=== PATIENT | female | born 1980 | race American Indian/Alaskan Native ===

== ENCOUNTER 2019-08-02 18:43 | Inpatient (IN) | payer OTHER ==
[2019-08-02] MEDS ORDERED: FAMOTIDINE 20 MG/2 ML INJ IV ONE (19:47)
[2019-08-02] MEDS ORDERED: ONDANSETRON 4 MG/2 ML INJ IV ONE (19:47)
[2019-08-02] MEDS ORDERED: SODIUM CHLORIDE 0.9% 1000 ML 1,000 ML IV ONE ×2 (19:47→20:58)
[2019-08-02] MEDS ORDERED: MORPHINE 4 MG/1 ML INJ IV ONE (19:48)
[2019-08-02 20:44] LABS: Hematocrit 45.6 % (30.3-42.9); Hemoglobin 14.8 gm/dl (10.1-14.3); Mean Corpuscular HGB Conc 32 % (30-34); Mean Corpuscular Volume 98 fl (79-97); Platelet Count 359 K/mm3 (140-440); Red Blood Count 4.65 M/mm3 (3.65-5.03); Red Cell Distribution Width 12.8 % (13.2-15.2)
[2019-08-02] MEDS ORDERED: DEXTROSE 50% IN WATER (25GM) 50 ML SYRINGE IV PRN (20:58)
--- NOTE | 2019-08-02 21:05 | Emergency Department Report ---
ED Abdominal Pain HPI - General Chief Complaint: Abdominal Pain Stated Complaint: N/V FOR 2 DAYS Time Seen by Provider: 08/02/19 19:40 Source: EMS Mode of arrival: Stretcher Limitations: No Limitations - History of Present Illness Initial Comments: 39-year-old female with past medical history of insulin-dependent diabetes and hysterectomy presents to the hospital complaining of abdominal pain, nausea, vomiting, and by mouth intolerance 2 days. Abdominal pain is generalized but greatest in the epigastric area. Patient states she has not had anything to eat or drink in 2 days. She complains of anterior sternal chest pain that is reproducible on palpation. Questionable insulin compliance. Severity scale (0 -10): 9 - Related Data Allergies Allergy/AdvReac Type Severity Reaction Status Date / Time No Known Allergies Allergy Unverified 08/02/19 19:30 ED Review of Systems ROS: Stated complaint: N/V FOR 2 DAYS Other details as noted in HPI Comment: All other systems reviewed and negative ED Past Medical Hx - Past Medical History Previous Medical History?: Yes Hx Diabetes: Yes - Surgical History Past Surgical History?: No - Social History Smoking Status: Unknown if ever smoked ED Physical Exam - General Limitations: No Limitations - Other Other exam information: General: Mild distress secondary to pain Head: Atraumatic Eyes: normal appearance ENT: 5 mucous membranes Neck: Normal appearance, no midline tenderness Chest: Clear to auscultation bilaterally,reproducible sternal chest wall tenderness CV: Mild tachycardia Abdomen: Soft, normal bowel sounds, epigastric tenderness, nondistended, no rebound or guarding Back: Normal inspection Extremity: Normal inspection infection, full range of motion Neuro: Alert O x 3, no facial asymmetry, speech clear, no gross motor sensory deficit Psych: Appropriate behavior Skin: No rash ED Course Vital Signs 08/02/19 08/02/19 08/02/19 19:20 19:28 19:30 Temperature 97.1 F L Pulse Rate 105 H 105 H Respiratory 26 H 20 20 Rate Blood Pressure 138/71 O2 Sat by Pulse 100 100 Oximetry 08/02/19 08/02/19 08/02/19 19:31 19:45 20:00 Temperature Pulse Rate 103 H 105 H 105 H Respiratory 24 22 32 H Rate Blood Pressure 124/87 124/87 124/87 O2 Sat by Pulse 99 99 99 Oximetry 08/02/19 08/02/19 08/02/19 20:15 20:31 20:45 Temperature Pulse Rate 94 H 95 H 96 H Respiratory 24 23 24 Rate Blood Pressure 135/81 103/64 103/64 O2 Sat by Pulse 97 100 100 Oximetry 08/02/19 21:00 Temperature Pulse Rate 96 H Respiratory 21 Rate Blood Pressure 128/84 O2 Sat by Pulse 99 Oximetry ED Medical Decision Making - Lab Data Result diagrams: 08/02/19 20:11 08/02/19 20:21 Lab Results 08/02/19 08/02/19 08/02/19 Range/Units 19:56 20:11 20:11 WBC 25.1 H (4.5-11.0) K/mm3 RBC 4.65 (3.65-5.03) M/mm3 Hgb 14.8 H (10.1-14.3) gm/dl Hct 45.6 H (30.3-42.9) % MCV 98 H (79-97) fl MCH 32 (28-32) pg MCHC 32 (30-34) % RDW 12.8 L (13.2-15.2) % Plt Count 359 (140-440) K/mm3 Add Manual Diff Complete Total Counted 100 Seg Neuts % (Manual) 83.0 H (40.0-70.0) % Band Neutrophils % 0 % Lymphocytes % (Manual) 10.0 L (13.4-35.0) % Reactive Lymphs % (Man) 0 % Monocytes % (Manual) 7.0 (0.0-7.3) % Eosinophils % (Manual) 0 (0.0-4.3) % Basophils % (Manual) 0 (0.0-1.8) % Metamyelocytes % 0 % Myelocytes % 0 % Promyelocytes % 0 % Blast Cells % 0 % Nucleated RBC % Not Reportable Seg Neutrophils # Man 20.8 H (1.8-7.7) K/mm3 Band Neutrophils # 0.0 K/mm3 Lymphocytes # (Manual) 2.5 (1.2-5.4) K/mm3 Abs React Lymphs (Man) 0.0 K/mm3 Monocytes # (Manual) 1.8 H (0.0-0.8) K/mm3 Eosinophils # (Manual) 0.0 (0.0-0.4) K/mm3 Basophils # (Manual) 0.0 (0.0-0.1) K/mm3 Metamyelocytes # 0.0 K/mm3 Myelocytes # 0.0 K/mm3 Promyelocytes # 0.0 K/mm3 Blast Cells # 0.0 K/mm3 WBC Morphology Not Reportable Hypersegmented Neuts Not Reportable Hyposegmented Neuts Not Reportable Hypogranular Neuts Not Reportable Smudge Cells Not Reportable Toxic Granulation Not Reportable Toxic Vacuolation Not Reportable Dohle Bodies Not Reportable Pelger-Huet Anomaly Not Reportable Avni Rods Not Reportable Platelet Estimate Not Reportable Clumped Platelets Not Reportable Plt Clumps, EDTA Not Reportable Large Platelets Not Reportable Giant Platelets Not Reportable Platelet Satelliting Not Reportable Plt Morphology Comment Not Reportable RBC Morphology Normal Dimorphic RBCs Not Reportable Polychromasia Not Reportable Hypochromasia Not Reportable Poikilocytosis Not Reportable Anisocytosis Not Reportable Microcytosis Not Reportable Macrocytosis Not Reportable Spherocytes Not Reportable Pappenheimer Bodies Not Reportable Sickle Cells Not Reportable Target Cells Not Reportable Tear Drop Cells Not Reportable Ovalocytes Not Reportable Helmet Cells Not Reportable Diaz-Central High Bodies Not Reportable Raymond Rings Not Reportable [place] Cells Not Reportable Bite Cells Not Reportable Crenated Cell Not Reportable Elliptocytes Not Reportable Acanthocytes (Spur) Not Reportable Rouleaux Not Reportable Hemoglobin C Crystals Not Reportable Schistocytes Not Reportable Malaria parasites Not Reportable Rivera Bodies Not Reportable Hem Pathologist Commnt No VBG pH (7.320-7.420) Sodium (137-145) mmol/L Potassium (3.6-5.0) mmol/L Chloride (98-107) mmol/L Carbon Dioxide (22-30) mmol/L Anion Gap mmol/L BUN (7-17) mg/dL Creatinine (0.7-1.2) mg/dL Estimated GFR ml/min BUN/Creatinine Ratio % Glucose (65-100) mg/dL POC Glucose 233 H (70-105) Calcium (8.4-10.2) mg/dL Total Bilirubin (0.1-1.2) mg/dL AST (5-40) units/L ALT (7-56) units/L Alkaline Phosphatase (35-129) units/L Troponin T (0.00-0.029) ng/mL Total Protein (6.3-8.2) g/dL Albumin (3.9-5) g/dL Albumin/Globulin Ratio % Lipase (13-60) units/L HCG, Qual Negative (Negative) Urine Color (Yellow) Urine Turbidity (Clear) Urine pH (5.0-7.0) Ur Specific [place] (1.003-1.030) Urine Protein (Negative) mg/dL Urine Glucose (UA) (Negative) mg/dL Urine Ketones (Negative) mg/dL Urine Blood (Negative) Urine Nitrite (Negative) Urine Bilirubin (Negative) Urine Urobilinogen (<2.0) mg/dL Ur Leukocyte Esterase (Negative) Urine WBC (Auto) (0.0-6.0) /HPF Urine RBC (Auto) (0.0-6.0) /HPF U Epithel Cells (Auto) (0-13.0) /HPF Urine Mucus /HPF Urine Yeast (Budding) /HPF 08/02/19 08/02/19 08/02/19 Range/Units 20:11 20:21 20:22 WBC (4.5-11.0) K/mm3 RBC (3.65-5.03) M/mm3 Hgb (10.1-14.3) gm/dl Hct (30.3-42.9) % MCV (79-97) fl MCH (28-32) pg MCHC (30-34) % RDW (13.2-15.2) % Plt Count (140-440) K/mm3 Add Manual Diff Total Counted Seg Neuts % (Manual) (40.0-70.0) % Band Neutrophils % % Lymphocytes % (Manual) (13.4-35.0) % Reactive Lymphs % (Man) % Monocytes % (Manual) (0.0-7.3) % Eosinophils % (Manual) (0.0-4.3) % Basophils % (Manual) (0.0-1.8) % Metamyelocytes % % Myelocytes % % Promyelocytes % % Blast Cells % % Nucleated RBC % Seg Neutrophils # Man (1.8-7.7) K/mm3 Band Neutrophils # K/mm3 Lymphocytes # (Manual) (1.2-5.4) K/mm3 Abs React Lymphs (Man) K/mm3 Monocytes # (Manual) (0.0-0.8) K/mm3 Eosinophils # (Manual) (0.0-0.4) K/mm3 Basophils # (Manual) (0.0-0.1) K/mm3 Metamyelocytes # K/mm3 Myelocytes # K/mm3 Promyelocytes # K/mm3 Blast Cells # K/mm3 WBC Morphology Hypersegmented Neuts Hyposegmented Neuts Hypogranular Neuts Smudge Cells Toxic Granulation Toxic Vacuolation Dohle Bodies Pelger-Huet Anomaly Avni Rods Platelet Estimate Clumped Platelets Plt Clumps, EDTA Large Platelets Giant Platelets Platelet Satelliting Plt Morphology Comment RBC Morphology Dimorphic RBCs Polychromasia Hypochromasia Poikilocytosis Anisocytosis Microcytosis Macrocytosis Spherocytes Pappenheimer Bodies Sickle Cells Target Cells Tear Drop Cells Ovalocytes Helmet Cells Diaz-Central High Bodies Raymond Rings [place] Cells Bite Cells Crenated Cell Elliptocytes Acanthocytes (Spur) Rouleaux Hemoglobin C Crystals Schistocytes Malaria parasites Rivera Bodies Hem Pathologist Commnt VBG pH 6.877 L* (7.320-7.420) Sodium 133 L (137-145) mmol/L Potassium 4.2 (3.6-5.0) mmol/L Chloride 103.9 (98-107) mmol/L Carbon Dioxide 13 L (22-30) mmol/L Anion Gap 20 mmol/L BUN 15 (7-17) mg/dL Creatinine 0.7 (0.7-1.2) mg/dL Estimated GFR > 60 ml/min BUN/Creatinine Ratio 21 % Glucose 306 H (65-100) mg/dL POC Glucose (70-105) Calcium 7.7 L (8.4-10.2) mg/dL Total Bilirubin 0.30 (0.1-1.2) mg/dL AST 14 (5-40) units/L ALT 14 (7-56) units/L Alkaline Phosphatase 89 (35-129) units/L Troponin T < 0.010 (0.00-0.029) ng/mL Total Protein 7.1 (6.3-8.2) g/dL Albumin 4.2 (3.9-5) g/dL Albumin/Globulin Ratio 1.4 % Lipase (13-60) units/L HCG, Qual (Negative) Urine Color (Yellow) Urine Turbidity (Clear) Urine pH (5.0-7.0) Ur Specific [place] (1.003-1.030) Urine Protein (Negative) mg/dL Urine Glucose (UA) (Negative) mg/dL Urine Ketones (Negative) mg/dL Urine Blood (Negative) Urine Nitrite (Negative) Urine Bilirubin (Negative) Urine Urobilinogen (<2.0) mg/dL Ur Leukocyte Esterase (Negative) Urine WBC (Auto) (0.0-6.0) /HPF Urine RBC (Auto) (0.0-6.0) /HPF U Epithel Cells (Auto) (0-13.0) /HPF Urine Mucus /HPF Urine Yeast (Budding) /HPF 08/02/19 08/02/19 08/02/19 Range/Units 20:23 21:53 21:54 WBC (4.5-11.0) K/mm3 RBC (3.65-5.03) M/mm3 Hgb (10.1-14.3) gm/dl Hct (30.3-42.9) % MCV (79-97) fl MCH (28-32) pg MCHC (30-34) % RDW (13.2-15.2) % Plt Count (140-440) K/mm3 Add Manual Diff Total Counted Seg Neuts % (Manual) (40.0-70.0) % Band Neutrophils % % Lymphocytes % (Manual) (13.4-35.0) % Reactive Lymphs % (Man) % Monocytes % (Manual) (0.0-7.3) % Eosinophils % (Manual) (0.0-4.3) % Basophils % (Manual) (0.0-1.8) % Metamyelocytes % % Myelocytes % % Promyelocytes % % Blast Cells % % Nucleated RBC % Seg Neutrophils # Man (1.8-7.7) K/mm3 Band Neutrophils # K/mm3 Lymphocytes # (Manual) (1.2-5.4) K/mm3 Abs React Lymphs (Man) K/mm3 Monocytes # (Manual) (0.0-0.8) K/mm3 Eosinophils # (Manual) (0.0-0.4) K/mm3 Basophils # (Manual) (0.0-0.1) K/mm3 Metamyelocytes # K/mm3 Myelocytes # K/mm3 Promyelocytes # K/mm3 Blast Cells # K/mm3 WBC Morphology Hypersegmented Neuts Hyposegmented Neuts Hypogranular Neuts Smudge Cells Toxic Granulation Toxic Vacuolation Dohle Bodies Pelger-Huet Anomaly Avni Rods Platelet Estimate Clumped Platelets Plt Clumps, EDTA Large Platelets Giant Platelets Platelet Satelliting Plt Morphology Comment RBC Morphology Dimorphic RBCs Polychromasia Hypochromasia Poikilocytosis Anisocytosis Microcytosis Macrocytosis Spherocytes Pappenheimer Bodies Sickle Cells Target Cells Tear Drop Cells Ovalocytes Helmet Cells Diaz-Central High Bodies Raymond Rings [place] Cells Bite Cells Crenated Cell Elliptocytes Acanthocytes (Spur) Rouleaux Hemoglobin C Crystals Schistocytes Malaria parasites Rivera Bodies Hem Pathologist Commnt VBG pH (7.320-7.420) Sodium (137-145) mmol/L Potassium (3.6-5.0) mmol/L Chloride (98-107) mmol/L Carbon Dioxide (22-30) mmol/L Anion Gap mmol/L BUN (7-17) mg/dL Creatinine (0.7-1.2) mg/dL Estimated GFR ml/min BUN/Creatinine Ratio % Glucose (65-100) mg/dL POC Glucose 237 H (70-105) Calcium (8.4-10.2) mg/dL Total Bilirubin (0.1-1.2) mg/dL AST (5-40) units/L ALT (7-56) units/L Alkaline Phosphatase (35-129) units/L Troponin T (0.00-0.029) ng/mL Total Protein (6.3-8.2) g/dL Albumin (3.9-5) g/dL Albumin/Globulin Ratio % Lipase 10 L (13-60) units/L HCG, Qual (Negative) Urine Color Straw (Yellow) Urine Turbidity Clear (Clear) Urine pH 5.0 (5.0-7.0) Ur Specific [place] 1.020 (1.003-1.030) Urine Protein 100 mg/dl (Negative) mg/dL Urine Glucose (UA) >=500 (Negative) mg/dL Urine Ketones 80 (Negative) mg/dL Urine Blood Sm (Negative) Urine Nitrite Neg (Negative) Urine Bilirubin Neg (Negative) Urine Urobilinogen < 2.0 (<2.0) mg/dL Ur Leukocyte Esterase Neg (Negative) Urine WBC (Auto) 1.0 (0.0-6.0) /HPF Urine RBC (Auto) 2.0 (0.0-6.0) /HPF U Epithel Cells (Auto) 2.0 (0-13.0) /HPF Urine Mucus Few /HPF Urine Yeast (Budding) Few /HPF - EKG Data -: EKG Interpreted by Me EKG shows normal: sinus rhythm (93), axis, ST-T waves (no stemi) Rate: normal (93) - Radiology Data Radiology results: report reviewed (ct a/p IV contrast: naf, distended urinary bladder) - Medical Decision Making Patient presents to the hospital with DKA. CT without acute findings. Chest x- ray pending Patient treated with normal saline, morphine, Zofran, Pepcid, and insulin drip ordered. hospitalist informed for admission. - Differential Diagnosis DKA, pancreatitis, gastroenteritis, GERD, costochondritis, [place] Critical Care Time: No Critical care attestation.: If time is entered above; I have spent that time in minutes in the direct care of this critically ill patient, excluding procedure time. ED Disposition Clinical Impression: DKA (diabetic ketoacidoses), Chest wall pain, Nausea & vomiting Disposition: DC-09 OP ADMIT IP TO THIS HOSP Is pt being admited?: Yes Condition: Stable Time of Disposition: 22:38 (Dr Cabrera/hosp)
[2019-08-02 21:09] LABS: Alanine Aminotransferase 14 units/L (7-56); Albumin 4.2 g/dL (3.9-5); BUN/Creatinine Ratio 21; Blood Urea Nitrogen 15 mg/dL (7-17); Calcium 7.7 mg/dL (8.4-10.2); Hemolysis Index 9
[2019-08-02] MEDS ORDERED: INSULIN REGULAR, HUMAN 100 UNITS in SODIUM CHLORIDE 0.9% 99 ML IV SCH (21:30)
[2019-08-02 22:03] LABS: Basophils % (Manual) 0 % (0.0-1.8); Eosinophils % (Manual) 0 % (0.0-4.3); RBC Morphology Normal; Total Cells Counted 100
--- NOTE | 2019-08-02 22:11 | Cat Scan Report ---
CT ABDOMEN AND PELVIS WITHOUT CONTRAST INDICATION: Upper abdominal pain with nausea and vomiting. Pelvic pain as well. COMPARISON: No relevant prior imaging study available. TECHNIQUE: Axial, coronal and sagittal CT imaging of the abdomen and pelvis was performed without co ntrast. Lack of intravenous contrast limits evaluation of the vascular and solid organs. All CT sca ns at this location are performed using CT dose reduction for ALARA by means of automated exposure co ntrol. FINDINGS: Motion artifact limits this exam. LOWER CHEST: No significant abnormality. LIVER: No significant abnormality. BILIARY: No significant abnormality. PANCREAS: No significant abnormality. SPLEEN: No significant abnormality. ADRENALS: No significant abnormality. KIDNEYS AND URETERS: No significant abnormality. GI TRACT: No significant abnormality of the stomach, small bowel or colon. Unremarkable appendix. PERITONEUM: No free fluid. No free air. No fluid collection. LYMPH NODES: No significant adenopathy. VASCULATURE: No significant abnormality. URINARY BLADDER: Markedly distended without an additional significant abnormality. REPRODUCTIVE ORGANS: Prior hysterectomy. No significant abnormality. ADDITIONAL FINDINGS: None. SKELETAL SYSTEM: No significant abnormality. IMPRESSION: 1. No acute abnormality of the abdomen or pelvis. 2. Nonspecific urinary bladder distention without an additional significant abnormality of the bladde r. Signer Name: Festus Goyal MD Signed: 08/02/2019 10:06 PM Workstation Name: [id number]
[2019-08-02] MEDS: D5W/0.45% NACL/KCL 20 MEQ 20 MEQ/1,000 ML BAG IV SCH (22:12)
[2019-08-02 22:18] LABS: Bilirubin,Urine NEG (Negative); Blood,Urine SM (Negative); Color,Urine Straw (Yellow); Mucus,Urine FEW /HPF; Urobilinogen,Urine < 2.0 mg/dL (<2.0)
--- NOTE | 2019-08-02 23:01 | XRay Report ---
CHEST 1 VIEW 08/02/2019 10:04 PM INDICATION / CLINICAL INFORMATION: anterior chest pain. COMPARISON: None available. FINDINGS: SUPPORT DEVICES: None. HEART / MEDIASTINUM: No significant abnormality. LUNGS / PLEURA: No significant pulmonary or pleural abnormality. No pneumothorax. ADDITIONAL FINDINGS: No significant additional findings. IMPRESSION: No acute abnormality of the chest. Signer Name: Festus Goyal MD Signed: 08/02/2019 10:56 PM Workstation Name: [id number]
[2019-08-02] MEDS ORDERED: ACETAMINOPHEN 650 MG RECT SUPP PR PRN (23:14)
[2019-08-02] MEDS ORDERED: SODIUM CHLORIDE 0.9% 1000 ML 1,000 ML IV SCH (23:45)
[2019-08-02 23:57] LABS: BUN/Creatinine Ratio 28; Blood Urea Nitrogen 17 mg/dL (7-17); Calcium 7.3 mg/dL (8.4-10.2); Hemolysis Index 23
[2019-08-03 01:25] LABS: BUN/Creatinine Ratio 27; Blood Urea Nitrogen 16 mg/dL (7-17); Calcium 7.1 mg/dL (8.4-10.2); Hemolysis Index 27
[2019-08-03] MEDS ORDERED: SODIUM BICARBONATE 150 MEQ in DEXTROSE 5% IN WATER 1,000 ML IV SCH (02:00)
[2019-08-03] MEDS ORDERED: SODIUM BICARBONATE 150 MEQ in SODIUM CHLORIDE 0.45% 1000 ML 1,000 ML IV SCH (02:00)
[2019-08-03 05:04] LABS: BUN/Creatinine Ratio 21; Blood Urea Nitrogen 15 mg/dL (7-17); Calcium 7.3 mg/dL (8.4-10.2); Hemolysis Index 129
[2019-08-03] MEDS ORDERED: CALCIUM GLUCONATE 1,000 MG in SODIUM CHLORIDE 0.9% 100 ML IV ONE (05:48)
[2019-08-03 06:27] LABS: Creatine Kinase MB 3.6 ng/mL (0.0-4.0)
[2019-08-03] MEDS: D5W/0.45% NACL/KCL 20 MEQ 20 MEQ/1,000 ML BAG IV SCH ×2 (06:35→14:46)
--- NOTE | 2019-08-03 08:43 | History and Physical Report ---
CHIEF COMPLAINT: Abdominal pain. OTHER COMPLAINT: Includes nausea and vomiting. HISTORY OF PRESENTING ILLNESS: The patient is a 39-year-old female who presented with nausea, vomiting and abdominal pain going on for 2 days. The patient did not give any history of missing out on her insulin shots. There was no history of fever and no history of chills; however, the patient complained of reproducible chest pain. There is no history of cough; however, the patient gives history of weakness and said that she has not been able to eat or drink anything in 2 days. PAST MEDICAL HISTORY: Pertinent for diabetes mellitus. PAST SURGICAL HISTORY: Unremarkable. FAMILY HISTORY: Noncontributory. SOCIAL HISTORY: The patient does not smoke, does not drink alcohol and does not use illicit drugs. MEDICATIONS: The patient's medications are not clearly defined; however, the patient says she is on insulin. ALLERGIES: There are no known drug allergies. REVIEW OF SYSTEMS: CONSTITUTIONAL: There is no fever, no chills, no diaphoresis. HEENT: There is no headache or sore throat. CARDIOVASCULAR SYSTEM: There is chest pain, but no orthopnea. RESPIRATORY SYSTEM: There is no shortness of breath or cough. GASTROINTESTINAL SYSTEM: Nausea and vomiting present. Abdominal pain present. There is no diarrhea or constipation. NEUROLOGICAL SYSTEM: Generalized weakness present. No numbness. Dizziness present. No altered mental status. MUSCULOSKELETAL SYSTEM: There is no joint pain or swelling. DERMATOLOGICAL SYSTEM: There is no skin rash or itching. GENITOURINARY SYSTEM: There is no dysuria, hematuria or flank pain. Rest of system review is normal. PHYSICAL EXAMINATION: GENERAL: At the time of exam, the patient was found to be alert, oriented x3 and looking weak, but not in acute distress. VITAL SIGNS: At the initial time of presentation showed temperature of 97.1 degrees Fahrenheit, pulse of 105, respirations 26, blood pressure 138/71, O2 sat of 100% on room air. HEENT: Showed pupils to be equal, round, reactive to light and accommodating. The patient's oral mucosa looks dry. NECK: Supple with no JVD or carotid bruit. CARDIOVASCULAR SYSTEM: Showed normal first and second heart sounds, with no gallops or murmurs. RESPIRATORY SYSTEM: Showed good air entry on both sides of the lungs, with no abnormal breath sounds. GASTROINTESTINAL SYSTEM: Showed abdomen to be full, soft, nontender, with no organomegaly or rigidity. NEUROLOGIC: Shows no focal deficit. MUSCULOSKELETAL SYSTEM: Showed no joint swelling or tenderness. DERMATOLOGICAL SYSTEM: Showing no skin rash. GENITOURINARY SYSTEM: Showing no costovertebral angle tenderness. PERTINENT LABORATORY AND IMAGING STUDIES: The patient had CT of the abdomen and pelvis without contrast done that shows no acute abnormality of the abdomen or pelvis. There is finding of nonspecific urinary bladder distention without an additional significant abnormality of the bladder, according to the radiologist. Also, the patient had chest x-ray done that shows no acute abnormality. The patient's lab result shows CBC with elevated white count of 25,100, high hemoglobin of 14.8 and high hematocrit of 47.6 with elevated MCV of 98, and CBC differential showing a high segmented neutrophil count of 83%. The patient's venous blood gas is low with a value of 6.87. The patient's chemistry showed low sodium level of 135 with elevated potassium level of 5.5 and high chloride level of 108.2 with low CO2 of 2 and with anion gap of 25. The patient's glucose level was high with a value of 307. The patient's calcium level was low with a value of 7.3. Also, the patient's lipase level was low with a value of 10. test came back negative. DIAGNOSES: 1. Diabetic ketoacidosis. 2. Hypocalcemia. 3. Leukocytosis. PLAN OF CARE: 1. The patient will be admitted to ICU. 2. The patient will continue IV normal saline after the boluses and this will run at 200 mL an hour until blood sugar is less than 250 mg/dL, and the patient's fluid will be changed from normal saline to D5 half normal with supplemental potassium of 20 mEq in 1 liter of fluid and this will run at 125 mL an hour. 3. The patient will have Accu-Chek every hour and basic metabolic panel checked every 2 hours and 8 hours per DKA protocol. 4. The patient will continue IV insulin drip per DKA protocol and will have critical care consult with Dr. chen because of ICU admission requiring insulin drip. 5. The patient will have serial cardiac enzymes involving troponin, total CK and CK-MB checked q. 6 hours x2 because of history of chest pain. 6. The patient will remain n.p.o. and will have Tylenol 650 mg rectally every 4 hours for fever and headache. 7. The patient will be on subcutaneous heparin 5000 units q. 12 hours for DVT prophylaxis and will be on IV morphine 2 mg every 4 hours as needed for pain. 8. The patient will be on IV Zofran 4 mg every 8 hours as needed for nausea and vomiting. 9. The patient will be on IV bicarbonate drip running at 100 mL an hour because of very low CO2. 10. The patient will have CBC checked this morning. 11. The patient will remain n.p.o. until DKA is corrected and the patient switched over to sliding scale, and then, the patient can feed on consistent carbohydrate 2-g sodium diet. JOB# [id number] [facility]
[2019-08-03 09:32] LABS: Hematocrit 41.2 % (30.3-42.9); Mean Corpuscular HGB Conc 34 % (30-34); Mean Corpuscular Volume 93 fl (79-97); Platelet Count 286 K/mm3 (140-440); Red Blood Count 4.45 M/mm3 (3.65-5.03); Red Cell Distribution Width 12.3 % (13.2-15.2)
[2019-08-03] MEDS: HEPARIN 5,000 UNIT/1 ML VIAL SUB-Q SCH ×2 (09:43→22:23)
--- NOTE | 2019-08-03 09:45 | Consultation ---
History of Present Illness Consult date: 08/03/19 Requesting physician: MARCUS PEREZ Reason for consult: other (DKA) History of present illness: 39-year-old female with past medical history of insulin-dependent diabetes and hysterectomy presents to the hospital complaining of abdominal pain, nausea, vomiting, and by mouth intolerance 2 days. Abdominal pain is generalized but greatest in the epigastric area. Patient states she has not had anything to eat or drink in 2 days. She complains of anterior sternal chest pain that is reproducible on palpation. She has been complaint with her medications, and she states her compliance has been so poor that she had new medications added to her therapy Patient was seen and examined. Vitals, labs,medications, chart were reviewed - Past Medical History Previous Medical History?: Yes Hx Diabetes: Yes - Surgical History Past Surgical History?: No - Social History Smoking Status: Unknown if ever smoked Medications and Allergies Allergies Allergy/AdvReac Type Severity Reaction Status Date / Time peach Allergy Hives Verified 08/05/19 09:15 Home Medications Medication Instructions Recorded Confirmed Last Taken Type Empagliflozin [Jardiance] 25 mg PO DAILY 08/03/19 08/05/19 08/01/19 07:30 History Insulin Lispro [Humalog Kwikpen 18 units SQ TID 08/03/19 08/05/19 08/05/19 09:12 History 200 UNITS/ML] Ozempic 0.25 mg SQ 1XW 08/05/19 08/05/19 07/31/19 History Active Meds: Active Medications Acetaminophen (Tylenol) 650 mg MA Q4H PRN PRN Reason: Pain, Mild (1-3) Dextrose (D50w (25gm) Syringe) 0 ml IV ONCE PRN PRN Reason: Hypoglycemia Heparin Sodium (Porcine) (Heparin) 5,000 unit SUB-Q Q12HR ANTONIO Last Admin: 08/03/19 09:43 Dose: 5,000 unit Documented by: Insulin Human Regular 100 (units/ Sodium Chloride) 100 mls @ 1 mls/hr IV TITR ANTONIO; Protocol Last Titration: 08/03/19 06:23 Dose: 1.5 units/hr, 1.5 mls/hr Documented by: Potassium Chloride/Dextrose/Sod Cl (D5w/0.45% Nacl/Kcl 20 Meq) 20 meq in 1,000 mls @ 125 mls/hr IV DIRECT ANTONIO Last Admin: 08/03/19 06:35 Dose: 125 mls/hr Documented by: Sodium Bicarbonate 150 meq/ (Sodium Chloride) 1,150 mls @ 100 mls/hr IV DIRECT ANTONIO Last Admin: 08/03/19 02:06 Dose: 100 mls/hr Documented by: Morphine Sulfate (Morphine) 2 mg IV Q4H PRN PRN Reason: Pain, Moderate (4-6) Ondansetron HCl (Zofran) 4 mg IV Q8H PRN PRN Reason: Nausea And Vomiting Review of Systems Constitutional: weight loss, weight gain, fever, chills Cardiovascular: chest pain, no orthopnea, no palpitations, no rapid/irregular heart beat, no syncope, no lightheadedness, no shortness of breath Respiratory: no cough, no excessive sputum, no hemoptysis, no dyspnea on exertion Gastrointestinal: abdominal pain, nausea, vomiting, no diarrhea, no change in bowel habits Genitourinary Female: no flank pain, no menorrhagia, no urinary frequency, no urgency, no hematuria Neurological: no paralysis, no weakness, no parathesias, no seizures, no syncope, no tremors, no ataxia Psychiatric: no anxiety, no insomnia, no hypersomnia Physical Examination Vital signs: Vital Signs Pulse Resp Pulse Ox 105 H 26 H 100 08/02/19 19:20 08/02/19 19:20 08/02/19 19:20 Reviewed. General: Mild distress secondary to pain, tachypnic Head: Atraumatic Eyes: normal appearance ENT: 5 mucous membranes Neck: Normal appearance, no midline tenderness Chest: Clear to auscultation bilaterally,reproducible sternal chest wall tenderness CV: Mild tachycardia Abdomen: Soft, normal bowel sounds, epigastric tenderness, nondistended, no rebound or guarding Back: Normal inspection Extremity: Normal inspection infection, full range of motion Neuro: Alert O x 3, no facial asymmetry, speech clear, no gross motor sensory deficit Psych: Appropriate behavior Skin: No rash Results - Laboratory Findings CBC and BMP: 08/05/19 04:46 08/05/19 04:46 Abnormal lab findings: Abnormal Labs 08/02/19 08/02/19 08/02/19 19:56 20:11 20:21 WBC 25.1 H Hgb 14.8 H Hct 45.6 H MCV 98 H RDW 12.8 L Seg Neuts % (Manual) 83.0 H Lymphocytes % (Manual) 10.0 L Seg Neutrophils # Man 20.8 H Monocytes # (Manual) 1.8 H VBG pH Sodium 133 L Potassium Chloride Carbon Dioxide 13 L Creatinine Glucose 306 H POC Glucose 233 H Calcium 7.7 L Lipase 08/02/19 08/02/19 08/02/19 20:22 20:23 21:54 WBC Hgb Hct MCV RDW Seg Neuts % (Manual) Lymphocytes % (Manual) Seg Neutrophils # Man Monocytes # (Manual) VBG pH 6.877 L* Sodium Potassium Chloride Carbon Dioxide Creatinine Glucose POC Glucose 237 H Calcium Lipase 10 L 08/02/19 08/02/19 08/02/19 23:02 23:12 23:57 WBC Hgb Hct MCV RDW Seg Neuts % (Manual) Lymphocytes % (Manual) Seg Neutrophils # Man Monocytes # (Manual) VBG pH Sodium 135 L Potassium 5.5 H D Chloride 108.2 H Carbon Dioxide 2 L* D Creatinine 0.6 L Glucose 307 H POC Glucose 244 H 255 H Calcium 7.3 L Lipase 08/03/19 08/03/19 08/03/19 00:34 01:04 02:17 WBC Hgb Hct MCV RDW Seg Neuts % (Manual) Lymphocytes % (Manual) Seg Neutrophils # Man Monocytes # (Manual) VBG pH Sodium 135 L Potassium Chloride 108.9 H Carbon Dioxide < 2.0 L* Creatinine 0.6 L Glucose 262 H POC Glucose 245 H 210 H Calcium 7.1 L Lipase 08/03/19 08/03/19 08/03/19 03:12 04:15 04:16 WBC Hgb Hct MCV RDW Seg Neuts % (Manual) Lymphocytes % (Manual) Seg Neutrophils # Man Monocytes # (Manual) VBG pH Sodium Potassium Chloride 113.9 H Carbon Dioxide 4 L* Creatinine Glucose 110 H POC Glucose 190 H 168 H Calcium 7.3 L Lipase 08/03/19 08/03/19 08/03/19 05:21 06:29 07:52 WBC Hgb Hct MCV RDW Seg Neuts % (Manual) Lymphocytes % (Manual) Seg Neutrophils # Man Monocytes # (Manual) VBG pH Sodium Potassium Chloride Carbon Dioxide Creatinine Glucose POC Glucose 113 H 108 H 108 H Calcium Lipase 08/03/19 08/03/19 08:43 09:50 WBC Hgb Hct MCV RDW Seg Neuts % (Manual) Lymphocytes % (Manual) Seg Neutrophils # Man Monocytes # (Manual) VBG pH Sodium Potassium Chloride Carbon Dioxide Creatinine Glucose POC Glucose 108 H 128 H Calcium Lipase Assessment and Plan DKA (diabetic ketoacidoses) Hypokalemia Severe Metabolic acidosis Leucocytosis -Continue with ICU admission -DKA management per protocol -VTE prophylaxis - Get ABG now to better evaluate acid-base balance -Volume resuscitation -Serial BMPs, Monitor closely. Further management decisions based on ABG results .... care plan discussed with patient and mother in room The high probability of a clinically significant, sudden or life-threatening deterioration of the [ endocrine] system(s) required my full and direct attention, intervention and personal management. The aggregate critical care time was [30] minutes without overlap. Time includes spent on; [x] Data Review and interpretation [x] Patient assessment and monitoring of vital signs [x] Documentation [x] Medication orders and management
[2019-08-03 09:52] LABS: BUN/Creatinine Ratio 18; Blood Urea Nitrogen 11 mg/dL (7-17); Calcium 7.7 mg/dL (8.4-10.2); Hemolysis Index 3
[2019-08-03] MEDS ORDERED: SODIUM CHLORIDE 0.9% 1000 ML 1,000 ML IV SCH (11:00)
[2019-08-03 12:02] LABS: Basophils % (Manual) 0 % (0.0-1.8); Eosinophils % (Manual) 0 % (0.0-4.3); Total Cells Counted 100
[2019-08-03 12:03] LABS: Platelet Estimate Consistent w Auto; RBC Morphology Normal
[2019-08-03 15:26] LABS: Creatine Kinase MB 4.8 ng/mL (0.0-4.0)
[2019-08-03 15:36] LABS: BUN/Creatinine Ratio 18; Blood Urea Nitrogen 9 mg/dL (7-17); Calcium 7.6 mg/dL (8.4-10.2); Hemolysis Index 8
[2019-08-03] MEDS: ONDANSETRON 4 MG/2 ML INJ IV PRN (17:12)
[2019-08-03] MEDS ORDERED: cefTRIAXone/NS 2 GM/100 ML 2 GM/100 ML BAG IV SCH (18:00)
[2019-08-03] MEDS: MORPHINE 2 MG/1 ML INJ IV PRN (19:05)
[2019-08-03] MEDS: POTASSIUM CHLORIDE 10 MEQ 10 MEQ/100 ML BAG IV SCH ×2 (20:30→22:23)
[2019-08-03 21:28] LABS: BUN/Creatinine Ratio 18; Blood Urea Nitrogen 9 mg/dL (7-17); Calcium 7.5 mg/dL (8.4-10.2); Hemolysis Index 37
[2019-08-03] MEDS: DEXTROSE 50% IN WATER (25GM) 50 ML SYRINGE IV PRN ×2 (21:30→23:03)
[2019-08-03] MEDS: INSULIN LISPRO 100 UNIT/ML SUB-Q SCH (22:23)
[2019-08-03 23:59] LABS: Alanine Aminotransferase 14 units/L (7-56); Albumin 3.5 g/dL (3.9-5); BUN/Creatinine Ratio 8; Blood Urea Nitrogen 5 mg/dL (7-17); Calcium 7.7 mg/dL (8.4-10.2); Hemolysis Index 6
[2019-08-04] MEDS ORDERED: POTASSIUM CHLORIDE ER 20 MEQ TAB PO ONE (01:21)
[2019-08-04] MEDS ORDERED: SODIUM CHLORIDE 0.9% 1000 ML 1,000 ML IV SCH (02:00)
[2019-08-04 02:18] LABS: ABG Base Excess -20.8 mmol/L (-2.0-3.0); ABG HCO3 4.4 mmol/L (20.0-26.0); ABG Methemoglobin 0.7 % (0.0-1.5); ABG PCO2 11.7 mm Hg; ABG PO2 122.5 mm Hg (80.0-90.0)
[2019-08-04 02:30] LABS: ABG PH 7.198 pH Units (7.350-7.450)
[2019-08-04] MEDS ORDERED: SODIUM CHLORIDE 0.9% 1000 ML 1,000 ML IV ONE (02:52)
[2019-08-04] MEDS: MORPHINE 2 MG/1 ML INJ IV PRN ×3 (04:26→21:28)
[2019-08-04 05:16] LABS: Hematocrit 41.4 % (30.3-42.9); Hemoglobin 14.1 gm/dl (10.1-14.3); Mean Corpuscular HGB Conc 34 % (30-34); Mean Corpuscular Volume 94 fl (79-97); Platelet Count 272 K/mm3 (140-440); Red Blood Count 4.41 M/mm3 (3.65-5.03); Red Cell Distribution Width 12.4 % (13.2-15.2)
[2019-08-04 05:30] LABS: BUN/Creatinine Ratio 8; Blood Urea Nitrogen 4 mg/dL (7-17); Calcium 7.6 mg/dL (8.4-10.2); Hemolysis Index 10
[2019-08-04] MEDS ORDERED: SODIUM BICARB 8.4% 50 MEQ/50 ML SYRINGE IV ONE (05:58)
[2019-08-04] MEDS ORDERED: NITROGLYCERIN 0.4 MG TAB SUBL SL PRN (06:17)
[2019-08-04] MEDS: ONDANSETRON 4 MG/2 ML INJ IV PRN (06:38)
[2019-08-04] MEDS ORDERED: ALUM-MAG HYDROXIDE-SIMETHICONE 200-200-20MG/5ML ORAL LIQD 30 ML PO ONE (06:43)
[2019-08-04 06:49] LABS: VBG PO2 51.9 (25.0-47.0); VEN PH 7.273 (7.320-7.420)
--- NOTE | 2019-08-04 06:54 | Progress Note ---
Assessment and Plan - Patient Problems (1) DKA (diabetic ketoacidoses) Current Visit: Yes Status: Acute Qualifiers: Diabetes mellitus type: type 1 Diabetes mellitus complication detail: without coma Qualified Code(s): E10.10 - Type 1 diabetes mellitus with ketoacidosis without coma Plan to address problem: DKA protocol Noncompliance--Counselled IV Insulin and IV fluids (2) Hypokalemia Current Visit: Yes Status: Acute Plan to address problem: Supplemented (3) Metabolic acidosis Current Visit: Yes Status: Acute Plan to address problem: Anion gap improving (4) DVT prophylaxis Current Visit: Yes Status: Acute Plan to address problem: On Lovenox and GI prophylaxis Subjective Date of service: 08/03/19 Principal diagnosis: DKA Interval history: 39-year-old female with past medical history of insulin-dependent diabetes and hysterectomy presents to the hospital complaining of abdominal pain, nausea, vomiting, and by mouth intolerance 2 days. Abdominal pain is generalized but greatest in the epigastric area. Patient states she has not had anything to eat or drink in 2 days. She complains of anterior sternal chest pain that is reproducible on palpation. Questionable insulin compliance. BG levels are better today. Less nausea Objective - Constitutional Vitals: Vital Signs - 12hr 08/03/19 08/03/19 08/03/19 19:00 19:05 19:07 Temperature Pulse Rate 108 H 110 H Pulse Rate [ From Monitor] Respiratory 21 20 18 Rate Blood Pressure 124/74 124/74 O2 Sat by Pulse 99 100 Oximetry 08/03/19 08/03/19 08/03/19 19:31 20:00 20:31 Temperature 98.9 F Pulse Rate 107 H 106 H 107 H Pulse Rate [ 111 H From Monitor] Respiratory 18 24 19 Rate Blood Pressure 119/76 120/78 120/78 O2 Sat by Pulse 99 100 95 Oximetry 08/03/19 08/03/19 08/03/19 21:00 21:31 22:00 Temperature Pulse Rate 107 H 114 H 112 H Pulse Rate [ From Monitor] Respiratory 15 14 17 Rate Blood Pressure 102/68 102/68 102/68 O2 Sat by Pulse 100 100 100 Oximetry 08/03/19 08/03/19 08/03/19 22:30 23:00 23:30 Temperature Pulse Rate 113 H 115 H 117 H Pulse Rate [ From Monitor] Respiratory 19 22 20 Rate Blood Pressure 112/64 114/68 114/68 O2 Sat by Pulse 100 100 100 Oximetry 08/04/19 08/04/19 08/04/19 00:00 00:30 01:00 Temperature 98.8 F Pulse Rate 116 H 112 H 113 H Pulse Rate [ 114 H From Monitor] Respiratory 22 19 20 Rate Blood Pressure 104/63 104/63 123/77 O2 Sat by Pulse 100 100 100 Oximetry 08/04/19 08/04/19 08/04/19 01:30 02:00 02:30 Temperature Pulse Rate 114 H 123 H 130 H Pulse Rate [ From Monitor] Respiratory 20 24 27 H Rate Blood Pressure 123/77 131/84 131/84 O2 Sat by Pulse 100 100 88 Oximetry 08/04/19 08/04/19 08/04/19 03:00 03:30 04:00 Temperature Pulse Rate 116 H 122 H 117 H Pulse Rate [ 115 H From Monitor] Respiratory 24 23 24 Rate Blood Pressure 109/69 109/69 125/80 O2 Sat by Pulse 100 100 100 Oximetry 08/04/19 04:17 Temperature 98.2 F Pulse Rate Pulse Rate [ From Monitor] Respiratory Rate Blood Pressure O2 Sat by Pulse Oximetry General appearance: Present: no acute distress, well-nourished - EENT Eyes: PERRL, EOM intact ENT: hearing intact, clear oral mucosa Ears: bilateral: normal - Neck Neck: supple, normal ROM - Respiratory Respiratory effort: normal Respiratory: bilateral: CTA - Breasts Breasts: normal - Cardiovascular Heart rate: 98 Rhythm: regular Heart Sounds: Present: S1 & S2. Absent: gallop, rub Extremities: no ischemia, pulses intact, No edema, normal color, Full ROM - Gastrointestinal General gastrointestinal: Present: soft, non-tender, non-distended, normal bowel sounds - Genitourinary Female genitourinary: deferred, normal - Integumentary Integumentary: clear, warm, dry - Musculoskeletal Musculoskeletal: 1, strength equal bilaterally - Neurologic Neurologic: moves all extremities - Psychiatric Psychiatric: memory intact, appropriate mood/affect, intact judgment & insight - Labs CBC & Chem 7: 08/04/19 04:47 08/04/19 04:47 Labs: Abnormal lab results 08/03/19 08/03/19 08/03/19 Range/Units 07:52 08:43 09:09 WBC 23.8 H (4.5-11.0) K/mm3 RDW 12.3 L (13.2-15.2) % Seg Neuts % (Manual) 84.0 H (40.0-70.0) % Lymphocytes % (Manual) 9.0 L (13.4-35.0) % Seg Neutrophils # Man 20.0 H (1.8-7.7) K/mm3 Monocytes # (Manual) 1.7 H (0.0-0.8) K/mm3 ABG pH (7.350-7.450) pH Units ABG pO2 (80.0-90.0) mm Hg ABG HCO3 (20.0-26.0) mmol/L ABG Base Excess (-2.0-3.0) mmol/L VBG pH (7.320-7.420) VBG pO2 (25.0-47.0) Sodium (137-145) mmol/L Potassium (3.6-5.0) mmol/L Chloride (98-107) mmol/L Carbon Dioxide (22-30) mmol/L BUN (7-17) mg/dL Creatinine (0.7-1.2) mg/dL Glucose (65-100) mg/dL POC Glucose 108 H 108 H (70-105) Calcium (8.4-10.2) mg/dL Total Creatine Kinase (30-135) units/L CK-MB (CK-2) (0.0-4.0) ng/mL Total Protein (6.3-8.2) g/dL Albumin (3.9-5) g/dL 08/03/19 08/03/19 08/03/19 Range/Units 09:09 09:50 11:38 WBC (4.5-11.0) K/mm3 RDW (13.2-15.2) % Seg Neuts % (Manual) (40.0-70.0) % Lymphocytes % (Manual) (13.4-35.0) % Seg Neutrophils # Man (1.8-7.7) K/mm3 Monocytes # (Manual) (0.0-0.8) K/mm3 ABG pH (7.350-7.450) pH Units ABG pO2 (80.0-90.0) mm Hg ABG HCO3 (20.0-26.0) mmol/L ABG Base Excess (-2.0-3.0) mmol/L VBG pH (7.320-7.420) VBG pO2 (25.0-47.0) Sodium (137-145) mmol/L Potassium (3.6-5.0) mmol/L Chloride 111.6 H (98-107) mmol/L Carbon Dioxide 8 L* (22-30) mmol/L BUN (7-17) mg/dL Creatinine 0.6 L (0.7-1.2) mg/dL Glucose 125 H (65-100) mg/dL POC Glucose 128 H 130 H (70-105) Calcium 7.7 L (8.4-10.2) mg/dL Total Creatine Kinase (30-135) units/L CK-MB (CK-2) (0.0-4.0) ng/mL Total Protein (6.3-8.2) g/dL Albumin (3.9-5) g/dL 08/03/19 08/03/19 08/03/19 Range/Units 12:35 13:17 14:06 WBC (4.5-11.0) K/mm3 RDW (13.2-15.2) % Seg Neuts % (Manual) (40.0-70.0) % Lymphocytes % (Manual) (13.4-35.0) % Seg Neutrophils # Man (1.8-7.7) K/mm3 Monocytes # (Manual) (0.0-0.8) K/mm3 ABG pH (7.350-7.450) pH Units ABG pO2 (80.0-90.0) mm Hg ABG HCO3 (20.0-26.0) mmol/L ABG Base Excess (-2.0-3.0) mmol/L VBG pH (7.320-7.420) VBG pO2 (25.0-47.0) Sodium (137-145) mmol/L Potassium (3.6-5.0) mmol/L Chloride (98-107) mmol/L Carbon Dioxide (22-30) mmol/L BUN (7-17) mg/dL Creatinine (0.7-1.2) mg/dL Glucose (65-100) mg/dL POC Glucose 126 H 132 H 135 H (70-105) Calcium (8.4-10.2) mg/dL Total Creatine Kinase (30-135) units/L CK-MB (CK-2) (0.0-4.0) ng/mL Total Protein (6.3-8.2) g/dL Albumin (3.9-5) g/dL 08/03/19 08/03/19 08/03/19 Range/Units 14:31 14:31 16:47 WBC (4.5-11.0) K/mm3 RDW (13.2-15.2) % Seg Neuts % (Manual) (40.0-70.0) % Lymphocytes % (Manual) (13.4-35.0) % Seg Neutrophils # Man (1.8-7.7) K/mm3 Monocytes # (Manual) (0.0-0.8) K/mm3 ABG pH (7.350-7.450) pH Units ABG pO2 (80.0-90.0) mm Hg ABG HCO3 (20.0-26.0) mmol/L ABG Base Excess (-2.0-3.0) mmol/L VBG pH (7.320-7.420) VBG pO2 (25.0-47.0) Sodium (137-145) mmol/L Potassium 3.2 L (3.6-5.0) mmol/L Chloride 113.0 H (98-107) mmol/L Carbon Dioxide 10 L (22-30) mmol/L BUN (7-17) mg/dL Creatinine 0.5 L (0.7-1.2) mg/dL Glucose 101 H (65-100) mg/dL POC Glucose 117 H (70-105) Calcium 7.6 L (8.4-10.2) mg/dL Total Creatine Kinase 161 H (30-135) units/L CK-MB (CK-2) 4.8 H (0.0-4.0) ng/mL Total Protein (6.3-8.2) g/dL Albumin (3.9-5) g/dL 08/03/19 08/03/19 08/03/19 Range/Units 17:46 19:53 21:00 WBC (4.5-11.0) K/mm3 RDW (13.2-15.2) % Seg Neuts % (Manual) (40.0-70.0) % Lymphocytes % (Manual) (13.4-35.0) % Seg Neutrophils # Man (1.8-7.7) K/mm3 Monocytes # (Manual) (0.0-0.8) K/mm3 ABG pH (7.350-7.450) pH Units ABG pO2 (80.0-90.0) mm Hg ABG HCO3 (20.0-26.0) mmol/L ABG Base Excess (-2.0-3.0) mmol/L VBG pH (7.320-7.420) VBG pO2 (25.0-47.0) Sodium (137-145) mmol/L Potassium (3.6-5.0) mmol/L Chloride 109.9 H (98-107) mmol/L Carbon Dioxide 8 L* (22-30) mmol/L BUN (7-17) mg/dL Creatinine 0.5 L (0.7-1.2) mg/dL Glucose 26 L* (65-100) mg/dL POC Glucose 110 H 116 H (70-105) Calcium 7.5 L (8.4-10.2) mg/dL Total Creatine Kinase (30-135) units/L CK-MB (CK-2) (0.0-4.0) ng/mL Total Protein (6.3-8.2) g/dL Albumin (3.9-5) g/dL 08/03/19 08/03/19 08/03/19 Range/Units 21:11 22:02 22:05 WBC (4.5-11.0) K/mm3 RDW (13.2-15.2) % Seg Neuts % (Manual) (40.0-70.0) % Lymphocytes % (Manual) (13.4-35.0) % Seg Neutrophils # Man (1.8-7.7) K/mm3 Monocytes # (Manual) (0.0-0.8) K/mm3 ABG pH (7.350-7.450) pH Units ABG pO2 (80.0-90.0) mm Hg ABG HCO3 (20.0-26.0) mmol/L ABG Base Excess (-2.0-3.0) mmol/L VBG pH (7.320-7.420) VBG pO2 (25.0-47.0) Sodium (137-145) mmol/L Potassium (3.6-5.0) mmol/L Chloride (98-107) mmol/L Carbon Dioxide (22-30) mmol/L BUN (7-17) mg/dL Creatinine (0.7-1.2) mg/dL Glucose 30 L* (65-100) mg/dL POC Glucose 118 H 132 H (70-105) Calcium (8.4-10.2) mg/dL Total Creatine Kinase (30-135) units/L CK-MB (CK-2) (0.0-4.0) ng/mL Total Protein (6.3-8.2) g/dL Albumin (3.9-5) g/dL 08/03/19 08/03/19 08/04/19 Range/Units 23:16 23:51 00:32 WBC (4.5-11.0) K/mm3 RDW (13.2-15.2) % Seg Neuts % (Manual) (40.0-70.0) % Lymphocytes % (Manual) (13.4-35.0) % Seg Neutrophils # Man (1.8-7.7) K/mm3 Monocytes # (Manual) (0.0-0.8) K/mm3 ABG pH (7.350-7.450) pH Units ABG pO2 (80.0-90.0) mm Hg ABG HCO3 (20.0-26.0) mmol/L ABG Base Excess (-2.0-3.0) mmol/L VBG pH (7.320-7.420) VBG pO2 (25.0-47.0) Sodium 136 L (137-145) mmol/L Potassium 3.4 L (3.6-5.0) mmol/L Chloride 107.3 H (98-107) mmol/L Carbon Dioxide 8 L* (22-30) mmol/L BUN 5 L (7-17) mg/dL Creatinine 0.6 L (0.7-1.2) mg/dL Glucose 357 H (65-100) mg/dL POC Glucose 294 H 270 H (70-105) Calcium 7.7 L (8.4-10.2) mg/dL Total Creatine Kinase (30-135) units/L CK-MB (CK-2) (0.0-4.0) ng/mL Total Protein 5.9 L (6.3-8.2) g/dL Albumin 3.5 L (3.9-5) g/dL 08/04/19 08/04/19 08/04/19 Range/Units 02:08 04:47 04:47 WBC 17.8 H (4.5-11.0) K/mm3 RDW 12.4 L (13.2-15.2) % Seg Neuts % (Manual) (40.0-70.0) % Lymphocytes % (Manual) (13.4-35.0) % Seg Neutrophils # Man (1.8-7.7) K/mm3 Monocytes # (Manual) (0.0-0.8) K/mm3 ABG pH 7.198 L* (7.350-7.450) pH Units ABG pO2 122.5 H (80.0-90.0) mm Hg ABG HCO3 4.4 L (20.0-26.0) mmol/L ABG Base Excess -20.8 L (-2.0-3.0) mmol/L VBG pH (7.320-7.420) VBG pO2 (25.0-47.0) Sodium (137-145) mmol/L Potassium (3.6-5.0) mmol/L Chloride 111.5 H (98-107) mmol/L Carbon Dioxide 4 L* (22-30) mmol/L BUN 4 L (7-17) mg/dL Creatinine 0.5 L (0.7-1.2) mg/dL Glucose 260 H (65-100) mg/dL POC Glucose (70-105) Calcium 7.6 L (8.4-10.2) mg/dL Total Creatine Kinase (30-135) units/L CK-MB (CK-2) (0.0-4.0) ng/mL Total Protein (6.3-8.2) g/dL Albumin (3.9-5) g/dL 08/04/19 Range/Units 06:19 WBC (4.5-11.0) K/mm3 RDW (13.2-15.2) % Seg Neuts % (Manual) (40.0-70.0) % Lymphocytes % (Manual) (13.4-35.0) % Seg Neutrophils # Man (1.8-7.7) K/mm3 Monocytes # (Manual) (0.0-0.8) K/mm3 ABG pH (7.350-7.450) pH Units ABG pO2 (80.0-90.0) mm Hg ABG HCO3 (20.0-26.0) mmol/L ABG Base Excess (-2.0-3.0) mmol/L VBG pH 7.273 L (7.320-7.420) VBG pO2 51.9 H (25.0-47.0) Sodium (137-145) mmol/L Potassium (3.6-5.0) mmol/L Chloride (98-107) mmol/L Carbon Dioxide (22-30) mmol/L BUN (7-17) mg/dL Creatinine (0.7-1.2) mg/dL Glucose (65-100) mg/dL POC Glucose (70-105) Calcium (8.4-10.2) mg/dL Total Creatine Kinase (30-135) units/L CK-MB (CK-2) (0.0-4.0) ng/mL Total Protein (6.3-8.2) g/dL Albumin (3.9-5) g/dL Short CBC 08/03/19 08/04/19 Range/Units 09:09 04:47 WBC 23.8 H 17.8 H (4.5-11.0) K/mm3 Hgb 14.0 14.1 (10.1-14.3) gm/dl Hct 41.2 41.4 (30.3-42.9) % Plt Count 286 272 (140-440) K/mm3 BMP 08/03/19 08/03/19 08/03/19 09:09 14:31 21:00 Sodium 137 139 137 Potassium 3.7 3.2 L 3.9 D Chloride 111.6 H 113.0 H 109.9 H Carbon Dioxide 8 L* 10 L 8 L* BUN 11 9 9 Creatinine 0.6 L 0.5 L 0.5 L Glucose 125 H 101 H 26 L* Calcium 7.7 L 7.6 L 7.5 L 08/03/19 08/03/19 08/04/19 22:05 23:16 04:47 Sodium 136 L 139 Potassium 3.4 L 3.7 Chloride 107.3 H 111.5 H Carbon Dioxide 8 L* 4 L* BUN 5 L 4 L Creatinine 0.6 L 0.5 L Glucose 30 L* 357 H 260 H Calcium 7.7 L 7.6 L Cardiac Enzymes 08/03/19 Range/Units 14:31 Total Creatine Kinase 161 H (30-135) units/L CK-MB (CK-2) 4.8 H (0.0-4.0) ng/mL Troponin T < 0.010 (0.00-0.029) ng/mL Liver Function 08/03/19 Range/Units 23:16 Total Bilirubin 0.30 (0.1-1.2) mg/dL AST 20 (5-40) units/L ALT 14 (7-56) units/L Alkaline Phosphatase 69 (35-129) units/L Albumin 3.5 L (3.9-5) g/dL - Imaging and cardiology Chest x-ray: report reviewed (NAF) CT scan - abdomen: report reviewed (NAF,Bladder distension)
[2019-08-04 07:13] LABS: Creatine Kinase MB 3.1 ng/mL (0.0-4.0)
--- NOTE | 2019-08-04 07:15 | XRay Report ---
CHEST 1 VIEW INDICATION: chest pain. COMPARISON: 2 days prior FINDINGS: Support devices: None. Heart: Within normal limits. Lungs/Pleura: No acute air space or interstitial disease. Additional findings: None. IMPRESSION: 1. No acute findings. Signer Name: Lui Beal MD Signed: 08/04/2019 7:10 AM Workstation Name: [id number]
--- NOTE | 2019-08-04 07:59 | Event Note ---
Date: 08/04/19 PATIENT NOTED TO BE LETTERGIC WITH BLOOD SUGAR IN THE 30'S. 2ND AMP OF D50W GIVEN I.V AFTER GLUCOSE LEVEL FELL AGAIN AND PATIENT BECAME MORE ALERT WITH ACUCHECK OF 250. PATIENT COMPLAINED OF CHEST PAIN, EKG SHOWED NO ACUTE STT ABNORMALITY. EXAM SHOWED VITALS WITH PULSE OF 120 , BP OF . PLAN: I.V N/SALINE WAS INCREASED FROM 100ML/HR TO 150ML/HR BLOOD FOR CARDIAC ENZYME DRAWN, NITRO SL GIVEN.
--- NOTE | 2019-08-04 08:25 | Event Note ---
Date: 08/04/19 In spite of hypoglycemia, the patient continues to have severe metabolic acidosis. This is not DKA. Lactic acid is normal. Patient started Ozempic last week, I suspect this is drug induced severe metabolic acidosis. Start bicarb infusion, asked Pharmacy to see if this can be reported as a severe adverse effect. Ozempic is a once weekly injection, so I anticipate she will need bicarbonate supplementation for a while. After bicrabonate infusion, may benefit from bicarb tabs for a few days. Discontinue antibiotics, no clinical indication that her leukocytosis is secondary to an infection. Update the patient, her mother at the bedside Discussed with RN and pharmacist.
[2019-08-04] MEDS: INSULIN LISPRO 100 UNIT/ML SUB-Q SCH ×4 (08:30→21:29)
[2019-08-04] MEDS: SODIUM BICARBONATE 150 MEQ in WATER FOR INJECTION (PF) 1,000 ML IV SCH ×2 (08:58→20:25)
[2019-08-04] MEDS ORDERED: SODIUM BICARBONATE 150 MEQ in WATER FOR INJECTION (PF) 1,000 ML IV ONE (09:00)
[2019-08-04] MEDS: HEPARIN 5,000 UNIT/1 ML VIAL SUB-Q SCH ×2 (09:01→21:28)
[2019-08-04] MEDS: PANTOPRAZOLE 40 MG TAB PO SCH ×2 (09:19→21:28)
--- NOTE | 2019-08-04 10:45 | Progress Note ---
Assessment and Plan DKA (diabetic ketoacidoses) Hypokalemia Severe Metabolic acidosis Leucocytosis - nephrology consult placed - stopped Ozempic - continue D5W with 3 amps NaGCO3/liter at 125 mls /hr - get lactate and Procalcitonin levels to evaluate for occult sepsis - prn BIPAP for increased work of breathing - prn albuterol - continue accuchecks with SSI for target BG < 180 mg/dl - continue GI & VTE prophylaxis - watch closely for S&S of sepsis - get blood cultures but follow clinically off AB's for now - mobility protocols for pressure ulcer prophylaxis - continue other care per attending / other lean consultant's ... re-evaluate in am & prn .... care plan discussed with patient and mother in room The high probability of a clinically significant, sudden or life-threatening deterioration of the [cardiac, renal and endocrine] system(s) required my full and direct attention, intervention and personal management. The aggregate crit ical care time was [34] minutes without overlap. Time includes spent on; [x] Data Review and interpretation [x] Patient assessment and monitoring of vital signs [x] Documentation [x] Medication orders and management Subjective Date of service: 08/04/19 Principal diagnosis: DKA; Hypokalemia; Severe Metabolic acidosis; Leucocytosis Interval history: Patient is seen today for: DKA (diabetic ketoacidoses); Hypokalemia; Severe Metabolic acidosis; Leucocytosis Seen and examined at bedside; 24hour events reviewed; nursing and respiratory care staff consulted; no adverse overnight events reported to me; resting peacefully in bed; persistent feeling of generalized malaise; tachycardic; denies chest pains or paklpitations; No N/V/F/C; + heartburn; sevre netabolic acidosis is persistent with serum bicarbonate of 4.0 Objective Vital Signs - 12hr 08/03/19 08/03/19 08/04/19 23:00 23:30 00:00 Temperature 98.8 F Pulse Rate 115 H 117 H 116 H Pulse Rate [ 114 H From Monitor] Respiratory 22 20 22 Rate Blood Pressure 114/68 114/68 104/63 O2 Sat by Pulse 100 100 100 Oximetry 08/04/19 08/04/19 08/04/19 00:30 01:00 01:30 Temperature Pulse Rate 112 H 113 H 114 H Pulse Rate [ From Monitor] Respiratory 19 20 20 Rate Blood Pressure 104/63 123/77 123/77 O2 Sat by Pulse 100 100 100 Oximetry 08/04/19 08/04/19 08/04/19 02:00 02:30 03:00 Temperature Pulse Rate 123 H 130 H 116 H Pulse Rate [ From Monitor] Respiratory 24 27 H 24 Rate Blood Pressure 131/84 131/84 109/69 O2 Sat by Pulse 100 88 100 Oximetry 08/04/19 08/04/19 08/04/19 03:30 04:00 04:17 Temperature 98.2 F Pulse Rate 122 H 117 H Pulse Rate [ 115 H From Monitor] Respiratory 23 24 Rate Blood Pressure 109/69 125/80 O2 Sat by Pulse 100 100 Oximetry 08/04/19 08/04/19 08/04/19 04:30 05:00 05:30 Temperature Pulse Rate 120 H 125 H 124 H Pulse Rate [ From Monitor] Respiratory 25 H 26 H 28 H Rate Blood Pressure 125/80 116/71 116/71 O2 Sat by Pulse 100 100 100 Oximetry 08/04/19 08/04/19 08/04/19 06:00 06:30 07:00 Temperature Pulse Rate 131 H 128 H 124 H Pulse Rate [ From Monitor] Respiratory 30 H 26 H 18 Rate Blood Pressure 136/81 153/89 153/89 O2 Sat by Pulse 98 100 100 Oximetry 08/04/19 08/04/19 08/04/19 07:30 08:00 08:03 Temperature 97.7 F Pulse Rate 122 H 126 H 120 H Pulse Rate [ 126 H From Monitor] Respiratory 23 31 H Rate Blood Pressure 129/67 131/71 O2 Sat by Pulse 100 100 Oximetry 08/04/19 08/04/19 08/04/19 08:30 09:00 09:30 Temperature Pulse Rate 128 H 128 H 128 H Pulse Rate [ From Monitor] Respiratory 23 32 H 33 H Rate Blood Pressure 131/71 137/72 131/71 O2 Sat by Pulse 100 99 100 Oximetry 08/04/19 10:00 Temperature Pulse Rate Pulse Rate [ From Monitor] Respiratory Rate Blood Pressure 131/71 O2 Sat by Pulse 100 Oximetry Constitutional: appears uncomfortable, other (young AAF normocephalica nd atraumatic with moderately increased respiratory effort at rest) Eyes: non-icteric ENT: oropharynx moist, other (mallampati 2) Neck: supple, no lymphadenopathy, no JVD Effort: mildly labored Ascultation: Bilateral: clear, diminished breath sounds Percussion: Bilateral: not dull Cardiovascular: regular rate and rhythm Gastrointestinal: normoactive bowel sounds, soft, non-tender, non-distended Integumentary: normal Extremities: no cyanosis, no edema, pulses normal, no ischemia or petechiae Neurologic: normal mental status, non-focal exam, pupils equal and round, CN II- XII normal, motor strength normal and Psychiatric: anxious CBC and BMP: 08/04/19 04:47 08/04/19 04:47 ABG, PT/INR, D-dimer: ABG ABG pH 7.198 pH Units (7.350-7.450) L* 08/04/19 02:08 ABG pCO2 11.7 mm Hg 08/04/19 02:08 ABG pO2 122.5 mm Hg (80.0-90.0) H 08/04/19 02:08 ABG O2 Saturation 98.0 % (95.0-99.0) 08/04/19 02:08 Abnormal lab findings: Abnormal Labs 08/02/19 08/02/19 08/02/19 19:56 20:11 20:21 WBC 25.1 H Hgb 14.8 H Hct 45.6 H MCV 98 H RDW 12.8 L Seg Neuts % (Manual) 83.0 H Lymphocytes % (Manual) 10.0 L Seg Neutrophils # Man 20.8 H Monocytes # (Manual) 1.8 H ABG pH ABG pO2 ABG HCO3 ABG Base Excess VBG pH VBG pO2 Sodium 133 L Potassium Chloride Carbon Dioxide 13 L BUN Creatinine Glucose 306 H POC Glucose 233 H Calcium 7.7 L Total Creatine Kinase CK-MB (CK-2) Total Protein Albumin Lipase 08/02/19 08/02/19 08/02/19 20:22 20:23 21:54 WBC Hgb Hct MCV RDW Seg Neuts % (Manual) Lymphocytes % (Manual) Seg Neutrophils # Man Monocytes # (Manual) ABG pH ABG pO2 ABG HCO3 ABG Base Excess VBG pH 6.877 L* VBG pO2 Sodium Potassium Chloride Carbon Dioxide BUN Creatinine Glucose POC Glucose 237 H Calcium Total Creatine Kinase CK-MB (CK-2) Total Protein Albumin Lipase 10 L 1008/02/19 08/02/19 23:02 23:12 23:57 WBC Hgb Hct MCV RDW Seg Neuts % (Manual) Lymphocytes % (Manual) Seg Neutrophils # Man Monocytes # (Manual) ABG pH ABG pO2 ABG HCO3 ABG Base Excess VBG pH VBG pO2 Sodium 135 L Potassium 5.5 H D Chloride 108.2 H Carbon Dioxide 2 L* D BUN Creatinine 0.6 L Glucose 307 H POC Glucose 244 H 255 H Calcium 7.3 L Total Creatine Kinase CK-MB (CK-2) Total Protein Albumin Lipase 08/03/19 08/03/19 08/03/19 00:34 01:04 02:17 WBC Hgb Hct MCV RDW Seg Neuts % (Manual) Lymphocytes % (Manual) Seg Neutrophils # Man Monocytes # (Manual) ABG pH ABG pO2 ABG HCO3 ABG Base Excess VBG pH VBG pO2 Sodium 135 L Potassium Chloride 108.9 H Carbon Dioxide < 2.0 L* BUN Creatinine 0.6 L Glucose 262 H POC Glucose 245 H 210 H Calcium 7.1 L Total Creatine Kinase CK-MB (CK-2) Total Protein Albumin Lipase 08/03/19 08/03/19 08/03/19 03:12 04:15 04:16 WBC Hgb Hct MCV RDW Seg Neuts % (Manual) Lymphocytes % (Manual) Seg Neutrophils # Man Monocytes # (Manual) ABG pH ABG pO2 ABG HCO3 ABG Base Excess VBG pH VBG pO2 Sodium Potassium Chloride 113.9 H Carbon Dioxide 4 L* BUN Creatinine Glucose 110 H POC Glucose 190 H 168 H Calcium 7.3 L Total Creatine Kinase CK-MB (CK-2) Total Protein Albumin Lipase 08/03/19 08/03/19 08/03/19 05:21 06:29 07:52 WBC Hgb Hct MCV RDW Seg Neuts % (Manual) Lymphocytes % (Manual) Seg Neutrophils # Man Monocytes # (Manual) ABG pH ABG pO2 ABG HCO3 ABG Base Excess VBG pH VBG pO2 Sodium Potassium Chloride Carbon Dioxide BUN Creatinine Glucose POC Glucose 113 H 108 H 108 H Calcium Total Creatine Kinase CK-MB (CK-2) Total Protein Albumin Lipase 08/03/19 08/03/19 08/03/19 08:43 09:09 09:09 WBC 23.8 H Hgb Hct MCV RDW 12.3 L Seg Neuts % (Manual) 84.0 H Lymphocytes % (Manual) 9.0 L Seg Neutrophils # Man 20.0 H Monocytes # (Manual) 1.7 H ABG pH ABG pO2 ABG HCO3 ABG Base Excess VBG pH VBG pO2 Sodium Potassium Chloride 111.6 H Carbon Dioxide 8 L* BUN Creatinine 0.6 L Glucose 125 H POC Glucose 108 H Calcium 7.7 L Total Creatine Kinase CK-MB (CK-2) Total Protein Albumin Lipase 08/03/19 08/03/19 08/03/19 09:50 11:38 12:35 WBC Hgb Hct MCV RDW Seg Neuts % (Manual) Lymphocytes % (Manual) Seg Neutrophils # Man Monocytes # (Manual) ABG pH ABG pO2 ABG HCO3 ABG Base Excess VBG pH VBG pO2 Sodium Potassium Chloride Carbon Dioxide BUN Creatinine Glucose POC Glucose 128 H 130 H 126 H Calcium Total Creatine Kinase CK-MB (CK-2) Total Protein Albumin Lipase 08/03/19 08/03/19 08/03/19 13:17 14:06 14:31 WBC Hgb Hct MCV RDW Seg Neuts % (Manual) Lymphocytes % (Manual) Seg Neutrophils # Man Monocytes # (Manual) ABG pH ABG pO2 ABG HCO3 ABG Base Excess VBG pH VBG pO2 Sodium Potassium 3.2 L Chloride 113.0 H Carbon Dioxide 10 L BUN Creatinine 0.5 L Glucose 101 H POC Glucose 132 H 135 H Calcium 7.6 L Total Creatine Kinase CK-MB (CK-2) Total Protein Albumin Lipase 08/03/19 08/03/19 08/03/19 14:31 16:47 17:46 WBC Hgb Hct MCV RDW Seg Neuts % (Manual) Lymphocytes % (Manual) Seg Neutrophils # Man Monocytes # (Manual) ABG pH ABG pO2 ABG HCO3 ABG Base Excess VBG pH VBG pO2 Sodium Potassium Chloride Carbon Dioxide BUN Creatinine Glucose POC Glucose 117 H 110 H Calcium Total Creatine Kinase 161 H CK-MB (CK-2) 4.8 H Total Protein Albumin Lipase 08/03/19 08/03/19 08/03/19 19:53 21:00 21:11 WBC Hgb Hct MCV RDW Seg Neuts % (Manual) Lymphocytes % (Manual) Seg Neutrophils # Man Monocytes # (Manual) ABG pH ABG pO2 ABG HCO3 ABG Base Excess VBG pH VBG pO2 Sodium Potassium Chloride 109.9 H Carbon Dioxide 8 L* BUN Creatinine 0.5 L Glucose 26 L* POC Glucose 116 H 118 H Calcium 7.5 L Total Creatine Kinase CK-MB (CK-2) Total Protein Albumin Lipase 08/03/19 08/03/19 08/03/19 22:02 22:05 23:16 WBC Hgb Hct MCV RDW Seg Neuts % (Manual) Lymphocytes % (Manual) Seg Neutrophils # Man Monocytes # (Manual) ABG pH ABG pO2 ABG HCO3 ABG Base Excess VBG pH VBG pO2 Sodium 136 L Potassium 3.4 L Chloride 107.3 H Carbon Dioxide 8 L* BUN 5 L Creatinine 0.6 L Glucose 30 L* 357 H POC Glucose 132 H Calcium 7.7 L Total Creatine Kinase CK-MB (CK-2) Total Protein 5.9 L Albumin 3.5 L Lipase 08/03/19 08/04/19 08/04/19 23:51 00:32 02:08 WBC Hgb Hct MCV RDW Seg Neuts % (Manual) Lymphocytes % (Manual) Seg Neutrophils # Man Monocytes # (Manual) ABG pH 7.198 L* ABG pO2 122.5 H ABG HCO3 4.4 L ABG Base Excess -20.8 L VBG pH VBG pO2 Sodium Potassium Chloride Carbon Dioxide BUN Creatinine Glucose POC Glucose 294 H 270 H Calcium Total Creatine Kinase CK-MB (CK-2) Total Protein Albumin Lipase 08/04/19 08/04/19 08/04/19 04:47 04:47 06:19 WBC 17.8 H Hgb Hct MCV RDW 12.4 L Seg Neuts % (Manual) Lymphocytes % (Manual) Seg Neutrophils # Man Monocytes # (Manual) ABG pH ABG pO2 ABG HCO3 ABG Base Excess VBG pH 7.273 L VBG pO2 51.9 H Sodium Potassium Chloride 111.5 H Carbon Dioxide 4 L* BUN 4 L Creatinine 0.5 L Glucose 260 H POC Glucose Calcium 7.6 L Total Creatine Kinase CK-MB (CK-2) Total Protein Albumin Lipase 08/04/19 08/04/19 08/04/19 06:20 06:25 06:37 WBC Hgb Hct MCV RDW Seg Neuts % (Manual) Lymphocytes % (Manual) Seg Neutrophils # Man Monocytes # (Manual) ABG pH ABG pO2 ABG HCO3 ABG Base Excess VBG pH VBG pO2 Sodium Potassium Chloride Carbon Dioxide BUN Creatinine Glucose POC Glucose 231 H 250 H Calcium Total Creatine Kinase 137 H CK-MB (CK-2) Total Protein Albumin Lipase 08/04/19 07:42 WBC Hgb Hct MCV RDW Seg Neuts % (Manual) Lymphocytes % (Manual) Seg Neutrophils # Man Monocytes # (Manual) ABG pH ABG pO2 ABG HCO3 ABG Base Excess VBG pH VBG pO2 Sodium Potassium Chloride Carbon Dioxide BUN Creatinine Glucose POC Glucose 286 H Calcium Total Creatine Kinase CK-MB (CK-2) Total Protein Albumin Lipase Chest x-ray: image reviewed (no acute process) Allied health notes reviewed: nursing
--- NOTE | 2019-08-04 12:20 | Progress Note ---
Assessment and Plan Assessment and plan: DKA. Continue IV insulin and transitioned to long-acting insulin when anion gap has closed. Continue IV fluid hydration. Hypokalemia. Replete as needed. Metabolic acidosis. Improved. I discussed with pharmacy that diabetic medication may also be contributing. Continue bicarbonate drip. DVT prophylaxis. History Interval history: No new issues overnight. Hospitalist Physical - Constitutional Vitals: Temp Pulse Resp BP Pulse Ox 97.7 F 128 H 33 H 131/71 100 08/04/19 08:00 08/04/19 09:30 08/04/19 09:30 08/04/19 10:00 08/04/19 10:00 General appearance: Present: no acute distress, well-nourished - EENT Eyes: Present: PERRL, EOM intact ENT: hearing intact, clear oral mucosa, dentition normal - Neck Neck: Present: supple, normal ROM - Respiratory Respiratory effort: normal Respiratory: bilateral: CTA - Cardiovascular Rhythm: regular Heart Sounds: Present: S1 & S2. Absent: gallop, rub - Extremities Extremities: no ischemia, No edema, Full ROM - Abdominal General gastrointestinal: soft, non-tender, non-distended, normal bowel sounds - Integumentary Integumentary: Present: clear, warm, dry - Neurologic Neurologic: CNII-XII intact, moves all extremities Results - Labs CBC & Chem 7: 08/04/19 04:47 08/04/19 04:47 Labs: Laboratory Last Values WBC 17.8 K/mm3 (4.5-11.0) H 08/04/19 04:47 RBC 4.41 M/mm3 (3.65-5.03) 08/04/19 04:47 Hgb 14.1 gm/dl (10.1-14.3) 08/04/19 04:47 Hct 41.4 % (30.3-42.9) 08/04/19 04:47 MCV 94 fl (79-97) 08/04/19 04:47 MCH 32 pg (28-32) 08/04/19 04:47 MCHC 34 % (30-34) 08/04/19 04:47 RDW 12.4 % (13.2-15.2) L 08/04/19 04:47 Plt Count 272 K/mm3 (140-440) 08/04/19 04:47 Lymph % (Auto) [employer] 08/03/19 09:09 [place] % (Auto) [employer] 08/03/19 09:09 Eos % (Auto) [employer] Officer 08/03/19 09:09 Baso % (Auto) [employer] 08/03/19 09:09 Lymph # [employer] 08/03/19 09:09 [place] # [employer] Officer 08/03/19 09:09 Eos # [employer] Officer 08/03/19 09:09 Baso # [employer] 08/03/19 09:09 Add Manual Diff Complete 08/03/19 09:09 Total Counted 100 08/03/19 09:09 Seg Neutrophils % [employer] 08/03/19 09:09 Seg Neuts % (Manual) 84.0 % (40.0-70.0) H 08/03/19 09:09 Band Neutrophils % 0 % 08/03/19 09:09 Lymphocytes % (Manual) 9.0 % (13.4-35.0) L 08/03/19 09:09 Reactive Lymphs % (Man) 0 % 08/03/19 09:09 Monocytes % (Manual) 7.0 % (0.0-7.3) 08/03/19 09:09 Eosinophils % (Manual) 0 % (0.0-4.3) 08/03/19 09:09 Basophils % (Manual) 0 % (0.0-1.8) 08/03/19 09:09 Metamyelocytes % 0 % 08/03/19 09:09 Myelocytes % 0 % 08/03/19 09:09 Promyelocytes % 0 % 08/03/19 09:09 Blast Cells % 0 % 08/03/19 09:09 Nucleated RBC % Not Reportable 08/03/19 09:09 Seg Neutrophils # [employer] 08/03/19 09:09 Seg Neutrophils # Man 20.0 K/mm3 (1.8-7.7) H 08/03/19 09:09 Band Neutrophils # 0.0 K/mm3 08/03/19 09:09 Lymphocytes # (Manual) 2.1 K/mm3 (1.2-5.4) 08/03/19 09:09 Abs React Lymphs (Man) 0.0 K/mm3 08/03/19 09:09 Monocytes # (Manual) 1.7 K/mm3 (0.0-0.8) H 08/03/19 09:09 Eosinophils # (Manual) 0.0 K/mm3 (0.0-0.4) 08/03/19 09:09 Basophils # (Manual) 0.0 K/mm3 (0.0-0.1) 08/03/19 09:09 Metamyelocytes # 0.0 K/mm3 08/03/19 09:09 Myelocytes # 0.0 K/mm3 08/03/19 09:09 Promyelocytes # 0.0 K/mm3 08/03/19 09:09 Blast Cells # 0.0 K/mm3 08/03/19 09:09 WBC Morphology Not Reportable 08/03/19 09:09 Hypersegmented Neuts Not Reportable 08/03/19 09:09 Hyposegmented Neuts Not Reportable 08/03/19 09:09 Hypogranular Neuts Not Reportable 08/03/19 09:09 Smudge Cells Not Reportable 08/03/19 09:09 Toxic Granulation Not Reportable 08/03/19 09:09 Toxic Vacuolation Not Reportable 08/03/19 09:09 Dohle Bodies Not Reportable 08/03/19 09:09 Pelger-Huet Anomaly Not Reportable 08/03/19 09:09 Avni Rods Not Reportable 08/03/19 09:09 Platelet Estimate Consistent w auto 08/03/19 09:09 Clumped Platelets Not Reportable 08/03/19 09:09 Plt Clumps, EDTA Not Reportable 08/03/19 09:09 Large Platelets Not Reportable 08/03/19 09:09 Giant Platelets Not Reportable 08/03/19 09:09 Platelet Satelliting Not Reportable 08/03/19 09:09 Plt Morphology Comment Not Reportable 08/03/19 09:09 RBC Morphology Normal 08/03/19 09:09 Dimorphic RBCs Not Reportable 08/03/19 09:09 Polychromasia Not Reportable 08/03/19 09:09 Hypochromasia Not Reportable 08/03/19 09:09 Poikilocytosis Not Reportable 08/03/19 09:09 Anisocytosis Not Reportable 08/03/19 09:09 Microcytosis Not Reportable 08/03/19 09:09 Macrocytosis Not Reportable 08/03/19 09:09 Spherocytes Not Reportable 08/03/19 09:09 Pappenheimer Bodies Not Reportable 08/03/19 09:09 Sickle Cells Not Reportable 08/03/19 09:09 Target Cells Not Reportable 08/03/19 09:09 Tear Drop Cells Not Reportable 08/03/19 09:09 Ovalocytes Not Reportable 08/03/19 09:09 Helmet Cells Not Reportable 08/03/19 09:09 [place] Bodies Not Reportable 08/03/19 09:09 [place] Rings Not Reportable 08/03/19 09:09 [place] Cells Not Reportable 08/03/19 09:09 Bite Cells Not Reportable 08/03/19 09:09 Crenated Cell Not Reportable 08/03/19 09:09 Elliptocytes Not Reportable 08/03/19 09:09 Acanthocytes (Spur) Not Reportable 08/03/19 09:09 Rouleaux Not Reportable 08/03/19 09:09 Hemoglobin C Crystals Not Reportable 08/03/19 09:09 Schistocytes Not Reportable 08/03/19 09:09 Malaria parasites Not Reportable 08/03/19 09:09 Rivera Bodies Not Reportable 08/03/19 09:09 Hem Pathologist Commnt No 08/03/19 09:09 ABG pH 7.198 pH Units (7.350-7.450) L* 08/04/19 02:08 ABG pCO2 11.7 mm Hg 08/04/19 02:08 ABG pO2 122.5 mm Hg (80.0-90.0) H 08/04/19 02:08 ABG HCO3 4.4 mmol/L (20.0-26.0) L 08/04/19 02:08 ABG O2 Saturation 98.0 % (95.0-99.0) 08/04/19 02:08 ABG O2 Content 19.5 (0.0-44) 08/04/19 02:08 ABG Base Excess -20.8 mmol/L (-2.0-3.0) L 08/04/19 02:08 ABG Hemoglobin 14.3 gm/dl (12.0-16.0) 08/04/19 02:08 ABG Carboxyhemoglobin 1.3 % (0.0-5.0) 08/04/19 02:08 ABG Methemoglobin 0.7 % (0.0-1.5) 08/04/19 02:08 VBG pH 7.273 (7.320-7.420) L 08/04/19 06:19 VBG pO2 51.9 (25.0-47.0) H 08/04/19 06:19 Oxyhemoglobin 96.0 % (95.0-99.0) 08/04/19 02:08 FiO2 21 % 08/04/19 02:08 Sodium 139 mmol/L (137-145) 08/04/19 04:47 Potassium 3.7 mmol/L (3.6-5.0) 08/04/19 04:47 Chloride 111.5 mmol/L (98-107) H 08/04/19 04:47 Carbon Dioxide 4 mmol/L (22-30) L* 08/04/19 04:47 Anion Gap 28 mmol/L 08/04/19 04:47 BUN 4 mg/dL (7-17) L 08/04/19 04:47 Creatinine 0.5 mg/dL (0.7-1.2) L 08/04/19 04:47 Estimated GFR > 60 ml/min 08/04/19 04:47 BUN/Creatinine Ratio 8 % 08/04/19 04:47 Glucose 260 mg/dL (65-100) H 08/04/19 04:47 POC Glucose 286 (70-105) H 08/04/19 07:42 Lactic Acid 1.10 mmol/L (0.7-2.0) 08/04/19 06:19 Calcium 7.6 mg/dL (8.4-10.2) L 08/04/19 04:47 Phosphorus 4.00 mg/dL (2.5-4.5) 08/02/19 23:12 Magnesium 2.00 mg/dL (1.7-2.3) 08/02/19 23:12 Total Bilirubin 0.30 mg/dL (0.1-1.2) 08/03/19 23:16 AST 20 units/L (5-40) 08/03/19 23:16 ALT 14 units/L (7-56) 08/03/19 23:16 Alkaline Phosphatase 69 units/L (35-129) 08/03/19 23:16 Total Creatine Kinase 137 units/L (30-135) H 08/04/19 06:25 CK-MB (CK-2) 3.1 ng/mL (0.0-4.0) 08/04/19 06:25 CK-MB (CK-2) Rel Index 2.2 (0-4) 08/04/19 06:25 Troponin T < 0.010 ng/mL (0.00-0.029) 08/04/19 06:25 Total Protein 5.9 g/dL (6.3-8.2) L 08/03/19 23:16 Albumin 3.5 g/dL (3.9-5) L 08/03/19 23:16 Albumin/Globulin Ratio 1.5 % 08/03/19 23:16 Lipase 10 units/L (13-60) L 08/02/19 20:23 HCG, Qual Negative (Negative) 08/02/19 20:11 Urine Color Straw (Yellow) 08/02/19 21:53 Urine Turbidity Clear (Clear) 08/02/19 21:53 Urine pH 5.0 (5.0-7.0) 08/02/19 21:53 Ur Specific [place] 1.020 (1.003-1.030) 08/02/19 21:53 Urine Protein 100 mg/dl mg/dL (Negative) 08/02/19 21:53 Urine Glucose (UA) >=500 mg/dL (Negative) 08/02/19 21:53 Urine Ketones 80 mg/dL (Negative) 08/02/19 21:53 Urine Blood Sm (Negative) 08/02/19 21:53 Urine Nitrite Neg (Negative) 08/02/19 21:53 Urine Bilirubin Neg (Negative) 08/02/19 21:53 Urine Urobilinogen < 2.0 mg/dL (<2.0) 08/02/19 21:53 Ur Leukocyte Esterase Neg (Negative) 08/02/19 21:53 Urine WBC (Auto) 1.0 /HPF (0.0-6.0) 08/02/19 21:53 Urine RBC (Auto) 2.0 /HPF (0.0-6.0) 08/02/19 21:53 U Epithel Cells (Auto) 2.0 /HPF (0-13.0) 08/02/19 21:53 Urine Mucus Few /HPF 08/02/19 21:53 Urine Yeast (Budding) Few /HPF 08/02/19 21:53 Active Medications - Current Medications Current Medications: Generic Name Dose Route Start Last Admin Trade Name Freq PRN Reason Stop Dose Admin Acetaminophen 650 mg 08/02/19 23:14 Tylenol IA Q4H PRN Pain, Mild (1-3) Dextrose 50 ml 08/03/19 21:06 08/03/19 23:03 D50w (25gm) Syringe IV 50 ml Q30MIN PRN Administration Hypoglycemia Heparin Sodium (Porcine) 5,000 unit 08/03/19 10:00 08/04/19 09:01 Heparin SUB-Q 5,000 unit Q12HR ANTONIO Administration Sodium Bicarbonate 150 meq/ 1,150 mls @ 125 mls/hr 08/04/19 09:00 08/04/19 08:58 Sterile Water IV 125 mls/hr DIRECT ANTONIO Administration Insulin Human Lispro 0 unit 08/03/19 22:00 08/04/19 08:30 Humalog SUB-Q 3 unit ACHS ANTONIO Administration Protocol Morphine Sulfate 2 mg 08/02/19 23:13 08/04/19 04:26 Morphine IV 2 mg Q4H PRN Administration Pain, Moderate (4-6) Nitroglycerin 0.4 mg 08/04/19 06:17 08/04/19 06:00 Nitrostat SL 0.4 mg .Q5MIN PRN Administration Chest Pain Ondansetron HCl 4 mg 08/02/19 23:12 08/04/19 06:38 Zofran IV 4 mg Q8H PRN Administration Nausea And Vomiting Pantoprazole Sodium 40 mg 08/04/19 10:00 08/04/19 09:19 Protonix PO 40 mg BID ANTONIO Administration Nutrition/Malnutrition Assess - Dietary Evaluation Nutrition/Malnutrition Findings: Nutrition Notes Start: 08/04/19 10:13 Freq: Status: Active Protocol: Document 08/04/19 10:13 AP (Rec: 08/04/19 10:57 AP [id number]) Co-Sign 08/04/19 10:13 LM Nutrition Notes Need for Assessment generated from: MD Order,Education Initial or Follow up Assessment Current Diagnosis Diabetes Other Pertinent Diagnosis DKA Current Diet Consistent CHO Labs/Tests BG 260 BUN 4 Pertinent Medications Zofran D5 1/2NS at 125ml/hr Height 5 ft 4 in Weight 72.57 kg [place] Body Weight (kg) 54.54 BMI 27.4 Intake Prior to Admission Fair Weight Status Overweight Subjective/Other Information Consult for diet ed. Pt stated not eating for 2-3 days [employer]. Discussed CHO counting to correspond w/bolus injections. Asked pt how she accounted for this and she stated she " wings it". Discussed servings of CHO and how much equals one "choice". Pt not eating currently. Pt unable to recall any weight loss. Burn Absent Trauma Absent GI Symptoms Nausea,Vomiting Current % PO Negligible Minimum of two criteria No physical signs of malnutrition #2 Nutrition Diagnosis Food and nutrition-related knowledge deficit Etiology Pt noncompliant w/bolus dosing . As Evidenced by Signs and Symptoms BG 260 Pt states she "wings it" regarding bolus dosing. #1 Nutrition Diagnosis Inadequate oral intake Etiology DKA As Evidenced by Signs and Symptoms Pt states N/V not eating for 2 -3 days. No bfast consumed. Is patient on ventilator? No Is Patient Ambulatory and/or Out of Bed Yes REE-([facility]-ambulatory/OOB) [ [id number] [id number]] Calculation Used for Recommendations [facility] Additional Notes PRO needs: 57-72g/day (0.8-1g/ kg) Fluid needs: 1ml/kcal or per MD Nutrition Intervention Change Diet Order: Continue consistent CHO Teaching Recipient Patient Learning Readiness Poor Teaching Methods Discussion,Handout Response to Teaching Reinforcement needed Education Handouts Provided DM CHO counting, general dietary tips, label reading. Barriers to Learning Emotional,Social RD phone number provided Yes Patient aware of follow up options Yes Goal #1 Pt meet >80% of kcal/PRO needs . Goal #2 Pt reiterate compliance to diet ed. Anticipated Discharge Needs: Consistent CHO Follow-Up By: 08/05/19 Additional Comments F/U for PO intakes, diet ed reiteration/compliance.
[2019-08-04] MEDS: ALUM-MAG HYDROXIDE-SIMETHICONE 200-200-20MG/5ML ORAL LIQD 30 ML PO PRN ×2 (13:13→17:37)
[2019-08-04] MEDS: ACETAMINOPHEN 325 MG TAB PO PRN (17:32)
[2019-08-04] MEDS ORDERED: DIPHEN PO ONE (21:20)
[2019-08-04] MEDS ORDERED: MYLANTA PO ONE (21:20)
[2019-08-04] MEDS ORDERED: [UNRECOGNIZED DRUG - OTHER] PO ONE (21:20)
[2019-08-05] MEDS: MORPHINE 2 MG/1 ML INJ IV PRN (03:21)
[2019-08-05] MEDS: ONDANSETRON 4 MG/2 ML INJ IV PRN (03:21)
[2019-08-05 05:11] LABS: Basophils % (Auto) 0.2 % (0.0-1.8); Eosinophils % (Auto) 0.1 % (0.0-4.3); Hematocrit 39.7 % (30.3-42.9); Hemoglobin 13.6 gm/dl (10.1-14.3); Lymphocytes # (Auto) 1.5 K/mm3 (1.2-5.4); Lymphocytes % (Auto) 9.5 % (13.4-35.0); Mean Corpuscular HGB Conc 34 % (30-34); Mean Corpuscular Volume 93 fl (79-97); Monocytes # (Auto) 1.4 K/mm3 (0.0-0.8); Monocytes % (Auto) 8.9 % (0.0-7.3); Platelet Count 258 K/mm3 (140-440); Red Blood Count 4.25 M/mm3 (3.65-5.03); Red Cell Distribution Width 12.8 % (13.2-15.2)
[2019-08-05 05:39] LABS: BUN/Creatinine Ratio 8; Blood Urea Nitrogen 4 mg/dL (7-17); Calcium 7.6 mg/dL (8.4-10.2); Hemolysis Index 39
[2019-08-05] MEDS: METOCLOPRAMIDE 10 MG/2 ML INJ IV PRN (05:46)
[2019-08-05] MEDS: SODIUM BICARBONATE 150 MEQ in WATER FOR INJECTION (PF) 1,000 ML IV SCH (05:47)
[2019-08-05] MEDS ORDERED: SODIUM BICARB 8.4% 50 MEQ/50 ML SYRINGE IV ONE (07:00)
[2019-08-05] MEDS ORDERED: SODIUM BICARBONATE IV ONE (07:00)
--- NOTE | 2019-08-05 07:21 | Event Note ---
Date: 08/05/[address] GRUBER REQUESTED THAT PATIENT BE EVALUATED FOR POSSIBLE EMERGENCY DIALYSIS. O/E ;PATIENT LETHERGIC BUT ABLE TO COMMUNICATED AND ORIENTEDX3 VITAL SIGN; P = 121/ BP = SAT OF 95% ON 02 BY N/C RESPIRATORY EXAM SHOWED TACHPNEA OF ABOUT 26 WITH NO ABNORMAL BREATH SOUND CVS EXAM SHOWED NORMAL S1 ANS S2 WITH TACHYCARDIA. LAB RESULT SHOWED CO2 OF 3 ON CHEMISTRY WITH ANION GAP OF 25 . PATIENT RECEIVED 2 AMPS OF BICARB ,I.V PUSH PER INTESIVIST. PLAN; 1.REQUEST MADE FOR CARBON CUTTER ON CONSULT TO BE NOTIFIED FOR INPUT ABOUT PERXISTENT ACIDOSIS DESPITE BICARB TREATMENTS AND TO ADVISE IF EMERGENCY DIALYSIS NEEDED. 2. PATIENT PLACED ON BIPAP TREATMENT BY LIVESTOCK BROKER AND RESPONDING TO TREATMENT. 3. CONTINUE MORNITORING POST BICARB AND BIPAP TREATMENTS.
[2019-08-05] MEDS: SODIUM BICARBONATE IV SCH ×2 (08:00→16:03)
[2019-08-05] MEDS: INSULIN LISPRO 100 UNIT/ML SUB-Q SCH ×4 (08:19→22:10)
[2019-08-05 10:26] LABS: ABG Base Excess -19.9 mmol/L (-2.0-3.0); ABG HCO3 5.4 mmol/L (20.0-26.0); ABG Methemoglobin 0.7 % (0.0-1.5); ABG Oxygen Saturation 98.5 % (95.0-99.0); ABG PCO2 14.1 mm Hg; ABG PH 7.203 pH Units (7.350-7.450); ABG PO2 141.1 mm Hg (80.0-90.0)
[2019-08-05] MEDS ORDERED: ALBUMIN HUMAN 25% (12.5 GM/50 ML) INJ IV PRN (10:33)
[2019-08-05] MEDS ORDERED: SODIUM CHLORIDE 0.9% 100 ML IV PRN (10:33)
[2019-08-05] MEDS: PANTOPRAZOLE 40 MG TAB PO SCH ×2 (10:58→22:17)
[2019-08-05] MEDS: HEPARIN 5,000 UNIT/1 ML VIAL SUB-Q SCH ×2 (10:58→22:18)
--- NOTE | 2019-08-05 11:48 | Consultation ---
History of Present Illness - Reason for Consult metabolic acidosis - History of Present Illness Patient is a young 39-year-old -[place] female with a past medical history significant for diabetes who presented to the emergency department in severe diabetic ketoacidosis. Despite her hyperglycemia correcting appropriately with the insulin drip her high anion gap metabolic acidosis continues to persist for which nephrology was consulted at this time. She had been placed on a sodium bicarbonate drip running at 100 mL an hour with only minimal change in her bicarbonate levels noted. Concern is whether patient may need hemodialysis for resistant metabolic acidosis at this time. She has no his tory of renal disease. Family was at bedside. Patient is on BiPAP this morning. Past History Past Medical History: diabetes Past Surgical History: No surgical history Social history: no significant social history Family history: diabetes, hypertension Medications and Allergies Allergies Allergy/AdvReac Type Severity Reaction Status Date / Time peach Allergy Hives Verified 08/05/19 09:15 Home Medications Medication Instructions Recorded Confirmed Last Taken Type Empagliflozin [Jardiance] 25 mg PO DAILY 08/03/19 08/05/19 08/01/19 07:30 History Insulin Lispro [Humalog Kwikpen 18 units SQ TID 08/03/19 08/05/19 08/05/19 09:12 History 200 UNITS/ML] Active Meds: Active Medications Acetaminophen (Tylenol) 650 mg ID Q4H PRN PRN Reason: Pain, Mild (1-3) Acetaminophen (Tylenol) 650 mg PO Q4H PRN PRN Reason: Pain, Mild (1-3) Last Admin: 08/04/19 17:32 Dose: 650 mg Documented by: Al Hydrox/Mg Hydrox/Simethicone (Alum-Mag Hydrox-Simeth [id number]/5ml) 30 ml PO Q4H PRN PRN Reason: Indigestion Last Admin: 08/04/19 17:37 Dose: 30 ml Documented by: Albumin Human (Alburx 25% (Albumin)) 12.5 gm IV GUANACO PRN PRN Reason: Hypotension Dextrose (D50w (25gm) Syringe) 50 ml IV Q30MIN PRN PRN Reason: Hypoglycemia Last Admin: 08/03/19 23:03 Dose: 50 ml Documented by: Heparin Sodium (Porcine) (Heparin) 5,000 unit SUB-Q Q12HR ANTONIO Last Admin: 08/05/19 10:58 Dose: 5,000 unit Documented by: Sodium Bicarbonate 150 meq/ (Sterile Water) 1,150 mls @ 125 mls/hr IV DIRECT ANTONIO Last Admin: 08/05/19 05:47 Dose: 125 mls/hr Documented by: Sodium Bicarbonate 150 meq/ (Miscellaneous Information) 151 mls @ 125 mls/hr IV DIRECT ANTONIO Last Admin: 08/05/19 08:00 Dose: 125 mls/hr Documented by: Sodium Chloride (Nacl 0.9%) 100 mls @ 999 mls/hr IV GUANACO PRN PRN Reason: Hypotension Insulin Human Lispro (Humalog) 0 unit SUB-Q ACHS ANTONIO; Protocol Last Admin: 08/05/19 08:19 Dose: 1 unit Documented by: Metoclopramide HCl (Reglan) 10 mg IV Q6H PRN PRN Reason: Nausea And Vomiting Last Admin: 08/05/19 05:46 Dose: 10 mg Documented by: Morphine Sulfate (Morphine) 2 mg IV Q4H PRN PRN Reason: Pain, Moderate (4-6) Last Admin: 08/05/19 03:21 Dose: 2 mg Documented by: Nitroglycerin (Nitrostat) 0.4 mg SL .Q5MIN PRN PRN Reason: Chest Pain Last Admin: 08/04/19 06:00 Dose: 0.4 mg Documented by: Ondansetron HCl (Zofran) 4 mg IV Q8H PRN PRN Reason: Nausea And Vomiting Last Admin: 08/05/19 03:21 Dose: 4 mg Documented by: Pantoprazole Sodium (Protonix) 40 mg PO BID [facility] Last Admin: 08/05/19 10:58 Dose: 40 mg Documented by: Review of Systems All systems: negative Constitutional: weakness, lethargy, poor appetite Exam - Vital Signs Vital signs: Vital Signs Pulse Resp Pulse Ox 105 H 26 H 100 08/02/19 19:20 08/02/19 19:20 08/02/19 19:20 - General Appearance General appearance: well-developed, well-nourished, appears stated age EENT: ATNC, PERRL Neck: Present: neck supple, trachea midline Respiratory: Clear to Ascultation, Normal Exam Heart: regular, S1S2 Gastrointestinal: Present: normal, normoactive bowel sounds Integumentary: no rash, warm and dry Neurologic: no focal deficit, no asterixis Psychiatric: cooperative Results - Lab Results 08/05/19 04:46 08/05/19 04:46 Most recent lab results ABG pH 7.203 pH Units (7.350-7.450) L 08/05/19 10:13 ABG pCO2 14.1 mm Hg 08/05/19 10:13 ABG pO2 141.1 mm Hg (80.0-90.0) H 08/05/19 10:13 ABG HCO3 5.4 mmol/L (20.0-26.0) L 08/05/19 10:13 ABG O2 Saturation 98.5 % (95.0-99.0) 08/05/19 10:13 Calcium 7.6 mg/dL (8.4-10.2) L 08/05/19 04:46 Phosphorus 4.00 mg/dL (2.5-4.5) 08/02/19 23:12 Magnesium 2.00 mg/dL (1.7-2.3) 08/02/19 23:12 Assessment and Plan - Patient Problems (1) Metabolic acidosis Current Visit: Yes Status: Acute Plan to address problem: Secondary to persistent acidemia despite optimal medical management we will arrange patient to undergo hemodialysis for 2 straight sessions, starting today. Vas cath to be placed by interventional list. Orders have been placed for hemodialysis today. (2) DKA (diabetic ketoacidoses) Current Visit: Yes Status: Acute Qualifiers: Diabetes mellitus type: type 1 Diabetes mellitus complication detail: without coma Qualified Code(s): E10.10 - Type 1 diabetes mellitus with ketoacidosis without coma Plan to address problem: Patient is currently off insulin drip at this time. Further management per primary attending. (3) Hypokalemia Current Visit: Yes Status: Acute Plan to address problem: Replete per protocol. We'll run a 3K potassium bath during dialysis. (4) Nausea & vomiting Current Visit: Yes Status: Acute Plan to address problem: Management per primary attending.
--- NOTE | 2019-08-05 13:13 | Progress Note ---
Assessment and Plan Assessment and plan: DKA. Continue IV insulin and transitioned to long-acting insulin when anion gap has closed. Continue IV fluid hydration. Hypokalemia. Replete as needed. Metabolic acidosis. Improved. I discussed with pharmacy that diabetic medication may also be contributing. Continue D5W with 3 amps NaGCO3/liter at 125 mls /hr DVT prophylaxis. History Interval history: No new issues overnight. Hospitalist Physical - Constitutional Vitals: Temp Pulse Resp BP Pulse Ox 98.5 F 125 H 35 H 144/79 100 08/05/19 03:26 08/05/19 12:00 08/05/19 12:00 08/05/19 12:00 08/05/19 12:00 General appearance: Present: no acute distress, well-nourished - EENT Eyes: Present: PERRL, EOM intact ENT: hearing intact, clear oral mucosa, dentition normal - Neck Neck: Present: supple, normal ROM - Respiratory Respiratory effort: normal Respiratory: bilateral: CTA - Cardiovascular Rhythm: regular Heart Sounds: Present: S1 & S2. Absent: gallop, rub - Extremities Extremities: no ischemia, No edema, Full ROM - Abdominal General gastrointestinal: soft, non-tender, non-distended, normal bowel sounds - Integumentary Integumentary: Present: clear, warm, dry - Neurologic Neurologic: CNII-XII intact, moves all extremities Results - Labs CBC & Chem 7: 08/05/19 04:46 08/05/19 04:46 Labs: Laboratory Last Values WBC 15.5 K/mm3 (4.5-11.0) H 08/05/19 04:46 RBC 4.25 M/mm3 (3.65-5.03) 08/05/19 04:46 Hgb 13.6 gm/dl (10.1-14.3) 08/05/19 04:46 Hct 39.7 % (30.3-42.9) 08/05/19 04:46 MCV 93 fl (79-97) 08/05/19 04:46 MCH 32 pg (28-32) 08/05/19 04:46 MCHC 34 % (30-34) 08/05/19 04:46 RDW 12.8 % (13.2-15.2) L 08/05/19 04:46 Plt Count 258 K/mm3 (140-440) 08/05/19 04:46 Lymph % (Auto) 9.5 % (13.4-35.0) L 08/05/19 04:46 [place] % (Auto) 8.9 % (0.0-7.3) H 08/05/19 04:46 Eos % (Auto) 0.1 % (0.0-4.3) 08/05/19 04:46 Baso % (Auto) 0.2 % (0.0-1.8) 08/05/19 04:46 Lymph # 1.5 K/mm3 (1.2-5.4) 08/05/19 04:46 [place] # 1.4 K/mm3 (0.0-0.8) H 08/05/19 04:46 Eos # 0.0 K/mm3 (0.0-0.4) 08/05/19 04:46 Baso # 0.0 K/mm3 (0.0-0.1) 08/05/19 04:46 Add Manual Diff Complete 08/03/19 09:09 Total Counted 100 08/03/19 09:09 Seg Neutrophils % 81.3 % (40.0-70.0) H 08/05/19 04:46 Seg Neuts % (Manual) 84.0 % (40.0-70.0) H 08/03/19 09:09 Band Neutrophils % 0 % 08/03/19 09:09 Lymphocytes % (Manual) 9.0 % (13.4-35.0) L 08/03/19 09:09 Reactive Lymphs % (Man) 0 % 08/03/19 09:09 Monocytes % (Manual) 7.0 % (0.0-7.3) 08/03/19 09:09 Eosinophils % (Manual) 0 % (0.0-4.3) 08/03/19 09:09 Basophils % (Manual) 0 % (0.0-1.8) 08/03/19 09:09 Metamyelocytes % 0 % 08/03/19 09:09 Myelocytes % 0 % 08/03/19 09:09 Promyelocytes % 0 % 08/03/19 09:09 Blast Cells % 0 % 08/03/19 09:09 Nucleated RBC % Not Reportable 08/03/19 09:09 Seg Neutrophils # 12.6 K/mm3 (1.8-7.7) H 08/05/19 04:46 Seg Neutrophils # Man 20.0 K/mm3 (1.8-7.7) H 08/03/19 09:09 Band Neutrophils # 0.0 K/mm3 08/03/19 09:09 Lymphocytes # (Manual) 2.1 K/mm3 (1.2-5.4) 08/03/19 09:09 Abs React Lymphs (Man) 0.0 K/mm3 08/03/19 09:09 Monocytes # (Manual) 1.7 K/mm3 (0.0-0.8) H 08/03/19 09:09 Eosinophils # (Manual) 0.0 K/mm3 (0.0-0.4) 08/03/19 09:09 Basophils # (Manual) 0.0 K/mm3 (0.0-0.1) 08/03/19 09:09 Metamyelocytes # 0.0 K/mm3 08/03/19 09:09 Myelocytes # 0.0 K/mm3 08/03/19 09:09 Promyelocytes # 0.0 K/mm3 08/03/19 09:09 Blast Cells # 0.0 K/mm3 08/03/19 09:09 WBC Morphology Not Reportable 08/03/19 09:09 Hypersegmented Neuts Not Reportable 08/03/19 09:09 Hyposegmented Neuts Not Reportable 08/03/19 09:09 Hypogranular Neuts Not Reportable 08/03/19 09:09 Smudge Cells Not Reportable 08/03/19 09:09 Toxic Granulation Not Reportable 08/03/19 09:09 Toxic Vacuolation Not Reportable 08/03/19 09:09 Dohle Bodies Not Reportable 08/03/19 09:09 Pelger-Huet Anomaly Not Reportable 08/03/19 09:09 Avni Rods Not Reportable 08/03/19 09:09 Platelet Estimate Consistent w auto 08/03/19 09:09 Clumped Platelets Not Reportable 08/03/19 09:09 Plt Clumps, EDTA Not Reportable 08/03/19 09:09 Large Platelets Not Reportable 08/03/19 09:09 Giant Platelets Not Reportable 08/03/19 09:09 Platelet Satelliting Not Reportable 08/03/19 09:09 Plt Morphology Comment Not Reportable 08/03/19 09:09 RBC Morphology Normal 08/03/19 09:09 Dimorphic RBCs Not Reportable 08/03/19 09:09 Polychromasia Not Reportable 08/03/19 09:09 Hypochromasia Not Reportable 08/03/19 09:09 Poikilocytosis Not Reportable 08/03/19 09:09 Anisocytosis Not Reportable 08/03/19 09:09 Microcytosis Not Reportable 08/03/19 09:09 Macrocytosis Not Reportable 08/03/19 09:09 Spherocytes Not Reportable 08/03/19 09:09 Pappenheimer Bodies Not Reportable 08/03/19 09:09 Sickle Cells Not Reportable 08/03/19 09:09 Target Cells Not Reportable 08/03/19 09:09 Tear Drop Cells Not Reportable 08/03/19 09:09 Ovalocytes Not Reportable 08/03/19 09:09 Helmet Cells Not Reportable 08/03/19 09:09 Diaz-Hawkeye Bodies Not Reportable 08/03/19 09:09 [place] Rings Not Reportable 08/03/19 09:09 Jermaine Cells Not Reportable 08/03/19 09:09 Bite Cells Not Reportable 08/03/19 09:09 Crenated Cell Not Reportable 08/03/19 09:09 Elliptocytes Not Reportable 08/03/19 09:09 Acanthocytes (Spur) Not Reportable 08/03/19 09:09 Rouleaux Not Reportable 08/03/19 09:09 Hemoglobin C Crystals Not Reportable 08/03/19 09:09 Schistocytes Not Reportable 08/03/19 09:09 Malaria parasites Not Reportable 08/03/19 09:09 Rivera Bodies Not Reportable 08/03/19 09:09 Hem Pathologist Commnt No 08/03/19 09:09 POC ABG pH 7.042 (7.35-7.45) L 08/05/19 06:31 ABG pH 7.203 pH Units (7.350-7.450) L 08/05/19 10:13 ABG pCO2 14.1 mm Hg 08/05/19 10:13 POC ABG pO2 148 (80-105) H 08/05/19 06:31 ABG pO2 141.1 mm Hg (80.0-90.0) H 08/05/19 10:13 POC ABG HCO3 2.2 (22-26 mml/L) 08/05/19 06:31 ABG HCO3 5.4 mmol/L (20.0-26.0) L 08/05/19 10:13 POC ABG Total CO2 < 5 (23-27mmol/L) 08/05/19 06:31 POC ABG O2 Sat 98 08/05/19 06:31 ABG O2 Saturation 98.5 % (95.0-99.0) 08/05/19 10:13 ABG O2 Content 19.5 (0.0-44) 08/05/19 10:13 POC ABG Base Excess -28 ((-2) - (+3)mmol/L) 08/05/19 06:31 ABG Base Excess -19.9 mmol/L (-2.0-3.0) L 08/05/19 10:13 ABG Hemoglobin 14.2 gm/dl (12.0-16.0) 08/05/19 10:13 ABG Carboxyhemoglobin 1.3 % (0.0-5.0) 08/05/19 10:13 ABG Methemoglobin 0.7 % (0.0-1.5) 08/05/19 10:13 VBG pH 7.273 (7.320-7.420) L 08/04/19 06:19 VBG pO2 51.9 (25.0-47.0) H 08/04/19 06:19 Oxyhemoglobin 96.5 % (95.0-99.0) 08/05/19 10:13 FiO2 25 % 08/05/19 10:13 Sodium 136 mmol/L (137-145) L 08/05/19 04:46 Potassium 3.7 mmol/L (3.6-5.0) 08/05/19 04:46 Chloride 107.1 mmol/L (98-107) H 08/05/19 04:46 Carbon Dioxide 3 mmol/L (22-30) L* 08/05/19 04:46 Anion Gap 30 mmol/L 08/05/19 04:46 BUN 4 mg/dL (7-17) L 08/05/19 04:46 Creatinine 0.5 mg/dL (0.7-1.2) L 08/05/19 04:46 Estimated GFR > 60 ml/min 08/05/19 04:46 BUN/Creatinine Ratio 8 % 08/05/19 04:46 Glucose 192 mg/dL (65-100) H 08/05/19 04:46 POC Glucose 177 (70-105) H 08/05/19 08:24 Lactic Acid 1.10 mmol/L (0.7-2.0) 08/04/19 21:01 Calcium 7.6 mg/dL (8.4-10.2) L 08/05/19 04:46 Phosphorus 4.00 mg/dL (2.5-4.5) 08/02/19 23:12 Magnesium 2.00 mg/dL (1.7-2.3) 08/02/19 23:12 Total Bilirubin 0.30 mg/dL (0.1-1.2) 08/03/19 23:16 AST 20 units/L (5-40) 08/03/19 23:16 ALT 14 units/L (7-56) 08/03/19 23:16 Alkaline Phosphatase 69 units/L (35-129) 08/03/19 23:16 Total Creatine Kinase 137 units/L (30-135) H 08/04/19 06:25 CK-MB (CK-2) 3.1 ng/mL (0.0-4.0) 08/04/19 06:25 CK-MB (CK-2) Rel Index 2.2 (0-4) 08/04/19 06:25 Troponin T < 0.010 ng/mL (0.00-0.029) 08/04/19 06:25 Total Protein 5.9 g/dL (6.3-8.2) L 08/03/19 23:16 Albumin 3.5 g/dL (3.9-5) L 08/03/19 23:16 Albumin/Globulin Ratio 1.5 % 08/03/19 23:16 Lipase 10 units/L (13-60) L 08/02/19 20:23 Procalcitonin 0.47 ng/mL (<0.15) 08/04/19 20:54 HCG, Qual Negative (Negative) 08/02/19 20:11 Urine Color Straw (Yellow) 08/02/19 21:53 Urine Turbidity Clear (Clear) 08/02/19 21:53 Urine pH 5.0 (5.0-7.0) 08/02/19 21:53 Ur Specific [place] 1.020 (1.003-1.030) 08/02/19 21:53 Urine Protein 100 mg/dl mg/dL (Negative) 08/02/19 21:53 Urine Glucose (UA) >=500 mg/dL (Negative) 08/02/19 21:53 Urine Ketones 80 mg/dL (Negative) 08/02/19 21:53 Urine Blood Sm (Negative) 08/02/19 21:53 Urine Nitrite Neg (Negative) 08/02/19 21:53 Urine Bilirubin Neg (Negative) 08/02/19 21:53 Urine Urobilinogen < 2.0 mg/dL (<2.0) 08/02/19 21:53 Ur Leukocyte Esterase Neg (Negative) 08/02/19 21:53 Urine WBC (Auto) 1.0 /HPF (0.0-6.0) 08/02/19 21:53 Urine RBC (Auto) 2.0 /HPF (0.0-6.0) 08/02/19 21:53 U Epithel Cells (Auto) 2.0 /HPF (0-13.0) 08/02/19 21:53 Urine Mucus Few /HPF 08/02/19 21:53 Urine Yeast (Budding) Few /HPF 08/02/19 21:53 Active Medications - Current Medications Current Medications: Generic Name Dose Route Start Last Admin Trade Name Freq PRN Reason Stop Dose Admin Acetaminophen 650 mg 08/02/19 23:14 Tylenol UT Q4H PRN Pain, Mild (1-3) Acetaminophen 650 mg 08/04/19 15:17 08/04/19 17:32 Tylenol PO 650 mg Q4H PRN Administration Pain, Mild (1-3) Al Hydrox/Mg Hydrox/Simethicone 30 ml 08/04/19 12:40 08/04/19 17:37 Alum-Mag Hydrox-Simeth [id number]/5ml PO 30 ml Q4H PRN Administration Indigestion Albumin Human 12.5 gm 08/05/19 10:33 Alburx 25% (Albumin) IV GUANACO PRN Hypotension Dextrose 50 ml 08/03/19 21:06 08/03/19 23:03 D50w (25gm) Syringe IV 50 ml Q30MIN PRN Administration Hypoglycemia Heparin Sodium (Porcine) 5,000 unit 08/03/19 10:00 08/05/19 10:58 Heparin SUB-Q 5,000 unit Q12HR ANTONIO Administration Sodium Bicarbonate 150 meq/ 1,150 mls @ 125 mls/hr 08/04/19 09:00 08/05/19 05:47 Sterile Water IV 125 mls/hr DIRECT ANTONIO Administration Sodium Bicarbonate 150 meq/ 151 mls @ 125 mls/hr 08/05/19 08:00 08/05/19 08:00 Miscellaneous Information IV 125 mls/hr DIRECT ANTONIO Administration Sodium Chloride 100 mls @ 999 mls/hr 08/05/19 10:33 Nacl 0.9% IV GUANACO PRN Hypotension Insulin Human Lispro 0 unit 08/03/19 22:00 08/05/19 08:19 Humalog SUB-Q 1 unit ACHS ANTONIO Administration Protocol Metoclopramide HCl 10 mg 08/05/19 05:27 08/05/19 05:46 Reglan IV 10 mg Q6H PRN Administration Nausea And Vomiting Morphine Sulfate 2 mg 08/02/19 23:13 08/05/19 03:21 Morphine IV 2 mg Q4H PRN Administration Pain, Moderate (4-6) Nitroglycerin 0.4 mg 08/04/19 06:17 08/04/19 06:00 Nitrostat SL 0.4 mg .Q5MIN PRN Administration Chest Pain Ondansetron HCl 4 mg 08/02/19 23:12 08/05/19 03:21 Zofran IV 4 mg Q8H PRN Administration Nausea And Vomiting Pantoprazole Sodium 40 mg 08/04/19 10:00 08/05/19 10:58 Protonix PO 40 mg BID ANTONIO Administration Nutrition/Malnutrition Assess - Dietary Evaluation Nutrition/Malnutrition Findings: Nutrition Notes Start: 08/04/19 10:1 3 Freq: Status: Active Protocol: Document 08/05/19 09:14 RS (Rec: 08/05/19 09:37 RS [email or web address]) Co-Sign 08/05/19 09:14 LM Nutrition Notes Initial or Follow up Reassessment Current Diagnosis Diabetes Other Pertinent Diagnosis DKA Current Diet Consistent CHO Labs/Tests B BUN: 4 Na: 136 CO2: 3 Pertinent Medications reviewed Height 5 ft 4 in Weight 72.57 kg [place] Body Weight (kg) 54.54 BMI 27.4 Weight Status Overweight Subjective/Other Information F/U for PO intake and diet education reiteration. Pt currently on BiPap, but there are no plans for pt to be intubated per RN. Unable to give diet education to pt d/t lethargy, will try again later . Pt ate 0% of breakfast d/t BiPap placement. Percent of energy/protein needs met: 0%/0% Burn Absent Trauma Absent Current % PO Negligible Minimum of two criteria No physical signs of malnutrition #2 Nutrition Diagnosis Food and nutrition-related knowledge deficit Diagnosis Progress(for reassessment Continues documentation) #1 Nutrition Diagnosis Inadequate oral intake Diagnosis Progress(for reassessment Continues documentation) Is patient on ventilator? No Is Patient Ambulatory and/or Out of Bed Yes REE-([facility]-ambulatory/OOB) [ [id number] [id number]] Calculation Used for Recommendations [facility] Additional Notes PRO needs: 57-72g/day (0.8-1g/ kg) Fluid needs: 1ml/kcal or per MD Nutrition Intervention Change Diet Order: Continue consistent CHO Goal #1 Pt meet >80% of kcal/PRO needs . Goal #2 Pt reiterate compliance to diet ed. Anticipated Discharge Needs: Consistent CHO Follow-Up By: 08/08/19 Additional Comments F/U for PO intakes, POC, diet education reiteration if pt is compliant.
--- NOTE | 2019-08-05 13:36 | Progress Note ---
Assessment and Plan DKA (diabetic ketoacidoses) Hypokalemia Severe Metabolic acidosis Leucocytosis - to begin dialysis - vascular surgeon to place Vascath - SVT likely related to acidosis (prn IV metoprolol for pulse > 135/min ordered) - continue bicarbonate supplementation (continue D5W with 3 amps NaHCO3/liter at 125 mls /hr) - continue prn BIPAP for increased work of breathing (used it overnight) - aspiration precautions - stopped Ozempic - prn albuterol - continue accuchecks with SSI for target BG < 180 mg/dl - continue GI & VTE prophylaxis - watch closely for S&S of sepsis - get blood cultures but follow clinically off AB's for now - mobility protocols for pressure ulcer prophylaxis - continue other care per attending / other senior billing consultant's ... re-evaluate in am & prn .... care plan discussed with patient and mother in room The high probability of a clinically significant, sudden or life-threatening deterioration of the [cardiac, renal and endocrine] system(s) required my full and direct attention, intervention and personal management. The aggregate critical care time was [32] minutes without overlap. Time includes spent on; [x] Data Review and interpretation [x] Patient assessment and monitoring of vital signs [x] Documentation [x] Medication orders and management Subjective Date of service: 08/05/19 Principal diagnosis: DKA; Hypokalemia; Severe Metabolic acidosis; Leucocytosis Interval history: Patient is seen today for: DKA (diabetic ketoacidoses); Hypokalemia; Severe Metabolic acidosis; Leucocytosis Seen and examined at bedside; 24hour events reviewed; nursing and respiratory care staff consulted; no adverse overnight events reported to me; resting in bed; still with persistent feeling of generalized malaise; remains tachycardic but denies chest pains or palpitations; remains profoundly acidotic despite bicarbonate supplementation; procalcitonin and lactate levels unremarkable. Objective Vital Signs - 12hr 08/05/19 08/05/19 08/05/19 01:31 02:00 02:31 Temperature Pulse Rate 113 H 123 H 121 H Pulse Rate [ From Monitor] Respiratory 25 H 31 H 28 H Rate Blood Pressure 117/78 159/100 159/100 O2 Sat by Pulse 100 100 100 Oximetry 08/05/19 08/05/19 08/05/19 03:00 03:26 03:31 Temperature 98.5 F Pulse Rate 113 H 117 H Pulse Rate [ From Monitor] Respiratory 26 H 24 Rate Blood Pressure 125/82 125/82 O2 Sat by Pulse 100 100 Oximetry 08/05/19 08/05/19 08/05/19 04:00 04:31 05:00 Temperature Pulse Rate 116 H 118 H 119 H Pulse Rate [ 120 H From Monitor] Respiratory 31 H 27 H 33 H Rate Blood Pressure 141/87 141/87 135/82 O2 Sat by Pulse 100 100 100 Oximetry 08/05/19 08/05/19 08/05/19 05:31 06:00 06:31 Temperature Pulse Rate 120 H 121 H 122 H Pulse Rate [ From Monitor] Respiratory 33 H 34 H 34 H Rate Blood Pressure 141/87 151/86 151/86 O2 Sat by Pulse 100 99 100 Oximetry 08/05/19 08/05/19 08/05/19 07:00 07:31 08:00 Temperature Pulse Rate 121 H 121 H 120 H Pulse Rate [ 123 H From Monitor] Respiratory 35 H 30 H 33 H Rate Blood Pressure 145/85 145/85 145/78 O2 Sat by Pulse 100 99 100 Oximetry 08/05/19 08/05/19 08/05/19 08:31 09:00 09:31 Temperature Pulse Rate 125 H 124 H 126 H Pulse Rate [ From Monitor] Respiratory 32 H 34 H 32 H Rate Blood Pressure 145/78 145/86 145/86 O2 Sat by Pulse 98 100 100 Oximetry 08/05/19 08/05/19 08/05/19 10:00 10:31 11:00 Temperature Pulse Rate 128 H 130 H 132 H Pulse Rate [ From Monitor] Respiratory 31 H 31 H 34 H Rate Blood Pressure 159/84 159/84 153/93 O2 Sat by Pulse 100 100 100 Oximetry 08/05/19 08/05/19 11:31 12:00 Temperature Pulse Rate 127 H 125 H Pulse Rate [ 125 H From Monitor] Respiratory 37 H 36 H Rate Blood Pressure 159/84 144/79 O2 Sat by Pulse 100 100 Oximetry Constitutional: appears uncomfortable, other (young AAF normocephalica nd atraumatic with moderately increased respiratory effort at rest) Eyes: non-icteric ENT: oropharynx moist, other (mallampati 2) Neck: supple, no lymphadenopathy, no JVD Effort: mildly labored Ascultation: Bilateral: clear, diminished breath sounds Percussion: Bilateral: not dull Cardiovascular: regular rate and rhythm Gastrointestinal: normoactive bowel sounds, soft, non-tender, non-distended Integumentary: normal Extremities: no cyanosis, no edema, pulses normal, no ischemia or petechiae Neurologic: normal mental status, non-focal exam, pupils equal and round, CN II- XII normal, motor strength normal and Psychiatric: anxious CBC and BMP: 08/05/19 04:46 08/05/19 04:46 ABG, PT/INR, D-dimer: ABG POC ABG pH 7.042 (7.35-7.45) L 08/05/19 06:31 ABG pH 7.203 pH Units (7.350-7.450) L 08/05/19 10:13 ABG pCO2 14.1 mm Hg 08/05/19 10:13 POC ABG pO2 148 (80-105) H 08/05/19 06:31 ABG pO2 141.1 mm Hg (80.0-90.0) H 08/05/19 10:13 POC ABG HCO3 2.2 (22-26 mml/L) 08/05/19 06:31 POC ABG Total CO2 < 5 (23-27mmol/L) 08/05/19 06:31 POC ABG O2 Sat 98 08/05/19 06:31 ABG O2 Saturation 98.5 % (95.0-99.0) 08/05/19 10:13 Abnormal lab findings: Abnormal Labs 08/02/19 08/02/19 08/02/19 19:56 20:11 20:21 WBC 25.1 H Hgb 14.8 H Hct 45.6 H MCV 98 H RDW 12.8 L Lymph % (Auto) [place] % (Auto) [place] # Seg Neutrophils % Seg Neuts % (Manual) 83.0 H Lymphocytes % (Manual) 10.0 L Seg Neutrophils # Seg Neutrophils # Man 20.8 H Monocytes # (Manual) 1.8 H POC ABG pH ABG pH POC ABG pO2 ABG pO2 ABG HCO3 ABG Base Excess VBG pH VBG pO2 Sodium 133 L Potassium Chloride Carbon Dioxide 13 L BUN Creatinine Glucose 306 H POC Glucose 233 H Calcium 7.7 L Total Creatine Kinase CK-MB (CK-2) Total Protein Albumin Lipase 08/02/19 08/02/19 08/02/19 20:22 20:23 21:54 WBC Hgb Hct MCV RDW Lymph % (Auto) [place] % (Auto) [place] # Seg Neutrophils % Seg Neuts % (Manual) Lymphocytes % (Manual) Seg Neutrophils # Seg Neutrophils # Man Monocytes # (Manual) POC ABG pH ABG pH POC ABG pO2 ABG pO2 ABG HCO3 ABG Base Excess VBG pH 6.877 L* VBG pO2 Sodium Potassium Chloride Carbon Dioxide BUN Creatinine Glucose POC Glucose 237 H Calcium Total Creatine Kinase CK-MB (CK-2) Total Protein Albumin Lipase 10 L 08/02/19 08/02/19 08/02/19 23:02 23:12 23:57 WBC Hgb Hct MCV RDW Lymph % (Auto) [place] % (Auto) [place] # Seg Neutrophils % Seg Neuts % (Manual) Lymphocytes % (Manual) Seg Neutrophils # Seg Neutrophils # Man Monocytes # (Manual) POC ABG pH ABG pH POC ABG pO2 ABG pO2 ABG HCO3 ABG Base Excess VBG pH VBG pO2 Sodium 135 L Potassium 5.5 H D Chloride 108.2 H Carbon Dioxide 2 L* D BUN Creatinine 0.6 L Glucose 307 H POC Glucose 244 H 255 H Calcium 7.3 L Total Creatine Kinase CK-MB (CK-2) Total Protein Albumin Lipase 08/03/19 08/03/19 08/03/19 00:34 01:04 02:17 WBC Hgb Hct MCV RDW Lymph % (Auto) [place] % (Auto) [place] # Seg Neutrophils % Seg Neuts % (Manual) Lymphocytes % (Manual) Seg Neutrophils # Seg Neutrophils # Man Monocytes # (Manual) POC ABG pH ABG pH POC ABG pO2 ABG pO2 ABG HCO3 ABG Base Excess VBG pH VBG pO2 Sodium 135 L Potassium Chloride 108.9 H Carbon Dioxide < 2.0 L* BUN Creatinine 0.6 L Glucose 262 H POC Glucose 245 H 210 H Calcium 7.1 L Total Creatine Kinase CK-MB (CK-2) Total Protein Albumin Lipase 08/03/19 08/03/19 08/03/19 03:12 04:15 04:16 WBC Hgb Hct MCV RDW Lymph % (Auto) [place] % (Auto) [place] # Seg Neutrophils % Seg Neuts % (Manual) Lymphocytes % (Manual) Seg Neutrophils # Seg Neutrophils # Man Monocytes # (Manual) POC ABG pH ABG pH POC ABG pO2 ABG pO2 ABG HCO3 ABG Base Excess VBG pH VBG pO2 Sodium Potassium Chloride 113.9 H Carbon Dioxide 4 L* BUN Creatinine Glucose 110 H POC Glucose 190 H 168 H Calcium 7.3 L Total Creatine Kinase CK-MB (CK-2) Total Protein Albumin Lipase 08/03/19 08/03/19 08/03/19 05:21 06:29 07:52 WBC Hgb Hct MCV RDW Lymph % (Auto) [place] % (Auto) [place] # Seg Neutrophils % Seg Neuts % (Manual) Lymphocytes % (Manual) Seg Neutrophils # Seg Neutrophils # Man Monocytes # (Manual) POC ABG pH ABG pH POC ABG pO2 ABG pO2 ABG HCO3 ABG Base Excess VBG pH VBG pO2 Sodium Potassium Chloride Carbon Dioxide BUN Creatinine Glucose POC Glucose 113 H 108 H 108 H Calcium Total Creatine Kinase CK-MB (CK-2) Total Protein Albumin Lipase 08/03/19 08/03/19 08/03/19 08:43 09:09 09:09 WBC 23.8 H Hgb Hct MCV RDW 12.3 L Lymph % (Auto) [place] % (Auto) [place] # Seg Neutrophils % Seg Neuts % (Manual) 84.0 H Lymphocytes % (Manual) 9.0 L Seg Neutrophils # Seg Neutrophils # Man 20.0 H Monocytes # (Manual) 1.7 H POC ABG pH ABG pH POC ABG pO2 ABG pO2 ABG HCO3 ABG Base Excess VBG pH VBG pO2 Sodium Potassium Chloride 111.6 H Carbon Dioxide 8 L* BUN Creatinine 0.6 L Glucose 125 H POC Glucose 108 H Calcium 7.7 L Total Creatine Kinase CK-MB (CK-2) Total Protein Albumin Lipase 08/03/19 08/03/19 08/03/19 09:50 11:38 12:35 WBC Hgb Hct MCV RDW Lymph % (Auto) [place] % (Auto) [place] # Seg Neutrophils % Seg Neuts % (Manual) Lymphocytes % (Manual) Seg Neutrophils # Seg Neutrophils # Man Monocytes # (Manual) POC ABG pH ABG pH POC ABG pO2 ABG pO2 ABG HCO3 ABG Base Excess VBG pH VBG pO2 Sodium Potassium Chloride Carbon Dioxide BUN Creatinine Glucose POC Glucose 128 H 130 H 126 H Calcium Total Creatine Kinase CK-MB (CK-2) Total Protein Albumin Lipase 10/08/03/19 08/03/19 13:17 14:06 14:31 WBC Hgb Hct MCV RDW Lymph % (Auto) [place] % (Auto) [place] # Seg Neutrophils % Seg Neuts % (Manual) Lymphocytes % (Manual) Seg Neutrophils # Seg Neutrophils # Man Monocytes # (Manual) POC ABG pH ABG pH POC ABG pO2 ABG pO2 ABG HCO3 ABG Base Excess VBG pH VBG pO2 Sodium Potassium 3.2 L Chloride 113.0 H Carbon Dioxide 10 L BUN Creatinine 0.5 L Glucose 101 H POC Glucose 132 H 135 H Calcium 7.6 L Total Creatine Kinase CK-MB (CK-2) Total Protein Albumin Lipase 08/03/19 08/03/19 08/03/19 14:31 16:47 17:46 WBC Hgb Hct MCV RDW Lymph % (Auto) [place] % (Auto) [place] # Seg Neutrophils % Seg Neuts % (Manual) Lymphocytes % (Manual) Seg Neutrophils # Seg Neutrophils # Man Monocytes # (Manual) POC ABG pH ABG pH POC ABG pO2 ABG pO2 ABG HCO3 ABG Base Excess VBG pH VBG pO2 Sodium Potassium Chloride Carbon Dioxide BUN Creatinine Glucose POC Glucose 117 H 110 H Calcium Total Creatine Kinase 161 H CK-MB (CK-2) 4.8 H Total Protein Albumin Lipase 08/03/19 08/03/19 08/03/19 19:53 21:00 21:11 WBC Hgb Hct MCV RDW Lymph % (Auto) [place] % (Auto) [place] # Seg Neutrophils % Seg Neuts % (Manual) Lymphocytes % (Manual) Seg Neutrophils # Seg Neutrophils # Man Monocytes # (Manual) POC ABG pH ABG pH POC ABG pO2 ABG pO2 ABG HCO3 ABG Base Excess VBG pH VBG pO2 Sodium Potassium Chloride 109.9 H Carbon Dioxide 8 L* BUN Creatinine 0.5 L Glucose 26 L* POC Glucose 116 H 118 H Calcium 7.5 L Total Creatine Kinase CK-MB (CK-2) Total Protein Albumin Lipase 08/03/19 08/03/19 08/03/19 22:02 22:05 23:16 WBC Hgb Hct MCV RDW Lymph % (Auto) [place] % (Auto) [place] # Seg Neutrophils % Seg Neuts % (Manual) Lymphocytes % (Manual) Seg Neutrophils # Seg Neutrophils # Man Monocytes # (Manual) POC ABG pH ABG pH POC ABG pO2 ABG pO2 ABG HCO3 ABG Base Excess VBG pH VBG pO2 Sodium 136 L Potassium 3.4 L Chloride 107.3 H Carbon Dioxide 8 L* BUN 5 L Creatinine 0.6 L Glucose 30 L* 357 H POC Glucose 132 H Calcium 7.7 L Total Creatine Kinase CK-MB (CK-2) Total Protein 5.9 L Albumin 3.5 L Lipase 08/03/19 08/04/19 08/04/19 23:51 00:32 02:08 WBC Hgb Hct MCV RDW Lymph % (Auto) [place] % (Auto) [place] # Seg Neutrophils % Seg Neuts % (Manual) Lymphocytes % (Manual) Seg Neutrophils # Seg Neutrophils # Man Monocytes # (Manual) POC ABG pH ABG pH 7.198 L* POC ABG pO2 ABG pO2 122.5 H ABG HCO3 4.4 L ABG Base Excess -20.8 L VBG pH VBG pO2 Sodium Potassium Chloride Carbon Dioxide BUN Creatinine Glucose POC Glucose 294 H 270 H Calcium Total Creatine Kinase CK-MB (CK-2) Total Protein Albumin Lipase 08/04/19 08/04/19 08/04/19 04:47 04:47 06:19 WBC 17.8 H Hgb Hct MCV RDW 12.4 L Lymph % (Auto) [place] % (Auto) [place] # Seg Neutrophils % Seg Neuts % (Manual) Lymphocytes % (Manual) Seg Neutrophils # Seg Neutrophils # Man Monocytes # (Manual) POC ABG pH ABG pH POC ABG pO2 ABG pO2 ABG HCO3 ABG Base Excess VBG pH 7.273 L VBG pO2 51.9 H Sodium Potassium Chloride 111.5 H Carbon Dioxide 4 L* BUN 4 L Creatinine 0.5 L Glucose 260 H POC Glucose Calcium 7.6 L Total Creatine Kinase CK-MB (CK-2) Total Protein Albumin Lipase 08/04/19 08/04/19 08/04/19 06:20 06:25 06:37 WBC Hgb Hct MCV RDW Lymph % (Auto) [place] % (Auto) [place] # Seg Neutrophils % Seg Neuts % (Manual) Lymphocytes % (Manual) Seg Neutrophils # Seg Neutrophils # Man Monocytes # (Manual) POC ABG pH ABG pH POC ABG pO2 ABG pO2 ABG HCO3 ABG Base Excess VBG pH VBG pO2 Sodium Potassium Chloride Carbon Dioxide BUN Creatinine Glucose POC Glucose 231 H 250 H Calcium Total Creatine Kinase 137 H CK-MB (CK-2) Total Protein Albumin Lipase 08/04/19 08/04/19 08/04/19 07:42 11:36 16:27 WBC Hgb Hct MCV RDW Lymph % (Auto) [place] % (Auto) [place] # Seg Neutrophils % Seg Neuts % (Manual) Lymphocytes % (Manual) Seg Neutrophils # Seg Neutrophils # Man Monocytes # (Manual) POC ABG pH ABG pH POC ABG pO2 ABG pO2 ABG HCO3 ABG Base Excess VBG pH VBG pO2 Sodium Potassium Chloride Carbon Dioxide BUN Creatinine Glucose POC Glucose 286 H 239 H 151 H Calcium Total Creatine Kinase CK-MB (CK-2) Total Protein Albumin Lipase 08/04/19 08/05/19 08/05/19 21:16 02:10 02:22 WBC Hgb Hct MCV RDW Lymph % (Auto) [place] % (Auto) [place] # Seg Neutrophils % Seg Neuts % (Manual) Lymphocytes % (Manual) Seg Neutrophils # Seg Neutrophils # Man Monocytes # (Manual) POC ABG pH 7.190 L ABG pH POC ABG pO2 160 H ABG pO2 ABG HCO3 ABG Base Excess VBG pH VBG pO2 Sodium Potassium Chloride Carbon Dioxide BUN Creatinine Glucose POC Glucose 176 H 133 H Calcium Total Creatine Kinase CK-MB (CK-2) Total Protein Albumin Lipase 08/05/19 08/05/19 08/05/19 04:46 04:46 06:31 WBC 15.5 H Hgb Hct MCV RDW 12.8 L Lymph % (Auto) 9.5 L [place] % (Auto) 8.9 H [place] # 1.4 H Seg Neutrophils % 81.3 H Seg Neuts % (Manual) Lymphocytes % (Manual) Seg Neutrophils # 12.6 H Seg Neutrophils # Man Monocytes # (Manual) POC ABG pH 7.042 L ABG pH POC ABG pO2 148 H ABG pO2 ABG HCO3 ABG Base Excess VBG pH VBG pO2 Sodium 136 L Potassium Chloride 107.1 H Carbon Dioxide 3 L* BUN 4 L Creatinine 0.5 L Glucose 192 H POC Glucose Calcium 7.6 L Total Creatine Kinase CK-MB (CK-2) Total Protein Albumin Lipase 08/05/19 08/05/19 08:24 10:13 WBC Hgb Hct MCV RDW Lymph % (Auto) [place] % (Auto) [place] # Seg Neutrophils % Seg Neuts % (Manual) Lymphocytes % (Manual) Seg Neutrophils # Seg Neutrophils # Man Monocytes # (Manual) POC ABG pH ABG pH 7.203 L POC ABG pO2 ABG pO2 141.1 H ABG HCO3 5.4 L ABG Base Excess -19.9 L VBG pH VBG pO2 Sodium Potassium Chloride Carbon Dioxide BUN Creatinine Glucose POC Glucose 177 H Calcium Total Creatine Kinase CK-MB (CK-2) Total Protein Albumin Lipase Allied health notes reviewed: nursing
[2019-08-05 13:46] LABS: Hepatitis B Surface Antigen Non-Reactive (Negative); Hepatitis C Virus Antibody Non-Reactive (NonReactive)
[2019-08-05] MEDS ORDERED: SODIUM CHLORIDE 0.9% 250ML 250 ML ONE (15:16)
[2019-08-05] MEDS ORDERED: HEPARIN/NS 5000 UNIT/500ML 500 ML IR ONE (15:16)
[2019-08-05] MEDS ORDERED: fentaNYL 100 MCG/2 ML INJ ONE (15:20)
[2019-08-05] MEDS ORDERED: MIDAZOLAM 2 MG/2 ML INJ ONE (15:20)
[2019-08-05] MEDS: LIDOCAINE (2%) 20 MG/1 ML VIAL 20 ML MDV INFILTRATI ONE ×2 (15:56→15:59)
[2019-08-05] MEDS: HEPARIN 10,000 UNITS/10 ML VIAL ONE ×2 (15:59→16:00)
--- NOTE | 2019-08-05 16:11 | Operative Report ---
Operative Report Operative Report: Date of Procedure: 08/05/2019 Pre-operative Diagnosis: Diabetes with Severe Diabetic Ketoacidosis With Need f or Dialysis Post-operative Diagnosis: Same Procedure(s): 1. Ultrasound-Guided Access Right Internal Jugular Vein 2. Placement of 15 Cm Pre-Curved Vas-Cath 3. Radiologic Supervision with Interpretation Surgeon: Сергей Paz M.D. Speech Therapist Early Intervention: Davian Anesthesia: 2% Lidocaine EBL: Minimal Counts: Correct Complications: None Condition: Stable Findings: Successful placement of Vas-Cath without evidence of pneumothorax. Specimen: None Indication: The patient is a 39-year-old female with a history of insulin-dependent diabetes and poor compliance who presented with diabetic ketoacidosis and a severe metabolic acidosis that there has not been able to be corrected with medical management. She is in need of hemodialysis to assist with correction of her metabolic acidosis. She requires a Vas-Cath for access for hemodialysis. She was given the risk, benefits, and alternative procedures and consented to the procedure. Description of Procedure: The patient was brought to the mechanical laboratory technician and laid in supine position. After a timeout was performed right neck and chest were prepped and draped in normal sterile fashion. Ultrasound was used to identify the right internal jugular vein and confirmed patency. Once patency was confirmed the overlying skin and soft tissue was anesthetized with lidocaine. A small stab incision was created with an 11 blade and micropuncture technique was used with ultrasound guidance in the right internal jugular vein. A 0.035 J-wire was advanced into the inferior vena cava under fluoroscopy and the track was dilated. The Vas-Cath was then placed by Seldinger technique. Both ports were then aspirated and flushed and primed with the appropriate amount of heparin. The catheter was then secured in position with a 2-0 Ethilon in interrupted fashion and a sterile dressing was placed. Final fluoroscopy demonstrated the catheter was in adequate position with the tip in the distal superior vena cava without any evidence of pneumothorax. The patient tolerated the procedure well was transported back to the intensive care unit in stable but critical condition.
[2019-08-05 22:21] LABS: BUN/Creatinine Ratio 13; Blood Urea Nitrogen 4 mg/dL (7-17); Calcium 7.3 mg/dL (8.4-10.2); Hemolysis Index 7
[2019-08-05] MEDS ORDERED: POTASSIUM CHLORIDE ER 20 MEQ TAB PO ONE ×2 (22:40→22:41)
[2019-08-05] MEDS: POTASSIUM CHLORIDE 10 MEQ 10 MEQ/100 ML BAG IV SCH (22:59)
[2019-08-06] MEDS: POTASSIUM CHLORIDE 10 MEQ 10 MEQ/100 ML BAG IV SCH ×4 (00:08→23:24)
[2019-08-06] MEDS: SODIUM BICARBONATE 150 MEQ in WATER FOR INJECTION (PF) 1,000 ML IV SCH ×3 (03:39→23:25)
[2019-08-06 05:18] LABS: BUN/Creatinine Ratio 8; Blood Urea Nitrogen 5 mg/dL (7-17); Calcium 7.3 mg/dL (8.4-10.2); Hemolysis Index 45
[2019-08-06] MEDS: INSULIN LISPRO 100 UNIT/ML SUB-Q SCH ×4 (08:27→21:18)
--- NOTE | 2019-08-06 09:05 | Progress Note ---
Assessment and Plan DKA (diabetic ketoacidoses) Hypokalemia Severe Metabolic acidosis Leucocytosis - continue with renal replacement therapy - vascular surgeon to place Vascath - SVT likely related to acidosis (prn IV metoprolol for pulse > 135/min ordered) - continue bicarbonate supplementation (continue D5W with 3 amps NaHCO3/liter at 125 mls /hr) - continue prn BIPAP for increased work of breathing (used it overnight) - nutritional supplements for poor appetite -Avoid hypoglycemia -Aggressively replace potassium, IV and orally - prn albuterol - continue accuchecks with SSI for target BG < 180 mg/dl - continue VTE prophylaxis .... care plan discussed with patient and mother in room The high probability of a clinically significant, sudden or life-threatening deterioration of the [cardiac, renal and endocrine] system(s) required my full and direct attention, intervention and personal management. The aggregate critical care time was [32] minutes without overlap. Time includes spent on; [x] Data Review and interpretation [x] Patient assessment and monitoring of vital signs [x] Documentation [x] Medication orders and management Subjective Date of service: 08/06/19 Principal diagnosis: DKA; Hypokalemia; Severe Metabolic acidosis; Leucocytosis Interval history: Patient is seen today for: DKA (diabetic ketoacidoses); Hypokalemia; Severe Metabolic acidosis; Leucocytosis Seen and examined at bedside; 24hour events reviewed; nursing and respiratory care staff consulted; no adverse overnight events reported to me; resting in bed; still with persistent feeling of generalized malaise; remains tachycardic but denies chest pains or palpitations; remains profoundly acidotic despite bi carbonate supplementation; procalcitonin and lactate levels unremarkable, appetite poor, currently on HD Objective Vital Signs - 12hr 08/05/19 08/05/19 08/05/19 21:16 21:30 22:00 Temperature Pulse Rate 112 H 117 H 119 H Pulse Rate [ From Monitor] Pulse Rate [ Left Dorsalis Pedis] Pulse Rate [ Right Dorsalis Pedis] Pulse Rate [ Right Radial] Respiratory 26 H 25 H Rate Blood Pressure 106/67 128/74 O2 Sat by Pulse 100 Oximetry 08/05/19 08/05/19 08/05/19 22:30 22:34 23:01 Temperature 100.9 F H Pulse Rate 121 H 127 H Pulse Rate [ From Monitor] Pulse Rate [ Left Dorsalis Pedis] Pulse Rate [ Right Dorsalis Pedis] Pulse Rate [ Right Radial] Respiratory 17 22 Rate Blood Pressure 134/78 132/83 O2 Sat by Pulse 100 100 Oximetry 08/05/19 08/05/19 08/06/19 23:31 23:52 00:00 Temperature Pulse Rate 129 H 122 H Pulse Rate [ 120 H From Monitor] Pulse Rate [ 120 H Left Dorsalis Pedis] Pulse Rate [ 120 H Right Dorsalis Pedis] Pulse Rate [ 120 H Right Radial] Respiratory 24 22 22 Rate Blood Pressure 129/81 137/80 O2 Sat by Pulse 100 100 100 Oximetry 08/06/19 08/06/19 08/06/19 00:09 00:30 01:00 Temperature Pulse Rate 124 H 121 H 124 H Pulse Rate [ From Monitor] Pulse Rate [ Left Dorsalis Pedis] Pulse Rate [ Right Dorsalis Pedis] Pulse Rate [ Right Radial] Respiratory 19 22 24 Rate Blood Pressure 137/80 137/76 132/73 O2 Sat by Pulse 100 99 99 Oximetry 08/06/19 08/06/19 08/06/19 01:30 02:00 02:30 Temperature Pulse Rate 119 H 117 H 116 H Pulse Rate [ From Monitor] Pulse Rate [ Left Dorsalis Pedis] Pulse Rate [ Right Dorsalis Pedis] Pulse Rate [ Right Radial] Respiratory 21 20 20 Rate Blood Pressure 135/74 136/74 127/74 O2 Sat by Pulse 99 Oximetry 08/06/19 08/06/19 08/06/19 03:00 03:30 03:42 Temperature Pulse Rate 117 H 116 H Pulse Rate [ 112 H From Monitor] Pulse Rate [ 117 H Left Dorsalis Pedis] Pulse Rate [ 117 H Right Dorsalis Pedis] Pulse Rate [ 117 H Right Radial] Respiratory 19 21 22 Rate Blood Pressure 139/75 146/89 O2 Sat by Pulse 100 100 100 Oximetry 08/06/19 08/06/19 08/06/19 03:46 04:01 04:30 Temperature 98.3 F Pulse Rate 114 H 112 H Pulse Rate [ From Monitor] Pulse Rate [ Left Dorsalis Pedis] Pulse Rate [ Right Dorsalis Pedis] Pulse Rate [ Right Radial] Respiratory 20 22 Rate Blood Pressure 145/88 128/71 O2 Sat by Pulse 100 99 Oximetry 08/06/19 08/06/19 08/06/19 05:00 05:30 06:00 Temperature Pulse Rate 111 H 109 H 117 H Pulse Rate [ From Monitor] Pulse Rate [ Left Dorsalis Pedis] Pulse Rate [ Right Dorsalis Pedis] Pulse Rate [ Right Radial] Respiratory 20 19 18 Rate Blood Pressure 140/78 135/80 120/77 O2 Sat by Pulse 100 Oximetry 08/06/19 08/06/19 08/06/19 06:30 07:00 07:30 Temperature Pulse Rate 116 H 114 H 113 H Pulse Rate [ From Monitor] Pulse Rate [ Left Dorsalis Pedis] Pulse Rate [ Right Dorsalis Pedis] Pulse Rate [ Right Radial] Respiratory 22 22 22 Rate Blood Pressure 135/83 133/84 142/87 O2 Sat by Pulse 100 99 Oximetry 08/06/19 08/06/19 08:00 08:38 Temperature 98.2 F Pulse Rate 109 H Pulse Rate [ 112 H From Monitor] Pulse Rate [ 117 H Left Dorsalis Pedis] Pulse Rate [ 117 H Right Dorsalis Pedis] Pulse Rate [ 117 H Right Radial] Respiratory 22 Rate Blood Pressure 135/83 O2 Sat by Pulse 100 Oximetry Constitutional: appears uncomfortable, other (young AAF normocephalica nd atraumatic with moderately increased respiratory effort at rest) Eyes: non-icteric ENT: oropharynx moist, other (mallampati 2) Neck: supple, no lymphadenopathy, no JVD Effort: mildly labored Ascultation: Bilateral: clear, diminished breath sounds Percussion: Bilateral: not dull Cardiovascular: regular rate and rhythm (tachycardia, S1,S2, no murmurs, gallops or rubs) Gastrointestinal: normoactive bowel sounds, soft, non-tender, non-distended Integumentary: normal Extremities: no cyanosis, no edema, pulses normal, no ischemia or petechiae Neurologic: normal mental status, non-focal exam, pupils equal and round, CN II- XII normal, motor strength normal and Psychiatric: mood appropriate, affect normal CBC and BMP: 08/07/19 04:02 08/08/19 03:39 ABG, PT/INR, D-dimer: ABG POC ABG pH 7.042 (7.35-7.45) L 08/05/19 06:31 ABG pH 7.203 pH Units (7.350-7.450) L 08/05/19 10:13 ABG pCO2 14.1 mm Hg 08/05/19 10:13 POC ABG pO2 148 (80-105) H 08/05/19 06:31 ABG pO2 141.1 mm Hg (80.0-90.0) H 08/05/19 10:13 POC ABG HCO3 2.2 (22-26 mml/L) 08/05/19 06:31 POC ABG Total CO2 < 5 (23-27mmol/L) 08/05/19 06:31 POC ABG O2 Sat 98 08/05/19 06:31 ABG O2 Saturation 98.5 % (95.0-99.0) 08/05/19 10:13 Abnormal lab findings: Abnormal Labs 08/02/19 08/02/19 08/02/19 19:56 20:11 20:21 WBC 25.1 H Hgb 14.8 H Hct 45.6 H MCV 98 H RDW 12.8 L Lymph % (Auto) Floyd % (Auto) Floyd # Seg Neutrophils % Seg Neuts % (Manual) 83.0 H Lymphocytes % (Manual) 10.0 L Seg Neutrophils # Seg Neutrophils # Man 20.8 H Monocytes # (Manual) 1.8 H POC ABG pH ABG pH POC ABG pO2 ABG pO2 ABG HCO3 ABG Base Excess VBG pH VBG pO2 Sodium 133 L Potassium Chloride Carbon Dioxide 13 L BUN Creatinine Glucose 306 H POC Glucose 233 H Calcium 7.7 L Total Creatine Kinase CK-MB (CK-2) Total Protein Albumin Lipase 08/02/19 08/02/19 08/02/19 20:22 20:23 21:54 WBC Hgb Hct MCV RDW Lymph % (Auto) Floyd % (Auto) Floyd # Seg Neutrophils % Seg Neuts % (Manual) Lymphocytes % (Manual) Seg Neutrophils # Seg Neutrophils # Man Monocytes # (Manual) POC ABG pH ABG pH POC ABG pO2 ABG pO2 ABG HCO3 ABG Base Excess VBG pH 6.877 L* VBG pO2 Sodium Potassium Chloride Carbon Dioxide BUN Creatinine Glucose POC Glucose 237 H Calcium Total Creatine Kinase CK-MB (CK-2) Total Protein Albumin Lipase 10 L 08/02/19 08/02/19 08/02/19 23:02 23:12 23:57 WBC Hgb Hct MCV RDW Lymph % (Auto) Floyd % (Auto) Floyd # Seg Neutrophils % Seg Neuts % (Manual) Lymphocytes % (Manual) Seg Neutrophils # Seg Neutrophils # Man Monocytes # (Manual) POC ABG pH ABG pH POC ABG pO2 ABG pO2 ABG HCO3 ABG Base Excess VBG pH VBG pO2 Sodium 135 L Potassium 5.5 H D Chloride 108.2 H Carbon Dioxide 2 L* D BUN Creatinine 0.6 L Glucose 307 H POC Glucose 244 H 255 H Calcium 7.3 L Total Creatine Kinase CK-MB (CK-2) Total Protein Albumin Lipase 08/03/19 08/03/19 08/03/19 00:34 01:04 02:17 WBC Hgb Hct MCV RDW Lymph % (Auto) Floyd % (Auto) Floyd # Seg Neutrophils % Seg Neuts % (Manual) Lymphocytes % (Manual) Seg Neutrophils # Seg Neutrophils # Man Monocytes # (Manual) POC ABG pH ABG pH POC ABG pO2 ABG pO2 ABG HCO3 ABG Base Excess VBG pH VBG pO2 Sodium 135 L Potassium Chloride 108.9 H Carbon Dioxide < 2.0 L* BUN Creatinine 0.6 L Glucose 262 H POC Glucose 245 H 210 H Calcium 7.1 L Total Creatine Kinase CK-MB (CK-2) Total Protein Albumin Lipase 08/03/19 08/03/19 08/03/19 03:12 04:15 04:16 WBC Hgb Hct MCV RDW Lymph % (Auto) Floyd % (Auto) Floyd # Seg Neutrophils % Seg Neuts % (Manual) Lymphocytes % (Manual) Seg Neutrophils # Seg Neutrophils # Man Monocytes # (Manual) POC ABG pH ABG pH POC ABG pO2 ABG pO2 ABG HCO3 ABG Base Excess VBG pH VBG pO2 Sodium Potassium Chloride 113.9 H Carbon Dioxide 4 L* BUN Creatinine Glucose 110 H POC Glucose 190 H 168 H Calcium 7.3 L Total Creatine Kinase CK-MB (CK-2) Total Protein Albumin Lipase 08/03/19 08/03/19 08/03/19 05:21 06:29 07:52 WBC Hgb Hct MCV RDW Lymph % (Auto) Floyd % (Auto) Floyd # Seg Neutrophils % Seg Neuts % (Manual) Lymphocytes % (Manual) Seg Neutrophils # Seg Neutrophils # Man Monocytes # (Manual) POC ABG pH ABG pH POC ABG pO2 ABG pO2 ABG HCO3 ABG Base Excess VBG pH VBG pO2 Sodium Potassium Chloride Carbon Dioxide BUN Creatinine Glucose POC Glucose 113 H 108 H 108 H Calcium Total Creatine Kinase CK-MB (CK-2) Total Protein Albumin Lipase 08/03/19 08/03/19 08/03/19 08:43 09:09 09:09 WBC 23.8 H Hgb Hct MCV RDW 12.3 L Lymph % (Auto) Floyd % (Auto) Floyd # Seg Neutrophils % Seg Neuts % (Manual) 84.0 H Lymphocytes % (Manual) 9.0 L Seg Neutrophils # Seg Neutrophils # Man 20.0 H Monocytes # (Manual) 1.7 H POC ABG pH ABG pH POC ABG pO2 ABG pO2 ABG HCO3 ABG Base Excess VBG pH VBG pO2 Sodium Potassium Chloride 111.6 H Carbon Dioxide 8 L* BUN Creatinine 0.6 L Glucose 125 H POC Glucose 108 H Calcium 7.7 L Total Creatine Kinase CK-MB (CK-2) Total Protein Albumin Lipase 08/03/19 08/03/19 08/03/19 09:50 11:38 12:35 WBC Hgb Hct MCV RDW Lymph % (Auto) Floyd % (Auto) Floyd # Seg Neutrophils % Seg Neuts % (Manual) Lymphocytes % (Manual) Seg Neutrophils # Seg Neutrophils # Man Monocytes # (Manual) POC ABG pH ABG pH POC ABG pO2 ABG pO2 ABG HCO3 ABG Base Excess VBG pH VBG pO2 Sodium Potassium Chloride Carbon Dioxide BUN Creatinine Glucose POC Glucose 128 H 130 H 126 H Calcium Total Creatine Kinase CK-MB (CK-2) Total Protein Albumin Lipase 08/03/19 08/03/19 08/03/19 13:17 14:06 14:31 WBC Hgb Hct MCV RDW Lymph % (Auto) Floyd % (Auto) Floyd # Seg Neutrophils % Seg Neuts % (Manual) Lymphocytes % (Manual) Seg Neutrophils # Seg Neutrophils # Man Monocytes # (Manual) POC ABG pH ABG pH POC ABG pO2 ABG pO2 ABG HCO3 ABG Base Excess VBG pH VBG pO2 Sodium Potassium 3.2 L Chloride 113.0 H Carbon Dioxide 10 L BUN Creatinine 0.5 L Glucose 101 H POC Glucose 132 H 135 H Calcium 7.6 L Total Creatine Kinase CK-MB (CK-2) Total Protein Albumin Lipase 08/03/19 08/03/19 08/03/19 14:31 16:47 17:46 WBC Hgb Hct MCV RDW Lymph % (Auto) Floyd % (Auto) Floyd # Seg Neutrophils % Seg Neuts % (Manual) Lymphocytes % (Manual) Seg Neutrophils # Seg Neutrophils # Man Monocytes # (Manual) POC ABG pH ABG pH POC ABG pO2 ABG pO2 ABG HCO3 ABG Base Excess VBG pH VBG pO2 Sodium Potassium Chloride Carbon Dioxide BUN Creatinine Glucose POC Glucose 117 H 110 H Calcium Total Creatine Kinase 161 H CK-MB (CK-2) 4.8 H Total Protein Albumin Lipase 08/03/19 08/03/19 08/03/19 19:53 21:00 21:11 WBC Hgb Hct MCV RDW Lymph % (Auto) Floyd % (Auto) Floyd # Seg Neutrophils % Seg Neuts % (Manual) Lymphocytes % (Manual) Seg Neutrophils # Seg Neutrophils # Man Monocytes # (Manual) POC ABG pH ABG pH POC ABG pO2 ABG pO2 ABG HCO3 ABG Base Excess VBG pH VBG pO2 Sodium Potassium Chloride 109.9 H Carbon Dioxide 8 L* BUN Creatinine 0.5 L Glucose 26 L* POC Glucose 116 H 118 H Calcium 7.5 L Total Creatine Kinase CK-MB (CK-2) Total Protein Albumin Lipase 08/03/19 08/03/19 08/03/19 22:02 22:05 23:16 WBC Hgb Hct MCV RDW Lymph % (Auto) Floyd % (Auto) Floyd # Seg Neutrophils % Seg Neuts % (Manual) Lymphocytes % (Manual) Seg Neutrophils # Seg Neutrophils # Man Monocytes # (Manual) POC ABG pH ABG pH POC ABG pO2 ABG pO2 ABG HCO3 ABG Base Excess VBG pH VBG pO2 Sodium 136 L Potassium 3.4 L Chloride 107.3 H Carbon Dioxide 8 L* BUN 5 L Creatinine 0.6 L Glucose 30 L* 357 H POC Glucose 132 H Calcium 7.7 L Total Creatine Kinase CK-MB (CK-2) Total Protein 5.9 L Albumin 3.5 L Lipase 08/03/19 08/04/19 08/04/19 23:51 00:32 02:08 WBC Hgb Hct MCV RDW Lymph % (Auto) Floyd % (Auto) Floyd # Seg Neutrophils % Seg Neuts % (Manual) Lymphocytes % (Manual) Seg Neutrophils # Seg Neutrophils # Man Monocytes # (Manual) POC ABG pH ABG pH 7.198 L* POC ABG pO2 ABG pO2 122.5 H ABG HCO3 4.4 L ABG Base Excess -20.8 L VBG pH VBG pO2 Sodium Potassium Chloride Carbon Dioxide BUN Creatinine Glucose POC Glucose 294 H 270 H Calcium Total Creatine Kinase CK-MB (CK-2) Total Protein Albumin Lipase 08/04/19 08/04/19 08/04/19 04:47 04:47 06:19 WBC 17.8 H Hgb Hct MCV RDW 12.4 L Lymph % (Auto) Floyd % (Auto) Floyd # Seg Neutrophils % Seg Neuts % (Manual) Lymphocytes % (Manual) Seg Neutrophils # Seg Neutrophils # Man Monocytes # (Manual) POC ABG pH ABG pH POC ABG pO2 ABG pO2 ABG HCO3 ABG Base Excess VBG pH 7.273 L VBG pO2 51.9 H Sodium Potassium Chloride 111.5 H Carbon Dioxide 4 L* BUN 4 L Creatinine 0.5 L Glucose 260 H POC Glucose Calcium 7.6 L Total Creatine Kinase CK-MB (CK-2) Total Protein Albumin Lipase 08/04/19 08/04/19 08/04/19 06:20 06:25 06:37 WBC Hgb Hct MCV RDW Lymph % (Auto) Floyd % (Auto) Floyd # Seg Neutrophils % Seg Neuts % (Manual) Lymphocytes % (Manual) Seg Neutrophils # Seg Neutrophils # Man Monocytes # (Manual) POC ABG pH ABG pH POC ABG pO2 ABG pO2 ABG HCO3 ABG Base Excess VBG pH VBG pO2 Sodium Potassium Chloride Carbon Dioxide BUN Creatinine Glucose POC Glucose 231 H 250 H Calcium Total Creatine Kinase 137 H CK-MB (CK-2) Total Protein Albumin Lipase 08/04/19 08/04/19 08/04/19 07:42 11:36 16:27 WBC Hgb Hct MCV RDW Lymph % (Auto) Floyd % (Auto) Floyd # Seg Neutrophils % Seg Neuts % (Manual) Lymphocytes % (Manual) Seg Neutrophils # Seg Neutrophils # Man Monocytes # (Manual) POC ABG pH ABG pH POC ABG pO2 ABG pO2 ABG HCO3 ABG Base Excess VBG pH VBG pO2 Sodium Potassium Chloride Carbon Dioxide BUN Creatinine Glucose POC Glucose 286 H 239 H 151 H Calcium Total Creatine Kinase CK-MB (CK-2) Total Protein Albumin Lipase 08/04/19 08/05/19 08/05/19 21:16 02:10 02:22 WBC Hgb Hct MCV RDW Lymph % (Auto) Floyd % (Auto) Floyd # Seg Neutrophils % Seg Neuts % (Manual) Lymphocytes % (Manual) Seg Neutrophils # Seg Neutrophils # Man Monocytes # (Manual) POC ABG pH 7.190 L ABG pH POC ABG pO2 160 H ABG pO2 ABG HCO3 ABG Base Excess VBG pH VBG pO2 Sodium Potassium Chloride Carbon Dioxide BUN Creatinine Glucose POC Glucose 176 H 133 H Calcium Total Creatine Kinase CK-MB (CK-2) Total Protein Albumin Lipase 08/05/19 08/05/19 08/05/19 04:46 04:46 06:31 WBC 15.5 H Hgb Hct MCV RDW 12.8 L Lymph % (Auto) 9.5 L Floyd % (Auto) 8.9 H Floyd # 1.4 H Seg Neutrophils % 81.3 H Seg Neuts % (Manual) Lymphocytes % (Manual) Seg Neutrophils # 12.6 H Seg Neutrophils # Man Monocytes # (Manual) POC ABG pH 7.042 L ABG pH POC ABG pO2 148 H ABG pO2 ABG HCO3 ABG Base Excess VBG pH VBG pO2 Sodium 136 L Potassium Chloride 107.1 H Carbon Dioxide 3 L* BUN 4 L Creatinine 0.5 L Glucose 192 H POC Glucose Calcium 7.6 L Total Creatine Kinase CK-MB (CK-2) Total Protein Albumin Lipase 08/05/19 08/05/19 08/05/19 08:24 10:13 12:11 WBC Hgb Hct MCV RDW Lymph % (Auto) Floyd % (Auto) Floyd # Seg Neutrophils % Seg Neuts % (Manual) Lymphocytes % (Manual) Seg Neutrophils # Seg Neutrophils # Man Monocytes # (Manual) POC ABG pH ABG pH 7.203 L POC ABG pO2 ABG pO2 141.1 H ABG HCO3 5.4 L ABG Base Excess -19.9 L VBG pH VBG pO2 Sodium Potassium Chloride Carbon Dioxide BUN Creatinine Glucose POC Glucose 177 H 135 H Calcium Total Creatine Kinase CK-MB (CK-2) Total Protein Albumin Lipase 08/05/19 08/05/19 08/05/19 14:46 16:49 21:31 WBC Hgb Hct MCV RDW Lymph % (Auto) Floyd % (Auto) Floyd # Seg Neutrophils % Seg Neuts % (Manual) Lymphocytes % (Manual) Seg Neutrophils # Seg Neutrophils # Man Monocytes # (Manual) POC ABG pH ABG pH POC ABG pO2 ABG pO2 ABG HCO3 ABG Base Excess VBG pH VBG pO2 Sodium Potassium Chloride Carbon Dioxide BUN Creatinine Glucose POC Glucose 184 H 204 H 168 H Calcium Total Creatine Kinase CK-MB (CK-2) Total Protein Albumin Lipase 08/05/19 08/06/19 08/06/19 21:51 03:57 07:35 WBC Hgb Hct MCV RDW Lymph % (Auto) Floyd % (Auto) Floyd # Seg Neutrophils % Seg Neuts % (Manual) Lymphocytes % (Manual) Seg Neutrophils # Seg Neutrophils # Man Monocytes # (Manual) POC ABG pH ABG pH POC ABG pO2 ABG pO2 ABG HCO3 ABG Base Excess VBG pH VBG pO2 Sodium 133 L Potassium 2.4 L* D 3.1 L D Chloride 96.6 L 94.3 L Carbon Dioxide 12 L D 7 L* BUN 4 L 5 L Creatinine 0.3 L 0.6 L D Glucose 169 H 268 H POC Glucose 223 H Calcium 7.3 L 7.3 L Total Creatine Kinase CK-MB (CK-2) Total Protein Albumin Lipase Allied health notes reviewed: nursing
[2019-08-06] MEDS: PANTOPRAZOLE 40 MG TAB PO SCH ×2 (10:27→21:20)
[2019-08-06] MEDS: HEPARIN 5,000 UNIT/1 ML VIAL SUB-Q SCH ×2 (10:27→21:21)
--- NOTE | 2019-08-06 12:02 | Progress Note ---
Assessment and Plan - Patient Problems (1) Metabolic acidosis Current Visit: Yes Status: Acute Plan to address problem: Secondary to persistent acidemia despite optimal medical management we will arrange patient to undergo hemodialysis for 2 straight sessions. Having her second session today. Will monitor over the weekend and likely set up for a third session on Thursday. (2) DKA (diabetic ketoacidoses) Current Visit: Yes Status: Acute Qualifiers: Diabetes mellitus type: type 1 Diabetes mellitus complication detail: witho ut coma Qualified Code(s): E10.10 - Type 1 diabetes mellitus with ketoacidosis without coma Plan to address problem: Patient is currently off insulin drip at this time. Further management per primary attending. (3) Hypokalemia Current Visit: Yes Status: Acute Plan to address problem: Replete per protocol. We'll run a 4 K potassium bath during dialysis today based on serum potassium levels. (4) Nausea & vomiting Current Visit: Yes Status: Acute Plan to address problem: Management per primary attending. Subjective Date of service: 08/06/19 Principal diagnosis: DKA; Hypokalemia; Severe Metabolic acidosis; Leucocytosis Interval history: Patient tolerated hemodialysis well yesterday without any issues. Labs noted with some slight improvement. She is being dialyzed at this time at bedside. Objective - Vital Signs Vital signs: Vital Signs - 12hr 08/06/19 08/06/19 08/06/19 00:09 00:30 01:00 Temperature Pulse Rate 124 H 121 H 124 H Pulse Rate [ From Monitor] Pulse Rate [ Left Dorsalis Pedis] Pulse Rate [ Right Dorsalis Pedis] Pulse Rate [ Right Radial] Respiratory 19 22 24 Rate Blood Pressure 137/80 137/76 132/73 O2 Sat by Pulse 100 99 99 Oximetry 08/06/19 08/06/19 08/06/19 01:30 02:00 02:30 Temperature Pulse Rate 119 H 117 H 116 H Pulse Rate [ From Monitor] Pulse Rate [ Left Dorsalis Pedis] Pulse Rate [ Right Dorsalis Pedis] Pulse Rate [ Right Radial] Respiratory 21 20 20 Rate Blood Pressure 135/74 136/74 127/74 O2 Sat by Pulse 99 Oximetry 08/06/19 08/06/19 08/06/19 03:00 03:30 03:42 Temperature Pulse Rate 117 H 116 H Pulse Rate [ 112 H From Monitor] Pulse Rate [ 117 H Left Dorsalis Pedis] Pulse Rate [ 117 H Right Dorsalis Pedis] Pulse Rate [ 117 H Right Radial] Respiratory 19 21 22 Rate Blood Pressure 139/75 146/89 O2 Sat by Pulse 100 100 100 Oximetry 08/06/19 08/06/19 08/06/19 03:46 04:01 04:30 Temperature 98.3 F Pulse Rate 114 H 112 H Pulse Rate [ From Monitor] Pulse Rate [ Left Dorsalis Pedis] Pulse Rate [ Right Dorsalis Pedis] Pulse Rate [ Right Radial] Respiratory 20 22 Rate Blood Pressure 145/88 128/71 O2 Sat by Pulse 100 99 Oximetry 08/06/19 08/06/19 08/06/19 05:00 05:30 06:00 Temperature Pulse Rate 111 H 109 H 117 H Pulse Rate [ From Monitor] Pulse Rate [ Left Dorsalis Pedis] Pulse Rate [ Right Dorsalis Pedis] Pulse Rate [ Right Radial] Respiratory 20 19 18 Rate Blood Pressure 140/78 135/80 120/77 O2 Sat by Pulse 100 Oximetry 08/06/19 08/06/19 08/06/19 06:30 07:00 07:30 Temperature Pulse Rate 116 H 114 H 113 H Pulse Rate [ From Monitor] Pulse Rate [ Left Dorsalis Pedis] Pulse Rate [ Right Dorsalis Pedis] Pulse Rate [ Right Radial] Respiratory 22 22 22 Rate Blood Pressure 135/83 133/84 142/87 O2 Sat by Pulse 100 99 Oximetry 08/06/19 08/06/19 08/06/19 08:00 08:30 08:38 Temperature 98.2 F Pulse Rate 109 H 113 H Pulse Rate [ 112 H From Monitor] Pulse Rate [ 117 H Left Dorsalis Pedis] Pulse Rate [ 117 H Right Dorsalis Pedis] Pulse Rate [ 117 H Right Radial] Respiratory 22 19 Rate Blood Pressure 135/83 133/86 O2 Sat by Pulse 100 Oximetry 08/06/19 08/06/19 08/06/19 09:00 09:30 10:00 Temperature Pulse Rate 112 H 113 H 115 H Pulse Rate [ From Monitor] Pulse Rate [ Left Dorsalis Pedis] Pulse Rate [ Right Dorsalis Pedis] Pulse Rate [ Right Radial] Respiratory 25 H 18 19 Rate Blood Pressure 149/90 162/95 144/89 O2 Sat by Pulse 100 100 Oximetry 08/06/19 08/06/19 10:14 10:30 Temperature Pulse Rate 115 H Pulse Rate [ From Monitor] Pulse Rate [ Left Dorsalis Pedis] Pulse Rate [ Right Dorsalis Pedis] Pulse Rate [ Right Radial] Respiratory 18 Rate Blood Pressure 155/90 O2 Sat by Pulse 100 100 Oximetry - General Appearance General appearance: well-developed, appears stated age EENT: ATNC, PERRL Neck: no JVD, no thyromegaly Respiratory: Present: Clear to Ascultation, Normal Exam Cardiology: regular, tachycardia Gastrointestinal: normal, normoactive bowel sounds Integumentary: no rash, warm and dry Neurologic: no focal deficit, alert and oriented x3 Psychiatric: mood/affect appropriate - Lab 08/05/19 04:46 08/06/19 03:57 Most recent lab results ABG pH 7.203 pH Units (7.350-7.450) L 08/05/19 10:13 ABG pCO2 14.1 mm Hg 08/05/19 10:13 ABG pO2 141.1 mm Hg (80.0-90.0) H 08/05/19 10:13 ABG HCO3 5.4 mmol/L (20.0-26.0) L 08/05/19 10:13 ABG O2 Saturation 98.5 % (95.0-99.0) 08/05/19 10:13 Calcium 7.3 mg/dL (8.4-10.2) L 08/06/19 03:57 Phosphorus 4.00 mg/dL (2.5-4.5) 08/02/19 23:12 Magnesium 2.00 mg/dL (1.7-2.3) 08/02/19 23:12 - Allied health notes Allied health notes reviewed: nursing Medications & Allergies - Medications Allergies/Adverse Reactions: Allergies peach Allergy (Verified 08/05/19 09:15) Hives Home Medications: Home Medications Medication Instructions Recorded Confirmed Last Taken Type Empagliflozin [Jardiance] 25 mg PO DAILY 08/03/19 08/05/19 08/01/19 07:30 History Insulin Lispro [Humalog Kwikpen 18 units SQ TID 08/03/19 08/05/19 08/05/19 09:12 History 200 UNITS/ML] Ozempic 0.25 mg SQ 1XW 08/05/19 08/05/19 07/31/19 History Active Medications: Generic Name Dose Route Start Last Admin Trade Name Freq PRN Reason Stop Dose Admin Acetaminophen 650 mg 08/02/19 23:14 Tylenol UT Q4H PRN Pain, Mild (1-3) Acetaminophen 650 mg 08/04/19 15:17 08/04/19 17:32 Tylenol PO 650 mg Q4H PRN Administration Pain, Mild (1-3) Al Hydrox/Mg Hydrox/Simethicone 30 ml 08/04/19 12:40 08/04/19 17:37 Alum-Mag Hydrox-Simeth 651-869-29au/5ml PO 30 ml Q4H PRN Administration Indigestion Albumin Human 12.5 gm 08/05/19 10:33 Alburx 25% (Albumin) IV GUANACO PRN Hypotension Dextrose 50 ml 08/03/19 21:06 08/03/19 23:03 D50w (25gm) Syringe IV 50 ml Q30MIN PRN Administration Hypoglycemia Heparin Sodium (Porcine) 5,000 unit 08/03/19 10:00 08/06/19 10:27 Heparin SUB-Q 5,000 unit Q12HR ANTONIO Administration Sodium Bicarbonate 150 meq/ 1,150 mls @ 125 mls/hr 08/04/19 09:00 08/06/19 03:39 Sterile Water IV 125 mls/hr DIRECT ANTONIO Administration Sodium Bicarbonate 150 meq/ 151 mls @ 125 mls/hr 08/05/19 08:00 08/05/19 16:03 Miscellaneous Information IV 125 mls/hr DIRECT ANTONIO Administration Sodium Chloride 100 mls @ 999 mls/hr 08/05/19 10:33 Nacl 0.9% IV GUANACO PRN Hypotension Insulin Human Lispro 0 unit 08/03/19 22:00 08/06/19 08:27 Humalog SUB-Q 2 unit ACHS ANTONIO Administration Protocol Metoclopramide HCl 10 mg 08/05/19 05:27 08/05/19 05:46 Reglan IV 10 mg Q6H PRN Administration Nausea And Vomiting Metoprolol Tartrate 5 mg 08/05/19 13:35 Metoprolol IV Q6HR PRN Tachyarrhythmias Morphine Sulfate 2 mg 08/02/19 23:13 08/05/19 03:21 Morphine IV 2 mg Q4H PRN Administration Pain, Moderate (4-6) Nitroglycerin 0.4 mg 08/04/19 06:17 10/31/19 06:00 Nitrostat SL 0.4 mg .Q5MIN PRN Administration Chest Pain Ondansetron HCl 4 mg 08/02/19 23:12 08/05/19 03:21 Zofran IV 4 mg Q8H PRN Administration Nausea And Vomiting Pantoprazole Sodium 40 mg 08/04/19 10:00 08/06/19 10:27 Protonix PO 40 mg BID ANTONIO Administration
--- NOTE | 2019-08-06 12:23 | Progress Note ---
Assessment and Plan Assessment and plan: Severe Metabolic acidosis. Patient underwent Vas-Cath placement for hemodialysis x 2 sessions. Patient with persistent acidemia despite optimal medical management/bicarbonate drip. Nephrology will likely monitor over the weekend and plan for dialysis on Thursday. Persistent tachycardia. Likely physiologic from acidosis. Consider cardiology consultation. Check echocardiogram. DKA. Patient is currently off insulin drip at this time. Continue to monitor blood glucose. Hypokalemia. Replete as needed. DVT prophylaxis. History Interval history: No new issues overnight. Hospitalist Physical - Constitutional Vitals: Temp Pulse Resp BP Pulse Ox 98.2 F 115 H 18 155/90 100 08/06/19 08:38 08/06/19 10:30 08/06/19 10:30 08/06/19 10:30 08/06/19 10:30 General appearance: Present: no acute distress, well-nourished - EENT Eyes: Present: PERRL, EOM intact ENT: hearing intact, clear oral mucosa, dentition normal - Neck Neck: Present: supple, normal ROM - Respiratory Respiratory effort: normal Respiratory: bilateral: CTA - Cardiovascular Rhythm: regular Heart Sounds: Present: S1 & S2. Absent: gallop, rub - Extremities Extremities: no ischemia, No edema, Full ROM - Abdominal General gastrointestinal: soft, non-tender, non-distended, normal bowel sounds - Integumentary Integumentary: Present: clear, warm, dry - Neurologic Neurologic: CNII-XII intact, moves all extremities Results - Labs CBC & Chem 7: 08/05/19 04:46 08/06/19 03:57 Labs: Laboratory Last Values WBC 15.5 K/mm3 (4.5-11.0) H 08/05/19 04:46 RBC 4.25 M/mm3 (3.65-5.03) 08/05/19 04:46 Hgb 13.6 gm/dl (10.1-14.3) 08/05/19 04:46 Hct 39.7 % (30.3-42.9) 08/05/19 04:46 MCV 93 fl (79-97) 08/05/19 04:46 MCH 32 pg (28-32) 08/05/19 04:46 MCHC 34 % (30-34) 08/05/19 04:46 RDW 12.8 % (13.2-15.2) L 08/05/19 04:46 Plt Count 258 K/mm3 (140-440) 08/05/19 04:46 Lymph % (Auto) 9.5 % (13.4-35.0) L 08/05/19 04:46 Drew % (Auto) 8.9 % (0.0-7.3) H 08/05/19 04:46 Eos % (Auto) 0.1 % (0.0-4.3) 08/05/19 04:46 Baso % (Auto) 0.2 % (0.0-1.8) 08/05/19 04:46 Lymph # 1.5 K/mm3 (1.2-5.4) 08/05/19 04:46 Drew # 1.4 K/mm3 (0.0-0.8) H 08/05/19 04:46 Eos # 0.0 K/mm3 (0.0-0.4) 08/05/19 04:46 Baso # 0.0 K/mm3 (0.0-0.1) 08/05/19 04:46 Add Manual Diff Complete 08/03/19 09:09 Total Counted 100 08/03/19 09:09 Seg Neutrophils % 81.3 % (40.0-70.0) H 08/05/19 04:46 Seg Neuts % (Manual) 84.0 % (40.0-70.0) H 08/03/19 09:09 Band Neutrophils % 0 % 08/03/19 09:09 Lymphocytes % (Manual) 9.0 % (13.4-35.0) L 08/03/19 09:09 Reactive Lymphs % (Man) 0 % 08/03/19 09:09 Monocytes % (Manual) 7.0 % (0.0-7.3) 08/03/19 09:09 Eosinophils % (Manual) 0 % (0.0-4.3) 08/03/19 09:09 Basophils % (Manual) 0 % (0.0-1.8) 08/03/19 09:09 Metamyelocytes % 0 % 08/03/19 09:09 Myelocytes % 0 % 08/03/19 09:09 Promyelocytes % 0 % 08/03/19 09:09 Blast Cells % 0 % 08/03/19 09:09 Nucleated RBC % Not Reportable 08/03/19 09:09 Seg Neutrophils # 12.6 K/mm3 (1.8-7.7) H 08/05/19 04:46 Seg Neutrophils # Man 20.0 K/mm3 (1.8-7.7) H 08/03/19 09:09 Band Neutrophils # 0.0 K/mm3 08/03/19 09:09 Lymphocytes # (Manual) 2.1 K/mm3 (1.2-5.4) 08/03/19 09:09 Abs React Lymphs (Man) 0.0 K/mm3 08/03/19 09:09 Monocytes # (Manual) 1.7 K/mm3 (0.0-0.8) H 08/03/19 09:09 Eosinophils # (Manual) 0.0 K/mm3 (0.0-0.4) 08/03/19 09:09 Basophils # (Manual) 0.0 K/mm3 (0.0-0.1) 08/03/19 09:09 Metamyelocytes # 0.0 K/mm3 08/03/19 09:09 Myelocytes # 0.0 K/mm3 08/03/19 09:09 Promyelocytes # 0.0 K/mm3 08/03/19 09:09 Blast Cells # 0.0 K/mm3 08/03/19 09:09 WBC Morphology Not Reportable 08/03/19 09:09 Hypersegmented Neuts Not Reportable 08/03/19 09:09 Hyposegmented Neuts Not Reportable 08/03/19 09:09 Hypogranular Neuts Not Reportable 08/03/19 09:09 Smudge Cells Not Reportable 08/03/19 09:09 Toxic Granulation Not Reportable 08/03/19 09:09 Toxic Vacuolation Not Reportable 08/03/19 09:09 Dohle Bodies Not Reportable 08/03/19 09:09 Pelger-Huet Anomaly Not Reportable 08/03/19 09:09 Avni Rods Not Reportable 08/03/19 09:09 Platelet Estimate Consistent w auto 08/03/19 09:09 Clumped Platelets Not Reportable 08/03/19 09:09 Plt Clumps, EDTA Not Reportable 08/03/19 09:09 Large Platelets Not Reportable 08/03/19 09:09 Giant Platelets Not Reportable 08/03/19 09:09 Platelet Satelliting Not Reportable 08/03/19 09:09 Plt Morphology Comment Not Reportable 08/03/19 09:09 RBC Morphology Normal 08/03/19 09:09 Dimorphic RBCs Not Reportable 08/03/19 09:09 Polychromasia Not Reportable 08/03/19 09:09 Hypochromasia Not Reportable 08/03/19 09:09 Poikilocytosis Not Reportable 08/03/19 09:09 Anisocytosis Not Reportable 08/03/19 09:09 Microcytosis Not Reportable 08/03/19 09:09 Macrocytosis Not Reportable 08/03/19 09:09 Spherocytes Not Reportable 08/03/19 09:09 Pappenheimer Bodies Not Reportable 08/03/19 09:09 Sickle Cells Not Reportable 08/03/19 09:09 Target Cells Not Reportable 08/03/19 09:09 Tear Drop Cells Not Reportable 08/03/19 09:09 Ovalocytes Not Reportable 08/03/19 09:09 Helmet Cells Not Reportable 08/03/19 09:09 [place] Bodies Not Reportable 08/03/19 09:09 [place] Rings Not Reportable 08/03/19 09:09 [place] Cells Not Reportable 08/03/19 09:09 Bite Cells Not Reportable 08/03/19 09:09 Crenated Cell Not Reportable 08/03/19 09:09 Elliptocytes Not Reportable 08/03/19 09:09 Acanthocytes (Spur) Not Reportable 08/03/19 09:09 Rouleaux Not Reportable 08/03/19 09:09 Hemoglobin C Crystals Not Reportable 08/03/19 09:09 Schistocytes Not Reportable 08/03/19 09:09 Malaria parasites Not Reportable 08/03/19 09:09 Rivera Bodies Not Reportable 08/03/19 09:09 Hem Pathologist Commnt No 08/03/19 09:09 POC ABG pH 7.042 (7.35-7.45) L 08/05/19 06:31 ABG pH 7.203 pH Units (7.350-7.450) L 08/05/19 10:13 ABG pCO2 14.1 mm Hg 08/05/19 10:13 POC ABG pO2 148 (80-105) H 08/05/19 06:31 ABG pO2 141.1 mm Hg (80.0-90.0) H 08/05/19 10:13 POC ABG HCO3 2.2 (22-26 mml/L) 08/05/19 06:31 ABG HCO3 5.4 mmol/L (20.0-26.0) L 08/05/19 10:13 POC ABG Total CO2 < 5 (23-27mmol/L) 08/05/19 06:31 POC ABG O2 Sat 98 08/05/19 06:31 ABG O2 Saturation 98.5 % (95.0-99.0) 08/05/19 10:13 ABG O2 Content 19.5 (0.0-44) 08/05/19 10:13 POC ABG Base Excess -28 ((-2) - (+3)mmol/L) 08/05/19 06:31 ABG Base Excess -19.9 mmol/L (-2.0-3.0) L 08/05/19 10:13 ABG Hemoglobin 14.2 gm/dl (12.0-16.0) 08/05/19 10:13 ABG Carboxyhemoglobin 1.3 % (0.0-5.0) 08/05/19 10:13 ABG Methemoglobin 0.7 % (0.0-1.5) 08/05/19 10:13 VBG pH 7.273 (7.320-7.420) L 08/04/19 06: VBG pO2 51.9 (25.0-47.0) H 08/04/19 06:19 Oxyhemoglobin 96.5 % (95.0-99.0) 08/05/19 10:13 FiO2 25 % 08/05/19 10:13 Sodium 133 mmol/L (137-145) L 08/06/19 03:57 Potassium 3.1 mmol/L (3.6-5.0) L D 08/06/19 03:57 Chloride 94.3 mmol/L (98-107) L 08/06/19 03:57 Carbon Dioxide 7 mmol/L (22-30) L* 08/06/19 03:57 Anion Gap 35 mmol/L 08/06/19 03:57 BUN 5 mg/dL (7-17) L 08/06/19 03:57 Creatinine 0.6 mg/dL (0.7-1.2) L D 08/06/19 03:57 Estimated GFR > 60 ml/min 08/06/19 03:57 BUN/Creatinine Ratio 8 % 08/06/19 03:57 Glucose 268 mg/dL (65-100) H 08/06/19 03:57 POC Glucose 223 (70-105) H 08/06/19 07:35 Lactic Acid 1.10 mmol/L (0.7-2.0) 08/04/19 21:01 Calcium 7.3 mg/dL (8.4-10.2) L 08/06/19 03:57 Phosphorus 4.00 mg/dL (2.5-4.5) 08/02/19 23:12 Magnesium 2.00 mg/dL (1.7-2.3) 08/02/19 23:12 Total Bilirubin 0.30 mg/dL (0.1-1.2) 08/03/19 23:16 AST 20 units/L (5-40) 08/03/19 23:16 ALT 14 units/L (7-56) 08/03/19 23:16 Alkaline Phosphatase 69 units/L (35-129) 08/03/19 23:16 Total Creatine Kinase 137 units/L (30-135) H 08/04/19 06:25 CK-MB (CK-2) 3.1 ng/mL (0.0-4.0) 08/04/19 06:25 CK-MB (CK-2) Rel Index 2.2 (0-4) 08/04/19 06:25 Troponin T < 0.010 ng/mL (0.00-0.029) 08/04/19 06:25 Total Protein 5.9 g/dL (6.3-8.2) L 08/03/19 23:16 Albumin 3.5 g/dL (3.9-5) L 08/03/19 23:16 Albumin/Globulin Ratio 1.5 % 08/03/19 23:16 Lipase 10 units/L (13-60) L 08/02/19 20:23 Procalcitonin 0.47 ng/mL (<0.15) 08/04/19 20:54 HCG, Qual Negative (Negative) 08/02/19 20:11 Urine Color Straw (Yellow) 08/02/19 21:53 Urine Turbidity Clear (Clear) 08/02/19 21:53 Urine pH 5.0 (5.0-7.0) 08/02/19 21:53 Ur Specific [place] 1.020 (1.003-1.030) 08/02/19 21:53 Urine Protein 100 mg/dl mg/dL (Negative) 08/02/19 21:53 Urine Glucose (UA) >=500 mg/dL (Negative) 08/02/19 21:53 Urine Ketones 80 mg/dL (Negative) 08/02/19 21:53 Urine Blood Sm (Negative) 08/02/19 21:53 Urine Nitrite Neg (Negative) 08/02/19 21:53 Urine Bilirubin Neg (Negative) 08/02/19 21:53 Urine Urobilinogen < 2.0 mg/dL (<2.0) 08/02/19 21:53 Ur Leukocyte Esterase Neg (Negative) 08/02/19 21:53 Urine WBC (Auto) 1.0 /HPF (0.0-6.0) 08/02/19 21:53 Urine RBC (Auto) 2.0 /HPF (0.0-6.0) 08/02/19 21:53 U Epithel Cells (Auto) 2.0 /HPF (0-13.0) 08/02/19 21:53 Urine Mucus Few /HPF 08/02/19 21:53 Urine Yeast (Budding) Few /HPF 08/02/19 21:53 Hepatitis A IgM Ab Non-reactive (NonReactive) 08/05/19 12:38 Hep Bs Antigen Non-reactive (Negative) 08/05/19 12:38 Hep B Core IgM Ab Non-reactive (NonReactive) 08/05/19 12:38 Hepatitis C Antibody Non-reactive (NonReactive) 08/05/19 12:38 Active Medications - Current Medications Current Medications: Generic Name Dose Route Start Last Admin Trade Name Freq PRN Reason Stop Dose Admin Acetaminophen 650 mg 08/02/19 23:14 Tylenol ID Q4H PRN Pain, Mild (1-3) Acetaminophen 650 mg 08/04/19 15:17 08/04/19 17:32 Tylenol PO 650 mg Q4H PRN Administration Pain, Mild (1-3) Al Hydrox/Mg Hydrox/Simethicone 30 ml 08/04/19 12:40 08/04/19 17:37 Alum-Mag Hydrox-Simeth 678-054-48pd/5ml PO 30 ml Q4H PRN Administration Indigestion Albumin Human 12.5 gm 08/05/19 10:33 Alburx 25% (Albumin) IV GUANACO PRN Hypotension Dextrose 50 ml 08/03/19 21:06 08/03/19 23:03 D50w (25gm) Syringe IV 50 ml Q30MIN PRN Administration Hypoglycemia Heparin Sodium (Porcine) 5,000 unit 08/03/19 10:00 08/06/19 10:27 Heparin SUB-Q 5,000 unit Q12HR ANTONIO Administration Sodium Bicarbonate 150 meq/ 1,150 mls @ 125 mls/hr 08/04/19 09:00 08/06/19 03:39 Sterile Water IV 125 mls/hr DIRECT ANTONIO Administration Sodium Bicarbonate 150 meq/ 151 mls @ 125 mls/hr 08/05/19 08:00 08/05/19 16:03 Miscellaneous Information IV 125 mls/hr DIRECT ANTONIO Administration Sodium Chloride 100 mls @ 999 mls/hr 08/05/19 10:33 Nacl 0.9% IV GUANACO PRN Hypotension Insulin Human Lispro 0 unit 08/03/19 22:00 08/06/19 08:27 Humalog SUB-Q 2 unit ACHS ANTONIO Administration Protocol Metoclopramide HCl 10 mg 08/05/19 05:27 08/05/19 05:46 Reglan IV 10 mg Q6H PRN Administration Nausea And Vomiting Metoprolol Tartrate 5 mg 08/05/19 13:35 Metoprolol IV Q6HR PRN Tachyarrhythmias Morphine Sulfate 2 mg 08/02/19 23:13 08/05/19 03:21 Morphine IV 2 mg Q4H PRN Administration Pain, Moderate (4-6) Nitroglycerin 0.4 mg 08/04/19 06:17 08/04/19 06:00 Nitrostat SL 0.4 mg .Q5MIN PRN Administration Chest Pain Ondansetron HCl 4 mg 08/02/19 23:12 08/05/19 03:21 Zofran IV 4 mg Q8H PRN Administration Nausea And Vomiting Pantoprazole Sodium 40 mg 08/04/19 10:00 08/06/19 10:27 Protonix PO 40 mg BID ANTONIO Administration Nutrition/Malnutrition Assess - Dietary Evaluation Nutrition/Malnutrition Findings: Nutrition Notes Start: 08/04/19 10:13 Freq: Status: Active Protocol: Document 08/05/19 09:14 RS (Rec: 08/05/19 09:37 RS [email or web address]) Co-Sign 08/05/19 09:14 LM Nutrition Notes Initial or Follow up Reassessment Current Diagnosis Diabetes Other Pertinent Diagnosis DKA Current Diet Consistent CHO Labs/Tests B BUN: 4 Na: 136 CO2: 3 Pertinent Medications reviewed Height 5 ft 4 in Weight 72.57 kg [place] Body Weight (kg) 54.54 BMI 27.4 Weight Status Overweight Subjective/Other Information F/U for PO intake and diet education reiteration. Pt currently on BiPap, but there are no plans for pt to be intubated per RN. Unable to give diet education to pt d/t lethargy, will try again later . Pt ate 0% of breakfast d/t BiPap placement. Percent of energy/protein needs met: 0%/0% Burn Absent Trauma Absent Current % PO Negligible Minimum of two criteria No physical signs of malnutrition #2 Nutrition Diagnosis Food and nutrition-related knowledge deficit Diagnosis Progress(for reassessment Continues documentation) #1 Nutrition Diagnosis Inadequate oral intake Diagnosis Progress(for reassessment Continues documentation) Is patient on ventilator? No Is Patient Ambulatory and/or Out of Bed Yes REE-([facility]-ambulatory/OOB) [ [id number] [id number]] Calculation Used for Recommendations [facility] Additional Notes PRO needs: 57-72g/day (0.8-1g/ kg) Fluid needs: 1ml/kcal or per MD Nutrition Intervention Change Diet Order: Continue consistent CHO Goal #1 Pt meet >80% of kcal/PRO needs . Goal #2 Pt reiterate compliance to diet ed. Anticipated Discharge Needs: Consistent CHO Follow-Up By: 08/08/19 Additional Comments F/U for PO intakes, POC, diet education reiteration if pt is compliant.
[2019-08-06 16:06] LABS: BUN/Creatinine Ratio 8; Blood Urea Nitrogen 3 mg/dL (7-17); Calcium 8.2 mg/dL (8.4-10.2); Hemolysis Index 15
[2019-08-06] MEDS ORDERED: SODIUM CHLORIDE*PRIMING MACHINE ONLY FOR DIALYSIS MC ONE (16:09)
[2019-08-06] MEDS: METOPROLOL TARTRATE 5 MG/5 ML INJ IV PRN (17:52)
[2019-08-06] MEDS: POTASSIUM CHLORIDE ER 20 MEQ TAB PO SCH ×2 (19:49→23:30)
[2019-08-07] MEDS: POTASSIUM CHLORIDE 10 MEQ 10 MEQ/100 ML BAG IV SCH ×4 (00:31→23:12)
[2019-08-07 01:39] LABS: BUN/Creatinine Ratio 8; Blood Urea Nitrogen 4 mg/dL (7-17); Calcium 7.8 mg/dL (8.4-10.2); Hemolysis Index 55
[2019-08-07] MEDS: ONDANSETRON 4 MG/2 ML INJ IV PRN ×2 (02:41→19:54)
[2019-08-07 04:35] LABS: Basophils % (Auto) 0.3 % (0.0-1.8); Eosinophils % (Auto) 0.1 % (0.0-4.3); Hematocrit 33.3 % (30.3-42.9); Hemoglobin 11.8 gm/dl (10.1-14.3); Lymphocytes # (Auto) 1.2 K/mm3 (1.2-5.4); Lymphocytes % (Auto) 10.2 % (13.4-35.0); Mean Corpuscular HGB Conc 35 % (30-34); Mean Corpuscular Volume 91 fl (79-97); Monocytes # (Auto) 1.3 K/mm3 (0.0-0.8); Monocytes % (Auto) 11.1 % (0.0-7.3); Platelet Count 186 K/mm3 (140-440); Red Blood Count 3.67 M/mm3 (3.65-5.03); Red Cell Distribution Width 12.2 % (13.2-15.2)
[2019-08-07 05:10] LABS: BUN/Creatinine Ratio TNR; Blood Urea Nitrogen TNR mg/dL (7-17)
[2019-08-07 05:11] LABS: Calcium TNR mg/dL (8.4-10.2); Hemolysis Index TNR
[2019-08-07] MEDS: POTASSIUM CHLORIDE ER 20 MEQ TAB PO SCH (05:38)
[2019-08-07 06:08] LABS: BUN/Creatinine Ratio 8; Blood Urea Nitrogen 4 mg/dL (7-17); Calcium 7.4 mg/dL (8.4-10.2); Hemolysis Index 6
[2019-08-07] MEDS: INSULIN LISPRO 100 UNIT/ML SUB-Q SCH ×4 (07:30→21:27)
[2019-08-07] MEDS: HEPARIN 5,000 UNIT/1 ML VIAL SUB-Q SCH ×2 (09:08→21:04)
[2019-08-07] MEDS: PANTOPRAZOLE 40 MG TAB PO SCH ×2 (09:08→21:03)
[2019-08-07] MEDS: METOCLOPRAMIDE 10 MG/2 ML INJ IV PRN (09:08)
--- NOTE | 2019-08-07 09:27 | Progress Note ---
Assessment and Plan - Patient Problems (1) Metabolic acidosis Current Visit: Yes Status: Acute Plan to address problem: Secondary to persistent acidemia despite optimal medical management we will arrange patient to undergo hemodialysis for 2 straight sessions. Will plan for third session of HD today as she is having persistent worsening of her acidosis and hypokalemia. (2) DKA (diabetic ketoacidoses) Current Visit: Yes Status: Acute Qualifiers: Diabetes mellitus type: type 1 Diabetes mellitus complication detail: without coma Qualified Code(s): E10.10 - Type 1 diabetes mellitus with ketoacidosis without coma Plan to address problem: Patient is currently off insulin drip at this time. Further management per primary attending. (3) Hypokalemia Current Visit: Yes Status: Acute Plan to address problem: Replete per protocol. We'll run a 4 K potassium bath during dialysis today based on serum potassium levels. (4) Nausea & vomiting Current Visit: Yes Status: Acute Plan to address problem: Management per primary attending. Subjective Date of service: 08/07/19 Principal diagnosis: DKA; Hypokalemia; Severe Metabolic acidosis; Leucocytosis Interval history: No acute changes overnight, Labs noted with slow improvement. Continues on sodium bicarbonate gtt. Tolerated HD well without any issues. Objective - Vital Signs Vital signs: Vital Signs - 12hr 08/06/19 08/06/19 08/06/19 22:30 23:00 23:30 Temperature Pulse Rate 122 H 122 H 117 H Pulse Rate [ From Monitor] Pulse Rate [ Left Dorsalis Pedis] Pulse Rate [ Left Radial] Pulse Rate [ Right Dorsalis Pedis] Pulse Rate [ Right Radial] Respiratory 13 14 16 Rate Blood Pressure 118/70 124/73 125/77 O2 Sat by Pulse 100 100 Oximetry 08/07/19 08/07/19 08/07/19 00:00 00:31 01:35 EDT Temperature 98.0 F Pulse Rate 115 H 110 H 106 H Pulse Rate [ From Monitor] Pulse Rate [ Left Dorsalis Pedis] Pulse Rate [ Left Radial] Pulse Rate [ Right Dorsalis Pedis] Pulse Rate [ Right Radial] Respiratory 11 L 14 17 Rate Blood Pressure 108/66 123/76 120/69 O2 Sat by Pulse 100 99 100 Oximetry 08/07/19 08/07/19 08/07/19 02:00 02:30 03:00 Temperature Pulse Rate 108 H 111 H 110 H Pulse Rate [ 115 H From Monitor] Pulse Rate [ 112 H Left Dorsalis Pedis] Pulse Rate [ 112 H Left Radial] Pulse Rate [ 112 H Right Dorsalis Pedis] Pulse Rate [ 112 H Right Radial] Respiratory 19 18 20 Rate Blood Pressure 129/82 122/77 123/73 O2 Sat by Pulse 99 100 Oximetry 08/07/19 08/07/19 08/07/19 03:30 04:00 04:30 Temperature 98.7 F Pulse Rate 107 H 108 H 107 H Pulse Rate [ 108 H From Monitor] Pulse Rate [ 108 H Left Dorsalis Pedis] Pulse Rate [ 108 H Left Radial] Pulse Rate [ 108 H Right Dorsalis Pedis] Pulse Rate [ 108 H Right Radial] Respiratory 19 20 19 Rate Blood Pressure 118/70 116/69 128/75 O2 Sat by Pulse 100 100 Oximetry 08/07/19 08/07/19 08/07/19 05:00 05:30 06:00 Temperature Pulse Rate 106 H 107 H 112 H Pulse Rate [ From Monitor] Pulse Rate [ Left Dorsalis Pedis] Pulse Rate [ Left Radial] Pulse Rate [ Right Dorsalis Pedis] Pulse Rate [ Right Radial] Respiratory 19 19 20 Rate Blood Pressure 128/77 132/79 133/87 O2 Sat by Pulse 100 99 Oximetry 08/07/19 08/07/19 06:26 08:00 Temperature 98.6 F Pulse Rate Pulse Rate [ 115 H From Monitor] Pulse Rate [ 115 H Left Dorsalis Pedis] Pulse Rate [ 115 H Left Radial] Pulse Rate [ 115 H Right Dorsalis Pedis] Pulse Rate [ 115 H Right Radial] Respiratory 18 Rate Blood Pressure O2 Sat by Pulse 100 Oximetry - General Appearance General appearance: well-developed, appears stated age EENT: ATNC, PERRL Neck: no JVD, no thyromegaly Respiratory: Present: Clear to Ascultation, Normal Exam Cardiology: regular, S1S2 Gastrointestinal: normal, normoactive bowel sounds Integumentary: warm and dry Neurologic: no focal deficit, alert and oriented x3 Psychiatric: mood/affect appropriate, cooperative - Lab 08/07/19 04:02 08/07/19 Unknown Most recent lab results ABG pH 7.203 pH Units (7.350-7.450) L 08/05/19 10:13 ABG pCO2 14.1 mm Hg 08/05/19 10:13 ABG pO2 141.1 mm Hg (80.0-90.0) H 08/05/19 10:13 ABG HCO3 5.4 mmol/L (20.0-26.0) L 08/05/19 10:13 ABG O2 Saturation 98.5 % (95.0-99.0) 08/05/19 10:13 Calcium 7.4 mg/dL (8.4-10.2) L 08/07/19 Unknown Phosphorus 4.00 mg/dL (2.5-4.5) 08/02/19 23:12 Magnesium 2.00 mg/dL (1.7-2.3) 08/02/19 23:12 - Imaging Chest x-ray: report reviewed - Allied health notes Allied health notes reviewed: nursing Medications & Allergies - Medications Allergies/Adverse Reactions: Allergies peach Allergy (Verified 08/05/19 09:15) Hives Home Medications: Home Medications Medication Instructions Recorded Confirmed Last Taken Type Empagliflozin [Jardiance] 25 mg PO DAILY 08/03/19 08/05/19 08/01/19 07:30 History Insulin Lispro [Humalog Kwikpen 18 units SQ TID 08/03/19 08/05/19 08/05/19 09:12 History 200 UNITS/ML] Ozempic 0.25 mg SQ 1XW 08/05/19 08/05/19 07/31/19 History Active Medications: Generic Name Dose Route Start Last Admin Trade Name Freq PRN Reason Stop Dose Admin Acetaminophen 650 mg 08/02/19 23:14 Tylenol [place] Q4H PRN Pain, Mild (1-3) Acetaminophen 650 mg 08/04/19 15:17 08/04/19 17:32 Tylenol PO 650 mg Q4H PRN Administration Pain, Mild (1-3) Al Hydrox/Mg Hydrox/Simethicone 30 ml 08/04/19 12:40 08/04/19 17:37 Alum-Mag Hydrox-Simeth 869-143-82io/5ml PO 30 ml Q4H PRN Administration Indigestion Albumin Human 12.5 gm 08/05/19 10:33 Alburx 25% (Albumin) IV GUANACO PRN Hypotension Dextrose 50 ml 08/03/19 21:06 08/03/19 23:03 D50w (25gm) Syringe IV 50 ml Q30MIN PRN Administration Hypoglycemia Heparin Sodium (Porcine) 5,000 unit 08/03/19 10:00 08/07/19 09:08 Heparin SUB-Q 5,000 unit Q12HR ANTONIO Administration Sodium Bicarbonate 150 meq/ 1,150 mls @ 125 mls/hr 08/04/19 09:00 08/06/19 23:25 Sterile Water IV 125 mls/hr DIRECT ANTONIO Administration Sodium Chloride 100 mls @ 999 mls/hr 08/05/19 10:33 Nacl 0.9% IV GUANACO PRN Hypotension Insulin Human Lispro 0 unit 08/03/19 22:00 08/07/19 07:30 Humalog SUB-Q 1 unit ACHS ANTONIO Administration Protocol Metoclopramide HCl 10 mg 08/05/19 05:27 08/07/19 09:08 Reglan IV 10 mg Q6H PRN Administration Nausea And Vomiting Metoprolol Tartrate 5 mg 08/05/19 13:35 08/06/19 17:52 Metoprolol IV 5 mg Q6HR PRN Administration Tachyarrhythmias Morphine Sulfate 2 mg 08/02/19 23:13 08/05/19 03:21 Morphine IV 2 mg Q4H PRN Administration Pain, Moderate (4-6) Nitroglycerin 0.4 mg 08/04/19 06:17 08/04/19 06:00 Nitrostat SL 0.4 mg .Q5MIN PRN Administration Chest Pain Ondansetron HCl 4 mg 08/02/19 23:12 08/07/19 02:41 Zofran IV 4 mg Q8H PRN Administration Nausea And Vomiting Pantoprazole Sodium 40 mg 08/04/19 10:00 08/07/19 09:08 Protonix PO 40 mg BID ANTONIO Administration
[2019-08-07] MEDS ORDERED: SODIUM CHLORIDE 0.9% 100 ML IV PRN (09:31)
--- NOTE | 2019-08-07 10:30 | Progress Note ---
Assessment and Plan Assessment and plan: Severe Metabolic acidosis. Patient underwent Vas-Cath placement for hemodialysis x 2 sessions. Patient with persistent acidemia despite optimal medical management/bicarbonate drip. Nephrology will likely monitor over the weekend and plan for dialysis on Thursday. Hypokalemia. Replete potassium as needed. Hyponatremia. Continue IV sodium bicarbonate drip. Persistent tachycardia. Likely physiologic from acidosis. Consider cardiology consultation. Check echocardiogram. DKA. Patient is currently off insulin drip at this time. Continue to monitor blood glucose. Hypokalemia. Replete as needed. DVT prophylaxis. History Interval history: No new issues overnight. Hospitalist Physical - Constitutional Vitals: Temp Pulse Resp BP Pulse Ox 98.6 F 115 H 18 133/87 100 08/07/19 08:00 08/07/19 06:26 08/07/19 06:26 08/07/19 06:00 08/07/19 06:26 General appearance: Present: no acute distress, well-nourished - EENT Eyes: Present: PERRL, EOM intact ENT: hearing intact, clear oral mucosa, dentition normal - Neck Neck: Present: supple, normal ROM - Respiratory Respiratory effort: normal Respiratory: bilateral: CTA - Cardiovascular Rhythm: regular Heart Sounds: Present: S1 & S2. Absent: gallop, rub - Extremities Extremities: no ischemia, No edema, Full ROM - Abdominal General gastrointestinal: soft, non-tender, non-distended, normal bowel sounds - Integumentary Integumentary: Present: clear, warm, dry - Neurologic Neurologic: CNII-XII intact, moves all extremities Results - Labs CBC & Chem 7: 08/07/19 04:02 08/07/19 Unknown Labs: Laboratory Last Values WBC 11.7 K/mm3 (4.5-11.0) H 08/07/19 04:02 RBC 3.67 M/mm3 (3.65-5.03) 08/07/19 04:02 Hgb 11.8 gm/dl (10.1-14.3) 08/07/19 04:02 Hct 33.3 % (30.3-42.9) D 08/07/19 04:02 MCV 91 fl (79-97) 08/07/19 04:02 MCH 32 pg (28-32) 08/07/19 04:02 MCHC 35 % (30-34) H 08/07/19 04:02 RDW 12.2 % (13.2-15.2) L 08/07/19 04:02 Plt Count 186 K/mm3 (140-440) 08/07/19 04:02 Lymph % (Auto) 10.2 % (13.4-35.0) L 08/07/19 04:02 [place] % (Auto) 11.1 % (0.0-7.3) H 08/07/19 04:02 Eos % (Auto) 0.1 % (0.0-4.3) 08/07/19 04:02 Baso % (Auto) 0.3 % (0.0-1.8) 08/07/19 04:02 Lymph # 1.2 K/mm3 (1.2-5.4) 08/07/19 04:02 [place] # 1.3 K/mm3 (0.0-0.8) H 08/07/19 04:02 Eos # 0.0 K/mm3 (0.0-0.4) 08/07/19 04:02 Baso # 0.0 K/mm3 (0.0-0.1) 08/07/19 04:02 Add Manual Diff Complete 08/03/19 09:09 Total Counted 100 08/03/19 09:09 Seg Neutrophils % 78.3 % (40.0-70.0) H 08/07/19 04:02 Seg Neuts % (Manual) 84.0 % (40.0-70.0) H 08/03/19 09:09 Band Neutrophils % 0 % 08/03/19 09:09 Lymphocytes % (Manual) 9.0 % (13.4-35.0) L 08/03/19 09:09 Reactive Lymphs % (Man) 0 % 08/03/19 09:09 Monocytes % (Manual) 7.0 % (0.0-7.3) 08/03/19 09:09 Eosinophils % (Manual) 0 % (0.0-4.3) 08/03/19 09:09 Basophils % (Manual) 0 % (0.0-1.8) 08/03/19 09:09 Metamyelocytes % 0 % 08/03/19 09:09 Myelocytes % 0 % 08/03/19 09:09 Promyelocytes % 0 % 08/03/19 09:09 Blast Cells % 0 % 08/03/19 09:09 Nucleated RBC % Not Reportable 08/03/19 09:09 Seg Neutrophils # 9.2 K/mm3 (1.8-7.7) H 08/07/19 04:02 Seg Neutrophils # Man 20.0 K/mm3 (1.8-7.7) H 08/03/19 09:09 Band Neutrophils # 0.0 K/mm3 08/03/19 09:09 Lymphocytes # (Manual) 2.1 K/mm3 (1.2-5.4) 08/03/19 09:09 Abs React Lymphs (Man) 0.0 K/mm3 08/03/19 09:09 Monocytes # (Manual) 1.7 K/mm3 (0.0-0.8) H 08/03/19 09:09 Eosinophils # (Manual) 0.0 K/mm3 (0.0-0.4) 08/03/19 09:09 Basophils # (Manual) 0.0 K/mm3 (0.0-0.1) 08/03/19 09:09 Metamyelocytes # 0.0 K/mm3 08/03/19 09:09 Myelocytes # 0.0 K/mm3 08/03/19 09:09 Promyelocytes # 0.0 K/mm3 08/03/19 09:09 Blast Cells # 0.0 K/mm3 08/03/19 09:09 WBC Morphology Not Reportable 08/03/19 09:09 Hypersegmented Neuts Not Reportable 08/03/19 09:09 Hyposegmented Neuts Not Reportable 08/03/19 09:09 Hypogranular Neuts Not Reportable 08/03/19 09:09 Smudge Cells Not Reportable 08/03/19 09:09 Toxic Granulation Not Reportable 08/03/19 09:09 Toxic Vacuolation Not Reportable 08/03/19 09:09 Dohle Bodies Not Reportable 08/03/19 09:09 Pelger-Huet Anomaly Not Reportable 08/03/19 09:09 Avni Rods Not Reportable 08/03/19 09:09 Platelet Estimate Consistent w auto 08/03/19 09:09 Clumped Platelets Not Reportable 08/03/19 09:09 Plt Clumps, EDTA Not Reportable 08/03/19 09:09 Large Platelets Not Reportable 08/03/19 09:09 Giant Platelets Not Reportable 08/03/19 09:09 Platelet Satelliting Not Reportable 08/03/19 09:09 Plt Morphology Comment Not Reportable 08/03/19 09:09 RBC Morphology Normal 08/03/19 09:09 Dimorphic RBCs Not Reportable 08/03/19 09:09 Polychromasia Not Reportable 08/03/19 09:09 Hypochromasia Not Reportable 08/03/19 09:09 Poikilocytosis Not Reportable 08/03/19 09:09 Anisocytosis Not Reportable 08/03/19 09:09 Microcytosis Not Reportable 08/03/19 09:09 Macrocytosis Not Reportable 08/03/19 09:09 Spherocytes Not Reportable 08/03/19 09:09 Pappenheimer Bodies Not Reportable 08/03/19 09:09 Sickle Cells Not Reportable 08/03/19 09:09 Target Cells Not Reportable 08/03/19 09:09 Tear Drop Cells Not Reportable 08/03/19 09:09 Ovalocytes Not Reportable 08/03/19 09:09 Helmet Cells Not Reportable 08/03/19 09:09 [place] Bodies Not Reportable 08/03/19 09:09 [place] Rings Not Reportable 08/03/19 09:09 [place] Cells Not Reportable 08/03/19 09:09 Bite Cells Not Reportable 08/03/19 09:09 Crenated Cell Not Reportable 08/03/19 09:09 Elliptocytes Not Reportable 08/03/19 09:09 Acanthocytes (Spur) Not Reportable 08/03/19 09:09 Rouleaux Not Reportable 08/03/19 09:09 Hemoglobin C Crystals Not Reportable 08/03/19 09:09 Schistocytes Not Reportable 08/03/19 09:09 Malaria parasites Not Reportable 08/03/19 09:09 Rivera Bodies Not Reportable 08/03/19 09:09 Hem Pathologist Commnt No 08/03/19 09:09 POC ABG pH 7.042 (7.35-7.45) L 08/05/19 06:31 ABG pH 7.203 pH Units (7.350-7.450) L 08/05/19 10:13 ABG pCO2 14.1 mm Hg 08/05/19 10:13 POC ABG pO2 148 (80-105) H 08/05/19 06:31 ABG pO2 141.1 mm Hg (80.0-90.0) H 08/05/19 10:13 POC ABG HCO3 2.2 (22-26 mml/L) 08/05/19 06:31 ABG HCO3 5.4 mmol/L (20.0-26.0) L 08/05/19 10:13 POC ABG Total CO2 < 5 (23-27mmol/L) 08/05/19 06:31 POC ABG O2 Sat 98 08/05/19 06: ABG O2 Saturation 98.5 % (95.0-99.0) 08/05/19 10:13 ABG O2 Content 19.5 (0.0-44) 08/05/19 10:13 POC ABG Base Excess -28 ((-2) - (+3)mmol/L) 08/05/19 06:31 ABG Base Excess -19.9 mmol/L (-2.0-3.0) L 08/05/19 10:13 ABG Hemoglobin 14.2 gm/dl (12.0-16.0) 08/05/19 10:13 ABG Carboxyhemoglobin 1.3 % (0.0-5.0) 08/05/19 10:13 ABG Methemoglobin 0.7 % (0.0-1.5) 08/05/19 10:13 VBG pH 7.273 (7.320-7.420) L 08/04/19 06: VBG pO2 51.9 (25.0-47.0) H 08/04/19 06:19 Oxyhemoglobin 96.5 % (95.0-99.0) 08/05/19 10:13 FiO2 25 % 08/05/19 10:13 Sodium 133 mmol/L (137-145) L 08/07/19 Unknown Potassium 2.9 mmol/L (3.6-5.0) L* 08/07/19 Unknown Chloride 94.9 mmol/L (98-107) L 08/07/19 Unknown Carbon Dioxide 8 mmol/L (22-30) L* 08/07/19 Unknown Anion Gap 33 mmol/L 08/07/19 Unknown BUN 4 mg/dL (7-17) L 08/07/19 Unknown Creatinine 0.5 mg/dL (0.7-1.2) L 08/07/19 Unknown Estimated GFR > 60 ml/min 08/07/19 Unknown BUN/Creatinine Ratio 8 % 08/07/19 Unknown Glucose 185 mg/dL (65-100) H 08/07/19 Unknown POC Glucose 156 (70-105) H 08/07/19 08:40 Lactic Acid 1.10 mmol/L (0.7-2.0) 08/04/19 21:01 Calcium 7.4 mg/dL (8.4-10.2) L 08/07/19 Unknown Phosphorus 4.00 mg/dL (2.5-4.5) 08/02/19 23:12 Magnesium 2.00 mg/dL (1.7-2.3) 08/02/19 23:12 Total Bilirubin 0.30 mg/dL (0.1-1.2) 08/03/19 23:16 AST 20 units/L (5-40) 08/03/19 23:16 ALT 14 units/L (7-56) 08/03/19 23:16 Alkaline Phosphatase 69 units/L (35-129) 08/03/19 23:16 Total Creatine Kinase 137 units/L (30-135) H 08/04/19 06:25 CK-MB (CK-2) 3.1 ng/mL (0.0-4.0) 08/04/19 06:25 CK-MB (CK-2) Rel Index 2.2 (0-4) 08/04/19 06:25 Troponin T < 0.010 ng/mL (0.00-0.029) 08/04/19 06:25 Total Protein 5.9 g/dL (6.3-8.2) L 08/03/19 23:16 Albumin 3.5 g/dL (3.9-5) L 08/03/19 23:16 Albumin/Globulin Ratio 1.5 % 08/03/19 23:16 Lipase 10 units/L (13-60) L 08/02/19 20:23 Procalcitonin 0.47 ng/mL (<0.15) 08/04/19 20:54 HCG, Qual Negative (Negative) 08/02/19 20:11 Urine Color Straw (Yellow) 08/02/19 21:53 Urine Turbidity Clear (Clear) 08/02/19 21:53 Urine pH 5.0 (5.0-7.0) 08/02/19 21:53 Ur Specific [place] 1.020 (1.003-1.030) 08/02/19 21:53 Urine Protein 100 mg/dl mg/dL (Negative) 08/02/19 21:53 Urine Glucose (UA) >=500 mg/dL (Negative) 08/02/19 21:53 Urine Ketones 80 mg/dL (Negative) 08/02/19 21:53 Urine Blood Sm (Negative) 08/02/19 21:53 Urine Nitrite Neg (Negative) 08/02/19 21:53 Urine Bilirubin Neg (Negative) 08/02/19 21:53 Urine Urobilinogen < 2.0 mg/dL (<2.0) 08/02/19 21:53 Ur Leukocyte Esterase Neg (Negative) 08/02/19 21:53 Urine WBC (Auto) 1.0 /HPF (0.0-6.0) 08/02/19 21:53 Urine RBC (Auto) 2.0 /HPF (0.0-6.0) 08/02/19 21:53 U Epithel Cells (Auto) 2.0 /HPF (0-13.0) 08/02/19 21:53 Urine Mucus Few /HPF 08/02/19 21:53 Urine Yeast (Budding) Few /HPF 08/02/19 21:53 Hepatitis A IgM Ab Non-reactive (NonReactive) 08/05/19 12:38 Hep Bs Antigen Non-reactive (Negative) 08/05/19 12:38 Hep B Core IgM Ab Non-reactive (NonReactive) 08/05/19 12:38 Hepatitis C Antibody Non-reactive (NonReactive) 08/05/19 12:38 Active Medications - Current Medications Current Medications: Generic Name Dose Route Start Last Admin Trade Name Freq PRN Reason Stop Dose Admin Acetaminophen 650 mg 08/02/19 23:14 Tylenol [place] Q4H PRN Pain, Mild (1-3) Acetaminophen 650 mg 08/04/19 15:17 08/04/19 17:32 Tylenol PO 650 mg Q4H PRN Administration Pain, Mild (1-3) Al Hydrox/Mg Hydrox/Simethicone 30 ml 08/04/19 12:40 08/04/19 17:37 Alum-Mag Hydrox-Simeth 428-752-87bz/5ml PO 30 ml Q4H PRN Administration Indigestion Albumin Human 12.5 gm 08/05/19 10:33 Alburx 25% (Albumin) IV GUANACO PRN Hypotension Dextrose 50 ml 08/03/19 21:06 08/03/19 23:03 D50w (25gm) Syringe IV 50 ml Q30MIN PRN Administration Hypoglycemia Heparin Sodium (Porcine) 5,000 unit 08/03/19 10:00 08/07/19 09:08 Heparin SUB-Q 5,000 unit Q12HR ANTONIO Administration Sodium Bicarbonate 150 meq/ 1,150 mls @ 125 mls/hr 08/04/19 09:00 08/06/19 23:25 Sterile Water IV 125 mls/hr DIRECT ANTONIO Administration Sodium Chloride 100 mls @ 999 mls/hr 08/05/19 10:33 Nacl 0.9% IV GUANACO PRN Hypotension Insulin Human Lispro 0 unit 08/03/19 22:00 08/07/19 07:30 Humalog SUB-Q 1 unit ACHS ANTONIO Administration Protocol Metoclopramide HCl 10 mg 08/05/19 05:27 08/07/19 09:08 Reglan IV 10 mg Q6H PRN Administration Nausea And Vomiting Metoprolol Tartrate 5 mg 08/05/19 13:35 08/06/19 17:52 Metoprolol IV 5 mg Q6HR PRN Administration Tachyarrhythmias Morphine Sulfate 2 mg 08/02/19 23:13 08/05/19 03:21 Morphine IV 2 mg Q4H PRN Administration Pain, Moderate (4-6) Nitroglycerin 0.4 mg 08/04/19 06:17 08/04/19 06:00 Nitrostat SL 0.4 mg .Q5MIN PRN Administration Chest Pain Ondansetron HCl 4 mg 08/02/19 23:12 08/07/19 02:41 Zofran IV 4 mg Q8H PRN Administration Nausea And Vomiting Pantoprazole Sodium 40 mg 08/04/19 10:00 08/07/19 09:08 Protonix PO 40 mg BID ANTONIO Administration Nutrition/Malnutrition Assess - Dietary Evaluation Nutrition/Malnutrition Findings: Nutrition Notes Start: 08/04/19 10:1 3 Freq: Status: Active Protocol: Document 08/05/19 09:14 RS (Rec: 08/05/19 09:37 RS [email or web address]) Co-Sign 08/05/19 09:14 LM Nutrition Notes Initial or Follow up Reassessment Current Diagnosis Diabetes Other Pertinent Diagnosis DKA Current Diet Consistent CHO Labs/Tests B BUN: 4 Na: 136 CO2: 3 Pertinent Medications reviewed Height 5 ft 4 in Weight 72.57 kg [place] Body Weight (kg) 54.54 BMI 27.4 Weight Status Overweight Subjective/Other Information F/U for PO intake and diet education reiteration. Pt currently on BiPap, but there are no plans for pt to be intubated per RN. Unable to give diet education to pt d/t lethargy, will try again later . Pt ate 0% of breakfast d/t BiPap placement. Percent of energy/protein needs met: 0%/0% Burn Absent Trauma Absent Current % PO Negligible Minimum of two criteria No physical signs of malnutrition #2 Nutrition Diagnosis Food and nutrition-related knowledge deficit Diagnosis Progress(for reassessment Continues documentation) #1 Nutrition Diagnosis Inadequate oral intake Diagnosis Progress(for reassessment Continues documentation) Is patient on ventilator? No Is Patient Ambulatory and/or Out of Bed Yes REE-([facility]-ambulatory/OOB) [ [id number] [id number]] Calculation Used for Recommendations [facility] Additional Notes PRO needs: 57-72g/day (0.8-1g/ kg) Fluid needs: 1ml/kcal or per MD Nutrition Intervention Change Diet Order: Continue consistent CHO Goal #1 Pt meet >80% of kcal/PRO needs . Goal #2 Pt reiterate compliance to diet ed. Anticipated Discharge Needs: Consistent CHO Follow-Up By: 08/08/19 Additional Comments F/U for PO intakes, POC, diet education reiteration if pt is compliant.
[2019-08-07] MEDS: SODIUM BICARBONATE 150 MEQ in WATER FOR INJECTION (PF) 1,000 ML IV SCH ×2 (11:00→18:57)
[2019-08-07 11:12] LABS: BUN/Creatinine Ratio 8; Blood Urea Nitrogen 5 mg/dL (7-17); Calcium 7.4 mg/dL (8.4-10.2); Hemolysis Index 31
--- NOTE | 2019-08-07 13:33 | Progress Note ---
Assessment and Plan DKA (diabetic ketoacidoses) Hypokalemia Severe Metabolic acidosis Leucocytosis - continue with renal replacement therapy - continue bicarbonate supplementation (continue D5W with 3 amps NaHCO3/liter at 125 mls /hr) - continue prn BIPAP for increased work of breathing - nutritional supplements for poor appetite -Avoid hypoglycemia -Aggressively replace potassium, IV and orally - prn albuterol - continue accuchecks with SSI for target BG < 180 mg/dl - continue VTE prophylaxis -Increase activity Continue all supportive care. Care plan discussed with patient Subjective Date of service: 08/07/19 Principal diagnosis: DKA; Hypokalemia; Severe Metabolic acidosis; Leucocytosis Interval history: Patient is seen today for: DKA (diabetic ketoacidoses); Hypokalemia; Severe Metabolic acidosis; Leucocytosis Seen and examined at bedside; 24hour events reviewed; nursing and respiratory care staff consulted; no adverse overnight events reported to me; resting in bed; still with persistent feeling of generalized malaise; remains tachycardic but denies chest pains or palpitations; remains profoundly acidotic despite bicarbonate supplementation; poor appetite, severe hypokalemia, has been getting daily HD for severe metabolic acidosis, presumable drug induced Objective Vital Signs - 12hr 08/07/19 08/07/19 08/07/19 02:00 02:30 03:00 Temperature Pulse Rate 108 H 111 H 110 H Pulse Rate [ 115 H From Monitor] Pulse Rate [ 112 H Left Dorsalis Pedis] Pulse Rate [ 112 H Left Radial] Pulse Rate [ 112 H Right Dorsalis Pedis] Pulse Rate [ 112 H Right Radial] Respiratory 19 18 20 Rate Blood Pressure 129/82 122/77 123/73 O2 Sat by Pulse 99 100 Oximetry 08/07/19 08/07/19 08/07/19 03:30 04:00 04:30 Temperature 98.7 F Pulse Rate 107 H 108 H 107 H Pulse Rate [ 108 H From Monitor] Pulse Rate [ 108 H Left Dorsalis Pedis] Pulse Rate [ 108 H Left Radial] Pulse Rate [ 108 H Right Dorsalis Pedis] Pulse Rate [ 108 H Right Radial] Respiratory 19 20 19 Rate Blood Pressure 118/70 116/69 128/75 O2 Sat by Pulse 100 100 Oximetry 08/07/19 08/07/19 08/07/19 05:00 05:30 06:00 Temperature Pulse Rate 106 H 107 H 112 H Pulse Rate [ From Monitor] Pulse Rate [ Left Dorsalis Pedis] Pulse Rate [ Left Radial] Pulse Rate [ Right Dorsalis Pedis] Pulse Rate [ Right Radial] Respiratory 19 19 20 Rate Blood Pressure 128/77 132/79 133/87 O2 Sat by Pulse 100 99 Oximetry 08/07/19 08/07/19 08/07/19 06:26 06:30 07:00 Temperature Pulse Rate 110 H 111 H Pulse Rate [ 115 H From Monitor] Pulse Rate [ 115 H Left Dorsalis Pedis] Pulse Rate [ 115 H Left Radial] Pulse Rate [ 115 H Right Dorsalis Pedis] Pulse Rate [ 115 H Right Radial] Respiratory 18 20 22 Rate Blood Pressure 137/81 126/83 O2 Sat by Pulse 100 100 Oximetry 08/07/19 08/07/19 08/07/19 07:30 08:00 08:30 Temperature 98.6 F Pulse Rate 110 H 108 H 110 H Pulse Rate [ 109 H From Monitor] Pulse Rate [ 109 H Left Dorsalis Pedis] Pulse Rate [ 109 H Left Radial] Pulse Rate [ 109 H Right Dorsalis Pedis] Pulse Rate [ 109 H Right Radial] Respiratory 18 20 18 Rate Blood Pressure 115/72 126/78 127/80 O2 Sat by Pulse 100 100 100 Oximetry 08/07/19 08/07/19 08/07/19 09:00 09:30 10:00 Temperature Pulse Rate 116 H 119 H 114 H Pulse Rate [ From Monitor] Pulse Rate [ Left Dorsalis Pedis] Pulse Rate [ Left Radial] Pulse Rate [ Right Dorsalis Pedis] Pulse Rate [ Right Radial] Respiratory 19 28 H 22 Rate Blood Pressure 139/85 154/86 144/85 O2 Sat by Pulse 100 100 100 Oximetry 08/07/19 08/07/19 10:30 11:59 Temperature 98.5 F Pulse Rate 127 H Pulse Rate [ From Monitor] Pulse Rate [ Left Dorsalis Pedis] Pulse Rate [ Left Radial] Pulse Rate [ Right Dorsalis Pedis] Pulse Rate [ Right Radial] Respiratory 20 Rate Blood Pressure 129/82 O2 Sat by Pulse 100 Oximetry Constitutional: appears uncomfortable, other (young AAF normocephalica nd atraumatic with moderately increased respiratory effort at rest) Eyes: non-icteric ENT: oropharynx moist, other (mallampati 2) Neck: supple, no lymphadenopathy, no JVD Effort: mildly labored Ascultation: Bilateral: clear, diminished breath sounds Percussion: Bilateral: not dull Cardiovascular: regular rate and rhythm, other (S1,S2, no murmurs, gallops or rubs) Gastrointestinal: normoactive bowel sounds, soft, non-tender, non-distended Integumentary: normal Extremities: no cyanosis, no edema, pulses normal, no ischemia or petechiae Neurologic: normal mental status, non-focal exam, pupils equal and round, CN II- XII normal, motor strength normal and Psychiatric: anxious, depressed CBC and BMP: 08/07/19 04:02 08/08/19 03:39 ABG, PT/INR, D-dimer: ABG POC ABG pH 7.042 (7.35-7.45) L 08/05/19 06:31 ABG pH 7.203 pH Units (7.350-7.450) L 08/05/19 10:13 ABG pCO2 14.1 mm Hg 08/05/19 10:13 POC ABG pO2 148 (80-105) H 08/05/19 06:31 ABG pO2 141.1 mm Hg (80.0-90.0) H 08/05/19 10:13 POC ABG HCO3 2.2 (22-26 mml/L) 08/05/19 06:31 POC ABG Total CO2 < 5 (23-27mmol/L) 08/05/19 06:31 POC ABG O2 Sat 98 08/05/19 06:31 ABG O2 Saturation 98.5 % (95.0-99.0) 08/05/19 10:13 Abnormal lab findings: Abnormal Labs 08/02/19 08/02/19 08/02/19 19:56 20:11 20:21 WBC 25.1 H Hgb 14.8 H Hct 45.6 H MCV 98 H MCHC RDW 12.8 L Lymph % (Auto) [place] % (Auto) [place] # Seg Neutrophils % Seg Neuts % (Manual) 83.0 H Lymphocytes % (Manual) 10.0 L Seg Neutrophils # Seg Neutrophils # Man 20.8 H Monocytes # (Manual) 1.8 H POC ABG pH ABG pH POC ABG pO2 ABG pO2 ABG HCO3 ABG Base Excess VBG pH VBG pO2 Sodium 133 L Potassium Chloride Carbon Dioxide 13 L BUN Creatinine Glucose 306 H POC Glucose 233 H Calcium 7.7 L Total Creatine Kinase CK-MB (CK-2) Total Protein Albumin Lipase 08/02/19 08/02/19 08/02/19 20:22 20:23 21:54 WBC Hgb Hct MCV MCHC RDW Lymph % (Auto) [place] % (Auto) [place] # Seg Neutrophils % Seg Neuts % (Manual) Lymphocytes % (Manual) Seg Neutrophils # Seg Neutrophils # Man Monocytes # (Manual) POC ABG pH ABG pH POC ABG pO2 ABG pO2 ABG HCO3 ABG Base Excess VBG pH 6.877 L* VBG pO2 Sodium Potassium Chloride Carbon Dioxide BUN Creatinine Glucose POC Glucose 237 H Calcium Total Creatine Kinase CK-MB (CK-2) Total Protein Albumin Lipase 10 L 08/02/19 08/02/19 08/02/19 23:02 23:12 23:57 WBC Hgb Hct MCV MCHC RDW Lymph % (Auto) [place] % (Auto) [place] # Seg Neutrophils % Seg Neuts % (Manual) Lymphocytes % (Manual) Seg Neutrophils # Seg Neutrophils # Man Monocytes # (Manual) POC ABG pH ABG pH POC ABG pO2 ABG pO2 ABG HCO3 ABG Base Excess VBG pH VBG pO2 Sodium 135 L Potassium 5.5 H D Chloride 108.2 H Carbon Dioxide 2 L* D BUN Creatinine 0.6 L Glucose 307 H POC Glucose 244 H 255 H Calcium 7.3 L Total Creatine Kinase CK-MB (CK-2) Total Protein Albumin Lipase 08/03/19 08/03/19 08/03/19 00:34 01:04 02:17 WBC Hgb Hct MCV MCHC RDW Lymph % (Auto) [place] % (Auto) [place] # Seg Neutrophils % Seg Neuts % (Manual) Lymphocytes % (Manual) Seg Neutrophils # Seg Neutrophils # Man Monocytes # (Manual) POC ABG pH ABG pH POC ABG pO2 ABG pO2 ABG HCO3 ABG Base Excess VBG pH VBG pO2 Sodium 135 L Potassium Chloride 108.9 H Carbon Dioxide < 2.0 L* BUN Creatinine 0.6 L Glucose 262 H POC Glucose 245 H 210 H Calcium 7.1 L Total Creatine Kinase CK-MB (CK-2) Total Protein Albumin Lipase 08/03/19 08/03/19 08/03/19 03:12 04:15 04:16 WBC Hgb Hct MCV MCHC RDW Lymph % (Auto) [place] % (Auto) [place] # Seg Neutrophils % Seg Neuts % (Manual) Lymphocytes % (Manual) Seg Neutrophils # Seg Neutrophils # Man Monocytes # (Manual) POC ABG pH ABG pH POC ABG pO2 ABG pO2 ABG HCO3 ABG Base Excess VBG pH VBG pO2 Sodium Potassium Chloride 113.9 H Carbon Dioxide 4 L* BUN Creatinine Glucose 110 H POC Glucose 190 H 168 H Calcium 7.3 L Total Creatine Kinase CK-MB (CK-2) Total Protein Albumin Lipase 08/03/19 08/03/19 08/03/19 05:21 06:29 07:52 WBC Hgb Hct MCV MCHC RDW Lymph % (Auto) [place] % (Auto) [place] # Seg Neutrophils % Seg Neuts % (Manual) Lymphocytes % (Manual) Seg Neutrophils # Seg Neutrophils # Man Monocytes # (Manual) POC ABG pH ABG pH POC ABG pO2 ABG pO2 ABG HCO3 ABG Base Excess VBG pH VBG pO2 Sodium Potassium Chloride Carbon Dioxide BUN Creatinine Glucose POC Glucose 113 H 108 H 108 H Calcium Total Creatine Kinase CK-MB (CK-2) Total Protein Albumin Lipase 08/03/19 08/03/19 08/03/19 08:43 09:09 09:09 WBC 23.8 H Hgb Hct MCV MCHC RDW 12.3 L Lymph % (Auto) [place] % (Auto) [place] # Seg Neutrophils % Seg Neuts % (Manual) 84.0 H Lymphocytes % (Manual) 9.0 L Seg Neutrophils # Seg Neutrophils # Man 20.0 H Monocytes # (Manual) 1.7 H POC ABG pH ABG pH POC ABG pO2 ABG pO2 ABG HCO3 ABG Base Excess VBG pH VBG pO2 Sodium Potassium Chloride 111.6 H Carbon Dioxide 8 L* BUN Creatinine 0.6 L Glucose 125 H POC Glucose 108 H Calcium 7.7 L Total Creatine Kinase CK-MB (CK-2) Total Protein Albumin Lipase 08/03/19 08/03/19 08/03/19 09:50 11:38 12:35 WBC Hgb Hct MCV MCHC RDW Lymph % (Auto) [place] % (Auto) [place] # Seg Neutrophils % Seg Neuts % (Manual) Lymphocytes % (Manual) Seg Neutrophils # Seg Neutrophils # Man Monocytes # (Manual) POC ABG pH ABG pH POC ABG pO2 ABG pO2 ABG HCO3 ABG Base Excess VBG pH VBG pO2 Sodium Potassium Chloride Carbon Dioxide BUN Creatinine Glucose POC Glucose 128 H 130 H 126 H Calcium Total Creatine Kinase CK-MB (CK-2) Total Protein Albumin Lipase 08/03/19 08/03/19 08/03/19 13:17 14:06 14:31 WBC Hgb Hct MCV MCHC RDW Lymph % (Auto) [place] % (Auto) [place] # Seg Neutrophils % Seg Neuts % (Manual) Lymphocytes % (Manual) Seg Neutrophils # Seg Neutrophils # Man Monocytes # (Manual) POC ABG pH ABG pH POC ABG pO2 ABG pO2 ABG HCO3 ABG Base Excess VBG pH VBG pO2 Sodium Potassium 3.2 L Chloride 113.0 H Carbon Dioxide 10 L BUN Creatinine 0.5 L Glucose 101 H POC Glucose 132 H 135 H Calcium 7.6 L Total Creatine Kinase CK-MB (CK-2) Total Protein Albumin Lipase 08/03/19 08/03/19 08/03/19 14:31 16:47 17:46 WBC Hgb Hct MCV MCHC RDW Lymph % (Auto) [place] % (Auto) [place] # Seg Neutrophils % Seg Neuts % (Manual) Lymphocytes % (Manual) Seg Neutrophils # Seg Neutrophils # Man Monocytes # (Manual) POC ABG pH ABG pH POC ABG pO2 ABG pO2 ABG HCO3 ABG Base Excess VBG pH VBG pO2 Sodium Potassium Chloride Carbon Dioxide BUN Creatinine Glucose POC Glucose 117 H 110 H Calcium Total Creatine Kinase 161 H CK-MB (CK-2) 4.8 H Total Protein Albumin Lipase 08/03/19 08/03/19 08/03/19 19:53 21:00 21:11 WBC Hgb Hct MCV MCHC RDW Lymph % (Auto) [place] % (Auto) [place] # Seg Neutrophils % Seg Neuts % (Manual) Lymphocytes % (Manual) Seg Neutrophils # Seg Neutrophils # Man Monocytes # (Manual) POC ABG pH ABG pH POC ABG pO2 ABG pO2 ABG HCO3 ABG Base Excess VBG pH VBG pO2 Sodium Potassium Chloride 109.9 H Carbon Dioxide 8 L* BUN Creatinine 0.5 L Glucose 26 L* POC Glucose 116 H 118 H Calcium 7.5 L Total Creatine Kinase CK-MB (CK-2) Total Protein Albumin Lipase 08/03/19 08/03/19 08/03/19 22:02 22:05 23:16 WBC Hgb Hct MCV MCHC RDW Lymph % (Auto) [place] % (Auto) [place] # Seg Neutrophils % Seg Neuts % (Manual) Lymphocytes % (Manual) Seg Neutrophils # Seg Neutrophils # Man Monocytes # (Manual) POC ABG pH ABG pH POC ABG pO2 ABG pO2 ABG HCO3 ABG Base Excess VBG pH VBG pO2 Sodium 136 L Potassium 3.4 L Chloride 107.3 H Carbon Dioxide 8 L* BUN 5 L Creatinine 0.6 L Glucose 30 L* 357 H POC Glucose 132 H Calcium 7.7 L Total Creatine Kinase CK-MB (CK-2) Total Protein 5.9 L Albumin 3.5 L Lipase 08/03/19 08/04/19 08/04/19 23:51 00:32 02:08 WBC Hgb Hct MCV MCHC RDW Lymph % (Auto) [place] % (Auto) [place] # Seg Neutrophils % Seg Neuts % (Manual) Lymphocytes % (Manual) Seg Neutrophils # Seg Neutrophils # Man Monocytes # (Manual) POC ABG pH ABG pH 7.198 L* POC ABG pO2 ABG pO2 122.5 H ABG HCO3 4.4 L ABG Base Excess -20.8 L VBG pH VBG pO2 Sodium Potassium Chloride Carbon Dioxide BUN Creatinine Glucose POC Glucose 294 H 270 H Calcium Total Creatine Kinase CK-MB (CK-2) Total Protein Albumin Lipase 08/04/19 08/04/19 08/04/19 04:47 04:47 06:19 WBC 17.8 H Hgb Hct MCV MCHC RDW 12.4 L Lymph % (Auto) [place] % (Auto) [place] # Seg Neutrophils % Seg Neuts % (Manual) Lymphocytes % (Manual) Seg Neutrophils # Seg Neutrophils # Man Monocytes # (Manual) POC ABG pH ABG pH POC ABG pO2 ABG pO2 ABG HCO3 ABG Base Excess VBG pH 7.273 L VBG pO2 51.9 H Sodium Potassium Chloride 111.5 H Carbon Dioxide 4 L* BUN 4 L Creatinine 0.5 L Glucose 260 H POC Glucose Calcium 7.6 L Total Creatine Kinase CK-MB (CK-2) Total Protein Albumin Lipase 08/04/19 08/04/19 08/04/19 06:20 06:25 06:37 WBC Hgb Hct MCV MCHC RDW Lymph % (Auto) [place] % (Auto) [place] # Seg Neutrophils % Seg Neuts % (Manual) Lymphocytes % (Manual) Seg Neutrophils # Seg Neutrophils # Man Monocytes # (Manual) POC ABG pH ABG pH POC ABG pO2 ABG pO2 ABG HCO3 ABG Base Excess VBG pH VBG pO2 Sodium Potassium Chloride Carbon Dioxide BUN Creatinine Glucose POC Glucose 231 H 250 H Calcium Total Creatine Kinase 137 H CK-MB (CK-2) Total Protein Albumin Lipase 08/04/19 08/04/19 08/04/19 07:42 11:36 16:27 WBC Hgb Hct MCV MCHC RDW Lymph % (Auto) [place] % (Auto) [place] # Seg Neutrophils % Seg Neuts % (Manual) Lymphocytes % (Manual) Seg Neutrophils # Seg Neutrophils # Man Monocytes # (Manual) POC ABG pH ABG pH POC ABG pO2 ABG pO2 ABG HCO3 ABG Base Excess VBG pH VBG pO2 Sodium Potassium Chloride Carbon Dioxide BUN Creatinine Glucose POC Glucose 286 H 239 H 151 H Calcium Total Creatine Kinase CK-MB (CK-2) Total Protein Albumin Lipase 08/04/19 08/05/19 08/05/19 21:16 02:10 02:22 WBC Hgb Hct MCV MCHC RDW Lymph % (Auto) [place] % (Auto) [place] # Seg Neutrophils % Seg Neuts % (Manual) Lymphocytes % (Manual) Seg Neutrophils # Seg Neutrophils # Man Monocytes # (Manual) POC ABG pH 7.190 L ABG pH POC ABG pO2 160 H ABG pO2 ABG HCO3 ABG Base Excess VBG pH VBG pO2 Sodium Potassium Chloride Carbon Dioxide BUN Creatinine Glucose POC Glucose 176 H 133 H Calcium Total Creatine Kinase CK-MB (CK-2) Total Protein Albumin Lipase 08/05/19 08/05/19 08/05/19 04:46 04:46 06:31 WBC 15.5 H Hgb Hct MCV MCHC RDW 12.8 L Lymph % (Auto) 9.5 L [place] % (Auto) 8.9 H [place] # 1.4 H Seg Neutrophils % 81.3 H Seg Neuts % (Manual) Lymphocytes % (Manual) Seg Neutrophils # 12.6 H Seg Neutrophils # Man Monocytes # (Manual) POC ABG pH 7.042 L ABG pH POC ABG pO2 148 H ABG pO2 ABG HCO3 ABG Base Excess VBG pH VBG pO2 Sodium 136 L Potassium Chloride 107.1 H Carbon Dioxide 3 L* BUN 4 L Creatinine 0.5 L Glucose 192 H POC Glucose Calcium 7.6 L Total Creatine Kinase CK-MB (CK-2) Total Protein Albumin Lipase 08/05/19 08/05/19 08/05/19 08:24 10:13 12:11 WBC Hgb Hct MCV MCHC RDW Lymph % (Auto) [place] % (Auto) [place] # Seg Neutrophils % Seg Neuts % (Manual) Lymphocytes % (Manual) Seg Neutrophils # Seg Neutrophils # Man Monocytes # (Manual) POC ABG pH ABG pH 7.203 L POC ABG pO2 ABG pO2 141.1 H ABG HCO3 5.4 L ABG Base Excess -19.9 L VBG pH VBG pO2 Sodium Potassium Chloride Carbon Dioxide BUN Creatinine Glucose POC Glucose 177 H 135 H Calcium Total Creatine Kinase CK-MB (CK-2) Total Protein Albumin Lipase 08/05/19 08/05/19 08/05/19 14:46 16:49 21:31 WBC Hgb Hct MCV MCHC RDW Lymph % (Auto) [place] % (Auto) [place] # Seg Neutrophils % Seg Neuts % (Manual) Lymphocytes % (Manual) Seg Neutrophils # Seg Neutrophils # Man Monocytes # (Manual) POC ABG pH ABG pH POC ABG pO2 ABG pO2 ABG HCO3 ABG Base Excess VBG pH VBG pO2 Sodium Potassium Chloride Carbon Dioxide BUN Creatinine Glucose POC Glucose 184 H 204 H 168 H Calcium Total Creatine Kinase CK-MB (CK-2) Total Protein Albumin Lipase 08/05/19 08/06/19 08/06/19 21:51 03:57 07:35 WBC Hgb Hct MCV MCHC RDW Lymph % (Auto) [place] % (Auto) [place] # Seg Neutrophils % Seg Neuts % (Manual) Lymphocytes % (Manual) Seg Neutrophils # Seg Neutrophils # Man Monocytes # (Manual) POC ABG pH ABG pH POC ABG pO2 ABG pO2 ABG HCO3 ABG Base Excess VBG pH VBG pO2 Sodium 133 L Potassium 2.4 L* D 3.1 L D Chloride 96.6 L 94.3 L Carbon Dioxide 12 L D 7 L* BUN 4 L 5 L Creatinine 0.3 L 0.6 L D Glucose 169 H 268 H POC Glucose 223 H Calcium 7.3 L 7.3 L Total Creatine Kinase CK-MB (CK-2) Total Protein Albumin Lipase 08/06/19 08/06/19 08/06/19 11:42 15:20 17:04 WBC Hgb Hct MCV MCHC RDW Lymph % (Auto) [place] % (Auto) [place] # Seg Neutrophils % Seg Neuts % (Manual) Lymphocytes % (Manual) Seg Neutrophils # Seg Neutrophils # Man Monocytes # (Manual) POC ABG pH ABG pH POC ABG pO2 ABG pO2 ABG HCO3 ABG Base Excess VBG pH VBG pO2 Sodium Potassium 2.8 L* Chloride 95.8 L Carbon Dioxide 15 L D BUN 3 L Creatinine 0.4 L Glucose 178 H POC Glucose 255 H 175 H Calcium 8.2 L Total Creatine Kinase CK-MB (CK-2) Total Protein Albumin Lipase 08/06/19 08/07/19 08/07/19 21:14 00:47 04:02 WBC 11.7 H Hgb Hct MCV MCHC 35 H RDW 12.2 L Lymph % (Auto) 10.2 L [place] % (Auto) 11.1 H [place] # 1.3 H Seg Neutrophils % 78.3 H Seg Neuts % (Manual) Lymphocytes % (Manual) Seg Neutrophils # 9.2 H Seg Neutrophils # Man Monocytes # (Manual) POC ABG pH ABG pH POC ABG pO2 ABG pO2 ABG HCO3 ABG Base Excess VBG pH VBG pO2 Sodium 130 L D Potassium Chloride 93.2 L Carbon Dioxide 12 L BUN 4 L Creatinine 0.5 L Glucose 158 H POC Glucose 254 H Calcium 7.8 L Total Creatine Kinase CK-MB (CK-2) Total Protein Albumin Lipase 08/07/19 08/07/19 08/07/19 08:40 10:18 11:45 WBC Hgb Hct MCV MCHC RDW Lymph % (Auto) [place] % (Auto) [place] # Seg Neutrophils % Seg Neuts % (Manual) Lymphocytes % (Manual) Seg Neutrophils # Seg Neutrophils # Man Monocytes # (Manual) POC ABG pH ABG pH POC ABG pO2 ABG pO2 ABG HCO3 ABG Base Excess VBG pH VBG pO2 Sodium 129 L Potassium 3.2 L Chloride 95.8 L Carbon Dioxide 8 L* BUN 5 L Creatinine 0.6 L Glucose 312 H POC Glucose 156 H 280 H Calcium 7.4 L Total Creatine Kinase CK-MB (CK-2) Total Protein Albumin Lipase 08/07/19 Unknown WBC Hgb Hct MCV MCHC RDW Lymph % (Auto) [place] % (Auto) [place] # Seg Neutrophils % Seg Neuts % (Manual) Lymphocytes % (Manual) Seg Neutrophils # Seg Neutrophils # Man Monocytes # (Manual) POC ABG pH ABG pH POC ABG pO2 ABG pO2 ABG HCO3 ABG Base Excess VBG pH VBG pO2 Sodium 133 L Potassium 2.9 L* Chloride 94.9 L Carbon Dioxide 8 L* BUN 4 L Creatinine 0.5 L Glucose 185 H POC Glucose Calcium 7.4 L Total Creatine Kinase CK-MB (CK-2) Total Protein Albumin Lipase Allied health notes reviewed: nursing
[2019-08-07] MEDS: METOPROLOL TARTRATE 5 MG/5 ML INJ IV PRN (16:11)
[2019-08-07 19:42] LABS: BUN/Creatinine Ratio 10; Blood Urea Nitrogen 3 mg/dL (7-17); Calcium 7.3 mg/dL (8.4-10.2); Hemolysis Index 41
[2019-08-07] MEDS: ALUM-MAG HYDROXIDE-SIMETHICONE 200-200-20MG/5ML ORAL LIQD 30 ML PO PRN (19:54)
[2019-08-07] MEDS ORDERED: POTASSIUM CHLORIDE ER 20 MEQ TAB PO ONE (21:05)
[2019-08-08] MEDS: POTASSIUM CHLORIDE 10 MEQ 10 MEQ/100 ML BAG IV SCH (01:24)
[2019-08-08] MEDS: SODIUM BICARBONATE 150 MEQ in WATER FOR INJECTION (PF) 1,000 ML IV SCH ×2 (01:52→09:39)
[2019-08-08 04:41] LABS: BUN/Creatinine Ratio 8; Blood Urea Nitrogen 3 mg/dL (7-17); Calcium 7.3 mg/dL (8.4-10.2); Hemolysis Index 6
[2019-08-08] MEDS: INSULIN LISPRO 100 UNIT/ML SUB-Q SCH ×4 (07:30→22:18)
--- NOTE | 2019-08-08 08:38 | Progress Note ---
Assessment and Plan DKA (diabetic ketoacidoses) Hypokalemia Severe Metabolic acidosis Leucocytosis - begin Lantus 5 units SQ daily - PT/OT evaluate and treat - get G.I. evaluation for persistent dysphagia - HD/UF per non profit job titles - continue bicarbonate supplementation (D5W with 3 amps NaHCO3/liter) - prn BIPAP for increased work of breathing - continue aspiration precautions - stopped Ozempic - prn albuterol - continue accuchecks with SSI for target BG < 180 mg/dl - continue GI & VTE prophylaxis - watch closely for S&S of sepsis - get blood cultures but follow clinically off AB's for now - mobility protocols for pressure ulcer prophylaxis - continue other care per attending / other business transformation consultant's ... re-evaluate in am & prn .... transfer to [facility] I have spent ( >35 ) minutes with the patient w/ >50% of the time spent counseling and/or coordinating care for this patient. Counseling topics and/or how time was spent coordinating patient's care is outlined in the impression and plan above. Subjective Date of service: 08/08/19 Principal diagnosis: DKA; Hypokalemia; Severe Metabolic acidosis; Leucocytosis Interval history: Patient is seen today for: DKA (diabetic ketoacidoses); Hypokalemia; Severe Metabolic acidosis; Leucocytosis Seen and examined at bedside; 24hour events reviewed; nursing and respiratory care staff consulted; no adverse overnight events reported to me; resting in bed; looks and feels better; metabolic acidosis improving but persistent; no Dialysis today; denies acute chest pains; No N/V/F/C Objective Vital Signs - 12hr 08/07/19 08/07/19 08/07/19 21:00 21:30 22:00 Temperature Pulse Rate 116 H 112 H 121 H Pulse Rate [ From Monitor] Respiratory 15 17 16 Rate Blood Pressure 127/81 136/84 115/79 O2 Sat by Pulse 99 99 99 Oximetry 08/07/19 08/07/19 08/07/19 22:30 23:00 23:08 Temperature Pulse Rate 120 H 126 H 125 H Pulse Rate [ From Monitor] Respiratory 18 18 20 Rate Blood Pressure 126/74 121/73 121/73 O2 Sat by Pulse 100 99 99 Oximetry 08/07/19 08/08/19 08/08/19 23:30 00:00 00:30 Temperature 99.0 F Pulse Rate 119 H 117 H 105 H Pulse Rate [ 118 H From Monitor] Respiratory 19 19 17 Rate Blood Pressure 121/73 130/77 130/77 O2 Sat by Pulse 99 99 100 Oximetry 08/08/19 08/08/19 08/08/19 01:00 01:30 02:00 Temperature Pulse Rate 104 H 109 H 113 H Pulse Rate [ From Monitor] Respiratory 16 20 15 Rate Blood Pressure 114/75 114/75 128/87 O2 Sat by Pulse 99 100 100 Oximetry 08/08/19 08/08/19 08/08/19 03:00 04:00 04:26 Temperature 99.1 F Pulse Rate 114 H 111 H Pulse Rate [ 111 H From Monitor] Respiratory 18 20 Rate Blood Pressure 127/84 122/76 O2 Sat by Pulse 99 99 Oximetry 08/08/19 08/08/19 08/08/19 05:00 06:00 07:00 Temperature Pulse Rate 110 H 120 H 112 H Pulse Rate [ From Monitor] Respiratory 16 17 21 Rate Blood Pressure 125/80 131/85 122/71 O2 Sat by Pulse 100 100 Oximetry Constitutional: appears uncomfortable, other (young AAF normocephalica nd atraumatic with moderately increased respiratory effort at rest) Eyes: non-icteric ENT: oropharynx moist, other (mallampati 2) Neck: supple, no lymphadenopathy, no JVD Effort: mildly labored Ascultation: Bilateral: clear, diminished breath sounds Percussion: Bilateral: not dull Cardiovascular: regular rate and rhythm Gastrointestinal: normoactive bowel sounds, soft, non-tender, non-distended Integumentary: normal Extremities: no cyanosis, no edema, pulses normal, no ischemia or petechiae Neurologic: normal mental status, non-focal exam, pupils equal and round, CN II- XII normal, motor strength normal and Psychiatric: mood appropriate, affect normal CBC and BMP: 08/07/19 04:02 08/08/19 03:39 ABG, PT/INR, D-dimer: ABG POC ABG pH 7.042 (7.35-7.45) L 08/05/19 06:31 ABG pH 7.203 pH Units (7.350-7.450) L 08/05/19 10:13 ABG pCO2 14.1 mm Hg 08/05/19 10:13 POC ABG pO2 148 (80-105) H 08/05/19 06:31 ABG pO2 141.1 mm Hg (80.0-90.0) H 08/05/19 10:13 POC ABG HCO3 2.2 (22-26 mml/L) 08/05/19 06:31 POC ABG Total CO2 < 5 (23-27mmol/L) 08/05/19 06:31 POC ABG O2 Sat 98 08/05/19 06:31 ABG O2 Saturation 98.5 % (95.0-99.0) 08/05/19 10:13 Abnormal lab findings: Abnormal Labs 08/02/19 08/02/19 08/02/19 19:56 20:11 20:21 WBC 25.1 H Hgb 14.8 H Hct 45.6 H MCV 98 H MCHC RDW 12.8 L Lymph % (Auto) Barton % (Auto) Barton # Seg Neutrophils % Seg Neuts % (Manual) 83.0 H Lymphocytes % (Manual) 10.0 L Seg Neutrophils # Seg Neutrophils # Man 20.8 H Monocytes # (Manual) 1.8 H POC ABG pH ABG pH POC ABG pO2 ABG pO2 ABG HCO3 ABG Base Excess VBG pH VBG pO2 Sodium 133 L Potassium Chloride Carbon Dioxide 13 L BUN Creatinine Glucose 306 H POC Glucose 233 H Calcium 7.7 L Total Creatine Kinase CK-MB (CK-2) Total Protein Albumin Lipase 08/02/19 08/02/19 08/02/19 20:22 20:23 21:54 WBC Hgb Hct MCV MCHC RDW Lymph % (Auto) Barton % (Auto) Barton # Seg Neutrophils % Seg Neuts % (Manual) Lymphocytes % (Manual) Seg Neutrophils # Seg Neutrophils # Man Monocytes # (Manual) POC ABG pH ABG pH POC ABG pO2 ABG pO2 ABG HCO3 ABG Base Excess VBG pH 6.877 L* VBG pO2 Sodium Potassium Chloride Carbon Dioxide BUN Creatinine Glucose POC Glucose 237 H Calcium Total Creatine Kinase CK-MB (CK-2) Total Protein Albumin Lipase 10 L 08/02/19 08/02/19 08/02/19 23:02 23:12 23:57 WBC Hgb Hct MCV MCHC RDW Lymph % (Auto) Barton % (Auto) Barton # Seg Neutrophils % Seg Neuts % (Manual) Lymphocytes % (Manual) Seg Neutrophils # Seg Neutrophils # Man Monocytes # (Manual) POC ABG pH ABG pH POC ABG pO2 ABG pO2 ABG HCO3 ABG Base Excess VBG pH VBG pO2 Sodium 135 L Potassium 5.5 H D Chloride 108.2 H Carbon Dioxide 2 L* D BUN Creatinine 0.6 L Glucose 307 H POC Glucose 244 H 255 H Calcium 7.3 L Total Creatine Kinase CK-MB (CK-2) Total Protein Albumin Lipase 08/03/19 08/03/19 08/03/19 00:34 01:04 02:17 WBC Hgb Hct MCV MCHC RDW Lymph % (Auto) Barton % (Auto) Barton # Seg Neutrophils % Seg Neuts % (Manual) Lymphocytes % (Manual) Seg Neutrophils # Seg Neutrophils # Man Monocytes # (Manual) POC ABG pH ABG pH POC ABG pO2 ABG pO2 ABG HCO3 ABG Base Excess VBG pH VBG pO2 Sodium 135 L Potassium Chloride 108.9 H Carbon Dioxide < 2.0 L* BUN Creatinine 0.6 L Glucose 262 H POC Glucose 245 H 210 H Calcium 7.1 L Total Creatine Kinase CK-MB (CK-2) Total Protein Albumin Lipase 08/03/19 08/03/19 08/03/19 03:12 04:15 04:16 WBC Hgb Hct MCV MCHC RDW Lymph % (Auto) Barton % (Auto) Barton # Seg Neutrophils % Seg Neuts % (Manual) Lymphocytes % (Manual) Seg Neutrophils # Seg Neutrophils # Man Monocytes # (Manual) POC ABG pH ABG pH POC ABG pO2 ABG pO2 ABG HCO3 ABG Base Excess VBG pH VBG pO2 Sodium Potassium Chloride 113.9 H Carbon Dioxide 4 L* BUN Creatinine Glucose 110 H POC Glucose 190 H 168 H Calcium 7.3 L Total Creatine Kinase CK-MB (CK-2) Total Protein Albumin Lipase 08/03/19 08/03/19 08/03/19 05:21 06:29 07:52 WBC Hgb Hct MCV MCHC RDW Lymph % (Auto) Barton % (Auto) Barton # Seg Neutrophils % Seg Neuts % (Manual) Lymphocytes % (Manual) Seg Neutrophils # Seg Neutrophils # Man Monocytes # (Manual) POC ABG pH ABG pH POC ABG pO2 ABG pO2 ABG HCO3 ABG Base Excess VBG pH VBG pO2 Sodium Potassium Chloride Carbon Dioxide BUN Creatinine Glucose POC Glucose 113 H 108 H 108 H Calcium Total Creatine Kinase CK-MB (CK-2) Total Protein Albumin Lipase 08/03/19 08/03/19 08/03/19 08:43 09:09 09:09 WBC 23.8 H Hgb Hct MCV MCHC RDW 12.3 L Lymph % (Auto) Barton % (Auto) Barton # Seg Neutrophils % Seg Neuts % (Manual) 84.0 H Lymphocytes % (Manual) 9.0 L Seg Neutrophils # Seg Neutrophils # Man 20.0 H Monocytes # (Manual) 1.7 H POC ABG pH ABG pH POC ABG pO2 ABG pO2 ABG HCO3 ABG Base Excess VBG pH VBG pO2 Sodium Potassium Chloride 111.6 H Carbon Dioxide 8 L* BUN Creatinine 0.6 L Glucose 125 H POC Glucose 108 H Calcium 7.7 L Total Creatine Kinase CK-MB (CK-2) Total Protein Albumin Lipase 08/03/19 08/03/19 08/03/19 09:50 11:38 12:35 WBC Hgb Hct MCV MCHC RDW Lymph % (Auto) Barton % (Auto) Barton # Seg Neutrophils % Seg Neuts % (Manual) Lymphocytes % (Manual) Seg Neutrophils # Seg Neutrophils # Man Monocytes # (Manual) POC ABG pH ABG pH POC ABG pO2 ABG pO2 ABG HCO3 ABG Base Excess VBG pH VBG pO2 Sodium Potassium Chloride Carbon Dioxide BUN Creatinine Glucose POC Glucose 128 H 130 H 126 H Calcium Total Creatine Kinase CK-MB (CK-2) Total Protein Albumin Lipase 08/03/19 08/03/19 08/03/19 13:17 14:06 14:31 WBC Hgb Hct MCV MCHC RDW Lymph % (Auto) Barton % (Auto) Barton # Seg Neutrophils % Seg Neuts % (Manual) Lymphocytes % (Manual) Seg Neutrophils # Seg Neutrophils # Man Monocytes # (Manual) POC ABG pH ABG pH POC ABG pO2 ABG pO2 ABG HCO3 ABG Base Excess VBG pH VBG pO2 Sodium Potassium 3.2 L Chloride 113.0 H Carbon Dioxide 10 L BUN Creatinine 0.5 L Glucose 101 H POC Glucose 132 H 135 H Calcium 7.6 L Total Creatine Kinase CK-MB (CK-2) Total Protein Albumin Lipase 08/03/19 08/03/19 08/03/19 14:31 16:47 17:46 WBC Hgb Hct MCV MCHC RDW Lymph % (Auto) Barton % (Auto) Barton # Seg Neutrophils % Seg Neuts % (Manual) Lymphocytes % (Manual) Seg Neutrophils # Seg Neutrophils # Man Monocytes # (Manual) POC ABG pH ABG pH POC ABG pO2 ABG pO2 ABG HCO3 ABG Base Excess VBG pH VBG pO2 Sodium Potassium Chloride Carbon Dioxide BUN Creatinine Glucose POC Glucose 117 H 110 H Calcium Total Creatine Kinase 161 H CK-MB (CK-2) 4.8 H Total Protein Albumin Lipase 08/03/19 08/03/19 08/03/19 19:53 21:00 21:11 WBC Hgb Hct MCV MCHC RDW Lymph % (Auto) Barton % (Auto) Barton # Seg Neutrophils % Seg Neuts % (Manual) Lymphocytes % (Manual) Seg Neutrophils # Seg Neutrophils # Man Monocytes # (Manual) POC ABG pH ABG pH POC ABG pO2 ABG pO2 ABG HCO3 ABG Base Excess VBG pH VBG pO2 Sodium Potassium Chloride 109.9 H Carbon Dioxide 8 L* BUN Creatinine 0.5 L Glucose 26 L* POC Glucose 116 H 118 H Calcium 7.5 L Total Creatine Kinase CK-MB (CK-2) Total Protein Albumin Lipase 08/03/19 08/03/19 08/03/19 22:02 22:05 23:16 WBC Hgb Hct MCV MCHC RDW Lymph % (Auto) Barton % (Auto) Barton # Seg Neutrophils % Seg Neuts % (Manual) Lymphocytes % (Manual) Seg Neutrophils # Seg Neutrophils # Man Monocytes # (Manual) POC ABG pH ABG pH POC ABG pO2 ABG pO2 ABG HCO3 ABG Base Excess VBG pH VBG pO2 Sodium 136 L Potassium 3.4 L Chloride 107.3 H Carbon Dioxide 8 L* BUN 5 L Creatinine 0.6 L Glucose 30 L* 357 H POC Glucose 132 H Calcium 7.7 L Total Creatine Kinase CK-MB (CK-2) Total Protein 5.9 L Albumin 3.5 L Lipase 08/03/19 08/04/19 08/04/19 23:51 00:32 02:08 WBC Hgb Hct MCV MCHC RDW Lymph % (Auto) Barton % (Auto) Barton # Seg Neutrophils % Seg Neuts % (Manual) Lymphocytes % (Manual) Seg Neutrophils # Seg Neutrophils # Man Monocytes # (Manual) POC ABG pH ABG pH 7.198 L* POC ABG pO2 ABG pO2 122.5 H ABG HCO3 4.4 L ABG Base Excess -20.8 L VBG pH VBG pO2 Sodium Potassium Chloride Carbon Dioxide BUN Creatinine Glucose POC Glucose 294 H 270 H Calcium Total Creatine Kinase CK-MB (CK-2) Total Protein Albumin Lipase 08/04/19 08/04/19 08/04/19 04:47 04:47 06:19 WBC 17.8 H Hgb Hct MCV MCHC RDW 12.4 L Lymph % (Auto) Barton % (Auto) Barton # Seg Neutrophils % Seg Neuts % (Manual) Lymphocytes % (Manual) Seg Neutrophils # Seg Neutrophils # Man Monocytes # (Manual) POC ABG pH ABG pH POC ABG pO2 ABG pO2 ABG HCO3 ABG Base Excess VBG pH 7.273 L VBG pO2 51.9 H Sodium Potassium Chloride 111.5 H Carbon Dioxide 4 L* BUN 4 L Creatinine 0.5 L Glucose 260 H POC Glucose Calcium 7.6 L Total Creatine Kinase CK-MB (CK-2) Total Protein Albumin Lipase 08/04/19 08/04/19 08/04/19 06:20 06:25 06:37 WBC Hgb Hct MCV MCHC RDW Lymph % (Auto) Barton % (Auto) Barton # Seg Neutrophils % Seg Neuts % (Manual) Lymphocytes % (Manual) Seg Neutrophils # Seg Neutrophils # Man Monocytes # (Manual) POC ABG pH ABG pH POC ABG pO2 ABG pO2 ABG HCO3 ABG Base Excess VBG pH VBG pO2 Sodium Potassium Chloride Carbon Dioxide BUN Creatinine Glucose POC Glucose 231 H 250 H Calcium Total Creatine Kinase 137 H CK-MB (CK-2) Total Protein Albumin Lipase 08/04/19 08/04/19 08/04/19 07:42 11:36 16:27 WBC Hgb Hct MCV MCHC RDW Lymph % (Auto) Barton % (Auto) Barton # Seg Neutrophils % Seg Neuts % (Manual) Lymphocytes % (Manual) Seg Neutrophils # Seg Neutrophils # Man Monocytes # (Manual) POC ABG pH ABG pH POC ABG pO2 ABG pO2 ABG HCO3 ABG Base Excess VBG pH VBG pO2 Sodium Potassium Chloride Carbon Dioxide BUN Creatinine Glucose POC Glucose 286 H 239 H 151 H Calcium Total Creatine Kinase CK-MB (CK-2) Total Protein Albumin Lipase 08/04/19 08/05/19 08/05/19 21:16 02:10 02:22 WBC Hgb Hct MCV MCHC RDW Lymph % (Auto) Barton % (Auto) Barton # Seg Neutrophils % Seg Neuts % (Manual) Lymphocytes % (Manual) Seg Neutrophils # Seg Neutrophils # Man Monocytes # (Manual) POC ABG pH 7.190 L ABG pH POC ABG pO2 160 H ABG pO2 ABG HCO3 ABG Base Excess VBG pH VBG pO2 Sodium Potassium Chloride Carbon Dioxide BUN Creatinine Glucose POC Glucose 176 H 133 H Calcium Total Creatine Kinase CK-MB (CK-2) Total Protein Albumin Lipase 08/05/19 08/05/19 08/05/19 04:46 04:46 06:31 WBC 15.5 H Hgb Hct MCV MCHC RDW 12.8 L Lymph % (Auto) 9.5 L Barton % (Auto) 8.9 H Barton # 1.4 H Seg Neutrophils % 81.3 H Seg Neuts % (Manual) Lymphocytes % (Manual) Seg Neutrophils # 12.6 H Seg Neutrophils # Man Monocytes # (Manual) POC ABG pH 7.042 L ABG pH POC ABG pO2 148 H ABG pO2 ABG HCO3 ABG Base Excess VBG pH VBG pO2 Sodium 136 L Potassium Chloride 107.1 H Carbon Dioxide 3 L* BUN 4 L Creatinine 0.5 L Glucose 192 H POC Glucose Calcium 7.6 L Total Creatine Kinase CK-MB (CK-2) Total Protein Albumin Lipase 08/05/19 08/05/19 08/05/19 08:24 10:13 12:11 WBC Hgb Hct MCV MCHC RDW Lymph % (Auto) Barton % (Auto) Barton # Seg Neutrophils % Seg Neuts % (Manual) Lymphocytes % (Manual) Seg Neutrophils # Seg Neutrophils # Man Monocytes # (Manual) POC ABG pH ABG pH 7.203 L POC ABG pO2 ABG pO2 141.1 H ABG HCO3 5.4 L ABG Base Excess -19.9 L VBG pH VBG pO2 Sodium Potassium Chloride Carbon Dioxide BUN Creatinine Glucose POC Glucose 177 H 135 H Calcium Total Creatine Kinase CK-MB (CK-2) Total Protein Albumin Lipase 08/05/19 08/05/19 08/05/19 14:46 16:49 21:31 WBC Hgb Hct MCV MCHC RDW Lymph % (Auto) Barton % (Auto) Barton # Seg Neutrophils % Seg Neuts % (Manual) Lymphocytes % (Manual) Seg Neutrophils # Seg Neutrophils # Man Monocytes # (Manual) POC ABG pH ABG pH POC ABG pO2 ABG pO2 ABG HCO3 ABG Base Excess VBG pH VBG pO2 Sodium Potassium Chloride Carbon Dioxide BUN Creatinine Glucose POC Glucose 184 H 204 H 168 H Calcium Total Creatine Kinase CK-MB (CK-2) Total Protein Albumin Lipase 08/05/19 08/06/19 08/06/19 21:51 03:57 07:35 WBC Hgb Hct MCV MCHC RDW Lymph % (Auto) Barton % (Auto) Barton # Seg Neutrophils % Seg Neuts % (Manual) Lymphocytes % (Manual) Seg Neutrophils # Seg Neutrophils # Man Monocytes # (Manual) POC ABG pH ABG pH POC ABG pO2 ABG pO2 ABG HCO3 ABG Base Excess VBG pH VBG pO2 Sodium 133 L Potassium 2.4 L* D 3.1 L D Chloride 96.6 L 94.3 L Carbon Dioxide 12 L D 7 L* BUN 4 L 5 L Creatinine 0.3 L 0.6 L D Glucose 169 H 268 H POC Glucose 223 H Calcium 7.3 L 7.3 L Total Creatine Kinase CK-MB (CK-2) Total Protein Albumin Lipase 08/06/19 08/06/19 08/06/19 11:42 15:20 17:04 WBC Hgb Hct MCV MCHC RDW Lymph % (Auto) Barton % (Auto) Barton # Seg Neutrophils % Seg Neuts % (Manual) Lymphocytes % (Manual) Seg Neutrophils # Seg Neutrophils # Man Monocytes # (Manual) POC ABG pH ABG pH POC ABG pO2 ABG pO2 ABG HCO3 ABG Base Excess VBG pH VBG pO2 Sodium Potassium 2.8 L* Chloride 95.8 L Carbon Dioxide 15 L D BUN 3 L Creatinine 0.4 L Glucose 178 H POC Glucose 255 H 175 H Calcium 8.2 L Total Creatine Kinase CK-MB (CK-2) Total Protein Albumin Lipase 08/06/19 08/07/19 08/07/19 21:14 00:47 04:02 WBC 11.7 H Hgb Hct MCV MCHC 35 H RDW 12.2 L Lymph % (Auto) 10.2 L Barton % (Auto) 11.1 H Barton # 1.3 H Seg Neutrophils % 78.3 H Seg Neuts % (Manual) Lymphocytes % (Manual) Seg Neutrophils # 9.2 H Seg Neutrophils # Man Monocytes # (Manual) POC ABG pH ABG pH POC ABG pO2 ABG pO2 ABG HCO3 ABG Base Excess VBG pH VBG pO2 Sodium 130 L D Potassium Chloride 93.2 L Carbon Dioxide 12 L BUN 4 L Creatinine 0.5 L Glucose 158 H POC Glucose 254 H Calcium 7.8 L Total Creatine Kinase CK-MB (CK-2) Total Protein Albumin Lipase 08/07/19 08/07/19 08/07/19 08:40 10:18 11:45 WBC Hgb Hct MCV MCHC RDW Lymph % (Auto) Barton % (Auto) Barton # Seg Neutrophils % Seg Neuts % (Manual) Lymphocytes % (Manual) Seg Neutrophils # Seg Neutrophils # Man Monocytes # (Manual) POC ABG pH ABG pH POC ABG pO2 ABG pO2 ABG HCO3 ABG Base Excess VBG pH VBG pO2 Sodium 129 L Potassium 3.2 L Chloride 95.8 L Carbon Dioxide 8 L* BUN 5 L Creatinine 0.6 L Glucose 312 H POC Glucose 156 H 280 H Calcium 7.4 L Total Creatine Kinase CK-MB (CK-2) Total Protein Albumin Lipase 08/07/19 08/07/19 08/07/19 15:51 19:07 21:28 WBC Hgb Hct MCV MCHC RDW Lymph % (Auto) Barton % (Auto) Barton # Seg Neutrophils % Seg Neuts % (Manual) Lymphocytes % (Manual) Seg Neutrophils # Seg Neutrophils # Man Monocytes # (Manual) POC ABG pH ABG pH POC ABG pO2 ABG pO2 ABG HCO3 ABG Base Excess VBG pH VBG pO2 Sodium 132 L Potassium 3.4 L Chloride 92.1 L Carbon Dioxide 16 L D BUN 3 L Creatinine 0.3 L Glucose 321 H POC Glucose 171 H 344 H Calcium 7.3 L Total Creatine Kinase CK-MB (CK-2) Total Protein Albumin Lipase 08/07/19 08/08/19 Unknown 03:39 WBC Hgb Hct MCV MCHC RDW Lymph % (Auto) Barton % (Auto) Barton # Seg Neutrophils % Seg Neuts % (Manual) Lymphocytes % (Manual) Seg Neutrophils # Seg Neutrophils # Man Monocytes # (Manual) POC ABG pH ABG pH POC ABG pO2 ABG pO2 ABG HCO3 ABG Base Excess VBG pH VBG pO2 Sodium 133 L 133 L Potassium 2.9 L* 3.4 L Chloride 94.9 L 93.7 L Carbon Dioxide 8 L* 14 L BUN 4 L 3 L Creatinine 0.5 L 0.4 L Glucose 185 H 235 H POC Glucose Calcium 7.4 L 7.3 L Total Creatine Kinase CK-MB (CK-2) Total Protein Albumin Lipase Allied health notes reviewed: nursing
[2019-08-08] MEDS: PANTOPRAZOLE 40 MG TAB PO SCH ×2 (09:45→21:29)
[2019-08-08] MEDS: HEPARIN 5,000 UNIT/1 ML VIAL SUB-Q SCH ×2 (09:45→21:28)
[2019-08-08] MEDS ORDERED: POTASSIUM CHLORIDE ER 20 MEQ TAB PO NR (10:57)
--- NOTE | 2019-08-08 11:01 | Progress Note ---
Assessment and Plan - Patient Problems (1) DKA (diabetic ketoacidoses) Current Visit: Yes Status: Acute Qualifiers: Diabetes mellitus type: type 1 Diabetes mellitus complication detail: without coma Qualified Code(s): E10.10 - Type 1 diabetes mellitus with ketoacidosis without coma Plan to address problem: Secondary to persistent acidemia despite optimal medical management, now s/p hemodialysis for 3 straight sessions, with improving pH. cont bicarb gtt Patient is currently off insulin drip at this time. Further management per primary attending. (2) Hypokalemia Current Visit: Yes Status: Acute Plan to address problem: Replete per protocol. (3) Nausea & vomiting Current Visit: Yes Status: Acute Plan to address problem: Management per primary attending. Subjective Date of service: 08/08/19 Principal diagnosis: DKA; Hypokalemia; Severe Metabolic acidosis; Leucocytosis Interval history: Pt awake, weak, in no acute distress. Objective - Vital Signs Vital signs: Vital Signs - 12hr 08/07/19 08/07/19 08/07/19 23:00 23:08 23:30 Temperature Pulse Rate 126 H 125 H 119 H Pulse Rate [ From Monitor] Respiratory 18 20 19 Rate Blood Pressure 121/73 121/73 121/73 O2 Sat by Pulse 99 99 99 Oximetry 08/08/19 08/08/19 08/08/19 00:00 00:30 01:00 Temperature 99.0 F Pulse Rate 117 H 105 H 104 H Pulse Rate [ 118 H From Monitor] Respiratory 19 17 16 Rate Blood Pressure 130/77 130/77 114/75 O2 Sat by Pulse 99 100 99 Oximetry 08/08/19 08/08/19 08/08/19 01:30 02:00 03:00 Temperature Pulse Rate 109 H 113 H 114 H Pulse Rate [ From Monitor] Respiratory 20 15 18 Rate Blood Pressure 114/75 128/87 127/84 O2 Sat by Pulse 100 100 99 Oximetry 08/08/19 08/08/19 08/08/19 04:00 04:26 05:00 Temperature 99.1 F Pulse Rate 111 H 110 H Pulse Rate [ 111 H From Monitor] Respiratory 20 16 Rate Blood Pressure 122/76 125/80 O2 Sat by Pulse 99 Oximetry 08/08/19 08/08/19 08/08/19 06:00 07:00 08:00 Temperature Pulse Rate 120 H 112 H 111 H Pulse Rate [ 114 H From Monitor] Respiratory 17 21 20 Rate Blood Pressure 131/85 122/71 119/74 O2 Sat by Pulse 100 100 99 Oximetry 08/08/19 08/08/19 09:00 10:00 Temperature Pulse Rate 115 H 115 H Pulse Rate [ From Monitor] Respiratory 14 17 Rate Blood Pressure 120/89 136/82 O2 Sat by Pulse 100 100 Oximetry - General Appearance General appearance: well-developed, appears stated age EENT: ATNC, PERRL, mucous membranes moist Neck: no JVD Respiratory: Present: Clear to Ascultation Cardiology: regular, S1S2 Gastrointestinal: normoactive bowel sounds Integumentary: no rash Neurologic: no focal deficit, alert and oriented x3, strength 5/5, CN 3-12 intact Psychiatric: mood/affect appropriate, cooperative - Lab 08/07/19 04:02 08/08/19 03:39 Most recent lab results ABG pH 7.203 pH Units (7.350-7.450) L 08/05/19 10:13 ABG pCO2 14.1 mm Hg 08/05/19 10:13 ABG pO2 141.1 mm Hg (80.0-90.0) H 08/05/19 10:13 ABG HCO3 5.4 mmol/L (20.0-26.0) L 08/05/19 10:13 ABG O2 Saturation 98.5 % (95.0-99.0) 08/05/19 10:13 Calcium 7.3 mg/dL (8.4-10.2) L 08/08/19 03:39 Phosphorus 4.00 mg/dL (2.5-4.5) 08/02/19 23:12 Magnesium 2.00 mg/dL (1.7-2.3) 08/02/19 23:12 Medications & Allergies - Medications Allergies/Adverse Reactions: Allergies peach Allergy (Verified 08/05/19 09:15) Hives Home Medications: Home Medications Medication Instructions Recorded Confirmed Last Taken Type Empagliflozin [Jardiance] 25 mg PO DAILY 08/03/19 08/05/19 08/01/19 07:30 History Insulin Lispro [Humalog Kwikpen 18 units SQ TID 08/03/19 08/05/19 08/05/19 09:12 History 200 UNITS/ML] Ozempic 0.25 mg SQ 1XW 08/05/19 08/05/19 07/31/19 History Active Medications: Generic Name Dose Route Start Last Admin Trade Name Freq PRN Reason Stop Dose Admin Acetaminophen 650 mg 08/02/19 23:14 Tylenol VT Q4H PRN Pain, Mild (1-3) Acetaminophen 650 mg 08/04/19 15:17 08/04/19 17:32 Tylenol PO 650 mg Q4H PRN Administration Pain, Mild (1-3) Al Hydrox/Mg Hydrox/Simethicone 30 ml 08/04/19 12:40 08/07/19 19:54 Alum-Mag Hydrox-Simeth [id number] PO 30 ml Q4H PRN Administration Indigestion Albumin Human 12.5 gm 08/05/19 10:33 Alburx 25% (Albumin) IV GUANACO PRN Hypotension Dextrose 50 ml 08/03/19 21:06 08/03/19 23:03 D50w (25gm) Syringe IV 50 ml Q30MIN PRN Administration Hypoglycemia Heparin Sodium (Porcine) 5,000 unit 08/03/19 10:00 08/08/19 09:45 Heparin SUB-Q 5,000 unit Q12HR ANTOINO Administration Sodium Bicarbonate 150 meq/ 1,150 mls @ 150 mls/hr 08/04/19 09:00 08/08/19 09:39 Sterile Water IV 150 mls/hr DIRECT ANTONIO Administration Sodium Chloride 100 mls @ 999 mls/hr 08/05/19 10:33 Nacl 0.9% IV GUANACO PRN Hypotension Insulin Human Lispro 0 unit 08/03/19 22:00 08/08/19 07:30 Humalog SUB-Q 3 unit ACHS ANTONIO Administration Protocol Metoclopramide HCl 10 mg 08/05/19 05:27 08/07/19 09:08 Reglan IV 10 mg Q6H PRN Administration Nausea And Vomiting Metoprolol Tartrate 5 mg 08/05/19 13:35 08/07/19 16:11 Metoprolol IV 5 mg Q6HR PRN Administration Tachyarrhythmias Morphine Sulfate 2 mg 08/02/19 23:13 08/05/19 03:21 Morphine IV 2 mg Q4H PRN Administration Pain, Moderate (4-6) Nitroglycerin 0.4 mg 08/04/19 06:17 08/04/19 06:00 Nitrostat SL 0.4 mg .Q5MIN PRN Administration Chest Pain Ondansetron HCl 4 mg 08/02/19 23:12 08/07/19 19:54 Zofran IV 4 mg Q8H PRN Administration Nausea And Vomiting Pantoprazole Sodium 40 mg 08/04/19 10:00 08/08/19 09:45 Protonix PO 40 mg BID ANTONIO Administration Potassium Chloride 40 meq 08/08/19 10:57 K-Dur PO 08/08/19 10:58 ONCE ONE
--- NOTE | 2019-08-08 12:37 | Progress Note ---
Assessment and Plan Assessment and plan: Severe Metabolic acidosis. Patient s/p hemodialysis. Patient with persistent acidemia despite optimal medical management/bicarbonate drip. Nephrology following Hypokalemia. Replete potassium as needed. Hyponatremia. Continue IV sodium bicarbonate drip. Persistent tachycardia. Likely physiologic from acidosis. Echocardiogram with no acute findings. DKA. Patient is currently off insulin drip at this time. Continue to monitor blood glucose. Hypokalemia. Replete as needed. DVT prophylaxis. History Interval history: No new issues overnight. Hospitalist Physical - Constitutional Vitals: Temp Pulse Resp BP Pulse Ox 99.1 F 115 H 17 136/82 100 08/08/19 04:26 08/08/19 10:00 08/08/19 10:00 08/08/19 10:00 08/08/19 10:00 General appearance: Present: no acute distress, well-nourished - EENT Eyes: Present: PERRL, EOM intact ENT: hearing intact, clear oral mucosa, dentition normal - Neck Neck: Present: supple, normal ROM - Respiratory Respiratory effort: normal Respiratory: bilateral: CTA - Cardiovascular Rhythm: regular Heart Sounds: Present: S1 & S2. Absent: gallop, rub - Extremities Extremities: no ischemia, No edema, Full ROM - Abdominal General gastrointestinal: soft, non-tender, non-distended, normal bowel sounds - Integumentary Integumentary: Present: clear, warm, dry - Neurologic Neurologic: CNII-XII intact, moves all extremities Results - Labs CBC & Chem 7: 08/07/19 04:02 08/08/19 03:39 Labs: Laboratory Last Values WBC 11.7 K/mm3 (4.5-11.0) H 08/07/19 04:02 RBC 3.67 M/mm3 (3.65-5.03) 08/07/19 04:02 Hgb 11.8 gm/dl (10.1-14.3) 08/07/19 04:02 Hct 33.3 % (30.3-42.9) D 08/07/19 04:02 MCV 91 fl (79-97) 08/07/19 04:02 MCH 32 pg (28-32) 08/07/19 04:02 MCHC 35 % (30-34) H 08/07/19 04:02 RDW 12.2 % (13.2-15.2) L 08/07/19 04:02 Plt Count 186 K/mm3 (140-440) 08/07/19 04:02 Lymph % (Auto) 10.2 % (13.4-35.0) L 08/07/19 04:02 [place] % (Auto) 11.1 % (0.0-7.3) H 08/07/19 04:02 Eos % (Auto) 0.1 % (0.0-4.3) 08/07/19 04:02 Baso % (Auto) 0.3 % (0.0-1.8) 08/07/19 04:02 Lymph # 1.2 K/mm3 (1.2-5.4) 08/07/19 04:02 [place] # 1.3 K/mm3 (0.0-0.8) H 08/07/19 04:02 Eos # 0.0 K/mm3 (0.0-0.4) 08/07/19 04:02 Baso # 0.0 K/mm3 (0.0-0.1) 08/07/19 04:02 Add Manual Diff Complete 08/03/19 09:09 Total Counted 100 08/03/19 09:09 Seg Neutrophils % 78.3 % (40.0-70.0) H 08/07/19 04:02 Seg Neuts % (Manual) 84.0 % (40.0-70.0) H 08/03/19 09:09 Band Neutrophils % 0 % 08/03/19 09:09 Lymphocytes % (Manual) 9.0 % (13.4-35.0) L 08/03/19 09:09 Reactive Lymphs % (Man) 0 % 08/03/19 09:09 Monocytes % (Manual) 7.0 % (0.0-7.3) 08/03/19 09:09 Eosinophils % (Manual) 0 % (0.0-4.3) 08/03/19 09:09 Basophils % (Manual) 0 % (0.0-1.8) 08/03/19 09:09 Metamyelocytes % 0 % 08/03/19 09:09 Myelocytes % 0 % 08/03/19 09:09 Promyelocytes % 0 % 08/03/19 09:09 Blast Cells % 0 % 08/03/19 09:09 Nucleated RBC % Not Reportable 08/03/19 09:09 Seg Neutrophils # 9.2 K/mm3 (1.8-7.7) H 08/07/19 04:02 Seg Neutrophils # Man 20.0 K/mm3 (1.8-7.7) H 08/03/19 09:09 Band Neutrophils # 0.0 K/mm3 08/03/19 09:09 Lymphocytes # (Manual) 2.1 K/mm3 (1.2-5.4) 08/03/19 09:09 Abs React Lymphs (Man) 0.0 K/mm3 08/03/19 09:09 Monocytes # (Manual) 1.7 K/mm3 (0.0-0.8) H 08/03/19 09:09 Eosinophils # (Manual) 0.0 K/mm3 (0.0-0.4) 08/03/19 09:09 Basophils # (Manual) 0.0 K/mm3 (0.0-0.1) 08/03/19 09:09 Metamyelocytes # 0.0 K/mm3 08/03/19 09:09 Myelocytes # 0.0 K/mm3 08/03/19 09:09 Promyelocytes # 0.0 K/mm3 08/03/19 09:09 Blast Cells # 0.0 K/mm3 08/03/19 09:09 WBC Morphology Not Reportable 08/03/19 09:09 Hypersegmented Neuts Not Reportable 08/03/19 09:09 Hyposegmented Neuts Not Reportable 08/03/19 09:09 Hypogranular Neuts Not Reportable 08/03/19 09:09 Smudge Cells Not Reportable 08/03/19 09:09 Toxic Granulation Not Reportable 08/03/19 09:09 Toxic Vacuolation Not Reportable 08/03/19 09:09 Dohle Bodies Not Reportable 08/03/19 09:09 Pelger-Huet Anomaly Not Reportable 08/03/19 09:09 Avni Rods Not Reportable 08/03/19 09:09 Platelet Estimate Consistent w auto 08/03/19 09:09 Clumped Platelets Not Reportable 08/03/19 09:09 Plt Clumps, EDTA Not Reportable 08/03/19 09:09 Large Platelets Not Reportable 08/03/19 09:09 Giant Platelets Not Reportable 08/03/19 09:09 Platelet Satelliting Not Reportable 08/03/19 09:09 Plt Morphology Comment Not Reportable 08/03/19 09:09 RBC Morphology Normal 08/03/19 09:09 Dimorphic RBCs Not Reportable 08/03/19 09:09 Polychromasia Not Reportable 08/03/19 09:09 Hypochromasia Not Reportable 08/03/19 09:09 Poikilocytosis Not Reportable 08/03/19 09:09 Anisocytosis Not Reportable 08/03/19 09:09 Microcytosis Not Reportable 08/03/19 09:09 Macrocytosis Not Reportable 08/03/19 09:09 Spherocytes Not Reportable 08/03/19 09:09 Pappenheimer Bodies Not Reportable 08/03/19 09:09 Sickle Cells Not Reportable 08/03/19 09:09 Target Cells Not Reportable 08/03/19 09:09 Tear Drop Cells Not Reportable 08/03/19 09:09 Ovalocytes Not Reportable 08/03/19 09:09 Helmet Cells Not Reportable 08/03/19 09:09 [place] Bodies Not Reportable 08/03/19 09:09 [place] Rings Not Reportable 08/03/19 09:09 Jerm[place] Cells Not Reportable 08/03/19 09:09 Bite Cells Not Reportable 08/03/19 09:09 Crenated Cell Not Reportable 08/03/19 09:09 Elliptocytes Not Reportable 08/03/19 09:09 Acanthocytes (Spur) Not Reportable 08/03/19 09:09 Rouleaux Not Reportable 08/03/19 09:09 Hemoglobin C Crystals Not Reportable 08/03/19 09:09 Schistocytes Not Reportable 08/03/19 09:09 Malaria parasites Not Reportable 08/03/19 09:09 Rivera Bodies Not Reportable 08/03/19 09:09 Hem Pathologist Commnt No 08/03/19 09:09 POC ABG pH 7.042 (7.35-7.45) L 08/05/19 06:31 ABG pH 7.203 pH Units (7.350-7.450) L 08/05/19 10:13 ABG pCO2 14.1 mm Hg 08/05/19 10:13 POC ABG pO2 148 (80-105) H 08/05/19 06:31 ABG pO2 141.1 mm Hg (80.0-90.0) H 08/05/19 10:13 POC ABG HCO3 2.2 (22-26 mml/L) 08/05/19 06:31 ABG HCO3 5.4 mmol/L (20.0-26.0) L 08/05/19 10:13 POC ABG Total CO2 < 5 (23-27mmol/L) 08/05/19 06:31 POC ABG O2 Sat 98 08/05/19 06:31 ABG O2 Saturation 98.5 % (95.0-99.0) 08/05/19 10:13 ABG O2 Content 19.5 (0.0-44) 08/05/19 10:13 POC ABG Base Excess -28 ((-2) - (+3)mmol/L) 08/05/19 06:31 ABG Base Excess -19.9 mmol/L (-2.0-3.0) L 08/05/19 10:13 ABG Hemoglobin 14.2 gm/dl (12.0-16.0) 08/05/19 10:13 ABG Carboxyhemoglobin 1.3 % (0.0-5.0) 08/05/19 10:13 ABG Methemoglobin 0.7 % (0.0-1.5) 08/05/19 10:13 VBG pH 7.273 (7.320-7.420) L 08/04/19 06:19 VBG pO2 51.9 (25.0-47.0) H 08/04/19 06:19 Oxyhemoglobin 96.5 % (95.0-99.0) 08/05/19 10:13 FiO2 25 % 08/05/19 10:13 Sodium 133 mmol/L (137-145) L 08/08/19 03:39 Potassium 3.4 mmol/L (3.6-5.0) L 08/08/19 03:39 Chloride 93.7 mmol/L (98-107) L 08/08/19 03:39 Carbon Dioxide 14 mmol/L (22-30) L 08/08/19 03:39 Anion Gap 29 mmol/L 08/08/19 03:39 BUN 3 mg/dL (7-17) L 08/08/19 03:39 Creatinine 0.4 mg/dL (0.7-1.2) L 08/08/19 03:39 Estimated GFR > 60 ml/min 08/08/19 03:39 BUN/Creatinine Ratio 8 % 08/08/19 03:39 Glucose 235 mg/dL (65-100) H 08/08/19 03:39 POC Glucose 277 (70-105) H 08/08/19 08:49 Lactic Acid 1.00 mmol/L (0.7-2.0) 08/07/19 10:18 Calcium 7.3 mg/dL (8.4-10.2) L 08/08/19 03:39 Phosphorus 4.00 mg/dL (2.5-4.5) 08/02/19 23:12 Magnesium 2.00 mg/dL (1.7-2.3) 08/02/19 23:12 Total Bilirubin 0.30 mg/dL (0.1-1.2) 08/03/19 23:16 AST 20 units/L (5-40) 08/03/19 23:16 ALT 14 units/L (7-56) 08/03/19 23:16 Alkaline Phosphatase 69 units/L (35-129) 08/03/19 23:16 Total Creatine Kinase 137 units/L (30-135) H 08/04/19 06:25 CK-MB (CK-2) 3.1 ng/mL (0.0-4.0) 08/04/19 06:25 CK-MB (CK-2) Rel Index 2.2 (0-4) 08/04/19 06:25 Troponin T < 0.010 ng/mL (0.00-0.029) 08/04/19 06:25 Total Protein 5.9 g/dL (6.3-8.2) L 08/03/19 23:16 Albumin 3.5 g/dL (3.9-5) L 08/03/19 23:16 Albumin/Globulin Ratio 1.5 % 08/03/19 23:16 Lipase 10 units/L (13-60) L 08/02/19 20:23 Procalcitonin 0.47 ng/mL (<0.15) 08/04/19 20:54 HCG, Qual Negative (Negative) 08/02/19 20:11 Urine Color Straw (Yellow) 08/02/19 21:53 Urine Turbidity Clear (Clear) 08/02/19 21:53 Urine pH 5.0 (5.0-7.0) 08/02/19 21:53 Ur Specific [place] 1.020 (1.003-1.030) 08/02/19 21:53 Urine Protein 100 mg/dl mg/dL (Negative) 08/02/19 21:53 Urine Glucose (UA) >=500 mg/dL (Negative) 08/02/19 21:53 Urine Ketones 80 mg/dL (Negative) 08/02/19 21:53 Urine Blood Sm (Negative) 08/02/19 21:53 Urine Nitrite Neg (Negative) 08/02/19 21:53 Urine Bilirubin Neg (Negative) 08/02/19 21:53 Urine Urobilinogen < 2.0 mg/dL (<2.0) 08/02/19 21:53 Ur Leukocyte Esterase Neg (Negative) 08/02/19 21:53 Urine WBC (Auto) 1.0 /HPF (0.0-6.0) 08/02/19 21:53 Urine RBC (Auto) 2.0 /HPF (0.0-6.0) 08/02/19 21:53 U Epithel Cells (Auto) 2.0 /HPF (0-13.0) 08/02/19 21:53 Urine Mucus Few /HPF 08/02/19 21:53 Urine Yeast (Budding) Few /HPF 08/02/19 21:53 Hepatitis A IgM Ab Non-reactive (NonReactive) 08/05/19 12:38 Hep Bs Antigen Non-reactive (Negative) 08/05/19 12:38 Hep B Core IgM Ab Non-reactive (NonReactive) 08/05/19 12:38 Hepatitis C Antibody Non-reactive (NonReactive) 08/05/19 12:38 Active Medications - Current Medications Current Medications: Generic Name Dose Route Start Last Admin Trade Name Freq PRN Reason Stop Dose Admin Acetaminophen 650 mg 08/02/19 23:14 Tylenol ID Q4H PRN Pain, Mild (1-3) Acetaminophen 650 mg 08/04/19 15:17 08/04/19 17:32 Tylenol PO 650 mg Q4H PRN Administration Pain, Mild (1-3) Al Hydrox/Mg Hydrox/Simethicone 30 ml 08/04/19 12:40 08/07/19 19:54 Alum-Mag Hydrox-Simeth [id number]/[id number] PO 30 ml Q4H PRN Administration Indigestion Albumin Human 12.5 gm 08/05/19 10:33 Alburx 25% (Albumin) IV GUANACO PRN Hypotension Dextrose 50 ml 08/03/19 21:06 08/03/19 23:03 D50w (25gm) Syringe IV 50 ml Q30MIN PRN Administration Hypoglycemia Heparin Sodium (Porcine) 5,000 unit 08/03/19 10:00 08/08/19 09:45 Heparin SUB-Q 5,000 unit Q12HR ANTONIO Administration Sodium Bicarbonate 150 meq/ 1,150 mls @ 150 mls/hr 08/04/19 09:00 08/08/19 09:39 Sterile Water IV 150 mls/hr DIRECT ANTONIO Administration Sodium Chloride 100 mls @ 999 mls/hr 08/05/19 10:33 Nacl 0.9% IV GUANACO PRN Hypotension Insulin Human Lispro 0 unit 08/03/19 22:00 08/08/19 07:30 Humalog SUB-Q 3 unit ACHS ANTONIO Administration Protocol Metoclopramide HCl 10 mg 08/05/19 05:27 08/07/19 09:08 Reglan IV 10 mg Q6H PRN Administration Nausea And Vomiting Metoprolol Tartrate 5 mg 08/05/19 13:35 08/07/19 16:11 Metoprolol IV 5 mg Q6HR PRN Administration Tachyarrhythmias Morphine Sulfate 2 mg 08/02/19 23:13 08/05/19 03:21 Morphine IV 2 mg Q4H PRN Administration Pain, Moderate (4-6) Nitroglycerin 0.4 mg 08/04/19 06:17 08/04/19 06:00 Nitrostat SL 0.4 mg .Q5MIN PRN Administration Chest Pain Ondansetron HCl 4 mg 08/02/19 23:12 08/07/19 19:54 Zofran IV 4 mg Q8H PRN Administration Nausea And Vomiting Pantoprazole Sodium 40 mg 08/04/19 10:00 08/08/19 09:45 Protonix PO 40 mg BID ANTONIO Administration Potassium Chloride 40 meq 08/08/19 10:57 K-Dur PO 08/08/19 18:00 ONCE NR Nutrition/Malnutrition Assess - Dietary Evaluation Nutrition/Malnutrition Findings: Nutrition Notes Start: 08/04/19 10:13 Freq: Status: Active Protocol: Document 08/05/19 09:14 RS (Rec: 08/05/19 09:37 RS [email or web address]) Co-Sign 08/05/19 09:14 LM Nutrition Notes Initial or Follow up Reassessment Current Diagnosis Diabetes Other Pertinent Diagnosis DKA Current Diet Consistent CHO Labs/Tests B BUN: 4 Na: 136 CO2: 3 Pertinent Medications reviewed Height 5 ft 4 in Weight 72.57 kg [place] Body Weight (kg) 54.54 BMI 27.4 Weight Status Overweight Subjective/Other Information F/U for PO intake and diet education reiteration. Pt currently on BiPap, but there are no plans for pt to be intubated per RN. Unable to give diet education to pt d/t lethargy, will try again later . Pt ate 0% of breakfast d/t BiPap placement. Percent of energy/protein needs met: 0%/0% Burn Absent Trauma Absent Current % PO Negligible Minimum of two criteria No physical signs of malnutrition #2 Nutrition Diagnosis Food and nutrition-related knowledge deficit Diagnosis Progress(for reassessment Continues documentation) #1 Nutrition Diagnosis Inadequate oral intake Diagnosis Progress(for reassessment Continues documentation) Is patient on ventilator? No Is Patient Ambulatory and/or Out of Bed Yes REE-([facility]-ambulatory/OOB) [ [id number] [id number]] Calculation Used for Recommendations [facility] Additional Notes PRO needs: 57-72g/day (0.8-1g/ kg) Fluid needs: 1ml/kcal or per MD Nutrition Intervention Change Diet Order: Continue consistent CHO Goal #1 Pt meet >80% of kcal/PRO needs . Goal #2 Pt reiterate compliance to diet ed. Anticipated Discharge Needs: Consistent CHO Follow-Up By: 08/08/19 Additional Comments F/U for PO intakes, POC, diet education reiteration if pt is compliant.
[2019-08-08] MEDS: INSULIN GLARGINE 100 UNITS/ML SUB-Q SCH (14:00)
[2019-08-08] MEDS: METOPROLOL TARTRATE 5 MG/5 ML INJ IV PRN (14:15)
[2019-08-08] MEDS: MORPHINE 2 MG/1 ML INJ IV PRN (21:30)
[2019-08-09 05:06] LABS: BUN/Creatinine Ratio 5; Blood Urea Nitrogen 2 mg/dL (7-17); Calcium 7.6 mg/dL (8.4-10.2); Hemolysis Index 12
--- NOTE | 2019-08-09 05:23 | Event Note ---
Date: 08/09/19 Potassium 2.8 this am. ordered potassium 40 M January once by mouth. Follow-up potassium lab
[2019-08-09] MEDS ORDERED: POTASSIUM CHLORIDE ER 20 MEQ TAB PO ONE ×2 (05:42→17:00)
[2019-08-09] MEDS: SODIUM BICARBONATE 150 MEQ in WATER FOR INJECTION (PF) 1,000 ML IV SCH (05:48)
--- NOTE | 2019-08-09 08:50 | Progress Note ---
Assessment and Plan Assessment and plan: --DKA: Patient is currently off insulin drip Continue long-acting insulin, diabetic diet Diabetic education nutrition consult, A1c 13.1 Possible home health nurse at discharge for disease monitoring and education --Severe Metabolic acidosis: Patient s/p hemodialysis. Nephrology following Acidosis significantly improved, patient received bicarbonate drip recommended by nephro Continue supportive care . Hemodialysis as needed --Severe hypokalemia; Replace with potassium chloride per protocol Follow electrolytes. Check magnesium --Hyponatremia/pseudohyponatremia secondary to hyperglycemia; Gradually improving, closely monitor electrolytes --Persistent tachycardia. Likely physiologic from acidosis. Echo; EF 60 to 65%, IV fluids, low-dose Xanax --DVT prophylaxis; heparin Monitor closely and adjust management as needed Plan of care reviewed with the patient and her nurse As well as the case management Patient is stable to be transferred out of ICU Ambulate as tolerated Possible discharge in 1 to 2 days if stable Critical care time 31 minutes History Interval history: Patient seen and examined in IMCU this morning medical records reviewed Patient admitted with DKA, on DKA protocol Blood sugars reasonable level insulin drip discontinued on long-acting insulin Patient feels better complains of generalized weakness Vital signs reviewed Hospitalist Physical - Constitutional Vitals: Temp Pulse Resp BP Pulse Ox 98.2 F 109 H 11 L 132/84 97 08/09/19 08:00 08/09/19 06:00 08/09/19 06:00 08/09/19 06:00 08/09/19 06:00 General appearance: Present: no acute distress, well-nourished - EENT Eyes: Present: PERRL, EOM intact - Neck Neck: Present: supple, normal ROM - Respiratory Respiratory effort: normal Respiratory: bilateral: diminished, negative: rales, rhonchi, wheezing - Cardiovascular Rhythm: regular Heart Sounds: Present: S1 & S2 - Extremities Extremities: no ischemia, No edema - Abdominal General gastrointestinal: soft, non-tender, non-distended, normal bowel sounds - Integumentary Integumentary: Present: clear, warm - Psychiatric Psychiatric: appropriate mood/affect, cooperative - Neurologic Neurologic: CNII-XII intact, moves all extremities Results - Labs CBC & Chem 7: 08/07/19 04:02 08/09/19 13:20 Labs: Laboratory Last Values WBC 11.7 K/mm3 (4.5-11.0) H 08/07/19 04:02 RBC 3.67 M/mm3 (3.65-5.03) 08/07/19 04:02 Hgb 11.8 gm/dl (10.1-14.3) 08/07/19 04:02 Hct 33.3 % (30.3-42.9) D 08/07/19 04:02 MCV 91 fl (79-97) 08/07/19 04:02 MCH 32 pg (28-32) 08/07/19 04:02 MCHC 35 % (30-34) H 08/07/19 04:02 RDW 12.2 % (13.2-15.2) L 08/07/19 04:02 Plt Count 186 K/mm3 (140-440) 08/07/19 04:02 Lymph % (Auto) 10.2 % (13.4-35.0) L 08/07/19 04:02 Floyd % (Auto) 11.1 % (0.0-7.3) H 08/07/19 04:02 Eos % (Auto) 0.1 % (0.0-4.3) 08/07/19 04:02 Baso % (Auto) 0.3 % (0.0-1.8) 08/07/19 04:02 Lymph # 1.2 K/mm3 (1.2-5.4) 08/07/19 04:02 Floyd # 1.3 K/mm3 (0.0-0.8) H 08/07/19 04:02 Eos # 0.0 K/mm3 (0.0-0.4) 08/07/19 04:02 Baso # 0.0 K/mm3 (0.0-0.1) 08/07/19 04:02 Add Manual Diff Complete 08/03/19 09:09 Total Counted 100 08/03/19 09:09 Seg Neutrophils % 78.3 % (40.0-70.0) H 08/07/19 04:02 Seg Neuts % (Manual) 84.0 % (40.0-70.0) H 08/03/19 09:09 Band Neutrophils % 0 % 08/03/19 09:09 Lymphocytes % (Manual) 9.0 % (13.4-35.0) L 08/03/19 09:09 Reactive Lymphs % (Man) 0 % 08/03/19 09:09 Monocytes % (Manual) 7.0 % (0.0-7.3) 08/03/19 09:09 Eosinophils % (Manual) 0 % (0.0-4.3) 08/03/19 09:09 Basophils % (Manual) 0 % (0.0-1.8) 08/03/19 09:09 Metamyelocytes % 0 % 08/03/19 09:09 Myelocytes % 0 % 08/03/19 09:09 Promyelocytes % 0 % 08/03/19 09:09 Blast Cells % 0 % 08/03/19 09:09 Nucleated RBC % Not Reportable 08/03/19 09:09 Seg Neutrophils # 9.2 K/mm3 (1.8-7.7) H 08/07/19 04:02 Seg Neutrophils # Man 20.0 K/mm3 (1.8-7.7) H 08/03/19 09:09 Band Neutrophils # 0.0 K/mm3 08/03/19 09:09 Lymphocytes # (Manual) 2.1 K/mm3 (1.2-5.4) 08/03/19 09:09 Abs React Lymphs (Man) 0.0 K/mm3 08/03/19 09:09 Monocytes # (Manual) 1.7 K/mm3 (0.0-0.8) H 08/03/19 09:09 Eosinophils # (Manual) 0.0 K/mm3 (0.0-0.4) 08/03/19 09:09 Basophils # (Manual) 0.0 K/mm3 (0.0-0.1) 08/03/19 09:09 Metamyelocytes # 0.0 K/mm3 08/03/19 09:09 Myelocytes # 0.0 K/mm3 08/03/19 09:09 Promyelocytes # 0.0 K/mm3 08/03/19 09:09 Blast Cells # 0.0 K/mm3 08/03/19 09:09 WBC Morphology Not Reportable 08/03/19 09:09 Hypersegmented Neuts Not Reportable 08/03/19 09:09 Hyposegmented Neuts Not Reportable 08/03/19 09:09 Hypogranular Neuts Not Reportable 08/03/19 09:09 Smudge Cells Not Reportable 08/03/19 09:09 Toxic Granulation Not Reportable 08/03/19 09:09 Toxic Vacuolation Not Reportable 08/03/19 09:09 Dohle Bodies Not Reportable 08/03/19 09:09 Pelger-Huet Anomaly Not Reportable 08/03/19 09:09 Avni Rods Not Reportable 08/03/19 09:09 Platelet Estimate Consistent w auto 08/03/19 09:09 Clumped Platelets Not Reportable 08/03/19 09:09 Plt Clumps, EDTA Not Reportable 08/03/19 09:09 Large Platelets Not Reportable 08/03/19 09:09 Giant Platelets Not Reportable 08/03/19 09:09 Platelet Satelliting Not Reportable 08/03/19 09:09 Plt Morphology Comment Not Reportable 08/03/19 09:09 RBC Morphology Normal 08/03/19 09:09 Dimorphic RBCs Not Reportable 08/03/19 09:09 Polychromasia Not Reportable 08/03/19 09:09 Hypochromasia Not Reportable 08/03/19 09:09 Poikilocytosis Not Reportable 08/03/19 09:09 Anisocytosis Not Reportable 08/03/19 09:09 Microcytosis Not Reportable 08/03/19 09:09 Macrocytosis Not Reportable 08/03/19 09:09 Spherocytes Not Reportable 08/03/19 09:09 Pappenheimer Bodies Not Reportable 08/03/19 09:09 Sickle Cells Not Reportable 08/03/19 09:09 Target Cells Not Reportable 08/03/19 09:09 Tear Drop Cells Not Reportable 08/03/19 09:09 Ovalocytes Not Reportable 08/03/19 09:09 Helmet Cells Not Reportable 08/03/19 09:09 Diaz-Cherry Bodies Not Reportable 08/03/19 09:09 [place] Rings Not Reportable 08/03/19 09:09 Jermaine Cells Not Reportable 08/03/19 09:09 Bite Cells Not Reportable 08/03/19 09:09 Crenated Cell Not Reportable 08/03/19 09:09 Elliptocytes Not Reportable 08/03/19 09:09 Acanthocytes (Spur) Not Reportable 08/03/19 09:09 Rouleaux Not Reportable 08/03/19 09:09 Hemoglobin C Crystals Not Reportable 08/03/19 09:09 Schistocytes Not Reportable 08/03/19 09:09 Malaria parasites Not Reportable 08/03/19 09:09 Rivera Bodies Not Reportable 08/03/19 09:09 Hem Pathologist Commnt No 08/03/19 09:09 POC ABG pH 7.042 (7.35-7.45) L 08/05/19 06:31 ABG pH 7.203 pH Units (7.350-7.450) L 08/05/19 10:13 ABG pCO2 14.1 mm Hg 08/05/19 10:13 POC ABG pO2 148 (80-105) H 08/05/19 06:31 ABG pO2 141.1 mm Hg (80.0-90.0) H 08/05/19 10:13 POC ABG HCO3 2.2 (22-26 mml/L) 08/05/19 06:31 ABG HCO3 5.4 mmol/L (20.0-26.0) L 08/05/19 10:13 POC ABG Total CO2 < 5 (23-27mmol/L) 08/05/19 06:31 POC ABG O2 Sat 98 08/05/19 06:31 ABG O2 Saturation 98.5 % (95.0-99.0) 08/05/19 10:13 ABG O2 Content 19.5 (0.0-44) 08/05/19 10:13 POC ABG Base Excess -28 ((-2) - (+3)mmol/L) 08/05/19 06:31 ABG Base Excess -19.9 mmol/L (-2.0-3.0) L 08/05/19 10:13 ABG Hemoglobin 14.2 gm/dl (12.0-16.0) 08/05/19 10:13 ABG Carboxyhemoglobin 1.3 % (0.0-5.0) 08/05/19 10:13 ABG Methemoglobin 0.7 % (0.0-1.5) 08/05/19 10:13 VBG pH 7.273 (7.320-7.420) L 08/04/19 06:19 VBG pO2 51.9 (25.0-47.0) H 08/04/19 06:19 Oxyhemoglobin 96.5 % (95.0-99.0) 08/05/19 10:13 FiO2 25 % 08/05/19 10:13 Sodium 135 mmol/L (137-145) L 08/09/19 04:01 Potassium 2.8 mmol/L (3.6-5.0) L* 08/09/19 04:01 Chloride 95.2 mmol/L (98-107) L 08/09/19 04:01 Carbon Dioxide 25 mmol/L (22-30) D 08/09/19 04:01 Anion Gap 18 mmol/L 08/09/19 04:01 BUN 2 mg/dL (7-17) L 08/09/19 04:01 Creatinine 0.4 mg/dL (0.7-1.2) L 08/09/19 04:01 Estimated GFR > 60 ml/min 08/09/19 04:01 BUN/Creatinine Ratio 5 % 08/09/19 04:01 Glucose 129 mg/dL (65-100) H 08/09/19 04:01 POC Glucose 261 (70-105) H 08/09/19 07:33 Lactic Acid 1.00 mmol/L (0.7-2.0) 08/07/19 10:18 Calcium 7.6 mg/dL (8.4-10.2) L 08/09/19 04:01 Phosphorus 4.00 mg/dL (2.5-4.5) 08/02/19 23:12 Magnesium 2.00 mg/dL (1.7-2.3) 08/02/19 23:12 Total Bilirubin 0.30 mg/dL (0.1-1.2) 08/03/19 23:16 AST 20 units/L (5-40) 08/03/19 23:16 ALT 14 units/L (7-56) 08/03/19 23:16 Alkaline Phosphatase 69 units/L (35-129) 08/03/19 23:16 Total Creatine Kinase 137 units/L (30-135) H 08/04/19 06:25 CK-MB (CK-2) 3.1 ng/mL (0.0-4.0) 08/04/19 06:25 CK-MB (CK-2) Rel Index 2.2 (0-4) 08/04/19 06:25 Troponin T < 0.010 ng/mL (0.00-0.029) 08/04/19 06:25 Total Protein 5.9 g/dL (6.3-8.2) L 08/03/19 23:16 Albumin 3.5 g/dL (3.9-5) L 08/03/19 23:16 Albumin/Globulin Ratio 1.5 % 08/03/19 23:16 Lipase 10 units/L (13-60) L 08/02/19 20:23 Procalcitonin 0.47 ng/mL (<0.15) 08/04/19 20:54 HCG, Qual Negative (Negative) 08/02/19 20:11 Urine Color Straw (Yellow) 08/02/19 21:53 Urine Turbidity Clear (Clear) 08/02/19 21:53 Urine pH 5.0 (5.0-7.0) 08/02/19 21:53 Ur Specific Host[place] 1.020 (1.003-1.030) 08/02/19 21:53 Urine Protein 100 mg/dl mg/dL (Negative) 08/02/19 21:53 Urine Glucose (UA) >=500 mg/dL (Negative) 08/02/19 21:53 Urine Ketones 80 mg/dL (Negative) 08/02/19 21:53 Urine Blood Sm (Negative) 08/02/19 21:53 Urine Nitrite Neg (Negative) 08/02/19 21:53 Urine Bilirubin Neg (Negative) 08/02/19 21:53 Urine Urobilinogen < 2.0 mg/dL (<2.0) 08/02/19 21:53 Ur Leukocyte Esterase Neg (Negative) 08/02/19 21:53 Urine WBC (Auto) 1.0 /HPF (0.0-6.0) 08/02/19 21:53 Urine RBC (Auto) 2.0 /HPF (0.0-6.0) 08/02/19 21:53 U Epithel Cells (Auto) 2.0 /HPF (0-13.0) 08/02/19 21:53 Urine Mucus Few /HPF 08/02/19 21:53 Urine Yeast (Budding) Few /HPF 08/02/19 21:53 Hepatitis A IgM Ab Non-reactive (NonReactive) 08/05/19 12:38 Hep Bs Antigen Non-reactive (Negative) 08/05/19 12:38 Hep B Core IgM Ab Non-reactive (NonReactive) 08/05/19 12:38 Hepatitis C Antibody Non-reactive (NonReactive) 08/05/19 12:38 Active Medications - Current Medications Current Medications: Generic Name Dose Route Start Last Admin Trade Name Freq PRN Reason Stop Dose Admin Acetaminophen 650 mg 08/02/19 23:14 Tylenol AR Q4H PRN Pain, Mild (1-3) Acetaminophen 650 mg 08/04/19 15:17 08/04/19 17:32 Tylenol PO 650 mg Q4H PRN Administration Pain, Mild (1-3) Al Hydrox/Mg Hydrox/Simethicone 30 ml 08/04/19 12:40 08/07/19 19:54 Alum-Mag Hydrox-Simeth 289-089-19lc/5ml PO 30 ml Q4H PRN Administration Indigestion Albumin Human 12.5 gm 08/05/19 10:33 Alburx 25% (Albumin) IV GUANACO PRN Hypotension Dextrose 50 ml 08/03/19 21:06 08/03/19 23:03 D50w (25gm) Syringe IV 50 ml Q30MIN PRN Administration Hypoglycemia Heparin Sodium (Porcine) 5,000 unit 08/03/19 10:00 08/08/19 21:28 Heparin SUB-Q 5,000 unit Q12HR ANTONIO Administration Sodium Bicarbonate 150 meq/ 1,150 mls @ 150 mls/hr 08/04/19 09:00 08/09/19 05:48 Sterile Water IV 150 mls/hr DIRECT ANTONIO Administration Sodium Chloride 100 mls @ 999 mls/hr 08/05/19 10:33 Nacl 0.9% IV GUANACO PRN Hypotension Insulin Glargine 5 units 08/08/19 14:00 08/08/19 14:00 Lantus SUB-Q 5 units DAILY ANTONIO Administration Insulin Human Lispro 0 unit 08/03/19 22:00 08/08/19 22:18 Humalog SUB-Q 4 unit ACHS ANTONIO Administration Protocol Metoclopramide HCl 10 mg 08/05/19 05:27 08/07/19 09:08 Reglan IV 10 mg Q6H PRN Administration Nausea And Vomiting Metoprolol Tartrate 5 mg 08/05/19 13:35 08/08/19 14:15 Metoprolol IV 5 mg Q6HR PRN Administration Tachyarrhythmias Morphine Sulfate 2 mg 08/02/19 23:13 08/08/19 21:30 Morphine IV 2 mg Q4H PRN Administration Pain, Moderate (4-6) Nitroglycerin 0.4 mg 08/04/19 06:17 08/04/19 06:00 Nitrostat SL 0.4 mg .Q5MIN PRN Administration Chest Pain Ondansetron HCl 4 mg 08/02/19 23:12 08/07/19 19:54 Zofran IV 4 mg Q8H PRN Administration Nausea And Vomiting Pantoprazole Sodium 40 mg 08/04/19 10:00 08/08/19 21:29 Protonix PO 40 mg BID ANTONIO Administration Potassium Chloride 40 meq 08/09/19 08:48 K-Dur PO 08/09/19 08:49 ONCE ONE Nutrition/Malnutrition Assess - Dietary Evaluation Nutrition/Malnutrition Findings: Nutrition Notes Start: 08/04/19 10:13 Freq: Status: Active Protocol: Document 08/08/19 17:48 RM (Rec: 08/08/19 17:56 RM [id number]) Nutrition Notes Initial or Follow up Reassessment Current Diagnosis Diabetes Other Pertinent Diagnosis DKA Current Diet Consistent CHO w/Glucerna TID Labs/Tests Reviewed Pertinent Medications Zofran Height 5 ft 4 in Weight 72.57 kg Geff Body Weight (kg) 54.54 BMI 27.4 Weight Status Overweight Subjective/Other Information Pt stated that she eats bites of her meals d/t tiring from chewing food but drinks the Glucerna. Pt requested diet modification and agreed to full liquid diet. Noted preferences. Declined DM diet education and requested it be delayed to next visit. Percent of energy/protein needs met: 37%/53% Burn Absent Trauma Absent Minimum of two criteria No physical signs of malnutrition #2 Nutrition Diagnosis Food and nutrition-related knowledge deficit Diagnosis Progress(for reassessment Continues documentation) #1 Nutrition Diagnosis Inadequate oral intake Diagnosis Progress(for reassessment Continues documentation) Is patient on ventilator? No Is Patient Ambulatory and/or Out of Bed Yes REE-([place]-ambulatory/OOB) [ [id number] [id number]] Calculation Used for Recommendations [place] Additional Notes PRO needs: 57-72g/day (0.8-1g/ kg) Fluid needs: 1ml/kcal or per MD Nutrition Intervention Change Diet Order: Full liquid Add Supplement/Snack (indicate name/kcal Continue Glucerna TID /protein ) Provides kCal: 660 Provides Protein (gm) 30 Goal #1 PO tolerance Goal #2 Meet at least 75% of calorie and protein needs via PO and ONS intakes Anticipated Discharge Needs: Unable to determine at this time Follow-Up By: 08/10/19 Additional Comments Follow for PO and ONS intakes, DM diet education
[2019-08-09] MEDS: INSULIN LISPRO 100 UNIT/ML SUB-Q SCH ×4 (08:53→22:44)
[2019-08-09] MEDS: MORPHINE 2 MG/1 ML INJ IV PRN ×2 (08:53→22:43)
[2019-08-09] MEDS ORDERED: POTASSIUM CHLORIDE ER 20 MEQ TAB PO NR ×2 (09:30→12:00)
--- NOTE | 2019-08-09 10:27 | Gastroenterology Consultation ---
<YONIS MEYER - Last Filed: 08/09/19 10:34> History of Present Illness - Reason for Consult Consult date: 08/09/19 dysphagia Requesting physician: JOHNATHON PLASCENCIA - History of Present Illness Patient is a 39 y/o female with PMH of DM who presented to ED on 08/02/19 with c/o epigastric pain, N/v, and inability to tolerate PO. She was admitted and currently being treated for DKA, severe metabolic acidosis (s/p hemodialysis), hypokalemia, and hyponatremia. GI has been consulted for c/o dysphagia. This morning patient was resting in bed w/o acute distress on bicarb gtt. She reports mid sternal chest discomfort described as "feeling like something is stuck". States abd pain and N/V now improved. Currently tolerating full liquid diet w/o difficulty. Denies odynophagia, signs of GI bleeding, or LGI symptoms. No prior significant GI history. No previous EGD. Past History Past Medical History: diabetes Past Surgical History: No surgical history Social history: no significant social history Family history: diabetes, hypertension Medications and Allergies Allergies Allergy/AdvReac Type Severity Reaction Status Date / Time peach Allergy Hives Verified 08/05/19 09:15 Home Medications Medication Instructions Recorded Confirmed Last Taken Type Empagliflozin [Jardiance] 25 mg PO DAILY 08/03/19 08/05/19 08/01/19 07:30 History Insulin Lispro [Humalog Kwikpen 18 units SQ TID 08/03/19 08/05/19 08/05/19 09:12 History 200 UNITS/ML] Ozempic 0.25 mg SQ 1XW 08/05/19 08/05/19 07/31/19 History Active Meds: Active Medications Acetaminophen (Tylenol) 650 mg [place] Q4H PRN PRN Reason: Pain, Mild (1-3) Acetaminophen (Tylenol) 650 mg PO Q4H PRN PRN Reason: Pain, Mild (1-3) Last Admin: 08/04/19 17:32 Dose: 650 mg Documented by: Al Hydrox/Mg Hydrox/Simethicone (Alum-Mag Hydrox-Simeth [id number]/5ml) 30 ml PO Q4H PRN PRN Reason: Indigestion Last Admin: 08/07/19 19:54 Dose: 30 ml Documented by: Albumin Human (Alburx 25% (Albumin)) 12.5 gm IV GUANACO PRN PRN Reason: Hypotension Dextrose (D50w (25gm) Syringe) 50 ml IV Q30MIN PRN PRN Reason: Hypoglycemia Last Admin: 08/03/19 23:03 Dose: 50 ml Documented by: Heparin Sodium (Porcine) (Heparin) 5,000 unit SUB-Q Q12HR [facility] Last Admin: 08/08/19 21:28 Dose: 5,000 unit Documented by: Sodium Bicarbonate 150 meq/ (Sterile Water) 1,150 mls @ 150 mls/hr IV DIRECT ANTONIO Last Admin: 08/09/19 05:48 Dose: 150 mls/hr Documented by: Sodium Chloride (Nacl 0.9%) 100 mls @ 999 mls/hr IV GUANACO PRN PRN Reason: Hypotension Insulin Glargine (Lantus) 5 units SUB-Q DAILY [facility] Last Admin: 08/08/19 14:00 Dose: 5 units Documented by: Insulin Human Lispro (Humalog) 0 unit SUB-Q ACHS [facility]; Protocol Last Admin: 08/09/19 08:53 Dose: 3 unit Documented by: Metoclopramide HCl (Reglan) 10 mg IV Q6H PRN PRN Reason: Nausea And Vomiting Last Admin: 08/07/19 09:08 Dose: 10 mg Documented by: Metoprolol Tartrate (Metoprolol) 5 mg IV Q6HR PRN PRN Reason: Tachyarrhythmias Last Admin: 08/08/19 14:15 Dose: 5 mg Documented by: Morphine Sulfate (Morphine) 2 mg IV Q4H PRN PRN Reason: Pain, Moderate (4-6) Last Admin: 08/09/19 08:53 Dose: 2 mg Documented by: Nitroglycerin (Nitrostat) 0.4 mg SL .Q5MIN PRN PRN Reason: Chest Pain Last Admin: 08/04/19 06:00 Dose: 0.4 mg Documented by: Ondansetron HCl (Zofran) 4 mg IV Q8H PRN PRN Reason: Nausea And Vomiting Last Admin: 08/07/19 19:54 Dose: 4 mg Documented by: Pantoprazole Sodium (Protonix) 40 mg PO BID [facility] Last Admin: 08/08/19 21:29 Dose: 40 mg Documented by: Potassium Chloride (K-Dur) 40 meq PO ONCE NR Stop: 08/09/19 10:30 medications reviewed/updated as required Review of Systems - Review of Systems All systems: negative Cardiovascular: chest pain Gastrointestinal: other (dysphagia) Exam - Constitutional Vital Signs: Temp Pulse Resp BP Pulse Ox 98.2 F 109 H 11 L 132/84 97 08/09/19 08:00 08/09/19 06:00 08/09/19 06:00 08/09/19 06:00 08/09/19 06:00 General appearance: no acute distress - EENT Eyes: PERRL, EOM intact ENT: hearing intact - Respiratory Respiratory effort: normal Respiratory: bilateral: diminished - Cardiovascular Rhythm: other (tachycardia) - Gastrointestinal General gastrointestinal: Present: soft, non-tender, non-distended, normal bowel sounds - Neurologic Neurological: alert and oriented x3 - Labs CBC & Chem 7: 08/07/19 04:02 08/09/19 04:01 Lab Results: Laboratory Results - last 24 hr 08/08/19 08/08/19 08/08/19 12:54 17:50 21:52 Sodium Potassium Chloride Carbon Dioxide Anion Gap BUN Creatinine Estimated GFR BUN/Creatinine Ratio Glucose POC Glucose 310 H 342 H 330 H Calcium 08/09/19 08/09/19 04:01 07:33 Sodium 135 L Potassium 2.8 L* Chloride 95.2 L Carbon Dioxide 25 D Anion Gap 18 BUN 2 L Creatinine 0.4 L Estimated GFR > 60 BUN/Creatinine Ratio 5 Glucose 129 H POC Glucose 261 H Calcium 7.6 L Assessment and Plan 1.atypical CP 2.dysphagia/globus sensation -etiology-likely esophagitis from previous episodes of N/V vs other -currently tolerating full liquids w/o difficulty (eating grits and drinking liquids upon exam) -no plan for EGD at this time, will consider based on progress -start on carafate -continue PPI -advance diet as tolerated -continue supportive care -will follow <DEBBY WEST - Last Filed: 08/09/19 21:44> Medications and Allergies Active Meds: Active Medications Acetaminophen (Tylenol) 650 mg [place] Q4H PRN PRN Reason: Pain, Mild (1-3) Acetaminophen (Tylenol) 650 mg PO Q4H PRN PRN Reason: Pain, Mild (1-3) Last Admin: 08/04/19 17:32 Dose: 650 mg Documented by: Al Hydrox/Mg Hydrox/Simethicone (Alum-Mag Hydrox-Simeth [id number]/5ml) 30 ml PO Q4H PRN PRN Reason: Indigestion Last Admin: 08/07/19 19:54 Dose: 30 ml Documented by: Albumin Human (Alburx 25% (Albumin)) 12.5 gm IV GUANACO PRN PRN Reason: Hypotension Dextrose (D50w (25gm) Syringe) 50 ml IV Q30MIN PRN PRN Reason: Hypoglycemia Last Admin: 08/03/19 23:03 Dose: 50 ml Documented by: Heparin Sodium (Porcine) (Heparin) 5,000 unit SUB-Q Q12HR [facility] Last Admin: 08/09/19 10:37 Dose: 5,000 unit Documented by: Sodium Chloride (Nacl 0.9%) 100 mls @ 999 mls/hr IV GUANACO PRN PRN Reason: Hypotension Insulin Glargine (Lantus) 10 units SUB-Q DAILY ANTONIO Insulin Human Lispro (Humalog) 0 unit SUB-Q ACHS [facility]; Protocol Last Admin: 08/09/19 17:10 Dose: 3 unit Documented by: Metoclopramide HCl (Reglan) 10 mg IV Q6H PRN PRN Reason: Nausea And Vomiting Last Admin: 08/07/19 09:08 Dose: 10 mg Documented by: Metoprolol Tartrate (Metoprolol) 5 mg IV Q6HR PRN PRN Reason: Tachyarrhythmias Last Admin: 08/08/19 14:15 Dose: 5 mg Documented by: Morphine Sulfate (Morphine) 2 mg IV Q4H PRN PRN Reason: Pain, Moderate (4-6) Last Admin: 08/09/19 08:53 Dose: 2 mg Documented by: Nitroglycerin (Nitrostat) 0.4 mg SL .Q5MIN PRN PRN Reason: Chest Pain Last Admin: 08/04/19 06:00 Dose: 0.4 mg Documented by: Ondansetron HCl (Zofran) 4 mg IV Q8H PRN PRN Reason: Nausea And Vomiting Last Admin: 08/07/19 19:54 Dose: 4 mg Documented by: Pantoprazole Sodium (Protonix) 40 mg PO BID ANTOINO Last Admin: 08/09/19 10:38 Dose: 40 mg Documented by: Sucralfate (Carafate) 1 gm PO ACHS [facility] Last Admin: 08/09/19 17:11 Dose: 1 gm Documented by: Exam - Constitutional Vital Signs: Temp Pulse Resp BP Pulse Ox 98.2 F 109 H 19 137/78 99 08/09/19 16:36 08/09/19 16:36 08/09/19 16:36 08/09/19 16:36 08/09/19 16:36 - Labs CBC & Chem 7: 08/07/19 04:02 08/09/19 13:20 Lab Results: Laboratory Results - last 24 hr 08/08/19 08/08/19 08/09/19 17:50 21:52 04:01 Sodium 135 L Potassium 2.8 L* Chloride 95.2 L Carbon Dioxide 25 D Anion Gap 18 BUN 2 L Creatinine 0.4 L Estimated GFR > 60 BUN/Creatinine Ratio 5 Glucose 129 H POC Glucose 342 H 330 H Hemoglobin A1c Calcium 7.6 L Magnesium 08/09/19 08/09/19 08/09/19 07:33 11:23 13:20 Sodium Potassium 3.2 L Chloride Carbon Dioxide Anion Gap BUN Creatinine Estimated GFR BUN/Creatinine Ratio Glucose POC Glucose 261 H 229 H Hemoglobin A1c Calcium Magnesium 08/09/19 08/09/19 08/09/19 13:20 17:05 17:50 Sodium Potassium Chloride Carbon Dioxide Anion Gap BUN Creatinine Estimated GFR BUN/Creatinine Ratio Glucose POC Glucose 284 H Hemoglobin A1c 13.1 H Calcium Magnesium 1.90 08/09/19 21:28 Sodium Potassium Chloride Carbon Dioxide Anion Gap BUN Creatinine Estimated GFR BUN/Creatinine Ratio Glucose POC Glucose 309 H Hemoglobin A1c Calcium Magnesium Assessment and Plan Patient seen and examined. I have reviewed the advanced practitioner's evaluation, assessment, and plan, and agree with them. I note the following additions: Patient endorses foreign body sensation in mid esophagus, but reports food goes down so not consistent with a food impaction. Therefore Ddx includes reflux, stress, ring, web, etc. Plan for carafate and PPI Given current medical state risks of EGD outweigh benefits; once she is clinic ally better and safe for endoscopy will pursue EGD if her symptoms are persisting - Patient Problems (1) Dysphagia Current Visit: Yes Status: Acute (2) Chest wall pain Current Visit: Yes Status: Acute (3) Nausea & vomiting Current Visit: Yes Status: Acute
[2019-08-09] MEDS: HEPARIN 5,000 UNIT/1 ML VIAL SUB-Q SCH ×2 (10:37→22:45)
[2019-08-09] MEDS: INSULIN GLARGINE 100 UNITS/ML SUB-Q SCH (10:38)
[2019-08-09] MEDS: PANTOPRAZOLE 40 MG TAB PO SCH ×2 (10:38→22:43)
--- NOTE | 2019-08-09 11:07 | Progress Note ---
Assessment and Plan - Patient Problems (1) DKA (diabetic ketoacidoses) Current Visit: Yes Status: Acute Qualifiers: Diabetes mellitus type: type 1 Diabetes mellitus complication detail: without coma Qualified Code(s): E10.10 - Type 1 diabetes mellitus with ketoacidosis without coma Plan to address problem: met acidosis improved with HD/ bicarb gtt. stopped bicarb gtt. Further management per primary attending. (2) Hypokalemia Current Visit: Yes Status: Acute Plan to address problem: K supplementation with K Dur to target K of 4 (3) Nausea & vomiting Current Visit: Yes Status: Acute Plan to address problem: Management per primary attending. Subjective Date of service: 08/09/19 Principal diagnosis: DKA; Hypokalemia; Severe Metabolic acidosis; Leucocytosis Interval history: patient awake, alert, in no acute distress. Objective - Vital Signs Vital signs: Vital Signs - 12hr 08/08/19 08/09/19 08/09/19 23:45 00:00 01:00 Temperature 98.7 F Pulse Rate 106 H 103 H Pulse Rate [ 104 H From Monitor] Respiratory 13 16 Rate Blood Pressure 116/73 118/71 O2 Sat by Pulse 100 99 Oximetry 08/09/19 08/09/19 08/09/19 02:00 03:00 03:55 Temperature 98.4 F Pulse Rate 102 H 101 H Pulse Rate [ From Monitor] Respiratory 15 16 Rate Blood Pressure 113/72 108/66 O2 Sat by Pulse 100 100 Oximetry 08/09/19 08/09/19 08/09/19 04:00 05:00 06:00 Temperature Pulse Rate 108 H 111 H 109 H Pulse Rate [ 105 H From Monitor] Respiratory 17 16 11 L Rate Blood Pressure 109/70 118/71 132/84 O2 Sat by Pulse 100 99 97 Oximetry 08/09/19 08/09/19 08/09/19 07:00 08:00 09:00 Temperature 98.2 F Pulse Rate 108 H 104 H 114 H Pulse Rate [ 112 H From Monitor] Respiratory 15 17 18 Rate Blood Pressure 130/77 125/75 132/82 O2 Sat by Pulse 98 99 Oximetry 08/09/19 10:00 Temperature Pulse Rate 131 H Pulse Rate [ From Monitor] Respiratory 15 Rate Blood Pressure 120/76 O2 Sat by Pulse 100 Oximetry - General Appearance General appearance: well-developed, well-nourished, appears stated age EENT: ATNC, PERRL, mucous membranes moist Neck: no JVD Respiratory: Present: Clear to Ascultation Cardiology: regular, S1S2 Gastrointestinal: normoactive bowel sounds Integumentary: no rash, other (no edema ) Neurologic: no focal deficit, alert and oriented x3, strength 5/5, CN 3-12 intact Psychiatric: mood/affect appropriate, cooperative - Lab 08/07/19 04:02 08/09/19 04:01 Most recent lab results ABG pH 7.203 pH Units (7.350-7.450) L 08/05/19 10:13 ABG pCO2 14.1 mm Hg 08/05/19 10:13 ABG pO2 141.1 mm Hg (80.0-90.0) H 08/05/19 10:13 ABG HCO3 5.4 mmol/L (20.0-26.0) L 08/05/19 10:13 ABG O2 Saturation 98.5 % (95.0-99.0) 08/05/19 10:13 Calcium 7.6 mg/dL (8.4-10.2) L 08/09/19 04:01 Phosphorus 4.00 mg/dL (2.5-4.5) 08/02/19 23:12 Magnesium 2.00 mg/dL (1.7-2.3) 08/02/19 23:12 Medications & Allergies - Medications Allergies/Adverse Reactions: Allergies peach Allergy (Verified 08/05/19 09:15) Hives Home Medications: Home Medications Medication Instructions Recorded Confirmed Last Taken Type Empagliflozin [Jardiance] 25 mg PO DAILY 08/03/19 08/05/19 08/01/19 07:30 History Insulin Lispro [Humalog Kwikpen 18 units SQ TID 08/03/19 08/05/19 08/05/19 09:12 History 200 UNITS/ML] Ozempic 0.25 mg SQ 1XW 08/05/19 08/05/19 07/31/19 History Active Medications: Generic Name Dose Route Start Last Admin Trade Name Freq PRN Reason Stop Dose Admin Acetaminophen 650 mg 08/02/19 23:[address] Q4H PRN Pain, Mild (1-3) Acetaminophen 650 mg 08/04/19 15:17 08/04/19 17:32 Tylenol PO 650 mg Q4H PRN Administration Pain, Mild (1-3) Al Hydrox/Mg Hydrox/Simethicone 30 ml 08/04/19 12:40 08/07/19 19:54 Alum-Mag Hydrox-Simeth 160-876-89wl/5ml PO 30 ml Q4H PRN Administration Indigestion Albumin Human 12.5 gm 08/05/19 10:33 Alburx 25% (Albumin) IV GUANACO PRN Hypotension Dextrose 50 ml 08/03/19 21:06 08/03/19 23:03 D50w (25gm) Syringe IV 50 ml Q30MIN PRN Administration Hypoglycemia Heparin Sodium (Porcine) 5,000 unit 08/03/19 10:00 08/09/19 10:37 Heparin SUB-Q 5,000 unit Q12HR ANTONIO Administration Sodium Chloride 100 mls @ 999 mls/hr 08/05/19 10:33 Nacl 0.9% IV GUANACO PRN Hypotension Insulin Glargine 5 units 08/08/19 14:00 08/09/19 10:38 Lantus SUB-Q 5 units DAILY ANTONIO Administration Insulin Human Lispro 0 unit 08/03/19 22:00 08/09/19 08:53 Humalog SUB-Q 3 unit ACHS ANTONIO Administration Protocol Metoclopramide HCl 10 mg 08/05/19 05:27 08/07/19 09:08 Reglan IV 10 mg Q6H PRN Administration Nausea And Vomiting Metoprolol Tartrate 5 mg 08/05/19 13:35 08/08/19 14:15 Metoprolol IV 5 mg Q6HR PRN Administration Tachyarrhythmias Morphine Sulfate 2 mg 08/02/19 23:13 08/09/19 08:53 Morphine IV 2 mg Q4H PRN Administration Pain, Moderate (4-6) Nitroglycerin 0.4 mg 08/04/19 06:17 08/04/19 06:00 Nitrostat SL 0.4 mg .Q5MIN PRN Administration Chest Pain Ondansetron HCl 4 mg 08/02/19 23:12 08/07/19 19:54 Zofran IV 4 mg Q8H PRN Administration Nausea And Vomiting Pantoprazole Sodium 40 mg 08/04/19 10:00 08/09/19 10:38 Protonix PO 40 mg BID ANTONIO Administration Sucralfate 1 gm 08/09/19 11:30 Carafate PO ACHS ANTONIO
[2019-08-09] MEDS ORDERED: INSULIN GLARGINE 100 UNITS/ML SUB-Q ONE (12:00)
[2019-08-09] MEDS: SUCRALFATE 1 GM TAB PO SCH ×3 (12:07→22:43)
--- NOTE | 2019-08-09 13:11 | Progress Note ---
Assessment and Plan Patient sleepy at this time. Resting on room air O2 saturation 100%. Denies chest pain, shortness of breath or cough. Patient afebrile. Has mild leukocytosis. - Patient Problems (1) Chest wall pain Current Visit: Yes Status: Acute Plan to address problem: No complaint of chest pain to day. (2) DKA (diabetic ketoacidoses) Current Visit: Yes Status: Acute Qualifiers: Diabetes mellitus type: type 1 Diabetes mellitus complication detail: without coma Qualified Code(s): E10.10 - Type 1 diabetes mellitus with ketoacidosis without coma Plan to address problem: Appears clinically improved. Anion gap 18. ABGs on room air tomorrow. (3) Metabolic acidosis Current Visit: Yes Status: Acute Plan to address problem: Anion gap still 18. Repeating ABGs and electrolyes. (4) Hypokalemia Current Visit: Yes Status: Acute Plan to address problem: K+ 2.8 Supplemented K+ Repeat Electrolytes in AM. Subjective Date of service: 08/09/19 Principal diagnosis: DKA; Hypokalemia; Severe Metabolic acidosis; Leucocytosis Interval history: Patient sleepy at this time. Resting on room air O2 saturation 100%. Denies chest pain, shortness of breath or cough. Patient afebrile. Has mild leukocytosis. Objective Vital Signs - 12hr 08/09/19 08/09/19 08/09/19 02:00 03:00 03:55 Temperature 98.4 F Pulse Rate 102 H 101 H Pulse Rate [ From Monitor] Respiratory 15 16 Rate Blood Pressure 113/72 108/66 O2 Sat by Pulse 100 100 Oximetry 08/09/19 08/09/19 08/09/19 04:00 05:00 06:00 Temperature Pulse Rate 108 H 111 H 109 H Pulse Rate [ 105 H From Monitor] Respiratory 17 16 11 L Rate Blood Pressure 109/70 118/71 132/84 O2 Sat by Pulse 100 99 97 Oximetry 08/09/19 08/09/19 08/09/19 07:00 08:00 09:00 Temperature 98.2 F Pulse Rate 108 H 104 H 114 H Pulse Rate [ 112 H From Monitor] Respiratory 15 17 18 Rate Blood Pressure 130/77 125/75 132/82 O2 Sat by Pulse 98 99 Oximetry 08/09/19 08/09/19 08/09/19 10:00 11:00 12:00 Temperature 98.0 F Pulse Rate 131 H 108 H 107 H Pulse Rate [ 107 H From Monitor] Respiratory 15 17 17 Rate Blood Pressure 120/76 112/72 111/66 O2 Sat by Pulse 100 99 100 Oximetry Constitutional: no acute distress, asleep Eyes: non-icteric ENT: oropharynx moist, other (mallampati 2) Neck: supple, no lymphadenopathy, no JVD Effort: mildly labored Ascultation: Bilateral: diminished breath sounds Percussion: Bilateral: not dull Cardiovascular: regular rate and rhythm, other (S1,S2, no murmurs, gallops or rubs) Gastrointestinal: normoactive bowel sounds, soft, non-tender, non-distended Integumentary: normal Extremities: no cyanosis, no edema, pulses normal, no ischemia or petechiae Neurologic: normal mental status, non-focal exam, pupils equal and round, CN II-XII normal, motor strength normal and Psychiatric: anxious, depressed CBC and BMP: 08/07/19 04:02 08/09/19 13:20 ABG, PT/INR, D-dimer: ABG POC ABG pH 7.042 (7.35-7.45) L 08/05/19 06:31 ABG pH 7.203 pH Units (7.350-7.450) L 08/05/19 10:13 ABG pCO2 14.1 mm Hg 08/05/19 10:13 POC ABG pO2 148 (80-105) H 08/05/19 06:31 ABG pO2 141.1 mm Hg (80.0-90.0) H 08/05/19 10:13 POC ABG HCO3 2.2 (22-26 mml/L) 08/05/19 06:31 POC ABG Total CO2 < 5 (23-27mmol/L) 08/05/19 06:31 POC ABG O2 Sat 98 08/05/19 06:31 ABG O2 Saturation 98.5 % (95.0-99.0) 08/05/19 10:13 Abnormal lab findings: Abnormal Labs 08/02/19 08/02/19 08/02/19 19:56 20:11 20:21 WBC 25.1 H Hgb 14.8 H Hct 45.6 H MCV 98 H MCHC RDW 12.8 L Lymph % (Auto) [place] % (Auto) [place] # Seg Neutrophils % Seg Neuts % (Manual) 83.0 H Lymphocytes % (Manual) 10.0 L Seg Neutrophils # Seg Neutrophils # Man 20.8 H Monocytes # (Manual) 1.8 H POC ABG pH ABG pH POC ABG pO2 ABG pO2 ABG HCO3 ABG Base Excess VBG pH VBG pO2 Sodium 133 L Potassium Chloride Carbon Dioxide 13 L BUN Creatinine Glucose 306 H POC Glucose 233 H Calcium 7.7 L Total Creatine Kinase CK-MB (CK-2) Total Protein Albumin Lipase 08/02/19 08/02/19 08/02/19 20:22 20:23 21:54 WBC Hgb Hct MCV MCHC RDW Lymph % (Auto) [place] % (Auto) [place] # Seg Neutrophils % Seg Neuts % (Manual) Lymphocytes % (Manual) Seg Neutrophils # Seg Neutrophils # Man Monocytes # (Manual) POC ABG pH ABG pH POC ABG pO2 ABG pO2 ABG HCO3 ABG Base Excess VBG pH 6.877 L* VBG pO2 Sodium Potassium Chloride Carbon Dioxide BUN Creatinine Glucose POC Glucose 237 H Calcium Total Creatine Kinase CK-MB (CK-2) Total Protein Albumin Lipase 10 L 08/02/19 08/02/19 08/02/19 23:02 23:12 23:57 WBC Hgb Hct MCV MCHC RDW Lymph % (Auto) [place] % (Auto) [place] # Seg Neutrophils % Seg Neuts % (Manual) Lymphocytes % (Manual) Seg Neutrophils # Seg Neutrophils # Man Monocytes # (Manual) POC ABG pH ABG pH POC ABG pO2 ABG pO2 ABG HCO3 ABG Base Excess VBG pH VBG pO2 Sodium 135 L Potassium 5.5 H D Chloride 108.2 H Carbon Dioxide 2 L* D BUN Creatinine 0.6 L Glucose 307 H POC Glucose 244 H 255 H Calcium 7.3 L Total Creatine Kinase CK-MB (CK-2) Total Protein Albumin Lipase 08/03/19 08/03/19 08/03/19 00:34 01:04 02:17 WBC Hgb Hct MCV MCHC RDW Lymph % (Auto) [place] % (Auto) [place] # Seg Neutrophils % Seg Neuts % (Manual) Lymphocytes % (Manual) Seg Neutrophils # Seg Neutrophils # Man Monocytes # (Manual) POC ABG pH ABG pH POC ABG pO2 ABG pO2 ABG HCO3 ABG Base Excess VBG pH VBG pO2 Sodium 135 L Potassium Chloride 108.9 H Carbon Dioxide < 2.0 L* BUN Creatinine 0.6 L Glucose 262 H POC Glucose 245 H 210 H Calcium 7.1 L Total Creatine Kinase CK-MB (CK-2) Total Protein Albumin Lipase 08/03/19 08/03/19 08/03/19 03:12 04:15 04:16 WBC Hgb Hct MCV MCHC RDW Lymph % (Auto) [place] % (Auto) [place] # Seg Neutrophils % Seg Neuts % (Manual) Lymphocytes % (Manual) Seg Neutrophils # Seg Neutrophils # Man Monocytes # (Manual) POC ABG pH ABG pH POC ABG pO2 ABG pO2 ABG HCO3 ABG Base Excess VBG pH VBG pO2 Sodium Potassium Chloride 113.9 H Carbon Dioxide 4 L* BUN Creatinine Glucose 110 H POC Glucose 190 H 168 H Calcium 7.3 L Total Creatine Kinase CK-MB (CK-2) Total Protein Albumin Lipase 08/03/19 08/03/19 08/03/19 05:21 06:29 07:52 WBC Hgb Hct MCV MCHC RDW Lymph % (Auto) [place] % (Auto) [place] # Seg Neutrophils % Seg Neuts % (Manual) Lymphocytes % (Manual) Seg Neutrophils # Seg Neutrophils # Man Monocytes # (Manual) POC ABG pH ABG pH POC ABG pO2 ABG pO2 ABG HCO3 ABG Base Excess VBG pH VBG pO2 Sodium Potassium Chloride Carbon Dioxide BUN Creatinine Glucose POC Glucose 113 H 108 H 108 H Calcium Total Creatine Kinase CK-MB (CK-2) Total Protein Albumin Lipase 08/03/19 08/03/19 08/03/19 08:43 09:09 09:09 WBC 23.8 H Hgb Hct MCV MCHC RDW 12.3 L Lymph % (Auto) [place] % (Auto) [place] # Seg Neutrophils % Seg Neuts % (Manual) 84.0 H Lymphocytes % (Manual) 9.0 L Seg Neutrophils # Seg Neutrophils # Man 20.0 H Monocytes # (Manual) 1.7 H POC ABG pH ABG pH POC ABG pO2 ABG pO2 ABG HCO3 ABG Base Excess VBG pH VBG pO2 Sodium Potassium Chloride 111.6 H Carbon Dioxide 8 L* BUN Creatinine 0.6 L Glucose 125 H POC Glucose 108 H Calcium 7.7 L Total Creatine Kinase CK-MB (CK-2) Total Protein Albumin Lipase 08/03/19 08/03/19 08/03/19 09:50 11:38 12:35 WBC Hgb Hct MCV MCHC RDW Lymph % (Auto) [place] % (Auto) [place] # Seg Neutrophils % Seg Neuts % (Manual) Lymphocytes % (Manual) Seg Neutrophils # Seg Neutrophils # Man Monocytes # (Manual) POC ABG pH ABG pH POC ABG pO2 ABG pO2 ABG HCO3 ABG Base Excess VBG pH VBG pO2 Sodium Potassium Chloride Carbon Dioxide BUN Creatinine Glucose POC Glucose 128 H 130 H 126 H Calcium Total Creatine Kinase CK-MB (CK-2) Total Protein Albumin Lipase 08/03/19 08/03/19 08/03/19 13:17 14:06 14:31 WBC Hgb Hct MCV MCHC RDW Lymph % (Auto) [place] % (Auto) [place] # Seg Neutrophils % Seg Neuts % (Manual) Lymphocytes % (Manual) Seg Neutrophils # Seg Neutrophils # Man Monocytes # (Manual) POC ABG pH ABG pH POC ABG pO2 ABG pO2 ABG HCO3 ABG Base Excess VBG pH VBG pO2 Sodium Potassium 3.2 L Chloride 113.0 H Carbon Dioxide 10 L BUN Creatinine 0.5 L Glucose 101 H POC Glucose 132 H 135 H Calcium 7.6 L Total Creatine Kinase CK-MB (CK-2) Total Protein Albumin Lipase 08/03/19 08/03/19 08/03/19 14:31 16:47 17:46 WBC Hgb Hct MCV MCHC RDW Lymph % (Auto) [place] % (Auto) [place] # Seg Neutrophils % Seg Neuts % (Manual) Lymphocytes % (Manual) Seg Neutrophils # Seg Neutrophils # Man Monocytes # (Manual) POC ABG pH ABG pH POC ABG pO2 ABG pO2 ABG HCO3 ABG Base Excess VBG pH VBG pO2 Sodium Potassium Chloride Carbon Dioxide BUN Creatinine Glucose POC Glucose 117 H 110 H Calcium Total Creatine Kinase 161 H CK-MB (CK-2) 4.8 H Total Protein Albumin Lipase 08/03/19 08/03/19 08/03/19 19:53 21:00 21:11 WBC Hgb Hct MCV MCHC RDW Lymph % (Auto) [place] % (Auto) [place] # Seg Neutrophils % Seg Neuts % (Manual) Lymphocytes % (Manual) Seg Neutrophils # Seg Neutrophils # Man Monocytes # (Manual) POC ABG pH ABG pH POC ABG pO2 ABG pO2 ABG HCO3 ABG Base Excess VBG pH VBG pO2 Sodium Potassium Chloride 109.9 H Carbon Dioxide 8 L* BUN Creatinine 0.5 L Glucose 26 L* POC Glucose 116 H 118 H Calcium 7.5 L Total Creatine Kinase CK-MB (CK-2) Total Protein Albumin Lipase 08/03/19 08/03/19 08/03/19 22:02 22:05 23:16 WBC Hgb Hct MCV MCHC RDW Lymph % (Auto) [place] % (Auto) [place] # Seg Neutrophils % Seg Neuts % (Manual) Lymphocytes % (Manual) Seg Neutrophils # Seg Neutrophils # Man Monocytes # (Manual) POC ABG pH ABG pH POC ABG pO2 ABG pO2 ABG HCO3 ABG Base Excess VBG pH VBG pO2 Sodium 136 L Potassium 3.4 L Chloride 107.3 H Carbon Dioxide 8 L* BUN 5 L Creatinine 0.6 L Glucose 30 L* 357 H POC Glucose 132 H Calcium 7.7 L Total Creatine Kinase CK-MB (CK-2) Total Protein 5.9 L Albumin 3.5 L Lipase 08/03/19 08/04/19 08/04/19 23:51 00:32 02:08 WBC Hgb Hct MCV MCHC RDW Lymph % (Auto) [place] % (Auto) [place] # Seg Neutrophils % Seg Neuts % (Manual) Lymphocytes % (Manual) Seg Neutrophils # Seg Neutrophils # Man Monocytes # (Manual) POC ABG pH ABG pH 7.198 L* POC ABG pO2 ABG pO2 122.5 H ABG HCO3 4.4 L ABG Base Excess -20.8 L VBG pH VBG pO2 Sodium Potassium Chloride Carbon Dioxide BUN Creatinine Glucose POC Glucose 294 H 270 H Calcium Total Creatine Kinase CK-MB (CK-2) Total Protein Albumin Lipase 08/04/19 08/04/19 08/04/19 04:47 04:47 06:19 WBC 17.8 H Hgb Hct MCV MCHC RDW 12.4 L Lymph % (Auto) [place] % (Auto) [place] # Seg Neutrophils % Seg Neuts % (Manual) Lymphocytes % (Manual) Seg Neutrophils # Seg Neutrophils # Man Monocytes # (Manual) POC ABG pH ABG pH POC ABG pO2 ABG pO2 ABG HCO3 ABG Base Excess VBG pH 7.273 L VBG pO2 51.9 H Sodium Potassium Chloride 111.5 H Carbon Dioxide 4 L* BUN 4 L Creatinine 0.5 L Glucose 260 H POC Glucose Calcium 7.6 L Total Creatine Kinase CK-MB (CK-2) Total Protein Albumin Lipase 08/04/19 08/04/19 08/04/19 06:20 06:25 06:37 WBC Hgb Hct MCV MCHC RDW Lymph % (Auto) [place] % (Auto) [place] # Seg Neutrophils % Seg Neuts % (Manual) Lymphocytes % (Manual) Seg Neutrophils # Seg Neutrophils # Man Monocytes # (Manual) POC ABG pH ABG pH POC ABG pO2 ABG pO2 ABG HCO3 ABG Base Excess VBG pH VBG pO2 Sodium Potassium Chloride Carbon Dioxide BUN Creatinine Glucose POC Glucose 231 H 250 H Calcium Total Creatine Kinase 137 H CK-MB (CK-2) Total Protein Albumin Lipase 08/04/19 08/04/19 08/04/19 07:42 11:36 16:27 WBC Hgb Hct MCV MCHC RDW Lymph % (Auto) [place] % (Auto) [place] # Seg Neutrophils % Seg Neuts % (Manual) Lymphocytes % (Manual) Seg Neutrophils # Seg Neutrophils # Man Monocytes # (Manual) POC ABG pH ABG pH POC ABG pO2 ABG pO2 ABG HCO3 ABG Base Excess VBG pH VBG pO2 Sodium Potassium Chloride Carbon Dioxide BUN Creatinine Glucose POC Glucose 286 H 239 H 151 H Calcium Total Creatine Kinase CK-MB (CK-2) Total Protein Albumin Lipase 08/04/19 08/05/19 08/05/19 21:16 02:10 02:22 WBC Hgb Hct MCV MCHC RDW Lymph % (Auto) [place] % (Auto) [place] # Seg Neutrophils % Seg Neuts % (Manual) Lymphocytes % (Manual) Seg Neutrophils # Seg Neutrophils # Man Monocytes # (Manual) POC ABG pH 7.190 L ABG pH POC ABG pO2 160 H ABG pO2 ABG HCO3 ABG Base Excess VBG pH VBG pO2 Sodium Potassium Chloride Carbon Dioxide BUN Creatinine Glucose POC Glucose 176 H 133 H Calcium Total Creatine Kinase CK-MB (CK-2) Total Protein Albumin Lipase 08/05/19 08/05/19 08/05/19 04:46 04:46 06:31 WBC 15.5 H Hgb Hct MCV MCHC RDW 12.8 L Lymph % (Auto) 9.5 L [place] % (Auto) 8.9 H [place] # 1.4 H Seg Neutrophils % 81.3 H Seg Neuts % (Manual) Lymphocytes % (Manual) Seg Neutrophils # 12.6 H Seg Neutrophils # Man Monocytes # (Manual) POC ABG pH 7.042 L ABG pH POC ABG pO2 148 H ABG pO2 ABG HCO3 ABG Base Excess VBG pH VBG pO2 Sodium 136 L Potassium Chloride 107.1 H Carbon Dioxide 3 L* BUN 4 L Creatinine 0.5 L Glucose 192 H POC Glucose Calcium 7.6 L Total Creatine Kinase CK-MB (CK-2) Total Protein Albumin Lipase 08/05/19 08/05/19 08/05/19 08:24 10:13 12:11 WBC Hgb Hct MCV MCHC RDW Lymph % (Auto) [place] % (Auto) [place] # Seg Neutrophils % Seg Neuts % (Manual) Lymphocytes % (Manual) Seg Neutrophils # Seg Neutrophils # Man Monocytes # (Manual) POC ABG pH ABG pH 7.203 L POC ABG pO2 ABG pO2 141.1 H ABG HCO3 5.4 L ABG Base Excess -19.9 L VBG pH VBG pO2 Sodium Potassium Chloride Carbon Dioxide BUN Creatinine Glucose POC Glucose 177 H 135 H Calcium Total Creatine Kinase CK-MB (CK-2) Total Protein Albumin Lipase 08/05/19 08/05/19 08/05/19 14:46 16:49 21:31 WBC Hgb Hct MCV MCHC RDW Lymph % (Auto) [place] % (Auto) [place] # Seg Neutrophils % Seg Neuts % (Manual) Lymphocytes % (Manual) Seg Neutrophils # Seg Neutrophils # Man Monocytes # (Manual) POC ABG pH ABG pH POC ABG pO2 ABG pO2 ABG HCO3 ABG Base Excess VBG pH VBG pO2 Sodium Potassium Chloride Carbon Dioxide BUN Creatinine Glucose POC Glucose 184 H 204 H 168 H Calcium Total Creatine Kinase CK-MB (CK-2) Total Protein Albumin Lipase 08/05/19 08/06/19 08/06/19 21:51 03:57 07:35 WBC Hgb Hct MCV MCHC RDW Lymph % (Auto) [place] % (Auto) [place] # Seg Neutrophils % Seg Neuts % (Manual) Lymphocytes % (Manual) Seg Neutrophils # Seg Neutrophils # Man Monocytes # (Manual) POC ABG pH ABG pH POC ABG pO2 ABG pO2 ABG HCO3 ABG Base Excess VBG pH VBG pO2 Sodium 133 L Potassium 2.4 L* D 3.1 L D Chloride 96.6 L 94.3 L Carbon Dioxide 12 L D 7 L* BUN 4 L 5 L Creatinine 0.3 L 0.6 L D Glucose 169 H 268 H POC Glucose 223 H Calcium 7.3 L 7.3 L Total Creatine Kinase CK-MB (CK-2) Total Protein Albumin Lipase 08/06/19 08/06/19 08/06/19 11:42 15:20 17:04 WBC Hgb Hct MCV MCHC RDW Lymph % (Auto) [place] % (Auto) [place] # Seg Neutrophils % Seg Neuts % (Manual) Lymphocytes % (Manual) Seg Neutrophils # Seg Neutrophils # Man Monocytes # (Manual) POC ABG pH ABG pH POC ABG pO2 ABG pO2 ABG HCO3 ABG Base Excess VBG pH VBG pO2 Sodium Potassium 2.8 L* Chloride 95.8 L Carbon Dioxide 15 L D BUN 3 L Creatinine 0.4 L Glucose 178 H POC Glucose 255 H 175 H Calcium 8.2 L Total Creatine Kinase CK-MB (CK-2) Total Protein Albumin Lipase 08/06/19 08/07/19 08/07/19 21:14 00:47 04:02 WBC 11.7 H Hgb Hct MCV MCHC 35 H RDW 12.2 L Lymph % (Auto) 10.2 L [place] % (Auto) 11.1 H [place] # 1.3 H Seg Neutrophils % 78.3 H Seg Neuts % (Manual) Lymphocytes % (Manual) Seg Neutrophils # 9.2 H Seg Neutrophils # Man Monocytes # (Manual) POC ABG pH ABG pH POC ABG pO2 ABG pO2 ABG HCO3 ABG Base Excess VBG pH VBG pO2 Sodium 130 L D Potassium Chloride 93.2 L Carbon Dioxide 12 L BUN 4 L Creatinine 0.5 L Glucose 158 H POC Glucose 254 H Calcium 7.8 L Total Creatine Kinase CK-MB (CK-2) Total Protein Albumin Lipase 08/07/19 08/07/19 08/07/19 08:40 10:18 11:45 WBC Hgb Hct MCV MCHC RDW Lymph % (Auto) [place] % (Auto) [place] # Seg Neutrophils % Seg Neuts % (Manual) Lymphocytes % (Manual) Seg Neutrophils # Seg Neutrophils # Man Monocytes # (Manual) POC ABG pH ABG pH POC ABG pO2 ABG pO2 ABG HCO3 ABG Base Excess VBG pH VBG pO2 Sodium 129 L Potassium 3.2 L Chloride 95.8 L Carbon Dioxide 8 L* BUN 5 L Creatinine 0.6 L Glucose 312 H POC Glucose 156 H 280 H Calcium 7.4 L Total Creatine Kinase CK-MB (CK-2) Total Protein Albumin Lipase 08/07/19 08/07/19 08/07/19 15:51 19:07 21:28 WBC Hgb Hct MCV MCHC RDW Lymph % (Auto) [place] % (Auto) [place] # Seg Neutrophils % Seg Neuts % (Manual) Lymphocytes % (Manual) Seg Neutrophils # Seg Neutrophils # Man Monocytes # (Manual) POC ABG pH ABG pH POC ABG pO2 ABG pO2 ABG HCO3 ABG Base Excess VBG pH VBG pO2 Sodium 132 L Potassium 3.4 L Chloride 92.1 L Carbon Dioxide 16 L D BUN 3 L Creatinine 0.3 L Glucose 321 H POC Glucose 171 H 344 H Calcium 7.3 L Total Creatine Kinase CK-MB (CK-2) Total Protein Albumin Lipase 08/07/19 08/08/19 08/08/19 Unknown 03:39 08:49 WBC Hgb Hct MCV MCHC RDW Lymph % (Auto) [place] % (Auto) [place] # Seg Neutrophils % Seg Neuts % (Manual) Lymphocytes % (Manual) Seg Neutrophils # Seg Neutrophils # Man Monocytes # (Manual) POC ABG pH ABG pH POC ABG pO2 ABG pO2 ABG HCO3 ABG Base Excess VBG pH VBG pO2 Sodium 133 L 133 L Potassium 2.9 L* 3.4 L Chloride 94.9 L 93.7 L Carbon Dioxide 8 L* 14 L BUN 4 L 3 L Creatinine 0.5 L 0.4 L Glucose 185 H 235 H POC Glucose 277 H Calcium 7.4 L 7.3 L Total Creatine Kinase CK-MB (CK-2) Total Protein Albumin Lipase 08/08/19 08/08/19 08/08/19 12:54 17:50 21:52 WBC Hgb Hct MCV MCHC RDW Lymph % (Auto) [place] % (Auto) [place] # Seg Neutrophils % Seg Neuts % (Manual) Lymphocytes % (Manual) Seg Neutrophils # Seg Neutrophils # Man Monocytes # (Manual) POC ABG pH ABG pH POC ABG pO2 ABG pO2 ABG HCO3 ABG Base Excess VBG pH VBG pO2 Sodium Potassium Chloride Carbon Dioxide BUN Creatinine Glucose POC Glucose 310 H 342 H 330 H Calcium Total Creatine Kinase CK-MB (CK-2) Total Protein Albumin Lipase 08/09/19 08/09/19 08/09/19 04:01 07:33 11:23 WBC Hgb Hct MCV MCHC RDW Lymph % (Auto) [place] % (Auto) [place] # Seg Neutrophils % Seg Neuts % (Manual) Lymphocytes % (Manual) Seg Neutrophils # Seg Neutrophils # Man Monocytes # (Manual) POC ABG pH ABG pH POC ABG pO2 ABG pO2 ABG HCO3 ABG Base Excess VBG pH VBG pO2 Sodium 135 L Potassium 2.8 L* Chloride 95.2 L Carbon Dioxide BUN 2 L Creatinine 0.4 L Glucose 129 H POC Glucose 261 H 229 H Calcium 7.6 L Total Creatine Kinase CK-MB (CK-2) Total Protein Albumin Lipase Chest x-ray: report reviewed (Reported no acute findinga.), image reviewed Allied health notes reviewed: nursing
[2019-08-10 06:57] LABS: BUN/Creatinine Ratio 8; Blood Urea Nitrogen 3 mg/dL (7-17); Calcium 8.7 mg/dL (8.4-10.2); Hemolysis Index 13
[2019-08-10] MEDS: INSULIN LISPRO 100 UNIT/ML SUB-Q SCH ×4 (08:04→23:12)
[2019-08-10] MEDS: SUCRALFATE 1 GM TAB PO SCH ×4 (08:04→23:11)
[2019-08-10] MEDS: HEPARIN 5,000 UNIT/1 ML VIAL SUB-Q SCH ×2 (09:24→23:11)
[2019-08-10] MEDS: PANTOPRAZOLE 40 MG TAB PO SCH ×2 (09:24→23:12)
[2019-08-10] MEDS: INSULIN NPH/REGULAR 70/30 INJ SUB-Q SCH ×2 (09:56→17:38)
[2019-08-10] MEDS ORDERED: INSULIN GLARGINE 100 UNITS/ML SUB-Q SCH (10:00)
[2019-08-10] MEDS: ACETAMINOPHEN 325 MG TAB PO PRN (10:04)
--- NOTE | 2019-08-10 10:18 | Gastroenterology Progress Note ---
Assessment and Plan Ddx includes reflux, stress, ring, web, etc. Continue carafate and PPI; patient still with electrolyte abnormalities so will avoid non-emergent EGD Will order barium esophogram today, and reassess her symptoms and esophagram results in the AM and if not improving will likely need to pursue EGD - Patient Problems (1) Dysphagia Current Visit: Yes Status: Acute (2) Chest wall pain Current Visit: Yes Status: Acute (3) Nausea & vomiting Current Visit: Yes Status: Acute Subjective Date of service: 08/10/19 Principal diagnosis: Dysphagia Interval history: Patient reports the epigastric pain, N/V, and inability to tolerate PO are improving as her DKA has resolved However she does report persistent mid sternal chest discomfort described as "feeling like something is stuck" which is unchanged today Objective - Constitutional Vitals: Temp Pulse Resp BP Pulse Ox 98.3 F 107 H 18 123/74 97 08/10/19 04:52 08/10/19 04:52 08/10/19 04:52 08/10/19 04:52 08/10/19 04:52 General appearance: no acute distress - Respiratory Respiratory effort: normal - Gastrointestinal General gastrointestinal: Present: soft - Integumentary Integumentary: Present: dry - Neurologic Neurological: alert and oriented x3 - Psychiatric Psychiatric: appropriate mood/affect - Labs CBC & Chem 7: 08/07/19 04:02 08/10/19 05:37 Labs: Laboratory Results - last 24 hr 08/09/19 08/09/19 08/09/19 11:23 13:20 13:20 Sodium Potassium 3.2 L Chloride Carbon Dioxide Anion Gap BUN Creatinine Estimated GFR BUN/Creatinine Ratio Glucose POC Glucose 229 H Hemoglobin A1c 13.1 H Calcium Magnesium 08/09/19 08/09/19 08/09/19 17:05 17:50 21:28 Sodium Potassium Chloride Carbon Dioxide Anion Gap BUN Creatinine Estimated GFR BUN/Creatinine Ratio Glucose POC Glucose 284 H 309 H Hemoglobin A1c Calcium Magnesium 1.90 08/10/19 08/10/19 05:37 07:40 Sodium 135 L Potassium 3.2 L Chloride 92.7 L Carbon Dioxide 26 Anion Gap 20 BUN 3 L Creatinine 0.4 L Estimated GFR > 60 BUN/Creatinine Ratio 8 Glucose 323 H POC Glucose 355 H Hemoglobin A1c Calcium 8.7 Magnesium 1.90
--- NOTE | 2019-08-10 11:22 | Progress Note ---
Assessment and Plan - Patient Problems (1) DKA (diabetic ketoacidoses) Current Visit: Yes Status: Acute Qualifiers: Diabetes mellitus type: type 1 Diabetes mellitus complication detail: without coma Qualified Code(s): E10.10 - Type 1 diabetes mellitus with ketoacidosis without coma Plan to address problem: met acidosis improved with HD/ bicarb gtt. stopped bicarb gtt. can remove vascath, no need for further HD (2) Hypokalemia Current Visit: Yes Status: Acute Plan to address problem: K supplementation with K Dur to target K of 4 (3) Nausea & vomiting Current Visit: Yes Status: Acute Plan to address problem: Management per primary attending. Subjective Date of service: 08/10/19 Principal diagnosis: Dysphagia Interval history: patient awake, alert, in no acute distress. Objective - Vital Signs Vital signs: Vital Signs - 12hr 08/10/19 08/10/19 00:00 04:52 Temperature 98.3 F Pulse Rate 107 H Pulse Rate [ 98 H From Monitor] Respiratory 16 18 Rate Blood Pressure 123/74 O2 Sat by Pulse 99 97 Oximetry - General Appearance General appearance: well-developed, well-nourished, appears stated age EENT: ATNC, PERRL, mucous membranes moist Neck: no JVD Respiratory: Present: Clear to Ascultation Cardiology: regular, S1S2 Gastrointestinal: normoactive bowel sounds Integumentary: no rash, other (no edema ) Neurologic: no focal deficit, alert and oriented x3, strength 5/5, CN 3-12 intact Psychiatric: mood/affect appropriate, cooperative - Lab 08/07/19 04:02 08/10/19 05:37 Most recent lab results ABG pH 7.203 pH Units (7.350-7.450) L 08/05/19 10:13 ABG pCO2 14.1 mm Hg 08/05/19 10:13 ABG pO2 141.1 mm Hg (80.0-90.0) H 08/05/19 10:13 ABG HCO3 5.4 mmol/L (20.0-26.0) L 08/05/19 10:13 ABG O2 Saturation 98.5 % (95.0-99.0) 08/05/19 10:13 Calcium 8.7 mg/dL (8.4-10.2) 08/10/19 05:37 Phosphorus 4.00 mg/dL (2.5-4.5) 08/02/19 23:12 Magnesium 1.90 mg/dL (1.7-2.3) 08/10/19 05:37 Medications & Allergies - Medications Allergies/Adverse Reactions: Allergies peach Allergy (Verified 08/05/19 09:15) Hives Home Medications: Home Medications Medication Instructions Recorded Confirmed Last Taken Type Empagliflozin [Jardiance] 25 mg PO DAILY 08/03/19 08/05/19 08/01/19 07:30 History Insulin Lispro [Humalog Kwikpen 18 units SQ TID 08/03/19 08/05/19 08/05/19 09:12 History 200 UNITS/ML] Ozempic 0.25 mg SQ 1XW 08/05/19 08/05/19 07/31/19 History Active Medications: Generic Name Dose Route Start Last Admin Trade Name Freq PRN Reason Stop Dose Admin Acetaminophen 650 mg 08/02/19 23:14 Tylenol DC Q4H PRN Pain, Mild (1-3) Acetaminophen 650 mg 08/04/19 15:17 08/10/19 10:04 Tylenol PO 650 mg Q4H PRN Administration Pain, Mild (1-3) Al Hydrox/Mg Hydrox/Simethicone 30 ml 08/04/19 12:40 08/07/19 19:54 Alum-Mag Hydrox-Simeth 940-833-21tz/5ml PO 30 ml Q4H PRN Administration Indigestion Albumin Human 12.5 gm 08/05/19 10:33 Alburx 25% (Albumin) IV GUANACO PRN Hypotension Dextrose 50 ml 08/03/19 21:06 08/03/19 23:03 D50w (25gm) Syringe IV 50 ml Q30MIN PRN Administration Hypoglycemia Heparin Sodium (Porcine) 5,000 unit 08/03/19 10:00 08/10/19 09:24 Heparin SUB-Q 5,000 unit Q12HR ANTONIO Administration Sodium Chloride 100 mls @ 999 mls/hr 08/05/19 10:33 Nacl 0.9% IV GUANACO PRN Hypotension Insulin Human Isoph/Insulin Regular 20 unit 08/10/19 10:00 08/10/19 09:56 Humulin 70/30 SUB-Q 20 unit BIDDIAB ANTONIO Administration Insulin Human Lispro 0 unit 08/03/19 22:00 08/10/19 08:04 Humalog SUB-Q 5 unit ACHS ANTONIO Administration Protocol Metoclopramide HCl 10 mg 08/05/19 05:27 08/07/19 09:08 Reglan IV 10 mg Q6H PRN Administration Nausea And Vomiting Metoprolol Tartrate 5 mg 08/05/19 13:35 08/08/19 14:15 Metoprolol IV 5 mg Q6HR PRN Administration Tachyarrhythmias Morphine Sulfate 2 mg 08/02/19 23:13 08/09/19 22:43 Morphine IV 2 mg Q4H PRN Administration Pain, Moderate (4-6) Nitroglycerin 0.4 mg 08/04/19 06:17 08/04/19 06:00 Nitrostat SL 0.4 mg .Q5MIN PRN Administration Chest Pain Ondansetron HCl 4 mg 08/02/19 23:12 08/07/19 19:54 Zofran IV 4 mg Q8H PRN Administration Nausea And Vomiting Pantoprazole Sodium 40 mg 08/04/19 10:00 08/10/19 09:24 Protonix PO 40 mg BID ANTONIO Administration Sucralfate 1 gm 08/09/19 11:30 08/10/19 08:04 Carafate PO 1 gm ACHS ANTONIO Administration
[2019-08-10] MEDS ORDERED: NEOMY 3.5 MG/BACIT 400 UNITS/POLY B 5000 UNITS/GM OINT PACKET TP ONE (12:09)
--- NOTE | 2019-08-10 12:12 | Progress Note ---
Assessment and Plan Assessment and plan: --DKA: Resolved --Uncontrolled diabetes mellitus; Accu-Chek sliding scale coverage ADA diet Novolin 70/30 insulin 20 units twice daily Diabetic education nutrition consult, A1c 13.1 Possible home health nurse at discharge for disease monitoring and education --Severe Metabolic acidosis: Patient s/p hemodialysis. Nephrology following Acidosis significantly improved, patient received bicarbonate drip recommended by nephro Continue supportive care . Hemodialysis as needed --Severe hypokalemia; Replace with potassium chloride per protocol Follow electrolytes. Check magnesium --Hyponatremia/pseudohyponatremia secondary to hyperglycemia; Gradually improving, closely monitor electrolytes --Persistent tachycardia. Likely physiologic from acidosis. Echo; EF 60 to 65%, IV fluids, low-dose Xanax --DVT prophylaxis; heparin Monitor closely and adjust management as needed Plan of care reviewed with the patient and her nurse As well as the case management History Interval history: Patient seen and examined medical records reviewed No new events reported by the nursing Blood sugars are uncontrolled Vital signs noted Hospitalist Physical - Constitutional Vitals: Temp Pulse Resp BP Pulse Ox 98.3 F 107 H 18 123/74 98 08/10/19 04:52 08/10/19 04:52 08/10/19 04:52 08/10/19 04:52 08/10/19 10:00 General appearance: Present: no acute distress, well-nourished - EENT Eyes: Present: PERRL, EOM intact - Neck Neck: Present: supple, normal ROM - Respiratory Respiratory effort: normal Respiratory: bilateral: diminished, negative: rales, rhonchi, wheezing - Cardiovascular Rhythm: regular Heart Sounds: Present: S1 & S2 - Extremities Extremities: no ischemia, No edema - Abdominal General gastrointestinal: soft, non-tender, non-distended, normal bowel sounds - Integumentary Integumentary: Present: clear, warm - Psychiatric Psychiatric: appropriate mood/affect, cooperative - Neurologic Neurologic: CNII-XII intact, moves all extremities Results - Labs CBC & Chem 7: 08/07/19 04:02 08/10/19 05:37 Labs: Laboratory Last Values WBC 11.7 K/mm3 (4.5-11.0) H 08/07/19 04:02 RBC 3.67 M/mm3 (3.65-5.03) 08/07/19 04:02 Hgb 11.8 gm/dl (10.1-14.3) 08/07/19 04:02 Hct 33.3 % (30.3-42.9) D 08/07/19 04:02 MCV 91 fl (79-97) 08/07/19 04:02 MCH 32 pg (28-32) 08/07/19 04:02 MCHC 35 % (30-34) H 08/07/19 04:02 RDW 12.2 % (13.2-15.2) L 08/07/19 04:02 Plt Count 186 K/mm3 (140-440) 08/07/19 04:02 Lymph % (Auto) 10.2 % (13.4-35.0) L 08/07/19 04:02 [place] % (Auto) 11.1 % (0.0-7.3) H 08/07/19 04:02 Eos % (Auto) 0.1 % (0.0-4.3) 08/07/19 04:02 Baso % (Auto) 0.3 % (0.0-1.8) 08/07/19 04:02 Lymph # 1.2 K/mm3 (1.2-5.4) 08/07/19 04:02 [place] # 1.3 K/mm3 (0.0-0.8) H 08/07/19 04:02 Eos # 0.0 K/mm3 (0.0-0.4) 08/07/19 04:02 Baso # 0.0 K/mm3 (0.0-0.1) 08/07/19 04:02 Add Manual Diff Complete 08/03/19 09:09 Total Counted 100 08/03/19 09:09 Seg Neutrophils % 78.3 % (40.0-70.0) H 08/07/19 04:02 Seg Neuts % (Manual) 84.0 % (40.0-70.0) H 08/03/19 09:09 Band Neutrophils % 0 % 08/03/19 09:09 Lymphocytes % (Manual) 9.0 % (13.4-35.0) L 08/03/19 09:09 Reactive Lymphs % (Man) 0 % 08/03/19 09:09 Monocytes % (Manual) 7.0 % (0.0-7.3) 08/03/19 09:09 Eosinophils % (Manual) 0 % (0.0-4.3) 08/03/19 09:09 Basophils % (Manual) 0 % (0.0-1.8) 08/03/19 09:09 Metamyelocytes % 0 % 08/03/19 09:09 Myelocytes % 0 % 08/03/19 09:09 Promyelocytes % 0 % 08/03/19 09:09 Blast Cells % 0 % 08/03/19 09:09 Nucleated RBC % Not Reportable 08/03/19 09:09 Seg Neutrophils # 9.2 K/mm3 (1.8-7.7) H 08/07/19 04:02 Seg Neutrophils # Man 20.0 K/mm3 (1.8-7.7) H 08/03/19 09:09 Band Neutrophils # 0.0 K/mm3 08/03/19 09:09 Lymphocytes # (Manual) 2.1 K/mm3 (1.2-5.4) 08/03/19 09:09 Abs React Lymphs (Man) 0.0 K/mm3 08/03/19 09:09 Monocytes # (Manual) 1.7 K/mm3 (0.0-0.8) H 08/03/19 09:09 Eosinophils # (Manual) 0.0 K/mm3 (0.0-0.4) 08/03/19 09:09 Basophils # (Manual) 0.0 K/mm3 (0.0-0.1) 08/03/19 09:09 Metamyelocytes # 0.0 K/mm3 08/03/19 09:09 Myelocytes # 0.0 K/mm3 08/03/19 09:09 Promyelocytes # 0.0 K/mm3 08/03/19 09:09 Blast Cells # 0.0 K/mm3 08/03/19 09:09 WBC Morphology Not Reportable 08/03/19 09:09 Hypersegmented Neuts Not Reportable 08/03/19 09:09 Hyposegmented Neuts Not Reportable 08/03/19 09:09 Hypogranular Neuts Not Reportable 08/03/19 09:09 Smudge Cells Not Reportable 08/03/19 09:09 Toxic Granulation Not Reportable 08/03/19 09:09 Toxic Vacuolation Not Reportable 08/03/19 09:09 Dohle Bodies Not Reportable 08/03/19 09:09 Pel[place]-Huet Anomaly Not Reportable 08/03/19 09:09 Avni Rods Not Reportable 08/03/19 09:09 Platelet Estimate Consistent w auto 08/03/19 09:09 Clumped Platelets Not Reportable 08/03/19 09:09 Plt Clumps, EDTA Not Reportable 08/03/19 09:09 Large Platelets Not Reportable 08/03/19 09:09 Giant Platelets Not Reportable 08/03/19 09:09 Platelet Satelliting Not Reportable 08/03/19 09:09 Plt Morphology Comment Not Reportable 08/03/19 09:09 RBC Morphology Normal 08/03/19 09:09 Dimorphic RBCs Not Reportable 08/03/19 09:09 Polychromasia Not Reportable 08/03/19 09:09 Hypochromasia Not Reportable 08/03/19 09:09 Poikilocytosis Not Reportable 08/03/19 09:09 Anisocytosis Not Reportable 08/03/19 09:09 Microcytosis Not Reportable 08/03/19 09:09 Macrocytosis Not Reportable 08/03/19 09:09 Spherocytes Not Reportable 08/03/19 09:09 Pappenheimer Bodies Not Reportable 08/03/19 09:09 Sickle Cells Not Reportable 08/03/19 09:09 Target Cells Not Reportable 08/03/19 09:09 Tear Drop Cells Not Reportable 08/03/19 09:09 Ovalocytes Not Reportable 08/03/19 09:09 Helmet Cells Not Reportable 08/03/19 09:09 [place] Bodies Not Reportable 08/03/19 09:09 [place] Rings Not Reportable 08/03/19 09:09 [place] Cells Not Reportable 08/03/19 09:09 Bite Cells Not Reportable 08/03/19 09:09 Crenated Cell Not Reportable 08/03/19 09:09 Elliptocytes Not Reportable 08/03/19 09:09 Acanthocytes (Spur) Not Reportable 08/03/19 09:09 Rouleaux Not Reportable 08/03/19 09:09 Hemoglobin C Crystals Not Reportable 08/03/19 09:09 Schistocytes Not Reportable 08/03/19 09:09 Malaria parasites Not Reportable 08/03/19 09:09 [place] Bodies Not Reportable 08/03/19 09:09 Hem Pathologist Commnt No 08/03/19 09:09 POC ABG pH 7.042 (7.35-7.45) L 08/05/19 06:31 ABG pH 7.203 pH Units (7.350-7.450) L 08/05/19 10:13 ABG pCO2 14.1 mm Hg 08/05/19 10:13 POC ABG pO2 148 (80-105) H 08/05/19 06:31 ABG pO2 141.1 mm Hg (80.0-90.0) H 08/05/19 10:13 POC ABG HCO3 2.2 (22-26 mml/L) 08/05/19 06:31 ABG HCO3 5.4 mmol/L (20.0-26.0) L 08/05/19 10:13 POC ABG Total CO2 < 5 (23-27mmol/L) 08/05/19 06:31 POC ABG O2 Sat 98 08/05/19 06:31 ABG O2 Saturation 98.5 % (95.0-99.0) 08/05/19 10:13 ABG O2 Content 19.5 (0.0-44) 08/05/19 10:13 POC ABG Base Excess -28 ((-2) - (+3)mmol/L) 08/05/19 06:31 ABG Base Excess -19.9 mmol/L (-2.0-3.0) L 08/05/19 10:13 ABG Hemoglobin 14.2 gm/dl (12.0-16.0) 08/05/19 10:13 ABG Carboxyhemoglobin 1.3 % (0.0-5.0) 08/05/19 10:13 ABG Methemoglobin 0.7 % (0.0-1.5) 08/05/19 10:13 VBG pH 7.273 (7.320-7.420) L 08/04/19 06:19 VBG pO2 51.9 (25.0-47.0) H 08/04/19 06:19 Oxyhemoglobin 96.5 % (95.0-99.0) 08/05/19 10:13 FiO2 25 % 08/05/19 10:13 Sodium 135 mmol/L (137-145) L 08/10/19 05:37 Potassium 3.2 mmol/L (3.6-5.0) L 08/10/19 05:37 Chloride 92.7 mmol/L (98-107) L 08/10/19 05:37 Carbon Dioxide 26 mmol/L (22-30) 08/10/19 05:37 Anion Gap 20 mmol/L 08/10/19 05:37 BUN 3 mg/dL (7-17) L 08/10/19 05:37 Creatinine 0.4 mg/dL (0.7-1.2) L 08/10/19 05:37 Estimated GFR > 60 ml/min 08/10/19 05:37 BUN/Creatinine Ratio 8 % 08/10/19 05:37 Glucose 323 mg/dL (65-100) H 08/10/19 05:37 POC Glucose 293 (70-105) H 08/10/19 11:49 Hemoglobin A1c 13.1 % (4-6) H 08/09/19 13:20 Lactic Acid 1.00 mmol/L (0.7-2.0) 08/07/19 10:18 Calcium 8.7 mg/dL (8.4-10.2) 08/10/19 05:37 Phosphorus 4.00 mg/dL (2.5-4.5) 08/02/19 23:12 Magnesium 1.90 mg/dL (1.7-2.3) 08/10/19 05:37 Total Bilirubin 0.30 mg/dL (0.1-1.2) 08/03/19 23:16 AST 20 units/L (5-40) 08/03/19 23:16 ALT 14 units/L (7-56) 08/03/19 23:16 Alkaline Phosphatase 69 units/L (35-129) 08/03/19 23:16 Total Creatine Kinase 137 units/L (30-135) H 08/04/19 06:25 CK-MB (CK-2) 3.1 ng/mL (0.0-4.0) 08/04/19 06:25 CK-MB (CK-2) Rel Index 2.2 (0-4) 08/04/19 06:25 Troponin T < 0.010 ng/mL (0.00-0.029) 08/04/19 06:25 Total Protein 5.9 g/dL (6.3-8.2) L 08/03/19 23:16 Albumin 3.5 g/dL (3.9-5) L 08/03/19 23:16 Albumin/Globulin Ratio 1.5 % 08/03/19 23:16 Lipase 10 units/L (13-60) L 08/02/19 20:23 Procalcitonin 0.47 ng/mL (<0.15) 08/04/19 20:54 HCG, Qual Negative (Negative) 08/02/19 20:11 Urine Color Straw (Yellow) 08/02/19 21:53 Urine Turbidity Clear (Clear) 08/02/19 21:53 Urine pH 5.0 (5.0-7.0) 08/02/19 21:53 Ur Specific [place] 1.020 (1.003-1.030) 08/02/19 21:53 Urine Protein 100 mg/dl mg/dL (Negative) 08/02/19 21:53 Urine Glucose (UA) >=500 mg/dL (Negative) 08/02/19 21:53 Urine Ketones 80 mg/dL (Negative) 08/02/19 21:53 Urine Blood Sm (Negative) 08/02/19 21:53 Urine Nitrite Neg (Negative) 08/02/19 21:53 Urine Bilirubin Neg (Negative) 08/02/19 21:53 Urine Urobilinogen < 2.0 mg/dL (<2.0) 08/02/19 21:53 Ur Leukocyte Esterase Neg (Negative) 08/02/19 21:53 Urine WBC (Auto) 1.0 /HPF (0.0-6.0) 08/02/19 21:53 Urine RBC (Auto) 2.0 /HPF (0.0-6.0) 08/02/19 21:53 U Epithel Cells (Auto) 2.0 /HPF (0-13.0) 08/02/19 21:53 Urine Mucus Few /HPF 08/02/19 21:53 Urine Yeast (Budding) Few /HPF 08/02/19 21:53 Hepatitis A IgM Ab Non-reactive (NonReactive) 08/05/19 12:38 Hep Bs Antigen Non-reactive (Negative) 08/05/19 12:38 Hep B Core IgM Ab Non-reactive (NonReactive) 08/05/19 12:38 Hepatitis C Antibody Non-reactive (NonReactive) 08/05/19 12:38 Active Medications - Current Medications Current Medications: Generic Name Dose Route Start Last Admin Trade Name Freq PRN Reason Stop Dose Admin Acetaminophen 650 mg 08/02/19 23:14 Tylenol [place] Q4H PRN Pain, Mild (1-3) Acetaminophen 650 mg 08/04/19 15:17 08/10/19 10:04 Tylenol PO 650 mg Q4H PRN Administration Pain, Mild (1-3) Al Hydrox/Mg Hydrox/Simethicone 30 ml 08/04/19 12:40 08/07/19 19:54 Alum-Mag Hydrox-Simeth 809-778-15bx/5ml PO 30 ml Q4H PRN Administration Indigestion Albumin Human 12.5 gm 08/05/19 10:33 Alburx 25% (Albumin) IV GUANACO PRN Hypotension Dextrose 50 ml 08/03/19 21:06 08/03/19 23:03 D50w (25gm) Syringe IV 50 ml Q30MIN PRN Administration Hypoglycemia Heparin Sodium (Porcine) 5,000 unit 08/03/19 10:00 08/10/19 09:24 Heparin SUB-Q 5,000 unit Q12HR ANTONIO Administration Sodium Chloride 100 mls @ 999 mls/hr 08/05/19 10:33 Nacl 0.9% IV GUANACO PRN Hypotension Insulin Human Isoph/Insulin Regular 20 unit 08/10/19 10:00 08/10/19 09:56 Humulin 70/30 SUB-Q 20 unit BIDDIAB ANTONIO Administration Insulin Human Lispro 0 unit 08/03/19 22:00 08/10/19 08:04 Humalog SUB-Q 5 unit ACHS ANTONIO Administration Protocol Metoclopramide HCl 10 mg 08/05/19 05:27 08/07/19 09:08 Reglan IV 10 mg Q6H PRN Administration Nausea And Vomiting Metoprolol Tartrate 5 mg 08/05/19 13:35 08/08/19 14:15 Metoprolol IV 5 mg Q6HR PRN Administration Tachyarrhythmias Morphine Sulfate 2 mg 08/02/19 23:13 08/09/19 22:43 Morphine IV 2 mg Q4H PRN Administration Pain, Moderate (4-6) Neomycin/Polymyxin/Bacitracin 1 applic 08/10/19 12:09 Triple Antibiotic TP 08/10/19 12:10 ONCE ONE Nitroglycerin 0.4 mg 08/04/19 06:17 08/04/19 06:00 Nitrostat SL 0.4 mg .Q5MIN PRN Administration Chest Pain Ondansetron HCl 4 mg 08/02/19 23:12 08/07/19 19:54 Zofran IV 4 mg Q8H PRN Administration Nausea And Vomiting Pantoprazole Sodium 40 mg 08/04/19 10:00 08/10/19 09:24 Protonix PO 40 mg BID ANTONIO Administration Potassium Chloride 40 meq 08/10/19 12:08 K-Dur PO 08/10/19 12:09 ONCE ONE Potassium Chloride 20 meq 08/11/19 10:00 K-Dur PO QDAY ANTONIO Sucralfate 1 gm 08/09/19 11:30 08/10/19 08:04 Carafate PO 1 gm ACHS ANTONIO Administration Nutrition/Malnutrition Assess - Dietary Evaluation Nutrition/Malnutrition Findings: Nutrition Notes Start: 08/04/19 10:13 Freq: Status: Active Protocol: Document 08/10/19 11:46 CT (Rec: 08/10/19 12:04 CT [id number]) Co-Sign 08/10/19 11:46 LM Nutrition Notes Initial or Follow up Reassessment Current Diagnosis Diabetes Other Pertinent Diagnosis DKA, Hypokalemia Current Diet Full Liquid Labs/Tests Glucose 323 K 3.2 Na 135 Pertinent Medications Humalog Height 5 ft 4 in Weight 72.57 kg [place] Body Weight (kg) 54.54 BMI 27.4 Weight Status Overweight Subjective/Other Information Pt states she is able to tolerate real food and asks to have the full liquid diet advanced to a regular diet. Pt enjoys the Glucerna drinks. The RN came in the room to check her BG levels and it was 293. Percent of energy/protein needs met: 60%/66% Burn Absent Trauma Absent Minimum of two criteria No physical signs of malnutrition #2 Nutrition Diagnosis Food and nutrition-related knowledge deficit As Evidenced by Signs and Symptoms Pt recieved DM diet education and states open to compliance to DM diet Diagnosis Progress(for reassessment Resolved documentation) #1 Nutrition Diagnosis Inadequate oral intake As Evidenced by Signs and Symptoms Pt eating 60% of energy and 66 % of protein needs. Diagnosis Progress(for reassessment Improved documentation) Is patient on ventilator? No Is Patient Ambulatory and/or Out of Bed Yes REE-([facility]-ambulatory/OOB) [ 1801.410 [id number]] Calculation Used for Recommendations [facility] Additional Notes PRO needs: 57-72g/day (0.8-1g/ kg) Fluid needs: 1ml/kcal or per MD Nutrition Intervention Change Diet Order: Change to consistent CHO Add Supplement/Snack (indicate name/kcal Continue Glucerna TID /protein ) Provides kCal: 660 Provides Protein (gm) 30 Learning Readiness Good. Teaching Methods Discussion,Handout Response to Teaching Verbalize understanding Education Handouts Provided DM CHO counting, DM diet tips Barriers to Learning No Barriers RD phone number provided Yes Patient aware of follow up options Yes Goal #1 Diet advancement Goal #2 Meet at least 80% of calorie and protein needs via PO and ONS intakes Anticipated Discharge Needs: Consistent CHO Follow-Up By: 08/12/19 Additional Comments Follow up for PO and ONS intakes and diet advancement
--- NOTE | 2019-08-10 12:51 | Fluoroscopy Report ---
BARIUM SWALLOW Indication: dysphagia. Technique: Single contrast barium technique utilized to evaluate the esophagus. FINDINGS: To begin the exam, swallowing was evaluated in the lateral position under direct fluorosco py. Swallowing was normal. No mucosal irregularity, mass, mass effect, or critical stenosis. Motility appeared decreased throu ghout this examination with delayed clearance of the barium contrast agent from the distal esophagus. No hiatal hernia or gastroesophageal reflux was witnessed during this exam. IMPRESSION: Esophageal dysmotility is suspected. No evidence for mass or mucosal defect. Fluoroscopic time: 1.4 minutes Number of fluoroscopic images: 21 Signer Name: Jhon Choudhary Jr, MD Signed: 08/10/2019 12:47 PM Workstation Name: [id number]
[2019-08-10] MEDS ORDERED: POTASSIUM CHLORIDE ER 20 MEQ TAB PO ONE (13:00)
--- NOTE | 2019-08-10 13:28 | Progress Note ---
Assessment and Plan Patient alert and awake. Resting on room air O2 saturation 98%. Denies chest pain, shortness of breath or cough. Patient afebrile. No leukocytosis. - Patient Problems (1) Chest wall pain Current Visit: Yes Status: Acute Plan to address problem: No complaint of chest pain to day. (2) DKA (diabetic ketoacidoses) Current Visit: Yes Status: Acute Qualifiers: Diabetes mellitus type: type 1 Diabetes mellitus complication detail: without coma Qualified Code(s): E10.10 - Type 1 diabetes mellitus with ketoacidosis without coma Plan to address problem: Appears clinically improved. Anion gap 20. ABGs on room air. (3) Metabolic acidosis Current Visit: Yes Status: Acute Plan to address problem: Anion gap 20. Repeating ABGs and electrolyes. (4) Hypokalemia Current Visit: Yes Status: Acute Plan to address problem: K+ 3.2 Supplemented K+ Repeat Electrolytes in AM. Subjective Date of service: 08/10/19 Principal diagnosis: Dysphagia Interval history: Patient alert and awake. Resting on room air O2 saturation 98%. Denies chest pain, shortness of breath or cough. Patient afebrile. No leukocytosis. Objective Vital Signs - 12hr 08/10/19 08/10/19 04:52 10:00 Temperature 98.3 F Pulse Rate 107 H Respiratory 18 Rate Blood Pressure 123/74 O2 Sat by Pulse 97 98 Oximetry Constitutional: no acute distress, alert Eyes: non-icteric ENT: oropharynx moist, other (mallampati 2) Neck: supple, no lymphadenopathy, no JVD Effort: mildly labored Ascultation: Bilateral: diminished breath sounds Percussion: Bilateral: not dull Cardiovascular: regular rate and rhythm, other (S1,S2, no murmurs, gallops or rubs) Gastrointestinal: normoactive bowel sounds, soft, non-tender, non-distended Integumentary: normal Extremities: no cyanosis, no edema, pulses normal, no ischemia or petechiae Neurologic: normal mental status, non-focal exam, pupils equal and round, CN II- XII normal, motor strength normal and Psychiatric: anxious, depressed CBC and BMP: 08/07/19 04:02 08/10/19 05:37 ABG, PT/INR, D-dimer: ABG POC ABG pH 7.042 (7.35-7.45) L 11/01/19 06:31 ABG pH 7.203 pH Units (7.350-7.450) L 08/05/19 10:13 ABG pCO2 14.1 mm Hg 08/05/19 10:13 POC ABG pO2 148 (80-105) H 08/05/19 06:31 ABG pO2 141.1 mm Hg (80.0-90.0) H 08/05/19 10:13 POC ABG HCO3 2.2 (22-26 mml/L) 08/05/19 06:31 POC ABG Total CO2 < 5 (23-27mmol/L) 08/05/19 06:31 POC ABG O2 Sat 98 08/05/19 06:31 ABG O2 Saturation 98.5 % (95.0-99.0) 08/05/19 10:13 Abnormal lab findings: Abnormal Labs 08/02/19 08/02/19 08/02/19 19:56 20:11 20:21 WBC 25.1 H Hgb 14.8 H Hct 45.6 H MCV 98 H MCHC RDW 12.8 L Lymph % (Auto) Edwards % (Auto) Edwards # Seg Neutrophils % Seg Neuts % (Manual) 83.0 H Lymphocytes % (Manual) 10.0 L Seg Neutrophils # Seg Neutrophils # Man 20.8 H Monocytes # (Manual) 1.8 H POC ABG pH ABG pH POC ABG pO2 ABG pO2 ABG HCO3 ABG Base Excess VBG pH VBG pO2 Sodium 133 L Potassium Chloride Carbon Dioxide 13 L BUN Creatinine Glucose 306 H POC Glucose 233 H Hemoglobin A1c Calcium 7.7 L Total Creatine Kinase CK-MB (CK-2) Total Protein Albumin Lipase 08/02/19 08/02/19 08/02/19 20:22 20:23 21:54 WBC Hgb Hct MCV MCHC RDW Lymph % (Auto) Edwards % (Auto) Edwards # Seg Neutrophils % Seg Neuts % (Manual) Lymphocytes % (Manual) Seg Neutrophils # Seg Neutrophils # Man Monocytes # (Manual) POC ABG pH ABG pH POC ABG pO2 ABG pO2 ABG HCO3 ABG Base Excess VBG pH 6.877 L* VBG pO2 Sodium Potassium Chloride Carbon Dioxide BUN Creatinine Glucose POC Glucose 237 H Hemoglobin A1c Calcium Total Creatine Kinase CK-MB (CK-2) Total Protein Albumin Lipase 10 L 08/02/19 08/02/19 08/02/19 23:02 23:12 23:57 WBC Hgb Hct MCV MCHC RDW Lymph % (Auto) Edwards % (Auto) Edwards # Seg Neutrophils % Seg Neuts % (Manual) Lymphocytes % (Manual) Seg Neutrophils # Seg Neutrophils # Man Monocytes # (Manual) POC ABG pH ABG pH POC ABG pO2 ABG pO2 ABG HCO3 ABG Base Excess VBG pH VBG pO2 Sodium 135 L Potassium 5.5 H D Chloride 108.2 H Carbon Dioxide 2 L* D BUN Creatinine 0.6 L Glucose 307 H POC Glucose 244 H 255 H Hemoglobin A1c Calcium 7.3 L Total Creatine Kinase CK-MB (CK-2) Total Protein Albumin Lipase 08/03/19 08/03/19 08/03/19 00:34 01:04 02:17 WBC Hgb Hct MCV MCHC RDW Lymph % (Auto) Edwards % (Auto) Edwards # Seg Neutrophils % Seg Neuts % (Manual) Lymphocytes % (Manual) Seg Neutrophils # Seg Neutrophils # Man Monocytes # (Manual) POC ABG pH ABG pH POC ABG pO2 ABG pO2 ABG HCO3 ABG Base Excess VBG pH VBG pO2 Sodium 135 L Potassium Chloride 108.9 H Carbon Dioxide < 2.0 L* BUN Creatinine 0.6 L Glucose 262 H POC Glucose 245 H 210 H Hemoglobin A1c Calcium 7.1 L Total Creatine Kinase CK-MB (CK-2) Total Protein Albumin Lipase 08/03/19 08/03/19 08/03/19 03:12 04:15 04:16 WBC Hgb Hct MCV MCHC RDW Lymph % (Auto) Edwards % (Auto) Edwards # Seg Neutrophils % Seg Neuts % (Manual) Lymphocytes % (Manual) Seg Neutrophils # Seg Neutrophils # Man Monocytes # (Manual) POC ABG pH ABG pH POC ABG pO2 ABG pO2 ABG HCO3 ABG Base Excess VBG pH VBG pO2 Sodium Potassium Chloride 113.9 H Carbon Dioxide 4 L* BUN Creatinine Glucose 110 H POC Glucose 190 H 168 H Hemoglobin A1c Calcium 7.3 L Total Creatine Kinase CK-MB (CK-2) Total Protein Albumin Lipase 08/03/19 08/03/19 08/03/19 05:21 06:29 07:52 WBC Hgb Hct MCV MCHC RDW Lymph % (Auto) Edwards % (Auto) Edwards # Seg Neutrophils % Seg Neuts % (Manual) Lymphocytes % (Manual) Seg Neutrophils # Seg Neutrophils # Man Monocytes # (Manual) POC ABG pH ABG pH POC ABG pO2 ABG pO2 ABG HCO3 ABG Base Excess VBG pH VBG pO2 Sodium Potassium Chloride Carbon Dioxide BUN Creatinine Glucose POC Glucose 113 H 108 H 108 H Hemoglobin A1c Calcium Total Creatine Kinase CK-MB (CK-2) Total Protein Albumin Lipase 08/03/19 08/03/19 08/03/19 08:43 09:09 09:09 WBC 23.8 H Hgb Hct MCV MCHC RDW 12.3 L Lymph % (Auto) Edwards % (Auto) Edwards # Seg Neutrophils % Seg Neuts % (Manual) 84.0 H Lymphocytes % (Manual) 9.0 L Seg Neutrophils # Seg Neutrophils # Man 20.0 H Monocytes # (Manual) 1.7 H POC ABG pH ABG pH POC ABG pO2 ABG pO2 ABG HCO3 ABG Base Excess VBG pH VBG pO2 Sodium Potassium Chloride 111.6 H Carbon Dioxide 8 L* BUN Creatinine 0.6 L Glucose 125 H POC Glucose 108 H Hemoglobin A1c Calcium 7.7 L Total Creatine Kinase CK-MB (CK-2) Total Protein Albumin Lipase 08/03/19 08/03/19 08/03/19 09:50 11:38 12:35 WBC Hgb Hct MCV MCHC RDW Lymph % (Auto) Edwards % (Auto) Edwards # Seg Neutrophils % Seg Neuts % (Manual) Lymphocytes % (Manual) Seg Neutrophils # Seg Neutrophils # Man Monocytes # (Manual) POC ABG pH ABG pH POC ABG pO2 ABG pO2 ABG HCO3 ABG Base Excess VBG pH VBG pO2 Sodium Potassium Chloride Carbon Dioxide BUN Creatinine Glucose POC Glucose 128 H 130 H 126 H Hemoglobin A1c Calcium Total Creatine Kinase CK-MB (CK-2) Total Protein Albumin Lipase 08/03/19 08/03/19 08/03/19 13:17 14:06 14:31 WBC Hgb Hct MCV MCHC RDW Lymph % (Auto) Edwards % (Auto) Edwards # Seg Neutrophils % Seg Neuts % (Manual) Lymphocytes % (Manual) Seg Neutrophils # Seg Neutrophils # Man Monocytes # (Manual) POC ABG pH ABG pH POC ABG pO2 ABG pO2 ABG HCO3 ABG Base Excess VBG pH VBG pO2 Sodium Potassium 3.2 L Chloride 113.0 H Carbon Dioxide 10 L BUN Creatinine 0.5 L Glucose 101 H POC Glucose 132 H 135 H Hemoglobin A1c Calcium 7.6 L Total Creatine Kinase CK-MB (CK-2) Total Protein Albumin Lipase 08/03/19 08/03/19 08/03/19 14:31 16:47 17:46 WBC Hgb Hct MCV MCHC RDW Lymph % (Auto) Edwards % (Auto) Edwards # Seg Neutrophils % Seg Neuts % (Manual) Lymphocytes % (Manual) Seg Neutrophils # Seg Neutrophils # Man Monocytes # (Manual) POC ABG pH ABG pH POC ABG pO2 ABG pO2 ABG HCO3 ABG Base Excess VBG pH VBG pO2 Sodium Potassium Chloride Carbon Dioxide BUN Creatinine Glucose POC Glucose 117 H 110 H Hemoglobin A1c Calcium Total Creatine Kinase 161 H CK-MB (CK-2) 4.8 H Total Protein Albumin Lipase 08/03/19 08/03/19 08/03/19 19:53 21:00 21:11 WBC Hgb Hct MCV MCHC RDW Lymph % (Auto) Edwards % (Auto) Edwards # Seg Neutrophils % Seg Neuts % (Manual) Lymphocytes % (Manual) Seg Neutrophils # Seg Neutrophils # Man Monocytes # (Manual) POC ABG pH ABG pH POC ABG pO2 ABG pO2 ABG HCO3 ABG Base Excess VBG pH VBG pO2 Sodium Potassium Chloride 109.9 H Carbon Dioxide 8 L* BUN Creatinine 0.5 L Glucose 26 L* POC Glucose 116 H 118 H Hemoglobin A1c Calcium 7.5 L Total Creatine Kinase CK-MB (CK-2) Total Protein Albumin Lipase 08/03/19 08/03/19 08/03/19 22:02 22:05 23:16 WBC Hgb Hct MCV MCHC RDW Lymph % (Auto) Edwards % (Auto) Edwards # Seg Neutrophils % Seg Neuts % (Manual) Lymphocytes % (Manual) Seg Neutrophils # Seg Neutrophils # Man Monocytes # (Manual) POC ABG pH ABG pH POC ABG pO2 ABG pO2 ABG HCO3 ABG Base Excess VBG pH VBG pO2 Sodium 136 L Potassium 3.4 L Chloride 107.3 H Carbon Dioxide 8 L* BUN 5 L Creatinine 0.6 L Glucose 30 L* 357 H POC Glucose 132 H Hemoglobin A1c Calcium 7.7 L Total Creatine Kinase CK-MB (CK-2) Total Protein 5.9 L Albumin 3.5 L Lipase 10/08/04/19 08/04/19 23:51 00:32 02:08 WBC Hgb Hct MCV MCHC RDW Lymph % (Auto) Edwards % (Auto) Edwards # Seg Neutrophils % Seg Neuts % (Manual) Lymphocytes % (Manual) Seg Neutrophils # Seg Neutrophils # Man Monocytes # (Manual) POC ABG pH ABG pH 7.198 L* POC ABG pO2 ABG pO2 122.5 H ABG HCO3 4.4 L ABG Base Excess -20.8 L VBG pH VBG pO2 Sodium Potassium Chloride Carbon Dioxide BUN Creatinine Glucose POC Glucose 294 H 270 H Hemoglobin A1c Calcium Total Creatine Kinase CK-MB (CK-2) Total Protein Albumin Lipase 08/04/19 08/04/19 08/04/19 04:47 04:47 06:19 WBC 17.8 H Hgb Hct MCV MCHC RDW 12.4 L Lymph % (Auto) Edwards % (Auto) Edwards # Seg Neutrophils % Seg Neuts % (Manual) Lymphocytes % (Manual) Seg Neutrophils # Seg Neutrophils # Man Monocytes # (Manual) POC ABG pH ABG pH POC ABG pO2 ABG pO2 ABG HCO3 ABG Base Excess VBG pH 7.273 L VBG pO2 51.9 H Sodium Potassium Chloride 111.5 H Carbon Dioxide 4 L* BUN 4 L Creatinine 0.5 L Glucose 260 H POC Glucose Hemoglobin A1c Calcium 7.6 L Total Creatine Kinase CK-MB (CK-2) Total Protein Albumin Lipase 08/04/19 08/04/19 08/04/19 06:20 06:25 06:37 WBC Hgb Hct MCV MCHC RDW Lymph % (Auto) Edwards % (Auto) Edwards # Seg Neutrophils % Seg Neuts % (Manual) Lymphocytes % (Manual) Seg Neutrophils # Seg Neutrophils # Man Monocytes # (Manual) POC ABG pH ABG pH POC ABG pO2 ABG pO2 ABG HCO3 ABG Base Excess VBG pH VBG pO2 Sodium Potassium Chloride Carbon Dioxide BUN Creatinine Glucose POC Glucose 231 H 250 H Hemoglobin A1c Calcium Total Creatine Kinase 137 H CK-MB (CK-2) Total Protein Albumin Lipase 08/04/19 08/04/19 08/04/19 07:42 11:36 16:27 WBC Hgb Hct MCV MCHC RDW Lymph % (Auto) Edwards % (Auto) Edwards # Seg Neutrophils % Seg Neuts % (Manual) Lymphocytes % (Manual) Seg Neutrophils # Seg Neutrophils # Man Monocytes # (Manual) POC ABG pH ABG pH POC ABG pO2 ABG pO2 ABG HCO3 ABG Base Excess VBG pH VBG pO2 Sodium Potassium Chloride Carbon Dioxide BUN Creatinine Glucose POC Glucose 286 H 239 H 151 H Hemoglobin A1c Calcium Total Creatine Kinase CK-MB (CK-2) Total Protein Albumin Lipase 08/04/19 08/05/19 08/05/19 21:16 02:10 02:22 WBC Hgb Hct MCV MCHC RDW Lymph % (Auto) Edwards % (Auto) Edwards # Seg Neutrophils % Seg Neuts % (Manual) Lymphocytes % (Manual) Seg Neutrophils # Seg Neutrophils # Man Monocytes # (Manual) POC ABG pH 7.190 L ABG pH POC ABG pO2 160 H ABG pO2 ABG HCO3 ABG Base Excess VBG pH VBG pO2 Sodium Potassium Chloride Carbon Dioxide BUN Creatinine Glucose POC Glucose 176 H 133 H Hemoglobin A1c Calcium Total Creatine Kinase CK-MB (CK-2) Total Protein Albumin Lipase 08/05/19 08/05/19 08/05/19 04:46 04:46 06:31 WBC 15.5 H Hgb Hct MCV MCHC RDW 12.8 L Lymph % (Auto) 9.5 L Edwards % (Auto) 8.9 H Edwards # 1.4 H Seg Neutrophils % 81.3 H Seg Neuts % (Manual) Lymphocytes % (Manual) Seg Neutrophils # 12.6 H Seg Neutrophils # Man Monocytes # (Manual) POC ABG pH 7.042 L ABG pH POC ABG pO2 148 H ABG pO2 ABG HCO3 ABG Base Excess VBG pH VBG pO2 Sodium 136 L Potassium Chloride 107.1 H Carbon Dioxide 3 L* BUN 4 L Creatinine 0.5 L Glucose 192 H POC Glucose Hemoglobin A1c Calcium 7.6 L Total Creatine Kinase CK-MB (CK-2) Total Protein Albumin Lipase 08/05/19 08/05/19 08/05/19 08:24 10:13 12:11 WBC Hgb Hct MCV MCHC RDW Lymph % (Auto) Edwards % (Auto) Edwards # Seg Neutrophils % Seg Neuts % (Manual) Lymphocytes % (Manual) Seg Neutrophils # Seg Neutrophils # Man Monocytes # (Manual) POC ABG pH ABG pH 7.203 L POC ABG pO2 ABG pO2 141.1 H ABG HCO3 5.4 L ABG Base Excess -19.9 L VBG pH VBG pO2 Sodium Potassium Chloride Carbon Dioxide BUN Creatinine Glucose POC Glucose 177 H 135 H Hemoglobin A1c Calcium Total Creatine Kinase CK-MB (CK-2) Total Protein Albumin Lipase 08/05/19 08/05/19 08/05/19 14:46 16:49 21:31 WBC Hgb Hct MCV MCHC RDW Lymph % (Auto) Edwards % (Auto) Edwards # Seg Neutrophils % Seg Neuts % (Manual) Lymphocytes % (Manual) Seg Neutrophils # Seg Neutrophils # Man Monocytes # (Manual) POC ABG pH ABG pH POC ABG pO2 ABG pO2 ABG HCO3 ABG Base Excess VBG pH VBG pO2 Sodium Potassium Chloride Carbon Dioxide BUN Creatinine Glucose POC Glucose 184 H 204 H 168 H Hemoglobin A1c Calcium Total Creatine Kinase CK-MB (CK-2) Total Protein Albumin Lipase 08/05/19 08/06/19 08/06/19 21:51 03:57 07:35 WBC Hgb Hct MCV MCHC RDW Lymph % (Auto) Edwards % (Auto) Edwards # Seg Neutrophils % Seg Neuts % (Manual) Lymphocytes % (Manual) Seg Neutrophils # Seg Neutrophils # Man Monocytes # (Manual) POC ABG pH ABG pH POC ABG pO2 ABG pO2 ABG HCO3 ABG Base Excess VBG pH VBG pO2 Sodium 133 L Potassium 2.4 L* D 3.1 L D Chloride 96.6 L 94.3 L Carbon Dioxide 12 L D 7 L* BUN 4 L 5 L Creatinine 0.3 L 0.6 L D Glucose 169 H 268 H POC Glucose 223 H Hemoglobin A1c Calcium 7.3 L 7.3 L Total Creatine Kinase CK-MB (CK-2) Total Protein Albumin Lipase 08/06/19 08/06/19 08/06/19 11:42 15:20 17:04 WBC Hgb Hct MCV MCHC RDW Lymph % (Auto) Edwards % (Auto) Edwards # Seg Neutrophils % Seg Neuts % (Manual) Lymphocytes % (Manual) Seg Neutrophils # Seg Neutrophils # Man Monocytes # (Manual) POC ABG pH ABG pH POC ABG pO2 ABG pO2 ABG HCO3 ABG Base Excess VBG pH VBG pO2 Sodium Potassium 2.8 L* Chloride 95.8 L Carbon Dioxide 15 L D BUN 3 L Creatinine 0.4 L Glucose 178 H POC Glucose 255 H 175 H Hemoglobin A1c Calcium 8.2 L Total Creatine Kinase CK-MB (CK-2) Total Protein Albumin Lipase 08/06/19 08/07/19 08/07/19 21:14 00:47 04:02 WBC 11.7 H Hgb Hct MCV MCHC 35 H RDW 12.2 L Lymph % (Auto) 10.2 L Edwards % (Auto) 11.1 H Edwards # 1.3 H Seg Neutrophils % 78.3 H Seg Neuts % (Manual) Lymphocytes % (Manual) Seg Neutrophils # 9.2 H Seg Neutrophils # Man Monocytes # (Manual) POC ABG pH ABG pH POC ABG pO2 ABG pO2 ABG HCO3 ABG Base Excess VBG pH VBG pO2 Sodium 130 L D Potassium Chloride 93.2 L Carbon Dioxide 12 L BUN 4 L Creatinine 0.5 L Glucose 158 H POC Glucose 254 H Hemoglobin A1c Calcium 7.8 L Total Creatine Kinase CK-MB (CK-2) Total Protein Albumin Lipase 08/07/19 08/07/19 08/07/19 08:40 10:18 11:45 WBC Hgb Hct MCV MCHC RDW Lymph % (Auto) Edwards % (Auto) Edwards # Seg Neutrophils % Seg Neuts % (Manual) Lymphocytes % (Manual) Seg Neutrophils # Seg Neutrophils # Man Monocytes # (Manual) POC ABG pH ABG pH POC ABG pO2 ABG pO2 ABG HCO3 ABG Base Excess VBG pH VBG pO2 Sodium 129 L Potassium 3.2 L Chloride 95.8 L Carbon Dioxide 8 L* BUN 5 L Creatinine 0.6 L Glucose 312 H POC Glucose 156 H 280 H Hemoglobin A1c Calcium 7.4 L Total Creatine Kinase CK-MB (CK-2) Total Protein Albumin Lipase 08/07/19 08/07/19 08/07/19 15:51 19:07 21:28 WBC Hgb Hct MCV MCHC RDW Lymph % (Auto) Edwards % (Auto) Edwards # Seg Neutrophils % Seg Neuts % (Manual) Lymphocytes % (Manual) Seg Neutrophils # Seg Neutrophils # Man Monocytes # (Manual) POC ABG pH ABG pH POC ABG pO2 ABG pO2 ABG HCO3 ABG Base Excess VBG pH VBG pO2 Sodium 132 L Potassium 3.4 L Chloride 92.1 L Carbon Dioxide 16 L D BUN 3 L Creatinine 0.3 L Glucose 321 H POC Glucose 171 H 344 H Hemoglobin A1c Calcium 7.3 L Total Creatine Kinase CK-MB (CK-2) Total Protein Albumin Lipase 08/07/19 08/08/19 08/08/19 Unknown 03:39 08:49 WBC Hgb Hct MCV MCHC RDW Lymph % (Auto) Edwards % (Auto) Edwards # Seg Neutrophils % Seg Neuts % (Manual) Lymphocytes % (Manual) Seg Neutrophils # Seg Neutrophils # Man Monocytes # (Manual) POC ABG pH ABG pH POC ABG pO2 ABG pO2 ABG HCO3 ABG Base Excess VBG pH VBG pO2 Sodium 133 L 133 L Potassium 2.9 L* 3.4 L Chloride 94.9 L 93.7 L Carbon Dioxide 8 L* 14 L BUN 4 L 3 L Creatinine 0.5 L 0.4 L Glucose 185 H 235 H POC Glucose 277 H Hemoglobin A1c Calcium 7.4 L 7.3 L Total Creatine Kinase CK-MB (CK-2) Total Protein Albumin Lipase 08/08/19 08/08/19 08/08/19 12:54 17:50 21:52 WBC Hgb Hct MCV MCHC RDW Lymph % (Auto) Edwards % (Auto) Edwards # Seg Neutrophils % Seg Neuts % (Manual) Lymphocytes % (Manual) Seg Neutrophils # Seg Neutrophils # Man Monocytes # (Manual) POC ABG pH ABG pH POC ABG pO2 ABG pO2 ABG HCO3 ABG Base Excess VBG pH VBG pO2 Sodium Potassium Chloride Carbon Dioxide BUN Creatinine Glucose POC Glucose 310 H 342 H 330 H Hemoglobin A1c Calcium Total Creatine Kinase CK-MB (CK-2) Total Protein Albumin Lipase 08/09/19 08/09/19 08/09/19 04:01 07:33 11:23 WBC Hgb Hct MCV MCHC RDW Lymph % (Auto) Edwards % (Auto) Edwards # Seg Neutrophils % Seg Neuts % (Manual) Lymphocytes % (Manual) Seg Neutrophils # Seg Neutrophils # Man Monocytes # (Manual) POC ABG pH ABG pH POC ABG pO2 ABG pO2 ABG HCO3 ABG Base Excess VBG pH VBG pO2 Sodium 135 L Potassium 2.8 L* Chloride 95.2 L Carbon Dioxide BUN 2 L Creatinine 0.4 L Glucose 129 H POC Glucose 261 H 229 H Hemoglobin A1c Calcium 7.6 L Total Creatine Kinase CK-MB (CK-2) Total Protein Albumin Lipase 08/09/19 08/09/19 08/09/19 13:20 13:20 17:05 WBC Hgb Hct MCV MCHC RDW Lymph % (Auto) Edwards % (Auto) Edwards # Seg Neutrophils % Seg Neuts % (Manual) Lymphocytes % (Manual) Seg Neutrophils # Seg Neutrophils # Man Monocytes # (Manual) POC ABG pH ABG pH POC ABG pO2 ABG pO2 ABG HCO3 ABG Base Excess VBG pH VBG pO2 Sodium Potassium 3.2 L Chloride Carbon Dioxide BUN Creatinine Glucose POC Glucose 284 H Hemoglobin A1c 13.1 H Calcium Total Creatine Kinase CK-MB (CK-2) Total Protein Albumin Lipase 08/09/19 08/10/19 08/10/19 21:28 05:37 07:40 WBC Hgb Hct MCV MCHC RDW Lymph % (Auto) Edwards % (Auto) Edwards # Seg Neutrophils % Seg Neuts % (Manual) Lymphocytes % (Manual) Seg Neutrophils # Seg Neutrophils # Man Monocytes # (Manual) POC ABG pH ABG pH POC ABG pO2 ABG pO2 ABG HCO3 ABG Base Excess VBG pH VBG pO2 Sodium 135 L Potassium 3.2 L Chloride 92.7 L Carbon Dioxide BUN 3 L Creatinine 0.4 L Glucose 323 H POC Glucose 309 H 355 H Hemoglobin A1c Calcium Total Creatine Kinase CK-MB (CK-2) Total Protein Albumin Lipase 08/10/19 11:49 WBC Hgb Hct MCV MCHC RDW Lymph % (Auto) Edwards % (Auto) Edwards # Seg Neutrophils % Seg Neuts % (Manual) Lymphocytes % (Manual) Seg Neutrophils # Seg Neutrophils # Man Monocytes # (Manual) POC ABG pH ABG pH POC ABG pO2 ABG pO2 ABG HCO3 ABG Base Excess VBG pH VBG pO2 Sodium Potassium Chloride Carbon Dioxide BUN Creatinine Glucose POC Glucose 293 H Hemoglobin A1c Calcium Total Creatine Kinase CK-MB (CK-2) Total Protein Albumin Lipase Allied health notes reviewed: nursing
[2019-08-11] MEDS ORDERED: POLYETHYLENE GLYCOL 3350 17 GM POWDER PO PRN (00:09)
[2019-08-11] MEDS: DOCUSATE SODIUM 100 MG CAP PO SCH ×2 (02:25→11:01)
[2019-08-11] MEDS: INSULIN NPH/REGULAR 70/30 INJ SUB-Q SCH (08:36)
[2019-08-11] MEDS: INSULIN LISPRO 100 UNIT/ML SUB-Q SCH ×3 (08:36→18:09)
[2019-08-11] MEDS: SUCRALFATE 1 GM TAB PO SCH ×3 (08:43→18:09)
[2019-08-11] MEDS ORDERED: POTASSIUM CHLORIDE ER 20 MEQ TAB PO SCH (10:00)
--- NOTE | 2019-08-11 10:33 | Gastroenterology Progress Note ---
<YONIS MEYER - Last Filed: 08/11/19 11:03> Assessment and Plan 1.atypical CP 2.dysphagia/globus sensation -esophagram yesterday showed suspected esophageal dysmotility (no mass or mucosal defect) -clinically, patient reports symptoms improving. Denies abd pain or N/V. Currently tolerating soft diet (ate oatmeal this am for breakfast). -continue PPI and carafate -continue supportive care -patient okay to be d/c per GI standpoint on soft diet and current medications with f/u in clinic ~2 weeks for further workup as outpatient -will sign off, please call if needed Subjective Date of service: 08/11/19 Principal diagnosis: Dysphagia Interval history: No acute distress. Tolerating soft diet (ate oatmeal for breakfast). Denies abd pain or N/V. Objective - Constitutional Vitals: Temp Pulse Resp BP Pulse Ox 97.8 F 108 H 18 124/83 100 08/11/19 07:01 08/11/19 07:01 08/11/19 07:01 08/11/19 07:01 08/11/19 07:01 General appearance: no acute distress - Respiratory Respiratory effort: normal - Cardiovascular Rhythm: other (tachycardia) - Gastrointestinal General gastrointestinal: Present: soft, non-tender, non-distended, normal bowel sounds - Integumentary Integumentary: Present: warm, dry - Neurologic Neurological: alert and oriented x3 - Labs CBC & Chem 7: 08/07/19 04:02 08/11/19 09:16 Labs: Laboratory Results - last 24 hr 08/10/19 08/10/19 08/10/19 11:49 16:55 21:44 POC Glucose 293 H 204 H 309 H Magnesium 08/11/19 08/11/19 07:48 09:16 POC Glucose 237 H Magnesium 1.80 <DEBBY WEST - Last Filed: 08/11/19 22:59> Assessment and Plan Patient seen and examined. I have reviewed the advanced practitioner's evaluation, assessment, and plan, and agree with them. I note the following additions: patient continues to gradually improve, ok for dc, opd f/u, if still with symptoms at f/u will need egd and if neg esoph manometry - Patient Problems (1) Dysphagia Status: Acute (2) Chest wall pain Status: Acute (3) Nausea & vomiting Status: Acute Objective - Constitutional Vitals: Temp Pulse Resp BP Pulse Ox 99.5 F 118 H 16 108/72 100 08/11/19 17:00 08/11/19 18:07 08/11/19 17:00 08/11/19 18:07 08/11/19 17:00 - Labs CBC & Chem 7: 08/07/19 04:02 08/11/19 14:32 Labs: Laboratory Results - last 24 hr 08/11/19 08/11/19 08/11/19 07:48 09:16 12:07 Potassium 2.6 L* POC Glucose 237 H 279 H Magnesium 1.80 08/11/19 08/11/19 14:32 17:00 Potassium 3.1 L POC Glucose 205 H Magnesium
[2019-08-11] MEDS: PANTOPRAZOLE 40 MG TAB PO SCH (11:01)
[2019-08-11] MEDS: HEPARIN 5,000 UNIT/1 ML VIAL SUB-Q SCH (11:02)
[2019-08-11] MEDS: POTASSIUM CHLORIDE ER 20 MEQ TAB PO SCH ×2 (12:29→18:09)
--- NOTE | 2019-08-11 13:35 | Progress Note ---
Assessment and Plan - Patient Problems (1) DKA (diabetic ketoacidoses) Current Visit: Yes Status: Acute Qualifiers: Diabetes mellitus type: type 1 Diabetes mellitus complication detail: without coma Qualified Code(s): E10.10 - Type 1 diabetes mellitus with ketoacidosis without coma Plan to address problem: met acidosis improved with HD/ bicarb gtt. stopped bicarb gtt. no need for further HD (2) Hypokalemia Current Visit: Yes Status: Acute Plan to address problem: K supplementation with K Dur to target K > 3.5 prior to discharge (3) Nausea & vomiting Current Visit: Yes Status: Acute Plan to address problem: Management per primary attending. Subjective Date of service: 08/11/19 Principal diagnosis: Dysphagia Interval history: patient awake, alert, in no acute distress. Objective - Vital Signs Vital signs: Vital Signs - 12hr 08/11/19 08/11/19 07:01 12:33 Temperature 97.8 F 98.1 F Pulse Rate 108 H 123 H Respiratory 18 16 Rate Blood Pressure 124/83 89/44 O2 Sat by Pulse 100 98 Oximetry - General Appearance General appearance: well-developed, well-nourished, appears stated age EENT: ATNC, PERRL, mucous membranes moist Neck: no JVD Respiratory: Present: Clear to Ascultation Cardiology: regular, S1S2 Gastrointestinal: normoactive bowel sounds Integumentary: no rash, other (no edema ) Neurologic: no focal deficit, alert and oriented x3, strength 5/5, CN 3-12 intact Psychiatric: mood/affect appropriate, cooperative - Lab 08/07/19 04:02 08/11/19 09:16 Most recent lab results ABG pH 7.203 pH Units (7.350-7.450) L 08/05/19 10:13 ABG pCO2 14.1 mm Hg 08/05/19 10:13 ABG pO2 141.1 mm Hg (80.0-90.0) H 08/05/19 10:13 ABG HCO3 5.4 mmol/L (20.0-26.0) L 08/05/19 10:13 ABG O2 Saturation 98.5 % (95.0-99.0) 08/05/19 10:13 Calcium 8.7 mg/dL (8.4-10.2) 08/10/19 05:37 Phosphorus 4.00 mg/dL (2.5-4.5) 08/02/19 23:12 Magnesium 1.80 mg/dL (1.7-2.3) 08/11/19 09:16 Medications & Allergies - Medications Allergies/Adverse Reactions: Allergies peach Allergy (Verified 08/05/19 09:15) Hives Home Medications: Home Medications Medication Instructions Recorded Confirmed Last Taken Type Empagliflozin [Jardiance] 25 mg PO DAILY 08/03/19 08/05/19 08/01/19 07:30 History Insulin Lispro [Humalog Kwikpen 18 units SQ TID 08/03/19 08/05/19 08/05/19 09:12 History 200 UNITS/ML] Ozempic 0.25 mg SQ 1XW 08/05/19 08/05/19 07/31/19 History Active Medications: Generic Name Dose Route Start Last Admin Trade Name Freq PRN Reason Stop Dose Admin Acetaminophen 650 mg 08/02/19 23:14 Tylenol FL Q4H PRN Pain, Mild (1-3) Acetaminophen 650 mg 08/04/19 15:17 08/10/19 10:04 Tylenol PO 650 mg Q4H PRN Administration Pain, Mild (1-3) Al Hydrox/Mg Hydrox/Simethicone 30 ml 08/04/19 12:40 08/07/19 19:54 Alum-Mag Hydrox-Simeth 872-592-16mr/5ml PO 30 ml Q4H PRN Administration Indigestion Albumin Human 12.5 gm 08/05/19 10:33 Alburx 25% (Albumin) IV GUANACO PRN Hypotension Docusate Sodium 100 mg 08/11/19 01:00 08/11/19 11:01 Colace PO Not Given BID ANTONIO Heparin Sodium (Porcine) 5,000 unit 08/03/19 10:00 08/11/19 11:02 Heparin SUB-Q Not Given Q12HR ANTONIO Sodium Chloride 100 mls @ 999 mls/hr 08/05/19 10:33 Nacl 0.9% IV GUANACO PRN Hypotension Insulin Human Isoph/Insulin Regular 20 unit 08/10/19 10:00 08/11/19 08:36 Humulin 70/30 SUB-Q 20 unit BIDDIAB ANTONIO Administration Insulin Human Lispro 0 unit 08/10/19 16:30 08/11/19 08:36 Humalog SUB-Q 4 unit ACHS ANTONIO Administration Protocol Metoclopramide HCl 10 mg 08/05/19 05:27 08/07/19 09:08 Reglan IV 10 mg Q6H PRN Administration Nausea And Vomiting Metoprolol Tartrate 5 mg 08/05/19 13:35 08/08/19 14:15 Metoprolol IV 5 mg Q6HR PRN Administration Tachyarrhythmias Morphine Sulfate 2 mg 08/02/19 23:13 08/09/19 22:43 Morphine IV 2 mg Q4H PRN Administration Pain, Moderate (4-6) Nitroglycerin 0.4 mg 08/04/19 06:17 08/04/19 06:00 Nitrostat SL 0.4 mg .Q5MIN PRN Administration Chest Pain Ondansetron HCl 4 mg 08/02/19 23:12 08/07/19 19:54 Zofran IV 4 mg Q8H PRN Administration Nausea And Vomiting Pantoprazole Sodium 40 mg 08/04/19 10:00 08/11/19 11:01 Protonix PO 40 mg BID ANTONIO Administration Polyethylene Glycol 17 gm 08/11/19 00:09 Miralax 3350 PO QDAY PRN Constipation Potassium Chloride 20 meq 08/11/19 10:00 08/11/19 11:01 K-Dur PO 20 meq QDAY ANTONIO Administration Potassium Chloride 40 meq 08/11/19 12:00 08/11/19 12:29 K-Dur PO 08/11/19 15:01 40 meq Q3H ANTONIO Administration Sucralfate 1 gm 08/09/19 11:30 08/11/19 12:29 Carafate PO 1 gm ACHS ANTONIO Administration
[2019-08-11] MEDS ORDERED: INSULIN NPH/REGULAR 70/30 INJ SUB-Q SCH (14:20)
--- NOTE | 2019-08-11 17:31 | Discharge Summary ---
Providers - Providers Date of Admission: 08/02/19 23:06 Date of discharge: 08/11/19 Attending physician: MISSY TIMMONS 08/03/19 02:21 Consult to Physician [CONS] Routine Comment: Consulting Provider: CHILANGO GRUBER Physician Instructions: Reason For Exam: ICU ADMISSION FOR DKA REQUIRING INSULIN DRIP 08/04/19 12:59 Consult to Physician [CONS] Routine Comment: Consulting Provider: BHUMIKA SANCHEZ Physician Instructions: Reason For Exam: severe metabolic acidosis 08/05/19 10:51 Consult to Physician [CONS] Stat Comment: Consulting Provider: DEBBY LIMA Physician Instructions: insertion of temporary dialysis catheter Reason For Exam: stat vas cath placement for emergent dialysis 08/08/19 13:12 Consult to Physician [CONS] Routine Comment: Consulting Provider: MAHAD BROWNING Physician Instructions: Reason For Exam: Dysphagia Physical Therapy Evaluation and Treat [CONS] Routine Comment: Reason For Exam: evaluate and treat Primary care physician: GREASE RACK WORKER Hospitalization Reason for admission: Diabetes Keto Acidosis/DKA Condition: Stable Pertinent studies: CXR CT abd and pelvis ECHO Barium swallow Procedures: Dialysis catheter placement Hospital course: 39-year-old female with past medical history of insulin-dependent diabetes and hysterectomy presents to the hospital complaining of abdominal pain, nausea, vomiting, and by mouth intolerance 2 days. Abdominal pain is generalized but greatest in the epigastric area. Patient states she has not had anything to eat or drink in 2 days. She complains of anterior sternal chest pain that is reproducible on palpation. Questionable insulin compliance. Initial w/u consistant with DKA.Initiated DKA protocol admitted to ICU,later changed to long acting insulin. Received diabetic education,nutrition and diabetic diet education. Symptoms improved. Today patient feels better,no new complaints. Stable at discharge. Discharge Diagnosis: --DKA: Resolved --Uncontrolled diabetes mellitus; Accu-Chek sliding scale coverage ADA diet Novolin 70/30 insulin 20 units twice daily Diabetic education nutrition consult, A1c 13.1 Possible home health nurse at discharge for disease monitoring and education --Severe Metabolic acidosis: Patient s/p hemodialysis. Nephrology following Acidosis significantly improved, patient received bicarbonate drip recommended by nephro Continue supportive care . Hemodialysis as needed --Severe hypokalemia; Replace with potassium chloride per protocol Follow electrolytes. Check magnesium --Hyponatremia/pseudohyponatremia secondary to hyperglycemia; Gradually improving, closely monitor electrolytes --Persistent tachycardia. Likely physiologic from acidosis. Echo; EF 60 to 65%, IV fluids, low-dose Xanax --DVT prophylaxis; heparin Stable at discharge. Disposition: DC-01 TO HOME OR SELFCARE Time spent for discharge: 32 min Core Measure Documentation - Palliative Care Palliative Care/ Comfort Measures: Not Applicable - Core Measures Any of the following diagnoses?: none Exam - Constitutional Vitals: Temp Pulse Resp BP Pulse Ox 99.5 F 134 H 16 92/54 100 08/11/19 17:00 08/11/19 17:00 08/11/19 17:00 08/11/19 17:00 08/11/19 17:00 General appearance: Present: no acute distress, well-nourished - EENT Eyes: Present: PERRL, EOM intact - Neck Neck: Present: supple, normal ROM - Respiratory Respiratory effort: normal Respiratory: bilateral: diminished, negative: rales, rhonchi, wheezing - Cardiovascular Rhythm: regular Heart Sounds: Present: S1 & S2 - Extremities Extremities: no ischemia, No edema - Abdominal General gastrointestinal: Present: soft, non-tender, non-distended, normal bowel sounds - Integumentary Integumentary: Present: clear, warm - Musculoskeletal Musculoskeletal: strength equal bilaterally, generalized weakness - Psychiatric Psychiatric: appropriate mood/affect, cooperative - Neurologic Neurologic: CNII-XII intact, moves all extremities Plan Activity: no restrictions Diet: diabetic Additional Instructions: Advised to comply with medications and diet. Avoid hypoglycemia Follow up with: PRIMARY CARE, [Primary Care Provider] - 7 Days CLARKE HENDERSON MD [Staff Physician] - 7 Days DEBBY WEST MD [Staff Physician] - 7 Days DEDRA KENDRICK MD [Staff Physician] - 7 Days Prescriptions: Insulin Lispro [Humalog Kwikpen 200 UNITS/ML] See Protocol SQ ACHS 30 Days #1 pen Potassium Chloride [K-Dur] 20 meq PO QDAY #30 tablet Polyethylene Glycol 3350 [Miralax 3350] 17 gm PO QDAY PRN #20 powd.pack PRN Reason: Constipation Insulin NPH Hum/Reg Insulin Hm [Novolin 70-30 Flexpen] 24 unit SQ BID #1 insuln.pen Pantoprazole [Protonix TAB] 40 mg PO BID #20 tablet Other Discharge Orders: Glucometer (Amb) Location: None Selected Glucometer supplies[Amb] Location: None Selected
[2019-08-11 18:07] VITALS: BP 108/72
--- NOTE | 2019-08-11 18:09 | Progress Note ---
Assessment and Plan Patient alert and awake. Resting on room air O2 saturation 100%. Denies chest pain, shortness of breath or cough. Patient afebrile. No leukocytosis. Patient going home to day. If any lung problems follow up with me as out patient. - Patient Problems (1) Chest wall pain Current Visit: Yes Status: Acute Plan to address problem: No complaint of chest pain to day. (2) DKA (diabetic ketoacidoses) Current Visit: Yes Status: Acute Qualifiers: Diabetes mellitus type: type 1 Diabetes mellitus complication detail: without coma Qualified Code(s): E10.10 - Type 1 diabetes mellitus with ketoacidosis without coma Plan to address problem: Appears clinically improved. (3) Metabolic acidosis Current Visit: Yes Status: Acute Plan to address problem: Improved. (4) Hypokalemia Current Visit: Yes Status: Acute Plan to address problem: K+ 3.1 Supplemented K+ Subjective Date of service: 08/11/19 Principal diagnosis: Dysphagia Interval history: Patient alert and awake. Resting on room air O2 saturation 100%. Denies chest pain, shortness of breath or cough. Patient afebrile. No leukocytosis. Patient going home to day. If any lung problems follow up with me as out pat ient. Objective Vital Signs - 12hr 08/11/19 08/11/19 08/11/19 07:01 12:33 14:51 Temperature 97.8 F 98.1 F Pulse Rate 108 H 123 H Respiratory 18 16 Rate Blood Pressure 124/83 89/44 Blood Pressure 122/83 [Right] O2 Sat by Pulse 100 98 Oximetry 08/11/19 08/11/19 17:00 18:07 Temperature 99.5 F Pulse Rate 134 H 118 H Respiratory 16 Rate Blood Pressure 92/54 Blood Pressure 108/72 [Right] O2 Sat by Pulse 100 Oximetry Constitutional: no acute distress, alert Eyes: non-icteric ENT: oropharynx moist, other (mallampati 2) Neck: supple, no lymphadenopathy, no JVD Effort: mildly labored Ascultation: Bilateral: diminished breath sounds Percussion: Bilateral: not dull Cardiovascular: regular rate and rhythm, other (S1,S2, no murmurs, gallops or rubs) Gastrointestinal: normoactive bowel sounds, soft, non-tender, non-distended Integumentary: normal Extremities: no cyanosis, no edema, pulses normal, no ischemia or petechiae Neurologic: normal mental status, non-focal exam, pupils equal and round, CN II- XII normal, motor strength normal and Psychiatric: anxious, depressed CBC and BMP: 08/07/19 04:02 08/11/19 14:32 ABG, PT/INR, D-dimer: ABG POC ABG pH 7.042 (7.35-7.45) L 08/05/19 06:31 ABG pH 7.203 pH Units (7.350-7.450) L 08/05/19 10:13 ABG pCO2 14.1 mm Hg 08/05/19 10:13 POC ABG pO2 148 (80-105) H 08/05/19 06:31 ABG pO2 141.1 mm Hg (80.0-90.0) H 08/05/19 10:13 POC ABG HCO3 2.2 (22-26 mml/L) 08/05/19 06:31 POC ABG Total CO2 < 5 (23-27mmol/L) 08/05/19 06:31 POC ABG O2 Sat 98 08/05/19 06:31 ABG O2 Saturation 98.5 % (95.0-99.0) 08/05/19 10:13 Abnormal lab findings: Abnormal Labs 08/02/19 08/02/19 08/02/19 19:56 20:11 20:21 WBC 25.1 H Hgb 14.8 H Hct 45.6 H MCV 98 H MCHC RDW 12.8 L Lymph % (Auto) [place] % (Auto) [place] # Seg Neutrophils % Seg Neuts % (Manual) 83.0 H Lymphocytes % (Manual) 10.0 L Seg Neutrophils # Seg Neutrophils # Man 20.8 H Monocytes # (Manual) 1.8 H POC ABG pH ABG pH POC ABG pO2 ABG pO2 ABG HCO3 ABG Base Excess VBG pH VBG pO2 Sodium 133 L Potassium Chloride Carbon Dioxide 13 L BUN Creatinine Glucose 306 H POC Glucose 233 H Hemoglobin A1c Calcium 7.7 L Total Creatine Kinase CK-MB (CK-2) Total Protein Albumin Lipase 08/02/19 08/02/19 08/02/19 20:22 20:23 21:54 WBC Hgb Hct MCV MCHC RDW Lymph % (Auto) [place] % (Auto) [place] # Seg Neutrophils % Seg Neuts % (Manual) Lymphocytes % (Manual) Seg Neutrophils # Seg Neutrophils # Man Monocytes # (Manual) POC ABG pH ABG pH POC ABG pO2 ABG pO2 ABG HCO3 ABG Base Excess VBG pH 6.877 L* VBG pO2 Sodium Potassium Chloride Carbon Dioxide BUN Creatinine Glucose POC Glucose 237 H Hemoglobin A1c Calcium Total Creatine Kinase CK-MB (CK-2) Total Protein Albumin Lipase 10 L 08/02/19 08/02/19 08/02/19 23:02 23:12 23:57 WBC Hgb Hct MCV MCHC RDW Lymph % (Auto) [place] % (Auto) [place] # Seg Neutrophils % Seg Neuts % (Manual) Lymphocytes % (Manual) Seg Neutrophils # Seg Neutrophils # Man Monocytes # (Manual) POC ABG pH ABG pH POC ABG pO2 ABG pO2 ABG HCO3 ABG Base Excess VBG pH VBG pO2 Sodium 135 L Potassium 5.5 H D Chloride 108.2 H Carbon Dioxide 2 L* D BUN Creatinine 0.6 L Glucose 307 H POC Glucose 244 H 255 H Hemoglobin A1c Calcium 7.3 L Total Creatine Kinase CK-MB (CK-2) Total Protein Albumin Lipase 08/03/19 08/03/19 08/03/19 00:34 01:04 02:17 WBC Hgb Hct MCV MCHC RDW Lymph % (Auto) [place] % (Auto) [place] # Seg Neutrophils % Seg Neuts % (Manual) Lymphocytes % (Manual) Seg Neutrophils # Seg Neutrophils # Man Monocytes # (Manual) POC ABG pH ABG pH POC ABG pO2 ABG pO2 ABG HCO3 ABG Base Excess VBG pH VBG pO2 Sodium 135 L Potassium Chloride 108.9 H Carbon Dioxide < 2.0 L* BUN Creatinine 0.6 L Glucose 262 H POC Glucose 245 H 210 H Hemoglobin A1c Calcium 7.1 L Total Creatine Kinase CK-MB (CK-2) Total Protein Albumin Lipase 08/03/19 08/03/19 08/03/19 03:12 04:15 04:16 WBC Hgb Hct MCV MCHC RDW Lymph % (Auto) [place] % (Auto) [place] # Seg Neutrophils % Seg Neuts % (Manual) Lymphocytes % (Manual) Seg Neutrophils # Seg Neutrophils # Man Monocytes # (Manual) POC ABG pH ABG pH POC ABG pO2 ABG pO2 ABG HCO3 ABG Base Excess VBG pH VBG pO2 Sodium Potassium Chloride 113.9 H Carbon Dioxide 4 L* BUN Creatinine Glucose 110 H POC Glucose 190 H 168 H Hemoglobin A1c Calcium 7.3 L Total Creatine Kinase CK-MB (CK-2) Total Protein Albumin Lipase 08/03/19 08/03/19 08/03/19 05:21 06:29 07:52 WBC Hgb Hct MCV MCHC RDW Lymph % (Auto) [place] % (Auto) [place] # Seg Neutrophils % Seg Neuts % (Manual) Lymphocytes % (Manual) Seg Neutrophils # Seg Neutrophils # Man Monocytes # (Manual) POC ABG pH ABG pH POC ABG pO2 ABG pO2 ABG HCO3 ABG Base Excess VBG pH VBG pO2 Sodium Potassium Chloride Carbon Dioxide BUN Creatinine Glucose POC Glucose 113 H 108 H 108 H Hemoglobin A1c Calcium Total Creatine Kinase CK-MB (CK-2) Total Protein Albumin Lipase 08/03/19 08/03/19 08/03/19 08:43 09:09 09:09 WBC 23.8 H Hgb Hct MCV MCHC RDW 12.3 L Lymph % (Auto) [place] % (Auto) [place] # Seg Neutrophils % Seg Neuts % (Manual) 84.0 H Lymphocytes % (Manual) 9.0 L Seg Neutrophils # Seg Neutrophils # Man 20.0 H Monocytes # (Manual) 1.7 H POC ABG pH ABG pH POC ABG pO2 ABG pO2 ABG HCO3 ABG Base Excess VBG pH VBG pO2 Sodium Potassium Chloride 111.6 H Carbon Dioxide 8 L* BUN Creatinine 0.6 L Glucose 125 H POC Glucose 108 H Hemoglobin A1c Calcium 7.7 L Total Creatine Kinase CK-MB (CK-2) Total Protein Albumin Lipase 08/03/19 08/03/19 08/03/19 09:50 11:38 12:35 WBC Hgb Hct MCV MCHC RDW Lymph % (Auto) [place] % (Auto) [place] # Seg Neutrophils % Seg Neuts % (Manual) Lymphocytes % (Manual) Seg Neutrophils # Seg Neutrophils # Man Monocytes # (Manual) POC ABG pH ABG pH POC ABG pO2 ABG pO2 ABG HCO3 ABG Base Excess VBG pH VBG pO2 Sodium Potassium Chloride Carbon Dioxide BUN Creatinine Glucose POC Glucose 128 H 130 H 126 H Hemoglobin A1c Calcium Total Creatine Kinase CK-MB (CK-2) Total Protein Albumin Lipase 10/30/19 10/30/19 10/30/19 13:17 14:06 14:31 WBC Hgb Hct MCV MCHC RDW Lymph % (Auto) [place] % (Auto) [place] # Seg Neutrophils % Seg Neuts % (Manual) Lymphocytes % (Manual) Seg Neutrophils # Seg Neutrophils # Man Monocytes # (Manual) POC ABG pH ABG pH POC ABG pO2 ABG pO2 ABG HCO3 ABG Base Excess VBG pH VBG pO2 Sodium Potassium 3.2 L Chloride 113.0 H Carbon Dioxide 10 L BUN Creatinine 0.5 L Glucose 101 H POC Glucose 132 H 135 H Hemoglobin A1c Calcium 7.6 L Total Creatine Kinase CK-MB (CK-2) Total Protein Albumin Lipase 08/03/19 08/03/19 08/03/19 14:31 16:47 17:46 WBC Hgb Hct MCV MCHC RDW Lymph % (Auto) [place] % (Auto) [place] # Seg Neutrophils % Seg Neuts % (Manual) Lymphocytes % (Manual) Seg Neutrophils # Seg Neutrophils # Man Monocytes # (Manual) POC ABG pH ABG pH POC ABG pO2 ABG pO2 ABG HCO3 ABG Base Excess VBG pH VBG pO2 Sodium Potassium Chloride Carbon Dioxide BUN Creatinine Glucose POC Glucose 117 H 110 H Hemoglobin A1c Calcium Total Creatine Kinase 161 H CK-MB (CK-2) 4.8 H Total Protein Albumin Lipase 08/03/19 08/03/19 08/03/19 19:53 21:00 21:11 WBC Hgb Hct MCV MCHC RDW Lymph % (Auto) [place] % (Auto) [place] # Seg Neutrophils % Seg Neuts % (Manual) Lymphocytes % (Manual) Seg Neutrophils # Seg Neutrophils # Man Monocytes # (Manual) POC ABG pH ABG pH POC ABG pO2 ABG pO2 ABG HCO3 ABG Base Excess VBG pH VBG pO2 Sodium Potassium Chloride 109.9 H Carbon Dioxide 8 L* BUN Creatinine 0.5 L Glucose 26 L* POC Glucose 116 H 118 H Hemoglobin A1c Calcium 7.5 L Total Creatine Kinase CK-MB (CK-2) Total Protein Albumin Lipase 08/03/19 08/03/19 08/03/19 22:02 22:05 23:16 WBC Hgb Hct MCV MCHC RDW Lymph % (Auto) [place] % (Auto) [place] # Seg Neutrophils % Seg Neuts % (Manual) Lymphocytes % (Manual) Seg Neutrophils # Seg Neutrophils # Man Monocytes # (Manual) POC ABG pH ABG pH POC ABG pO2 ABG pO2 ABG HCO3 ABG Base Excess VBG pH VBG pO2 Sodium 136 L Potassium 3.4 L Chloride 107.3 H Carbon Dioxide 8 L* BUN 5 L Creatinine 0.6 L Glucose 30 L* 357 H POC Glucose 132 H Hemoglobin A1c Calcium 7.7 L Total Creatine Kinase CK-MB (CK-2) Total Protein 5.9 L Albumin 3.5 L Lipase 08/03/19 08/04/19 08/04/19 23:51 00:32 02:08 WBC Hgb Hct MCV MCHC RDW Lymph % (Auto) [place] % (Auto) [place] # Seg Neutrophils % Seg Neuts % (Manual) Lymphocytes % (Manual) Seg Neutrophils # Seg Neutrophils # Man Monocytes # (Manual) POC ABG pH ABG pH 7.198 L* POC ABG pO2 ABG pO2 122.5 H ABG HCO3 4.4 L ABG Base Excess -20.8 L VBG pH VBG pO2 Sodium Potassium Chloride Carbon Dioxide BUN Creatinine Glucose POC Glucose 294 H 270 H Hemoglobin A1c Calcium Total Creatine Kinase CK-MB (CK-2) Total Protein Albumin Lipase 08/04/19 08/04/19 08/04/19 04:47 04:47 06:19 WBC 17.8 H Hgb Hct MCV MCHC RDW 12.4 L Lymph % (Auto) [place] % (Auto) [place] # Seg Neutrophils % Seg Neuts % (Manual) Lymphocytes % (Manual) Seg Neutrophils # Seg Neutrophils # Man Monocytes # (Manual) POC ABG pH ABG pH POC ABG pO2 ABG pO2 ABG HCO3 ABG Base Excess VBG pH 7.273 L VBG pO2 51.9 H Sodium Potassium Chloride 111.5 H Carbon Dioxide 4 L* BUN 4 L Creatinine 0.5 L Glucose 260 H POC Glucose Hemoglobin A1c Calcium 7.6 L Total Creatine Kinase CK-MB (CK-2) Total Protein Albumin Lipase 08/04/19 08/04/19 08/04/19 06:20 06:25 06:37 WBC Hgb Hct MCV MCHC RDW Lymph % (Auto) [place] % (Auto) [place] # Seg Neutrophils % Seg Neuts % (Manual) Lymphocytes % (Manual) Seg Neutrophils # Seg Neutrophils # Man Monocytes # (Manual) POC ABG pH ABG pH POC ABG pO2 ABG pO2 ABG HCO3 ABG Base Excess VBG pH VBG pO2 Sodium Potassium Chloride Carbon Dioxide BUN Creatinine Glucose POC Glucose 231 H 250 H Hemoglobin A1c Calcium Total Creatine Kinase 137 H CK-MB (CK-2) Total Protein Albumin Lipase 08/04/19 08/04/19 08/04/19 07:42 11:36 16:27 WBC Hgb Hct MCV MCHC RDW Lymph % (Auto) [place] % (Auto) [place] # Seg Neutrophils % Seg Neuts % (Manual) Lymphocytes % (Manual) Seg Neutrophils # Seg Neutrophils # Man Monocytes # (Manual) POC ABG pH ABG pH POC ABG pO2 ABG pO2 ABG HCO3 ABG Base Excess VBG pH VBG pO2 Sodium Potassium Chloride Carbon Dioxide BUN Creatinine Glucose POC Glucose 286 H 239 H 151 H Hemoglobin A1c Calcium Total Creatine Kinase CK-MB (CK-2) Total Protein Albumin Lipase 08/04/19 08/05/19 08/05/19 21:16 02:10 02:22 WBC Hgb Hct MCV MCHC RDW Lymph % (Auto) [place] % (Auto) [place] # Seg Neutrophils % Seg Neuts % (Manual) Lymphocytes % (Manual) Seg Neutrophils # Seg Neutrophils # Man Monocytes # (Manual) POC ABG pH 7.190 L ABG pH POC ABG pO2 160 H ABG pO2 ABG HCO3 ABG Base Excess VBG pH VBG pO2 Sodium Potassium Chloride Carbon Dioxide BUN Creatinine Glucose POC Glucose 176 H 133 H Hemoglobin A1c Calcium Total Creatine Kinase CK-MB (CK-2) Total Protein Albumin Lipase 08/05/19 08/05/19 08/05/19 04:46 04:46 06:31 WBC 15.5 H Hgb Hct MCV MCHC RDW 12.8 L Lymph % (Auto) 9.5 L [place] % (Auto) 8.9 H [place] # 1.4 H Seg Neutrophils % 81.3 H Seg Neuts % (Manual) Lymphocytes % (Manual) Seg Neutrophils # 12.6 H Seg Neutrophils # Man Monocytes # (Manual) POC ABG pH 7.042 L ABG pH POC ABG pO2 148 H ABG pO2 ABG HCO3 ABG Base Excess VBG pH VBG pO2 Sodium 136 L Potassium Chloride 107.1 H Carbon Dioxide 3 L* BUN 4 L Creatinine 0.5 L Glucose 192 H POC Glucose Hemoglobin A1c Calcium 7.6 L Total Creatine Kinase CK-MB (CK-2) Total Protein Albumin Lipase 08/05/19 08/05/19 08/05/19 08:24 10:13 12:11 WBC Hgb Hct MCV MCHC RDW Lymph % (Auto) [place] % (Auto) [place] # Seg Neutrophils % Seg Neuts % (Manual) Lymphocytes % (Manual) Seg Neutrophils # Seg Neutrophils # Man Monocytes # (Manual) POC ABG pH ABG pH 7.203 L POC ABG pO2 ABG pO2 141.1 H ABG HCO3 5.4 L ABG Base Excess -19.9 L VBG pH VBG pO2 Sodium Potassium Chloride Carbon Dioxide BUN Creatinine Glucose POC Glucose 177 H 135 H Hemoglobin A1c Calcium Total Creatine Kinase CK-MB (CK-2) Total Protein Albumin Lipase 08/05/19 08/05/19 08/05/19 14:46 16:49 21:31 WBC Hgb Hct MCV MCHC RDW Lymph % (Auto) [place] % (Auto) [place] # Seg Neutrophils % Seg Neuts % (Manual) Lymphocytes % (Manual) Seg Neutrophils # Seg Neutrophils # Man Monocytes # (Manual) POC ABG pH ABG pH POC ABG pO2 ABG pO2 ABG HCO3 ABG Base Excess VBG pH VBG pO2 Sodium Potassium Chloride Carbon Dioxide BUN Creatinine Glucose POC Glucose 184 H 204 H 168 H Hemoglobin A1c Calcium Total Creatine Kinase CK-MB (CK-2) Total Protein Albumin Lipase 08/05/19 08/06/19 08/06/19 21:51 03:57 07:35 WBC Hgb Hct MCV MCHC RDW Lymph % (Auto) [place] % (Auto) [place] # Seg Neutrophils % Seg Neuts % (Manual) Lymphocytes % (Manual) Seg Neutrophils # Seg Neutrophils # Man Monocytes # (Manual) POC ABG pH ABG pH POC ABG pO2 ABG pO2 ABG HCO3 ABG Base Excess VBG pH VBG pO2 Sodium 133 L Potassium 2.4 L* D 3.1 L D Chloride 96.6 L 94.3 L Carbon Dioxide 12 L D 7 L* BUN 4 L 5 L Creatinine 0.3 L 0.6 L D Glucose 169 H 268 H POC Glucose 223 H Hemoglobin A1c Calcium 7.3 L 7.3 L Total Creatine Kinase CK-MB (CK-2) Total Protein Albumin Lipase 08/06/19 08/06/19 08/06/19 11:42 15:20 17:04 WBC Hgb Hct MCV MCHC RDW Lymph % (Auto) [place] % (Auto) [place] # Seg Neutrophils % Seg Neuts % (Manual) Lymphocytes % (Manual) Seg Neutrophils # Seg Neutrophils # Man Monocytes # (Manual) POC ABG pH ABG pH POC ABG pO2 ABG pO2 ABG HCO3 ABG Base Excess VBG pH VBG pO2 Sodium Potassium 2.8 L* Chloride 95.8 L Carbon Dioxide 15 L D BUN 3 L Creatinine 0.4 L Glucose 178 H POC Glucose 255 H 175 H Hemoglobin A1c Calcium 8.2 L Total Creatine Kinase CK-MB (CK-2) Total Protein Albumin Lipase 08/06/19 08/07/19 08/07/19 21:14 00:47 04:02 WBC 11.7 H Hgb Hct MCV MCHC 35 H RDW 12.2 L Lymph % (Auto) 10.2 L [place] % (Auto) 11.1 H [place] # 1.3 H Seg Neutrophils % 78.3 H Seg Neuts % (Manual) Lymphocytes % (Manual) Seg Neutrophils # 9.2 H Seg Neutrophils # Man Monocytes # (Manual) POC ABG pH ABG pH POC ABG pO2 ABG pO2 ABG HCO3 ABG Base Excess VBG pH VBG pO2 Sodium 130 L D Potassium Chloride 93.2 L Carbon Dioxide 12 L BUN 4 L Creatinine 0.5 L Glucose 158 H POC Glucose 254 H Hemoglobin A1c Calcium 7.8 L Total Creatine Kinase CK-MB (CK-2) Total Protein Albumin Lipase 08/07/19 08/07/19 08/07/19 08:40 10:18 11:45 WBC Hgb Hct MCV MCHC RDW Lymph % (Auto) [place] % (Auto) [place] # Seg Neutrophils % Seg Neuts % (Manual) Lymphocytes % (Manual) Seg Neutrophils # Seg Neutrophils # Man Monocytes # (Manual) POC ABG pH ABG pH POC ABG pO2 ABG pO2 ABG HCO3 ABG Base Excess VBG pH VBG pO2 Sodium 129 L Potassium 3.2 L Chloride 95.8 L Carbon Dioxide 8 L* BUN 5 L Creatinine 0.6 L Glucose 312 H POC Glucose 156 H 280 H Hemoglobin A1c Calcium 7.4 L Total Creatine Kinase CK-MB (CK-2) Total Protein Albumin Lipase 08/07/19 08/07/19 08/07/19 15:51 19:07 21:28 WBC Hgb Hct MCV MCHC RDW Lymph % (Auto) [place] % (Auto) [place] # Seg Neutrophils % Seg Neuts % (Manual) Lymphocytes % (Manual) Seg Neutrophils # Seg Neutrophils # Man Monocytes # (Manual) POC ABG pH ABG pH POC ABG pO2 ABG pO2 ABG HCO3 ABG Base Excess VBG pH VBG pO2 Sodium 132 L Potassium 3.4 L Chloride 92.1 L Carbon Dioxide 16 L D BUN 3 L Creatinine 0.3 L Glucose 321 H POC Glucose 171 H 344 H Hemoglobin A1c Calcium 7.3 L Total Creatine Kinase CK-MB (CK-2) Total Protein Albumin Lipase 08/07/19 08/08/19 08/08/19 Unknown 03:39 08:49 WBC Hgb Hct MCV MCHC RDW Lymph % (Auto) [place] % (Auto) [place] # Seg Neutrophils % Seg Neuts % (Manual) Lymphocytes % (Manual) Seg Neutrophils # Seg Neutrophils # Man Monocytes # (Manual) POC ABG pH ABG pH POC ABG pO2 ABG pO2 ABG HCO3 ABG Base Excess VBG pH VBG pO2 Sodium 133 L 133 L Potassium 2.9 L* 3.4 L Chloride 94.9 L 93.7 L Carbon Dioxide 8 L* 14 L BUN 4 L 3 L Creatinine 0.5 L 0.4 L Glucose 185 H 235 H POC Glucose 277 H Hemoglobin A1c Calcium 7.4 L 7.3 L Total Creatine Kinase CK-MB (CK-2) Total Protein Albumin Lipase 08/08/19 08/08/19 08/08/19 12:54 17:50 21:52 WBC Hgb Hct MCV MCHC RDW Lymph % (Auto) [place] % (Auto) [place] # Seg Neutrophils % Seg Neuts % (Manual) Lymphocytes % (Manual) Seg Neutrophils # Seg Neutrophils # Man Monocytes # (Manual) POC ABG pH ABG pH POC ABG pO2 ABG pO2 ABG HCO3 ABG Base Excess VBG pH VBG pO2 Sodium Potassium Chloride Carbon Dioxide BUN Creatinine Glucose POC Glucose 310 H 342 H 330 H Hemoglobin A1c Calcium Total Creatine Kinase CK-MB (CK-2) Total Protein Albumin Lipase 08/09/19 08/09/19 08/09/19 04:01 07:33 11:23 WBC Hgb Hct MCV MCHC RDW Lymph % (Auto) [place] % (Auto) [place] # Seg Neutrophils % Seg Neuts % (Manual) Lymphocytes % (Manual) Seg Neutrophils # Seg Neutrophils # Man Monocytes # (Manual) POC ABG pH ABG pH POC ABG pO2 ABG pO2 ABG HCO3 ABG Base Excess VBG pH VBG pO2 Sodium 135 L Potassium 2.8 L* Chloride 95.2 L Carbon Dioxide BUN 2 L Creatinine 0.4 L Glucose 129 H POC Glucose 261 H 229 H Hemoglobin A1c Calcium 7.6 L Total Creatine Kinase CK-MB (CK-2) Total Protein Albumin Lipase 08/09/19 08/09/19 08/09/19 13:20 13:20 17:05 WBC Hgb Hct MCV MCHC RDW Lymph % (Auto) [place] % (Auto) [place] # Seg Neutrophils % Seg Neuts % (Manual) Lymphocytes % (Manual) Seg Neutrophils # Seg Neutrophils # Man Monocytes # (Manual) POC ABG pH ABG pH POC ABG pO2 ABG pO2 ABG HCO3 ABG Base Excess VBG pH VBG pO2 Sodium Potassium 3.2 L Chloride Carbon Dioxide BUN Creatinine Glucose POC Glucose 284 H Hemoglobin A1c 13.1 H Calcium Total Creatine Kinase CK-MB (CK-2) Total Protein Albumin Lipase 08/09/19 08/10/19 08/10/19 21:28 05:37 07:40 WBC Hgb Hct MCV MCHC RDW Lymph % (Auto) [place] % (Auto) [place] # Seg Neutrophils % Seg Neuts % (Manual) Lymphocytes % (Manual) Seg Neutrophils # Seg Neutrophils # Man Monocytes # (Manual) POC ABG pH ABG pH POC ABG pO2 ABG pO2 ABG HCO3 ABG Base Excess VBG pH VBG pO2 Sodium 135 L Potassium 3.2 L Chloride 92.7 L Carbon Dioxide BUN 3 L Creatinine 0.4 L Glucose 323 H POC Glucose 309 H 355 H Hemoglobin A1c Calcium Total Creatine Kinase CK-MB (CK-2) Total Protein Albumin Lipase 08/10/19 08/10/19 08/10/19 11:49 16:55 21:44 WBC Hgb Hct MCV MCHC RDW Lymph % (Auto) [place] % (Auto) [place] # Seg Neutrophils % Seg Neuts % (Manual) Lymphocytes % (Manual) Seg Neutrophils # Seg Neutrophils # Man Monocytes # (Manual) POC ABG pH ABG pH POC ABG pO2 ABG pO2 ABG HCO3 ABG Base Excess VBG pH VBG pO2 Sodium Potassium Chloride Carbon Dioxide BUN Creatinine Glucose POC Glucose 293 H 204 H 309 H Hemoglobin A1c Calcium Total Creatine Kinase CK-MB (CK-2) Total Protein Albumin Lipase 08/11/19 08/11/19 08/11/19 07:48 09:16 12:07 WBC Hgb Hct MCV MCHC RDW Lymph % (Auto) [place] % (Auto) [place] # Seg Neutrophils % Seg Neuts % (Manual) Lymphocytes % (Manual) Seg Neutrophils # Seg Neutrophils # Man Monocytes # (Manual) POC ABG pH ABG pH POC ABG pO2 ABG pO2 ABG HCO3 ABG Base Excess VBG pH VBG pO2 Sodium Potassium 2.6 L* Chloride Carbon Dioxide BUN Creatinine Glucose POC Glucose 237 H 279 H Hemoglobin A1c Calcium Total Creatine Kinase CK-MB (CK-2) Total Protein Albumin Lipase 08/11/19 08/11/19 14:32 17:00 WBC Hgb Hct MCV MCHC RDW Lymph % (Auto) [place] % (Auto) [place] # Seg Neutrophils % Seg Neuts % (Manual) Lymphocytes % (Manual) Seg Neutrophils # Seg Neutrophils # Man Monocytes # (Manual) POC ABG pH ABG pH POC ABG pO2 ABG pO2 ABG HCO3 ABG Base Excess VBG pH VBG pO2 Sodium Potassium 3.1 L Chloride Carbon Dioxide BUN Creatinine Glucose POC Glucose 205 H Hemoglobin A1c Calcium Total Creatine Kinase CK-MB (CK-2) Total Protein Albumin Lipase Allied health notes reviewed: nursing
== END 2019-08-11 19:00 | disposition home or self-care (01) | DRG 638 ==
LOC: ED 18:43 → CC1 23:06 → IMCU 08-08 17:07 → 3A 08-09 15:56
PROVIDERS: ADMIT Internal Medicine; ATTEND Internal Medicine
PROC: 4A033R1 Measurement of Arterial Saturation, Peripheral, Percutaneous Approach (ICD-10-PCS; principal; 2019-08-04)
PROC: 06H033Z Insertion of Infusion Device into Inferior Vena Cava, Percutaneous Approach (ICD-10-PCS; 2019-08-05)
PROC: B5191ZA Fluoroscopy of Inferior Vena Cava using Low Osmolar Contrast, Guidance (ICD-10-PCS; 2019-08-05)
PROC: 0JH63XZ Insertion of Tunneled Vascular Access Device into Chest Subcutaneous Tissue and Fascia, Percutaneous Approach (ICD-10-PCS; 2019-08-05)
PROC: B543ZZA Ultrasonography of Right Jugular Veins, Guidance (ICD-10-PCS; 2019-08-05)
PROC: 5A1D70Z Performance of Urinary Filtration, Intermittent, Less than 6 Hours Per Day (ICD-10-PCS; 2019-08-05)
PROC: 5A09357 Assistance with Respiratory Ventilation, Less than 24 Consecutive Hours, Continuous Positive Airway Pressure (ICD-10-PCS; 2019-08-05)
PROC: 5A1D70Z Performance of Urinary Filtration, Intermittent, Less than 6 Hours Per Day (ICD-10-PCS; 2019-08-06)
PROC: 5A1D70Z Performance of Urinary Filtration, Intermittent, Less than 6 Hours Per Day (ICD-10-PCS; 2019-08-07)
DX: E10.10 Type 1 diabetes mellitus with ketoacidosis without coma (principal); E87.1 Hypo-osmolality and hyponatremia; R65.10 Systemic inflammatory response syndrome (SIRS) of non-infectious origin without acute organ dysfunction; D72.829 Elevated white blood cell count, unspecified; R07.89 Other chest pain; R00.0 Tachycardia, unspecified; E10.649 Type 1 diabetes mellitus with hypoglycemia without coma; R13.10 Dysphagia, unspecified; E87.6 Hypokalemia; Z79.4 Long term (current) use of insulin; Z90.710 Acquired absence of both cervix and uterus; Z82.49 Family history of ischemic heart disease and other diseases of the circulatory system; Z83.3 Family history of diabetes mellitus
CPT/HCPCS: 36415; 36556; 36600; 71045; 74176; 74220; 80048; 80053; 80074; 81001; 82140; 82550; 82553; 82803; 82805; 82947; 82962; 83036; 83690; 83735; 84100; 84132; 84145; 84484; 84703; 85007; 85025; 85027; 93005; 93010; 93306; 94760; 99285; G0378; A6250; C1752; J0610; J0696; J1644; J1815; J2250; J2270; J2405; J2765; J3010; J3480; J7030; J7050